=== PATIENT | female | born 1990 | race African-American/Black ===

== ENCOUNTER 2019-04-22 11:30 | Emergency (ER) | payer SELFPAY ==
--- NOTE | 2019-04-22 12:05 | EDPHYS ---
Physician Documentation [facility] Name: Aleksandra Cheng Age: 29 yrs Sex: Female : 1990 Arrival Date: 04/22/2019 Time: 11:32 Bed 19 Private MD: ED Physician Qasim Arredondo HPI: 04/22 11:59 This 29 yrs old Black Female presents to ER via Ambulatory with complaints of Abscess. néstor 11:59 The patient presents with an abscess of the face and mouth, the patient presents with a néstor swollen area of the left cheek. Description: swollen. Onset: The symptoms/episode began/occurred 2 day(s) ago. Possible cause(s): unknown. Associated signs and symptoms: The patient has no apparent associated signs or symptoms. Modifying factors: the symptoms are alleviated by remaining still, the symptoms are aggravated by pressure. Severity of symptoms: At their worst the symptoms were mild, in the emergency department the symptoms are unchanged. The patient has not experienced similar symptoms in the past. MYSQL DBA: 11:37 LMP 04/02/2019 jl7 Historical: - Allergies: 11:37 PENICILLINS; jl7 - Home Meds: 11:37 None [Active]; jl7 - PMHx: 11:37 None; jl7 - PSHx: 11:37 Cholecystectomy; Tubal ligation; jl7 - Immunization history:: Adult Immunizations not up to date. - Social history:: Smoking status: Patient uses tobacco products, denies chronic smoking, but will smoke occasionally. - Ebola Screening: : No symptoms or risks identified at this time. - Family history:: not pertinent. ROS: 11:59 Constitutional: Negative for fever, chills, and weight loss, Eyes: Negative for injury, néstor pain, redness, and discharge, Neck: Negative for injury, pain, and swelling, Cardiovascular: Negative for chest pain, palpitations, and edema, Respiratory: Negative for shortness of breath, cough, wheezing, and pleuritic chest pain, Abdomen/GI: Negative for abdominal pain, nausea, vomiting, diarrhea, and constipation, Back: Negative for injury and pain, : Negative for injury, bleeding, discharge, and swelling, MS/Extremity: Negative for injury and deformity, Skin: Negative for injury, rash, and discoloration, Neuro: Negative for headache, weakness, numbness, tingling, and seizure. 11:59 ENT: Positive for of the left cheek. Exam: 11:59 Constitutional: This is a well developed, well nourished patient who is awake, alert, néstor and in no acute distress. Head/Face: Normocephalic, atraumatic. Eyes: Pupils equal round and reactive to light, extra-ocular motions intact. Lids and lashes normal. Conjunctiva and sclera are non-icteric and not injected. Cornea within normal limits. Periorbital areas with no swelling, redness, or edema. Neck: Trachea midline, no thyromegaly or masses palpated, and no cervical lymphadenopathy. Supple, full range of motion without nuchal rigidity, or vertebral point tenderness. No Meningismus. Chest/axilla: Normal chest wall appearance and motion. Nontender with no deformity. No lesions are appreciated. Cardiovascular: Regular rate and rhythm with a normal S1 and S2. No gallops, murmurs, or rubs. Normal PMI, no JVD. No pulse deficits. Respiratory: Lungs have equal breath sounds bilaterally, clear to auscultation and percussion. No rales, rhonchi or wheezes noted. No increased work of breathing, no retractions or nasal flaring. Abdomen/GI: Soft, non-tender, with normal bowel sounds. No distension or tympany. No guarding or rebound. No evidence of tenderness throughout. Back: No spinal tenderness. No costovertebral tenderness. Full range of motion. Skin: Warm, dry with normal turgor. Normal color with no rashes, no lesions, and no evidence of cellulitis. MS/ Extremity: Pulses equal, no cyanosis. Neurovascular intact. Full, normal range of motion. Neuro: Awake and alert, GCS 15, oriented to person, place, time, and situation. Cranial nerves II-XII grossly intact. Motor strength 5/5 in all extremities. Sensory grossly intact. Cerebellar exam normal. Normal gait. Psych: Awake, alert, with orientation to person, place and time. Behavior, mood, and affect are within normal limits. 11:59 ENT: Mouth: Lips: normal, Oral mucosa: Gums: normal with healthy appearance. Vital Signs: 11:37 BP 157 / 106; Pulse 64; Resp 16 S; Temp 98.7(O); Pulse Ox 100% on R/A; Weight 88 kg jl7 (R); Height 5 ft. 6 in. (167.64 cm) (R); Pain 8/10; 12:18 BP 145 / 98; Pulse 97; Resp 17; Temp 98.5; Pulse Ox 99% ; bp 11:37 Body Mass Index 31.31 (88.00 kg, 167.64 cm) 7 MDM: 11:42 Patient medically screened. [facility] 11:59 Data reviewed: vital signs, nurses notes. néstor Administered Medications: 12:10 Drug: Clindamycin 600 mg Route: IM; Site: right gluteus; bp 12:19 Follow up: Response: No adverse reaction bp 12:10 Drug: [place] (7.5 mg-325 mg) 1 tabs Route: PO; bp 12:19 Follow up: Response: Medication administered at discharge. bp 12:10 Drug: Zofran 4 mg Route: PO; bp 12:19 Follow up: Response: Medication administered at discharge. bp 12:10 Drug: Clindamycin 300 mg Route: PO; bp 12:19 Follow up: Response: No adverse reaction bp Disposition: 04/22/19 12:04 Discharged to Home. Impression: Dental caries. - Condition is Stable. - Discharge Instructions: Dental Pain, Dental Pain, [id number]. - Prescriptions for Clindamycin HCl 300 mg Oral Capsule - take 1 capsule by ORAL route every 6 hours for 7 days; 28 capsule. Tylenol- Codeine #3 300-30 mg Oral Tablet - take 2 tablets by ORAL route every 6 hours As needed; 24 tablet. Zofran 4 mg Oral Tablet - take 1 tablet by ORAL route every 12 hours As needed; 14 tablet. - Medication Reconciliation Form, Thank You Letter, Antibiotic Education, Prescription Opioid Use form. - Follow up: Private Physician; When: 2 - 3 days; Reason: Recheck today's complaints, Continuance of care, Re-evaluation by your physician. Follow up: Juan Carvalho DDS; When: 2 - 3 days; Reason: Recheck today's complaints, Re-evaluation by your physician. - Problem is new. - Symptoms have improved. Signatures: Qasim Arredondo MD MD cha Leal, Jahala RN RN jl7 Ignacio Ley, RN RN bp Corrections: (The following items were deleted from the chart) 12:27 12:04 04/22/2019 12:04 Discharged to Home. Impression: Dental caries. Condition is bp Stable. Forms are Medication Reconciliation Form, Thank You Letter, Antibiotic Education, Prescription Opioid Use. Follow up: Private Physician; When: 2 - 3 days; Reason: Recheck today's complaints, Continuance of care, Re-evaluation by your physician. Follow up: Juan Carvalho; When: 2 - 3 days; Reason: Recheck today's complaints, Re-evaluation by your physician. Problem is new. Symptoms have improved. néstor
--- NOTE | 2019-04-22 12:05 | ER ---
Nurse's Notes [facility] Name: Aleksandra Cheng Age: 29 yrs Sex: Female : 1990 Arrival Date: 04/22/2019 Time: 11:32 Bed 19 Private MD: Diagnosis: Dental caries Presentation: 04/22 11:34 Presenting complaint: Patient states: Left upper gums pt reports the start of an jl7 abscess, started hurting yesterday, got worse today. Transition of care: patient was not received from another setting of care. Onset of symptoms was April 21, 2019. Risk Assessment: Do you want to hurt yourself or someone else? Patient reports no desire to harm self or others. Initial Sepsis Screen: Does the patient meet any 2 criteria? No. Patient's initial sepsis screen is negative. Does the patient have a suspected source of infection? No. Patient's initial sepsis screen is negative. Care prior to arrival: None. 11:34 Method Of Arrival: Ambulatory [facility] 11:34 Acuity: VIN 4 jl7 Triage Assessment: 11:37 General: Appears in no apparent distress. uncomfortable, Behavior is calm, cooperative, jl7 appropriate for age. Pain: Complains of pain in mouth Pain currently is 8 out of 10 on a pain scale. R DEVELOPER: 11:37 LMP 04/02/2019 jl7 Historical: - Allergies: 11:37 PENICILLINS; jl7 - Home Meds: 11:37 None [Active]; jl7 - PMHx: 11:37 None; jl7 - PSHx: 11:37 Cholecystectomy; Tubal ligation; jl7 - Immunization history:: Adult Immunizations not up to date. - Social history:: Smoking status: Patient uses tobacco products, denies chronic smoking, but will smoke occasionally. - Ebola Screening: : No symptoms or risks identified at this time. - Family history:: not pertinent. Screenin:47 Abuse screen: Denies threats or abuse. Denies injuries from another. Nutritional bp screening: No deficits noted. Tuberculosis screening: No symptoms or risk factors identified. Fall Risk None identified. Assessment: 11:40 General: SEE TRIAGE NOTE. bp 12:10 Reassessment: PT ON SHOT TIME. bp 12:27 Reassessment: PT D/C HOME AMBULATORY WITH FAMILY, DX WITH DENTAL CARIES. bp Vital Signs: 11:37 BP 157 / 106; Pulse 64; Resp 16 S; Temp 98.7(O); Pulse Ox 100% on R/A; Weight 88 kg jl7 (R); Height 5 ft. 6 in. (167.64 cm) (R); Pain 8/10; 12:18 BP 145 / 98; Pulse 97; Resp 17; Temp 98.5; Pulse Ox 99% ; bp 11:37 Body Mass Index 31.31 (88.00 kg, 167.64 cm) 7 ED Course: 11:32 Patient arrived in ED. as 11:36 Triage completed. jl7 11:36 Qasim Arredondo MD is Attending Physician. néstor 11:37 Arm band placed on right wrist. jl7 11:41 Ignacio Ley, RN is Primary Nurse. bp 11:47 Patient has correct armband on for positive identification. Bed in low position. Call bp light in reach. Side rails up X2. 12:03 Juan Carvalho DDS is Referral Physician. néstor 12:18 No provider procedures requiring assistance completed. Patient did not have IV access bp during this emergency room visit. Administered Medications: 12:10 Drug: Clindamycin 600 mg Route: IM; Site: right gluteus; bp 12:19 Follow up: Response: No adverse reaction bp 12:10 Drug: [place] (7.5 mg-325 mg) 1 tabs Route: PO; bp 12:19 Follow up: Response: Medication administered at discharge. bp 12:10 Drug: Zofran 4 mg Route: PO; bp 12:19 Follow up: Response: Medication administered at discharge. bp 12:10 Drug: Clindamycin 300 mg Route: PO; bp 12:19 Follow up: Response: No adverse reaction bp Outcome: 12:04 Discharge ordered by . néstor 12:18 Discharged to home ambulatory, with family. bp 12:18 Condition: stable 12:18 Discharge instructions given to patient, Instructed on discharge instructions, follow up and referral plans. medication usage, Demonstrated understanding of instructions, follow-up care, medications, Prescriptions given X 3. 12:27 Patient left the ED. bp Signatures: Qasim Arredondo MD MD cha Martinez, Amelia as Leal, Jahala, CAS RN jl7 Ignacio Ley, CAS RN bp
[2019-04-22] MEDS ORDERED: HYDROCODONE/APAP 7.5/325 MG TAB ONE (12:13)
[2019-04-22] MEDS ORDERED: CLINDAMYCIN HCL 150 MG CAP ONE (12:13)
[2019-04-22] MEDS ORDERED: ONDANSETRON 4 MG (ODT) TAB ONE (12:13)
[2019-04-22] MEDS ORDERED: CLINDAMYCIN IV 150 MG/ML (4 mL) VIAL ONE (12:14)
[2019-04-22 12:42] VITALS: BP 145/98; TEMP 98.5; O2SAT 99
== END 2019-04-22 12:27 | disposition home or self-care (01) ==
LOC: ER 11:30
DX: K02.9 Dental caries, unspecified (principal); Z88.0 Allergy status to penicillin; Z72.0 Tobacco use
CPT/HCPCS: 96372; 99283; S0077

== ENCOUNTER 2020-09-18 12:01 | Emergency (ER) | payer SELFPAY ==
--- OUTSIDE RECORDS SUMMARY | 2020-09-18 12:03 | XMS REPORT | Continuity of Care Document ---
:1990 Author Organization [facility] t Address [address] [place] [address] Care Team Providers Name Role Phone Asked, Pcp Primary Care Physician Unavailable Phil Verdin Attending Clinician Unavailable Phil Verdin Attending Clinician Unavailable Afuwtorsten, Dewey Attending Clinician Unavailable Afuwape, Dewey Attending Clinician Unavailable Phil Verdin Admitting Clinician Unavailable Afuwtorsten, Dewey Admitting Clinician Unavailable Problems This patient has no known problems. Allergies, Adverse Reactions, Alerts Allergy Allergy Status Severity Reaction(s) Onset Inactive Treating Comm ents Source Name Type Date Date Clinician Penicill Propensi Active Housto n ins ty to 12-31 Methodi adverse 00:00: st reaction 00 s to drug Social History Social Habit Start Date Stop Date Quantity Comments Source Alcohol intake 2016-05-27 2016-05-27 Current [facility] 00:00:00 00:00:00 non-drinker of alcohol (finding) Sex Assigned At [birth year] [facility]ist 00:00:00 00:00:00 Smoking Status Start Date Stop Date Source Current every day smoker 2016-05-27 00:00:00 Adelaide Lamb Medications This patient has no known medications. Procedures This patient has no known procedures. Plan of Care Planned Activity Planned Date Details Comments Source Future Scheduled 2020-12-07 INFLUENZA VACCINE [facility] 00:00:00 [code = INFLUENZA VACCINE] Future Scheduled 2013 Screening for [facility] Test 00:00:00 malignant neoplasm of cervix (procedure) [code = 188434804] Future Scheduled 2008 COVID-19 VACCINE (1) [facility] Test 00:00:00 [code = COVID-19 VACCINE (1)] Encounters Start End Encounter Admission Attending Care Care Encounter Source Date/Time Date/Time Type Type Clinicians Facility Department ID 2020-04-27 2020-04-27 Emergency E [id number] [facility] 12:45:00 12:45:00 2020-02-23 2020-02-23 Emergency 1 Simone Verdin [facility] [place] [id number] 18:33:00 21:25:00 Simone Verdin [facility] 2020-02-23 2020-02-23 Emergency 1 Simone Verdin [facility] [place] [id number] 18:33:00 18:33:00 Simone Verdin -[id number] J [facility] 2020-01-17 2020-01-17 Emergency 1 Tamia [facility] [id number] 14:43:00 15:28:00 [facility] 2016-12-11 2016-12-11 Emergency [facility] [id number] [place] 22:14:06 22:14:06 Health Results Test Description Test Time Test Comments Results Result Comments Source Creatine Kinase 2020-02-23 21:02:48 Test Item Value Reference Range Interpretation Comme nts CK (test code = CK) 114 U/L 34-145 Comprehensive Metabolic [id number] 21:02:47 Test Item Value Reference Range Interpretation Comments Sodium Level (test code = Sodium 140.0 mmol/L 136.0-145.0 Level) Potassium Level (test code = 3.50 mmol/L 3.50-5.10 Potassium Level) Chloride Level (test code = 109.0 mmol/L 98.0-107.0 H Chloride Level) CO2 (test code = CO2) 27 mmol/L 20-31 Anion Gap (test code = Anion 4.3 mmol/L 5.0-15.0 L Gap) BUN (test code = BUN) 10 mg/dL 9-23 Creatinine Level (test code = 0.69 mg/dL 0.55-1.02 Creatinine Level) BUN/Creat Ratio (test code = 14.5 ratio 10.0-20.0 BUN/Creat Ratio) Glucose Level (test code = 101 mg/dL 74-106 Glucose Level) Calcium Level (test code = 8.8 mg/dL 8.3-10.6 Calcium Level) Alk Phos (test code = Alk Phos) 75 U/L 46-116 Bilirubin Total (test code = 0.2 mg/dL 0.2-1.1 Bilirubin Total) Albumin Level (test code = 4.1 g/dL 3.2-4.8 Albumin Level) Protein Total (test code = 6.6 g/dL 5.7-8.2 Protein Total) ALT (test code = ALT) 10 U/L 10-49 AST (test code = AST) 15 U/L <=34 Globulin (test code = Globulin) 2.5 g/dL 2.3-3.5 A/G Ratio (test code = A/G 1.6 g/dL 0.8-2.0 Ratio) Hemolysis (test code = 0 g/dL 1-2 Hemolysis) Icterus (test code = Icterus) 0 g/dL 1-2 Lipemia (test code = Lipemia) 0 g/dL 1-2 Comprehensive Metabolic [id number] 21:02:47 Test Item Value Reference Range Interpretation Comments Sodium Level (test 140.0 mmol/L 136.0-145.0 code = Sodium Level) Potassium Level 3.50 mmol/L 3.50-5.10 (test code = Potassium Level) Chloride Level (test 109.0 mmol/L 98.0-107.0 H code = Chloride Level) CO2 (test code = 27 mmol/L 20-31 CO2) Anion Gap (test code 4.3 mmol/L 5.0-15.0 L = Anion Gap) BUN (test code = 10 mg/dL 9-23 BUN) Creatinine Level 0.69 mg/dL 0.55-1.02 (test code = Creatinine Level) BUN/Creat Ratio 14.5 ratio 10.0-20.0 (test code = BUN/Creat Ratio) Glucose Level (test 101 mg/dL 74-106 code = Glucose Level) Calcium Level (test 8.8 mg/dL 8.3-10.6 code = Calcium Level) Alk Phos (test code 75 U/L 46-116 = Alk Phos) Bilirubin Total 0.2 mg/dL 0.2-1.1 (test code = Bilirubin Total) Albumin Level (test 4.1 g/dL 3.2-4.8 code = Albumin Level) Protein Total (test 6.6 g/dL 5.7-8.2 code = Protein Total) ALT (test code = 10 U/L 10-49 ALT) AST (test code = 15 U/L <=34 AST) Globulin (test code 2.5 g/dL 2.3-3.5 = Globulin) A/G Ratio (test code 1.6 g/dL 0.8-2.0 = A/G Ratio) eGFR AA (test code = >60 >=60 eGFR (e stimated eGFR AA) mL/min/1.73 m2 Glomerular Filtration Rate ) is an estimated va lue, calculated from the patient's serum creatinine usin g the MDRD equation. It is NOT the patient 's actual GFR. The eGFR provides a more clinically usef ul measure of kidn ey disease than se rum creatinine alone.This calculation amanda es sex and race in to account, if the information is provided. If th e race is not provided, and t he patient is -Gilma n, multiply by 1.2 12. If sex is not provided, and t he patient is fema le, multiply by 0.7 42. Results for pat ients <18 years of ag e have not been validated by th e MDRD study and should be interpreted wit h caution. eGFR R esult Interpretation: eGFR > or = 60 is in the Normal RangeeGF R < 60 may mean kid michelle diseaseeGFR < 1 5 may mean kidney failure Rang es recommended by the National Kidney Foundation, http://nkdep.ni h.gov Hemolysis (test code 0 g/dL 1-2 = Hemolysis) Icterus (test code = 0 g/dL 1-2 Icterus) Lipemia (test code = 0 g/dL 1-2 Lipemia) Comprehensive Metabolic [id number] 21:02:47 Test Item Value Reference Range Interpretation Comments Sodium Level (test 140.0 mmol/L 136.0-145.0 code = Sodium Level) Potassium Level 3.50 mmol/L 3.50-5.10 (test code = Potassium Level) Chloride Level (test 109.0 mmol/L 98.0-107.0 H code = Chloride Level) CO2 (test code = 27 mmol/L 20-31 CO2) Anion Gap (test code 4.3 mmol/L 5.0-15.0 L = Anion Gap) BUN (test code = 10 mg/dL 9-23 BUN) Creatinine Level 0.69 mg/dL 0.55-1.02 (test code = Creatinine Level) BUN/Creat Ratio 14.5 ratio 10.0-20.0 (test code = BUN/Creat Ratio) Glucose Level (test 101 mg/dL 74-106 code = Glucose Level) Calcium Level (test 8.8 mg/dL 8.3-10.6 code = Calcium Level) Alk Phos (test code 75 U/L 46-116 = Alk Phos) Bilirubin Total 0.2 mg/dL 0.2-1.1 (test code = Bilirubin Total) Albumin Level (test 4.1 g/dL 3.2-4.8 code = Albumin Level) Protein Total (test 6.6 g/dL 5.7-8.2 code = Protein Total) ALT (test code = 10 U/L 10-49 ALT) AST (test code = 15 U/L <=34 AST) Globulin (test code 2.5 g/dL 2.3-3.5 = Globulin) A/G Ratio (test code 1.6 g/dL 0.8-2.0 = A/G Ratio) eGFR AA (test code = >60 >=60 eGFR (e stimated eGFR AA) mL/min/1.73 m2 Glomerular Filtration Rate ) is an estimated va lue, calculated from the patient's serum creatinine usin g the MDRD equation. It is NOT the patient 's actual GFR. The eGFR provides a more clinically usef ul measure of kidn ey disease than se rum creatinine alone.This calculation amanda es sex and race in to account, if the information is provided. If th e race is not provided, and t he patient is -Gilma n, multiply by 1.2 12. If sex is not provided, and t he patient is fema le, multiply by 0.7 42. Results for pat ients <18 years of ag e have not been validated by th e MDRD study and should be interpreted wit h caution. eGFR R esult Interpretation: eGFR > or = 60 is in the Normal RangeeGF R < 60 may mean kid michelle diseaseeGFR < 1 5 may mean kidney failure Rang es recommended by the National Kidney Foundation, http://nkdep.ni h.gov eGFR Non-AA (test >60.00 >=60.00 eGFR (mesfin mated code = eGFR Non-AA) mL/min/1.73 m2 Glomer ular Filtration Rate ) is an estimated va lue, calculated from the patient's serum creatinine usin g the MDRD equation. It is NOT the patient 's actual GFR. The eGFR provides a more clinically usef ul measure of kidn ey disease than se rum creatinine alone.This calculation amanda es sex and race in to account, if the information is provided. If th e race is not provided, and t he patient is -Gilma n, multiply by 1.2 12. If sex is not provided, and t he patient is fema le, multiply by 0.7 42. Results for pat ients <18 years of ag e have not been validated by th e MDRD study and should be interpreted wit h caution. eGFR R esult Interpretation: eGFR > or = 60 is in the Normal RangeeGF R < 60 may mean kid michelle diseaseeGFR < 1 5 may mean kidney failure Rang es recommended by the National Kidney Foundation, http://nkdep.ni h.gov Hemolysis (test code 0 g/dL 1-2 = Hemolysis) Icterus (test code = 0 g/dL 1-2 Icterus) Lipemia (test code = 0 g/dL 1-2 Lipemia) HCG Qualitative [id number] 19:45:46 Test Item Value Reference Range Interpretation Comments hCG Ur (test code = Negative If the r esult is hCG Ur) "Negative" in p atients suspected to be , recom mend retest with a s ample obtained 48 to 72 hours later, or by ordering a quantitative as say. If the result i s "Borderline" te sting should be repea michaela in 48 to 72 hours. Lot # (test code = [id number] N Lot #) Expiration Dt (test 01-06-21 N code = Expiration Dt) Neg Control (test Negative code = Neg Control) Pos Control (test Positive code = Pos Control) Internal QC (test Acceptable code = Internal QC) Urinalysis with Microscopic if [id number] 19:45:46 Test Item Value Reference Range Interpretation Comments UA Color (test code = UA Color) YELLO Yellow UA Appear (test code = UA CLEAR Clear Appear) UA pH (test code = UA pH) 5.5 N UA Spec Grav (test code = UA 1.030 1.001-1.035 Spec Grav) UA Glucose (test code = UA NEG Negative Glucose) UA Ketones (test code = UA NEG Negative Ketones) UA Blood (test code = UA Blood) NEG Negative UA Protein (test code = UA NEG Negative Protein) UA Bili (test code = UA Bili) NEG Negative UA Urobilinogen (test code = UA .2 mg/dL >0.2 Urobilinogen) UA Nitrite (test code = UA NEG Negative Nitrite) UA Leuk Est (test code = UA NEG Negative Leuk Est) UA Micro Ind? (test code = UA Not Indicated Not Indicated Micro Ind?) Complete Blood Count with [id number] 19:17:51 Test Item Value Reference Range Interpretation Comments WBC (test code = WBC) 6.2 x10 4.4-10.5 RBC (test code = RBC) 4.63 x10 3.75-5.20 Hgb (test code = Hgb) 11.1 g/dL 12.2-14.8 L MCV (test code = MCV) 80.80 fL 80.00-100.00 Hct (test code = Hct) 37.4 % 36.5-44.4 MCHC (test code = 29.70 g/dL 32.00-37.50 L MCHC) RDW CV (test code = 16.2 % 11.5-14.5 H RDW CV) MCH (test code = MCH) 24.0 pg 27.0-32.5 L Platelets (test code = 199.0 x10 140.0-440.0 Platelets) MPV (test code = MPV) 12.2 fL N Slide Review (test Auto Auto Result cr eated by code = Slide Review) GL_SJM_ SLIDE_REV_AUTO [id number] nRBC (test code = 0 N nRBC) NRBC Abs (test code = 0.00 x10 N NRBC Abs) Pos Morph XN (test A N code = Pos Morph XN) Automated [id number] 19:17:51 Test Item Value Reference Range Interpretation Comments Neutro Auto (test code = Neutro 46.1 % 36.0-70.0 Auto) Lymph Auto (test code = Lymph Auto) 45.9 % 12.0-44.0 H Pierce Auto (test code = Pierce Auto) 5.6 % 0.0-11.0 Eos, Auto (test code = Eos, Auto) 1.4 % 0.0-7.0 Basophil Auto (test code = Basophil 0.8 % 0.0-2.0 Auto) Neutro Absolute (test code = Neutro 2.9 x10 1.6-7.4 Absolute) Lymph Absolute (test code = Lymph 2.85 x10 .50-4.60 Absolute) Pierce Absolute (test code = Pierce .35 x10 .00-1.20 Absolute) Eos Absolute (test code = Eos 0.09 x10 0.00-0.74 Absolute) Baso Absolute (test code = Baso 0.05 x10 0.00-0.21 Absolute) IG [id number] 19:17:51 Test Item Value Reference Range Interpretation Comments IG (test code = IG) 0.2 % 0.0-5.0 IG Abs (test code = IG Abs) 0 x10 N Streptococcus A Screen Rapid w/ Reflex [id number] 15:21:41 Test Item Value Reference Range Interpretation Comments Strep A Scn (test code Positive Negative A Resul ts called to = Strep A Scn) and read back by: Ramona Deal 01/17/20 15:21:32 CDT GM Lot # (test code = Lot [id number] N #) Expiration Dt (test 08/21/2020 N code = Expiration Dt) Internal QC (test code Acceptable = Internal QC)
[2020-09-18 13:29] LABS: Absolute Lymphocytes (CBC) 2.2 K/uL (0.7-4.9); Basophils % 1.2 % (0-1.3); Hematocrit 34.3 % (36.0-45.0); Lymphocytes % 37.2 % (15.3-44.8); MPV 10.2 fL (7.6-11.3); RBC Red Blood Cell Count 5.05 M/uL (3.86-4.86)
[2020-09-18 13:38] LABS: ALT/SGPT 15 U/L (12-78); AST/SGOT 12 U/L (15-37); Albumin 3.5 g/dL (3.4-5.0); Alkaline Phosphatase 80 U/L (45-117); BUN Blood Urea Nitrogen 7 mg/dL (7-18); Bicarbonate 28 mmol/L (21-32); Bilirubin Direct 0.1 mg/dL (0-0.2); Bilirubin Total 0.4 mg/dL (0.2-1.0); Glucose Level 87 mg/dL (74-106); Lipase 54 U/L (73-393); Potassium 3.5 mmol/L (3.5-5.1); Protein, Total 7.8 g/dL (6.4-8.2); Sodium Level 140 mmol/L (136-145)
[2020-09-18] MEDS ORDERED: ONDANSETRON 4 MG/2 ML VIAL ONE (13:47)
[2020-09-18] MEDS ORDERED: MORPHINE 4 MG/ML SYR ONE (13:47)
--- NOTE | 2020-09-18 14:49 | RAD REPORT ---
EXAM DESCRIPTION: CTAbdomen Pelvis W Contrast - 09/18/2020 2:38 pm CLINICAL HISTORY: Abdominal pain. ABD PAIN COMPARISON: No comparisons TECHNIQUE: Biphasic CT imaging of the abdomen and pelvis was performed with 100 ml non-ionic IV cont rast. All CT scans are performed using dose optimization technique as appropriate and may include automated exposure control or mA/KV adjustment according to patient size. FINDINGS: The lung bases are clear. Mild fatty liver pattern is seen. Mild pneumobilia is present in the left lobe liver. Cholecystectomy . The spleen, pancreas, adrenal glands and kidneys are within normal limits. No bowel obstruction, free air, free fluid or abscess. The appendix is normal. No evidence of signi ficant lymphadenopathy. Moderate fat containing umbilical hernia. 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 Small left ovarian dermoid tumor is likely present measuring 1 cm. No suspicious bony findings. 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
--- NOTE | 2020-09-18 15:04 | EDPHYS ---
Physician Documentation [facility] Name: Aleksandra Cheng Age: 30 yrs Sex: Female : 1990 Arrival Date: 09/18/2020 Time: 12:05 Bed 6 Private MD: ED Physician Qasim Arredondo HPI: 09/18 14:42 This 30 yrs old Black Female presents to ER via Ambulatory with complaints of Abdominal jr8 Pain. 14:42 The patient presents with abdominal pain in the epigastric area. Onset: The jr8 symptoms/episode began/occurred gradually, and became worse today, and became persistent today. The symptoms radiate to chest. Associated signs and symptoms: none. The symptoms are described as stabbing. Modifying factors: The symptoms are alleviated by nothing, the symptoms are aggravated by nothing. Severity of pain: At its worst the pain was moderate in the emergency department the pain is unchanged. The patient has not experienced similar symptoms in the past. The patient has not recently seen a physician. Historical: - Allergies: 12:26 PENICILLINS; jl7 - Home Meds: 12:26 None [Active]; jl7 - PMHx: 12:26 None; jl7 - PSHx: 12:26 Cholecystectomy; Tubal ligation; jl7 - Immunization history:: Adult Immunizations up to date. - Social history:: Smoking status: Patient reports the use of cigarette tobacco products, smokes one-half pack cigarettes per day. ROS: 14:42 Eyes: Negative for injury, pain, redness, and discharge, ENT: Negative for injury, jr8 pain, and discharge, Neck: Negative for injury, pain, and swelling, Cardiovascular: Negative for chest pain, palpitations, and edema, Respiratory: Negative for shortness of breath, cough, wheezing, and pleuritic chest pain, Back: Negative for injury and pain, MS/Extremity: Negative for injury and deformity, Skin: Negative for injury, rash, and discoloration, Neuro: Negative for headache, weakness, numbness, tingling, and seizure. 14:42 Abdomen/GI: Positive for abdominal pain, Negative for nausea, vomiting, and diarrhea. Exam: 14:42 Cardiovascular: Regular rate and rhythm with a normal S1 and S2. No gallops, murmurs, jr8 or rubs. Normal PMI, no JVD. No pulse deficits. Respiratory: Lungs have equal breath sounds bilaterally, clear to auscultation and percussion. No rales, rhonchi or wheezes noted. No increased work of breathing, no retractions or nasal flaring. Back: No spinal tenderness. No costovertebral tenderness. Full range of motion. Skin: Warm, dry with normal turgor. Normal color with no rashes, no lesions, and no evidence of cellulitis. MS/ Extremity: Pulses equal, no cyanosis. Neurovascular intact. Full, normal range of motion. Neuro: Awake and alert, GCS 15, oriented to person, place, time, and situation. Cranial nerves II-XII grossly intact. Motor strength 5/5 in all extremities. Sensory grossly intact. Cerebellar exam normal. Normal gait. 14:42 Abdomen/GI: Inspection: obese Bowel sounds: active, all quadrants, Palpation: mild abdominal tenderness, in the epigastric area, mass, is not appreciated, rebound tenderness, is not appreciated, voluntary guarding, is not appreciated, involuntary guarding, is not appreciated, no appreciated organomegaly, Indicators: McBurney's point is not tender, Evans's sign is negative, Rovsing's sign is negative, Liver: tenderness, is not appreciated. Vital Signs: 12:23 BP 164 / 122 LA; Pulse 89; Resp 17 S; Temp 97.9(TE); Pulse Ox 99% on R/A; Weight 120.2 jl7 kg (R); Height 5 ft. 6 in. (167.64 cm); Pain 8/10; 12:26 BP 162 / 122 RA; jl7 12:51 BP 151 / 105; Pulse 87; Resp 16; Pulse Ox 99% on R/A; em 14:44 BP 128 / 91; Pulse 55; Resp 18; Pulse Ox 100% on R/A; em 12:23 Body Mass Index 42.77 (120.20 kg, 167.64 cm) jl7 MDM: 12:38 Patient medically screened. jr8 15:02 Data reviewed: vital signs, nurses notes, lab test result(s), radiologic studies, CT jr8 scan. Data interpreted: Pulse oximetry: on room air is 100 %. Interpretation: normal. Counseling: I had a detailed discussion with the patient and/or guardian regarding: the historical points, exam findings, and any diagnostic results supporting the discharge/admit diagnosis, lab results, radiology results, the need for outpatient follow up, a hair specialist, an OB/Gyne specialist, to return to the emergency department if symptoms worsen or persist or if there are any questions or concerns that arise at home. 09/18 12:48 Order name: Basic Metabolic Panel; Complete Time: 13:55 jr8 09/18 12:48 Order name: CBC with Diff; Complete Time: 15:16 8 09/18 12:48 Order name: Hepatic Function; Complete Time: 13:55 jr8 09/18 12:48 Order name: Lipase; Complete Time: 13:55 jr8 09/18 13:32 Order name: CBC Smear Scan; Complete Time: 15:16 EDMS 09/18 14:20 Order name: CT Abd/Pelvis - IV Contrast Only; Complete Time: 14:52 09/18 12:48 Order name: IV Saline Lock; Complete Time: 12:54 jr8 09/18 12:48 Order name: Labs collected and sent; Complete Time: 12:54 8 09/18 13:15 Order name: EKG; Complete Time: 13:15 8 09/18 13:15 Order name: EKG - Nurse/Tech; Complete Time: 13:41 jr8 Administered Medications: 13:40 Drug: morphine 4 mg Route: IVP; Site: right antecubital; kg 14:44 Follow up: Response: No adverse reaction; Marked relief of symptoms; Pain is decreased; em RASS: Alert and Calm (0) 13:40 Drug: Zofran (Ondansetron) 4 mg Route: IVP; Site: right antecubital; kg 14:44 Follow up: Response: No adverse reaction em Disposition: 09/18/20 15:04 Discharged to Home. Impression: Dermoid Tumor, Epigastric pain. - Condition is Stable. - Discharge Instructions: Abdominal Pain, Adult, Gastritis, Adult, Upper Endoscopy. - Prescriptions for omeprazole 40 mg Oral capsule,delayed release(DR/EC) - take 1 capsule by ORAL route once daily before a meal; 30 capsule. - Work release form, Medication Reconciliation Form, Thank You Letter, Antibiotic Education, Prescription Opioid Use form. - Follow up: Ollie Ralph MD; When: 5 - 6 days; Reason: Recheck today's complaints, Continuance of care, Re-evaluation by your physician. Follow up: Severo Agustin MD; When: 1 week; Reason: Recheck today's complaints, Continuance of care, Re-evaluation by your physician. - Problem is new. - Symptoms have improved. Addendum: 09/20/2020 07:41 Co-signature as Attending Physician, Qasim Arredondo MD I agree with the assessment and c morales plan of care. Signatures: Dispatcher [employer] Qasim Vogt MD MD cha Munoz, Edgar, RN RN em Jamey Wen PA PA jr8 Juan Manuel Moreno RN RN jl7 Veronique Esparza kg Corrections: (The following items were deleted from the chart) 09/18 15:20 15:04 09/18/2020 15:04 Discharged to Home. Impression: Dermoid Tumor; Epigastric pain. em Condition is Stable. Forms are Medication Reconciliation Form, Thank You Letter, Antibiotic Education, Prescription Opioid Use. Follow up: Ollie Ralph; When: 5 - 6 days; Reason: Recheck today's complaints, Continuance of care, Re-evaluation by your physician. Follow up: Severo Agustin; When: 1 week; Reason: Recheck today's complaints, Continuance of care, Re-evaluation by your physician. Problem is new. Symptoms have improved. jr8
--- NOTE | 2020-09-18 15:04 | ER ---
Nurse's Notes [facility] Name: Aleksandra Cheng Age: 30 yrs Sex: Female : 1990 Arrival Date: 09/18/2020 Time: 12:05 Bed 6 Private MD: Diagnosis: Dermoid Tumor;Epigastric pain Presentation: 09/18 12:23 Chief complaint: Patient states: Had gallbladder about 6 years ago, reports RUQ pain jl7 feels similar to that pain, worsening x 4 days, denies N/V/D. Coronavirus screen: Client denies travel out of the [place] in the last 14 days. At this time, the client does not indicate any symptoms associated with coronavirus-19. Ebola Screen: No symptoms or risks identified at this time. Initial Sepsis Screen: Does the patient meet any 2 criteria? No. Patient's initial sepsis screen is negative. Does the patient have a suspected source of infection? No. Patient's initial sepsis screen is negative. Risk Assessment: Do you want to hurt yourself or someone else? Patient reports no desire to harm self or others. Onset of symptoms was September 15, 2020. Care prior to arrival: None. 12:23 Method Of Arrival: Ambulatory [facility] 12:23 Acuity: VIN 3 jl7 Triage Assessment: 12:26 Headache History: The patient has had previous headaches and this one is similar to jl7 previous episodes. General: Appears in no apparent distress. uncomfortable, Behavior is calm, cooperative, appropriate for age. Pain: Complains of pain in right upper quadrant Pain radiates to thoracic area Pain currently is 8 out of 10 on a pain scale. Quality of pain is described as aching, squeezing, gnawing, Pain began 2-3 days ago. Is intermittent, lasting a few minutes. Also complains of no other associated symptoms. Neuro: Level of Consciousness is awake, alert, obeys commands, Oriented to person, place, time, situation. Historical: - Allergies: 12:26 PENICILLINS; jl7 - Home Meds: 12:26 None [Active]; jl7 - PMHx: 12:26 None; jl7 - PSHx: 12:26 Cholecystectomy; Tubal ligation; jl7 - Immunization history:: Adult Immunizations up to date. - Social history:: Smoking status: Patient reports the use of cigarette tobacco products, smokes one-half pack cigarettes per day. Screenin:30 Abuse screen: Denies threats or abuse. Nutritional screening: No deficits noted. em Tuberculosis screening: No symptoms or risk factors identified. Fall Risk None identified. Assessment: 12:44 General: Appears in no apparent distress. comfortable, Behavior is calm, cooperative, em appropriate for age, Denies fever. Pain: Complains of pain in right upper quadrant and left upper quadrant Pain currently is 8 out of 10 on a pain scale. Pain began 1 year ago, but has been getting worse past few days. Neuro: Level of Consciousness is awake, alert, obeys commands, Oriented to person, place, time, situation. Cardiovascular: Capillary refill < 3 seconds Patient's skin is warm and dry. Respiratory: Airway is patent Respiratory effort is even, unlabored, Respiratory pattern is regular, symmetrical. GI: Patient currently denies diarrhea, nausea, vomiting. Derm: Skin is intact, is healthy with good turgor, Skin is pink, warm \T\ dry. Musculoskeletal: Capillary refill < 3 seconds, Range of motion: intact in all extremities. 14:44 Reassessment: Patient appears in no apparent distress at this time. Patient and/or em family updated on plan of care and expected duration. Pain level reassessed. Patient is alert, oriented x 3, equal unlabored respirations, skin warm/dry/pink. Patient states feeling better. Patient states symptoms have improved. Vital Signs: 12:23 BP 164 / 122 LA; Pulse 89; Resp 17 S; Temp 97.9(TE); Pulse Ox 99% on R/A; Weight 120.2 jl7 kg (R); Height 5 ft. 6 in. (167.64 cm); Pain 8/10; 12:26 BP 162 / 122 RA; jl7 12:51 BP 151 / 105; Pulse 87; Resp 16; Pulse Ox 99% on R/A; em 14:44 BP 128 / 91; Pulse 55; Resp 18; Pulse Ox 100% on R/A; em 12:23 Body Mass Index 42.77 (120.20 kg, 167.64 cm) jl7 ED Course: 12:05 Patient arrived in ED. mr 12:26 Triage completed. jl7 12:29 Arm band placed on right wrist. jl7 12:30 Jorge Luis Warner, RN is Primary Nurse. em 12:30 Patient has correct armband on for positive identification. em 12:32 Primary Nurse role handed off by Jorge Luis Warner RN kg 12:32 Veronique Esparza is Primary Nurse. kg 12:38 Jamey Wen PA is PHCP. jr8 12:38 Qasim Arredondo MD is Attending Physician. jr8 12:43 Inserted saline lock: 20 gauge in right antecubital area, using aseptic technique. kg 14:38 CT Abd/Pelvis - IV Contrast Only In Process Unspecified. EDMS 14:58 No provider procedures requiring assistance completed. em 15:03 Ollie Ralph MD is Referral Physician. jr8 15:03 Severo Agustin MD is Referral Physician. jr8 15:15 IV discontinued, intact, bleeding controlled, No redness/swelling at site. Pressure em dressing applied. Administered Medications: 13:40 Drug: morphine 4 mg Route: IVP; Site: right antecubital; kg 14:44 Follow up: Response: No adverse reaction; Marked relief of symptoms; Pain is decreased; em RASS: Alert and Calm (0) 13:40 Drug: Zofran (Ondansetron) 4 mg Route: IVP; Site: right antecubital; kg 14:44 Follow up: Response: No adverse reaction em Outcome: 15:04 Discharge ordered by . jr8 15:19 Discharged to home ambulatory. em 15:19 Condition: improved 15:19 Discharge instructions given to patient, Instructed on discharge instructions, follow up and referral plans. medication usage, Demonstrated understanding of instructions, follow-up care, medications, Prescriptions given X 1. 15:20 Patient left the ED. em Signatures: Dispatcher [employer] [facility] Ewa Estes Jorge Luis Warner, RN RN em Jamey Wen PA PA jr8 Juan Manuel Moreno RN RN jl7 Veronique Esparza kg Corrections: (The following items were deleted from the chart) 12:29 12:23 BP 164 / 122; Pulse 89bpm; Resp 17bpm; Spontaneous; Pulse Ox 99% RA; Temp 97.9F jl7 Temporal; 120.2 kg Reported; Height 5 ft. 6 in.; BMI: 42.7; Pain 8/10; jl7
[2020-09-18 15:14] LABS: Anisocytosis SLIGHT; Blood Morphology Comment NOTED (NOT SEEN); Hypochromasia 1+; Platelet Estimate ADEQ; White Blood Cell Scan OK (OK)
[2020-09-18 15:15] LABS: Ovalocytes SLIGHT; Poikilocytosis SLIGHT
[2020-09-18 15:34] VITALS: TEMP 97.9
[2020-09-18 15:38] VITALS: BP 128/91; O2SAT 100
== END 2020-09-18 15:20 | disposition home or self-care (01) ==
LOC: ER 12:01
DX: D27.0 Benign neoplasm of right ovary (principal); F17.210 Nicotine dependence, cigarettes, uncomplicated; Z88.0 Allergy status to penicillin
CPT/HCPCS: 36415; 74177; 80048; 80076; 83690; 85025; 93005; 96374; 96375; 99284; J2405; Q9967

== ENCOUNTER 2020-10-09 11:34 | Emergency (ER) | payer SELFPAY ==
--- OUTSIDE RECORDS SUMMARY | 2020-10-09 11:38 | XMS REPORT | Continuity of Care Document ---
:[address] [facility] t Address [address] [place] [address] Care Team Providers Name Role Phone Asked, Pcp Primary Care Physician Unavailable Dany FAIRCHILD, L Attending Clinician Jose REESE, A Attending Clinician William AMAYA Attending Clinician Unavailable Lou CARBALLO Attending Clinician Unavailable Marjan Lord Attending Clinician MARJAN LORD Attending Clinician Unavailable Phil Verdin Attending Clinician Unavailable Phil Verdin Attending Clinician Unavailable AfuwDewey sarmiento Attending Clinician Unavailable AfDewey tilley Attending Clinician Unavailable Phil Verdin Admitting Clinician Unavailable AfDewey tilley Admitting Clinician Unavailable Payers Payer Name Policy Type Policy Number Effective Date Expiration Date S enrrique [facility] [id number] 2020 2030 [facility] SELF-PAYSELF- 00:00:00 23:59:59 PAY [id number] [id number] [place] [address] Problems Condition Condition Condition Status Onset Resolution Last Treating Co mments Source Name Details Category Date Date Treatment Clinician Date 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 [facility] 1 Priority 1 [facility] Disease Active Overview: [place] diagnosis diagnosis 7-19 [facility] 00:00: g of this 00 note might be different from the original. GAF Score:33 H/O H/O Disease Active [place] pilonidal pilonidal -12 [facility]al th cyst cyst 00:00: 00 Elevated Elevated Disease Active [facility] blood blood 12 Health pressure pressure 00:00: (not (not 00 hypertensi hypertensi on) on) RLQ RLQ Disease Active [place] abdominal abdominal Heal th pain pain Allergies, Adverse Reactions, Alerts Allergy Allergy Status Severity Reaction(s) Onset Inactive Treating Comm ents Source Name Type Date Date Clinician Penicill Propensi [facility] adverse [facility]: Medical reaction 00 [facility] s Penicill Propensi [facility] [place] [facility] to 12[facility]31 [facility] adverse 00:00: st reaction 00 s to drug Penicill Propensi Active [facility] in ty to -12 Health adverse 00:00: reaction 00 s to drug Family History Family Member Diagnosis Comments Start Date Stop Date Source Natural father Diabetes [facility] Natural [facility] father Psychiatry [facility] Natural mother Unknown [facility] Social History Social Habit Start Date Stop Date Quantity Comments Source History of tobacco Cigarette Smoker [facility] use Sex Assigned At [facility]th Exposure to Not sure [facility] SARS-CoV-2 (event) Cigarettes smoked 2020-09-20 2020-09-20 [facility] current (pack per 00:00:00 00:00:00 day) - Reported Cigarette 2020-09-20 2020-09-20 [facility] pack-years 00:00:00 00:00:00 Tobacco use and 2020-09-20 2020-09-20 Never used [facility] exposure 00:00:00 00:00:00 Alcohol intake 2020-09-20 2020-09-20 Ex-drinker [facility] 00:00:00 00:00:00 (finding) Alcohol Comment 2016-11-25 2016-11-25 socially [facility] alth 00:00:00 00:00:00 Smoking Status Start Date Stop Date Source Current every day smoker 2020-09-20 00:00:00 [facility] Medications Ordered Filled Start Stop Current Ordering Indication Dosage Frequency Signature Comments Components Source Medication Medication Date Date Medication? Clinician (SIG) Name Name HYDROcodone 2020- 1{tbl} Take [address] -acetaminop 5-15 05-18 tablet by Freya jeffries (NORCO 00:00: 23:59 mouth Medic al 5-325) 00 :00 every 6 Center 5-325 mg (six) per tablet hours as needed for Pain for up to 3 days. Max Daily Amount: 4 tablets amLODIPine Yes Unspecified 5mg QD Take 1 [facility] (NORVASC) 5 7-20 essential tablet by Health mg tablet 00:00: hypertensio mouth 00 n daily. citalopram Yes MDD (major 20mg QD Take 1 [facility] (CELEXA) 20 7-20 depressive tablet by Health mg tablet 00:00: disorder), mouth 00 recurrent daily. episode, moderate ibuprofen Yes H/O 400mg Take 1 Quan s (MOTRIN) 1-12 pilonidal tablet by ealt 400 mg 00:00: cyst mouth tablet 00 every 6 hours as needed for Pain. Immunizations Ordered Immunization Filled Immunization Date Status Commen ts Source Name Name PPD 2016-11-25 Completed [facility] 00:00:00 Influenza Vaccine 2015-02-17 [facility] 00:00:00 Vital Signs Vital Name Observation Time Observation Value Comments Source Systolic blood 2020-09-21 05:00:00 137 mm[Hg] [facility] pressure Diastolic blood 2020-09-21 05:00:00 90 mm[Hg] [facility] pressure Heart rate 2020-09-21 05:00:00 56 /min [facility] Body temperature 2020-09-21 05:00:00 36.83 Romi [facility] Respiratory rate 2020-09-21 05:00:00 16 /min Dunia is [facility] Oxygen saturation in 2020-09-21 05:00:00 99 /min [facility] Arterial blood by Pulse oximetry Body height 2020-09-20 14:02:00 165.1 cm [facility] Body weight 2020-09-20 14:02:00 123.106 kg [facility] BMI 2020-09-20 14:02:00 45.16 kg/m2 Joe naik Systolic blood 2020-09-20 02:03:00 140 mm[Hg] [facility] Diastolic blood 2020-09-20 02:03:00 73 mm[Hg] [facility] Heart rate 2020-09-20 02:03:00 81 /min [facility] Respiratory rate 2020-09-20 02:03:00 19 /min [facility] Oxygen saturation in 2020-09-20 02:03:00 98 /min [facility] Arterial blood by Medical Ce nter Pulse oximetry Body temperature 2020-09-19 20:33:00 36.94 Romi [facility] Body height 2020-09-19 20:33:00 167.6 cm [facility] Body weight 2020-09-19 20:33:00 120.657 kg [facility] BMI 2020-09-19 20:33:00 42.93 kg/m2 [facility] Procedures Procedure Date / Time Performed Performing Clinician [facility] e U/S TRANSVAGINAL 2020-09-21 06:28:00 Serenity Amaya [facility] DUPLEX DOPPLER ABD/PEL 2020-09-21 06:28[facility] U/S TRANSVAGINAL 2020-09-21 00:13:00 [facility] ABD/PEL 2020-09-21 00:00:00 Gail Carballo [facility] VASCULAR STUDY, COMPLETE U/S PELVIS LTD NON-OB 2020-09-21 00:00:00 Gail Carballo [facility] CT ABDOMEN AND PELVIS 2020-09-20 19:26:54 Luma Garcia [facility] CONTRAST URINALYSIS 2020-09-20 14:31:00 [facility] [place] [facility] URINALYSIS 2020-09-20 14:31:00 Honey [place] [facility] TEST 2020-09-20 14:31:00 Honey [place] [facility] CBC/DIFF 2020-09-20 14:30:00 Honey [place] [facility] BASIC METABOLIC PANEL 2020-09-20 14:30:00 Honey Houston [facility] LIVER PROFILE 2020-09-20 14:30:00 Honey [place] [facility] LIPASE 2020-09-20 14:30:00 Honey [place] [facility] CBC 2020-09-20 14:30:00 Honey [place] [facility] US PELVIS WITH ENDOVAG 2020-09-20 01:48:[address] [facility] - WITH DOPPLER [facility] SARS-COV2/RT-PCR ([facility] & 2020-09-19 23:47:[address] [facility] REF LAB[facility] COMPREHENSIVE METABOLIC 2020-09-19 23:12:[address] [facility] - PANEL [facility] CT ABDOMEN/PELVIS WITH IV 2020-09-19 22:50:[address] [facility] - CONTRAST [facility] CBC W/PLT COUNT & AUTO 2020-09-19 21:10:[address] [facility] - DIFFERENTIAL [facility] SCREEN, URINE 2020-09-19 21:10:[address] [facility] Plan of Care Planned Activity Planned Date Details Comments Source Future Scheduled 2024-04-22 DTAP/TDAP/TD [facility]ACCINES [facility] Test 00:00:00 (2 - Td) [code = [facility] DTAP/TDAP/TD VACCINES (2 - Td)] Future Scheduled 2021-02-06 IMM Influenza Seasonal [facility] Test 00:00:00 Feb to July (>/= 19 yrs) [code = IMM Influenza Seasonal Feb to July (>/= 19 yrs)] Future Scheduled 2021-01-[address] [facility] - Test 00:00:00 (Season Ended) [code = [facility] INFLUENZA VACCINE (Season Ended)] Future Scheduled 2020-12-07 INFLUENZA VACCINE [place] [facility] 00:00:00 [code = INFLUENZA VACCINE] Future Scheduled 2020-05-[address] [facility] - Test 00:00:00 (12+) [code = Medical Center DEPRESSION SCREENING (12+)] Future Scheduled 2017-06-18 Screening for [facility] Test 00:00:00 malignant neoplasm of cervix (procedure) [code = 027670199] Future Scheduled 2013 [facility] 00:00:00 malignant neoplasm of cervix (procedure) [code = 994705206] Future Scheduled [address] - Test 00:00:00 malignant neoplasm of Medica l Center cervix (procedure) [code = 056353291] Future Scheduled [address] [facility] Test 00:00:00 (procedure) [code = Medical Center 36020252] Future Scheduled 2010 HEPATITIS C SCREENING [facility] Test 00:00:00 [code = HEPATITIS C Medical Center SCREENING] Future Scheduled 2004 COVID-19 Vaccine (1) [facility] 00:00:00 [code = COVID-19 Vaccine (1)] Future Scheduled 2004 COVID-19 VACCINE (1) [facility] 00:00:00 [code = COVID-19 VACCINE (1)] Future Scheduled 2004 COVID-19 VACCINE (1) [facility] - Test 00:00:00 [code = COVID-[address] VACCINE (1)] Future Scheduled [address] [facility] - Test 00:00:00 0-64 YRS (1 of 1 - Medical C enter PPSV23) [code = PNEUMOCOCCAL VACCINE 0-64 YRS (1 of 1 - PPSV23)] Encounters Start End Encounter Admission Attending Care Care Encounter Source Date/Time Date/Time Type Type Clinicians Facility Department ID 2020-10-09 2020-10-09 Outpatient [facility] [id number] [place] 00:00:00 00:00:00 [facility] 2020-09-20 2020-09-21 Emergency [facility] [id number] [place] 15:33:00 08:15:00 [place] 2020-09-21 2020-09-21 Emergency SERENITY AMAYA [facility] [id number] [place] 06:21:58 06:21:58 Health 2020-09-21 2020-09-21 Emergency SERENITY AMAYA [facility] [id number] [place] 05:35:30 05:35:30 Health 2020-09-21 2020-09-21 [place] [id number] [place] 00:17:17 00:17:17 [facility] 2020-09-21 2020-09-21 [id number] [place] 00:17:12 00:17:12 [facility] 2020-09-20 2020-09-20 Emergency [place] [id number] [place] 23:24:27 23:24:27 [facility] 2020-09-19 2020-09-19 Emergency TRAUMA [id number] 16:34:00 20:24:00 [place] [id number] 2020-04-27 2020-04-27 Emergency E MHBL MHBL [id number] [facility]BL 12:45:00 12:45:00 2020-02-23 2020-02-23 Emergency 1 Simone Verdin [facility] [place] [id number] 18:33:00 21:25:00 [facility] 2020-02-23 2020-02-23 Emergency 1 Simone Verdin [facility] [place] [id number] 18:33:00 18:33:00 Simone Verdin -[id number] [facility] 2020-01-17 2020-01-17 Emergency 1 Freya Cantrellferny [facility] [id number] 14:43:00 15:28:00 treva armando [facility] 2016-12-11 2016-12-11 Emergency [facility] [id number] [place] 22:14:06 22:14:06 Health Results Test Description Test Time Test Comments Results Result Sourc e Comments U/S TRANSVAGINAL 2020-09-06 IMPRESSION: 1. Arterial Diaz 6 and venous flow is Health 11:05:06 identified in in the right ovary. Lowlikelihood of ovarian torsion. 2. 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 The size of thislesion puts patient at high risk for ovarian torsion. Recommend GYNconsultation. A "PRELIMINARY" report was made available via [employer] at the time ofdictation by the resident indicated below. If the report is described as"FINALIZED" it indicates the attending/staff radiologist below hasreviewed the images and agrees with the resident's interpretation. Dictated By: Ignacio Miller MD, 09/21/2020 6:52 AM I have reviewed the study and agree with the findings in this report. Signed By: Harris Stallings MD, 09/21/2020 11:05 AM Interface, Rad/Mammog In - 09/21/2020 11:10 AM CDT EXAM: Transabdominal and Transvaginal Pelvic Ultrasound with DuplexINDICATION: repeat doppler of right ovary to evaluate for torsion COMPARISON: Same day pelvic ultrasound at 12:19 AM. TECHNIQUE: Grayscale transverse and sagittal transvaginal images wereobtained of the right ovary and adnexa. Transvaginal imaging wasmedically necessary to better evaluate the endometrium and the adnexa. The right ovary was examined with grayscale, color Doppler, and spectralwaveform analysis. CLINICAL HISTORY:30 year old A0; last menstrual period: 09/06/2020.FINDINGS: Right ovary/adnexa: Size: 3.2 x 1.7 x 1.9 cm, normalMass: Again seen is the 8.4 cm mass with echogenic components in theregion of the right adnexa. Vascularity: Normal venous and arterial color flow and waveforms.IMPRESSIONIMPR ESSION: 1. Arterial and venous flow is identified in in the right ovary. Lowlikelihood of ovarian torsion. 2. 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 The size of thislesion puts patient at high risk for ovarian torsion. Recommend GYNconsultation.A "PRELIMINARY" report was made available via [employer] at the time ofdictation by the resident indicated below. If the report is described as"FINALIZED" it indicates the attending/staff radiologist below hasreviewed the images and agrees with the resident's interpretation.Dictated By: Ignacio Miller MD, 09/21/2020 6:52 AMI have reviewed the study and agree with the findings in this report.Signed By: Harris Stallings MD, 09/21/2020 11:05 AM DUPLEX DOPPLER 2020-09-06 IMPRESSION: 1. Arterial [facility] ABD/PEL VASCULAR 6 and venous flow is Health STUDY, COMPLETE 11:05:06 identified in in the right ovary. Lowlikelihood of ovarian torsion. 2. 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 The size of thislesion puts patient at high risk for ovarian torsion. Recommend GYNconsultation. A "PRELIMINARY" report was made available via [employer] at the time ofdictation by the resident indicated below. If the report is described as"FINALIZED" it indicates the attending/staff radiologist below hasreviewed the images and agrees with the resident's interpretation. Dictated By: Ignacio Miller MD, 09/21/2020 6:52 AM I have reviewed the study and agree with the findings in this report. Signed By: Harris Stallings MD, 09/21/2020 11:05 AM Interface, Rad/Mammog In - 09/21/2020 11:10 AM CDT EXAM: Transabdominal and Transvaginal Pelvic Ultrasound with DuplexINDICATION: repeat doppler of right ovary to evaluate for torsion COMPARISON: Same day pelvic ultrasound at 12:19 AM. TECHNIQUE: Grayscale transverse and sagittal transvaginal images wereobtained of the right ovary and adnexa. Transvaginal imaging wasmedically necessary to better evaluate the endometrium and the adnexa. The right ovary was examined with grayscale, color Doppler, and spectralwaveform analysis. CLINICAL HISTORY:30 year old A0; last menstrual period: 09/06/2020.FINDINGS: Right ovary/adnexa: Size: 3.2 x 1.7 x 1.9 cm, normalMass: Again seen is the 8.4 cm mass with echogenic components in theregion of the right adnexa. Vascularity: Normal venous and arterial color flow and waveforms.IMPRESSIONIMPR ESSION: 1. Arterial and venous flow is identified in in the right ovary. Lowlikelihood of ovarian torsion. 2. 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 The size of thislesion puts patient at high risk for ovarian torsion. Recommend GYNconsultation.A "PRELIMINARY" report was made available via [employer] at the time ofdictation by the resident indicated below. If the report is described as"FINALIZED" it indicates the attending/staff radiologist below hasreviewed the images and agrees with the resident's interpretation.Dictated By: Ignacio Miller MD, 09/21/2020 6:52 AMI have reviewed the study and agree with the findings in this report.Signed By: Harris Stallings MD, 09/21/2020 11:05 AM [employer] 2020-09- IMPRESSION: 1. Arterial Diaz NON-OB 6 and venous flow is Health 01:19:31 identified in the left ovary. Lowlikelihood of left ovarian torsion.2. 8.4 cm mass with echogenic component in the right adnexa correspondsto the mature cystic ovarian teratoma seen on the 09/20/2020bdominopelvic CT, which obscures/occupies the right ovary and limitsevaluation of the right ovarian tissue.3. The 1.4 cm hyperechoic structure in the left adnexa likely a smallexophytic left ovarian dermoid cyst. A "PRELIMINARY" report was made available via [employer] at the time ofdictation by the resident indicated below. If the report is described as"FINALIZED" it indicates the attending/staff radiologist below hasreviewed the images and agrees with the resident's interpretation. Dictated By: Ignacio Miller MD, 09/21/2020 12:38 AM I have reviewed the study and agree with the findings in this report. Signed By: Skyler Mauro MD, 09/21/2020 1:19 AM Interface, Rad/Mammog In - 09/21/2020 1:24 AM CDT EXAM: Transabdominal and Transvaginal Pelvic Ultrasound with DuplexINDICATION: abd pain COMPARISON: Abdominopelvic CT dated 09/20/2020. TECHNIQUE: Grayscale transverse and sagittal transabdominal andtransvaginal images were obtained of the pelvis. Transvaginal imagingwas medically necessary to better evaluate the endometrium and theadnexa. The ovaries were examined with grayscale, color Doppler, andspectral waveform analysis. CLINICAL HISTORY:30 year old A0; last menstrual period: 09/06/2020.FINDINGS: Uterus Orientation: Normal Size: 8.7 x 4.6 x 6.1 cm, normal Mass: None Cervix: Normal Endometrium: Thickness: 1.1 cm, Normal. Appearance: Homogeneous echotexture without focal thickening. Traceendometrial fluid.Right ovary/adnexa: The right ovary is not clearly identified. An 8.4 x 7.3 x 6.8 cm masswith echogenic component is seen in the region of the right adnexa witha 5.7 x 4 x 4.7 cm echogenic component.Left ovary/adnexa: Size: 3.3 x 3 x 2.2 cm Mass/Cyst: A 1.4 x 1.2 x 1.4 cm hyperechoic circumscribed structureis seen in the left adnexa adjacent to the left ovary. Vascularity: Normal venous and arterial color flow and waveforms.Cul-de-sac: Trace free fluidIMPRESSIONIMPRESSIO N: 1. Arterial and venous flow is identified in the left ovary. Lowlikelihood of left ovarian torsion.2. 8.4 cm mass with echogenic component in the right adnexa correspondsto the mature cystic ovarian teratoma seen on the 09/20/2020bdominopelvic CT, which obscures/occupies the right ovary and limitsevaluation of the right ovarian tissue.3. The 1.4 cm hyperechoic structure in the left adnexa likely a smallexophytic left ovarian dermoid cyst.A "PRELIMINARY" report was made available via [employer] at the time ofdictation by the resident indicated below. If the report is described as"FINALIZED" it indicates the attending/staff radiologist below hasreviewed the images and agrees with the resident's interpretation.Dictated By: Ignacio Miller MD, 09/21/2020 12:38 AMI have reviewed the study and agree with the findings in this report.Signed By: Skyler Mauro MD, 09/21/2020 1:[address] ABDOMEN AND 2020-09-06 IMPRESSION: 1. An 8.3 Diaz PELVIS CONTRAST 5 cm fat-containing mass Health 22:51:36 arising from the right ovaryrepresents a mature cystic ovarian teratoma (ovarian dermoid). Pleasenote that the right ovary is at increased risk of torsion.2. A 1 cm lucent lesion in the right lateral eighth rib, demonstratebenign features and may represent a benign lesion such as fibrousdysplasia or an aneurysmal bone cyst. A "PRELIMINARY" report was made available via [employer] at the time ofdictation by the resident indicated below. If the report is described as"FINALIZED" it indicates the attending/staff radiologist below hasreviewed the images and agrees with the resident's interpretation. Dictated By: Ignacio Miller MD, 09/20/2020 8:58 PM I have reviewed the study and agree with the findings in this report. Signed By: Skyler Mauro MD, 09/20/2020 10:51 PM Interface, Rad/Mammog In - 09/20/2020 10:56 PM CDT EXAM: CT Abdomen and Pelvis WITH contrast INDICATION: RLQ abdominal pain COMPARISON: None available TECHNIQUE: Abdomen and pelvis were scanned utilizing a multidetectorhelical scanner from the lung base to the pubic symphysis afteradministration of IV contrast. Coronal and sagittal reformations wereobtained. Routine protocol was performed. Scan was performed when duringportal venous phase. IV CONTRAST: 100 mL of Omnipaque 300 ORAL CONTRAST: Water COMPLICATIONS: NoneRADIATION DOSE: Total DLP: 724 mGy*cm Estimated effective dose: (DLP x 0.015 x size factor) mSv CTDIvol has been reviewed. It is below the limits set by theRadiation Protocol Committee (RPC).FINDINGS:LINES and TUBES: None.LOWER THORAX: UnremarkableHEPATOBILIAR Y: Focal fatty infiltration adjacent to the falciformligament. No focal hepatic lesions. No biliary ductal dilation. Centralmild pneumobilia.GALLBLADDER: Absent.SPLEEN: No splenomegaly. Incidental 3 mm splenule (series 2, image 40). PANCREAS: No focal masses or ductal dilatation. ADRENALS: No adrenal nodules KIDNEYS/URETERS: Kidneys enhance symmetrically. No hydronephrosis. Nocystic or solid mass lesions. No stones.GI TRACT: Radiopaque contrast within the visualized colon, possibly fromprior contrast enhanced study. No abnormal distention, wall thickening,or evidence of bowel obstruction. Appendix is normal. Medially displacedleft colon.PELVIC ORGANS/BLADDER: The bladder and uterus are unremarkable inappearance. A 7 x 6.2 x 8.3 cm predominantly fat containing lesion isseen arising from the right ovary (series 2, image 100). Within thelesion are soft tissue densities and a 5 mm calcification (series 2,image 97).LYMPH NODES: Few prominent bilateral inguinal lymph nodes, for example a1.1 cm left inguinal lymph node (series 2, image 147), likely reactive.Otherwise, no lymphadenopathy.VESSELS: Unremarkable.PERITONEUM / RETROPERITONEUM: No free air or fluid.BONES: A well delineated 1 cm lucent lesion is seen in the right lateraleighth rib (series 2, image 13) with increased narrow zone of transitionand no associated periosteal reaction.SOFT TISSUES: Fat containing paraumbilical hernia.IMPRESSIONIMPRESS ION: 1. An 8.3 cm fat-containing mass arising from the right ovaryrepresents a mature cystic ovarian teratoma (ovarian dermoid). Pleasenote that the right ovary is at increased risk of torsion.2. A 1 cm lucent lesion in the right lateral eighth rib, demonstratebenign features and may represent a benign lesion such as fibrousdysplasia or an aneurysmal bone cyst.A "PRELIMINARY" report was made available via [employer] at the time ofdictation by the resident indicated below. If the report is described as"FINALIZED" it indicates the attending/staff radiologist below hasreviewed the images and agrees with the resident's interpretation.Dictated By: Ignacio Miller MD, 09/20/2020 8:58 PMI have reviewed the study and agree with the findings in this report.Signed By: Skyler Mauro MD, 09/20/2020 10:51 PM Basic Metabolic Panel 2020-09-20 16:25:00 Test Item Value Reference Range Interpretation Comme nts Sodium (test code = 2951-2) 142 mmol/L 136-145 Potassium (test code = 2823-3) 4.3 mmol/L 3.5-5.1 Chloride (test code = 2075-0) 105 mmol/L 98-107 CO2 (test code = 64940426) 28 mmol/L 21-31 Urea Nitrogen (test code = 7.0 mg/dL 7-25 [id number]) Creatinine (test code = 0.9 mg/dL 0.6-1.2 65635268) Glucose (test code = 94402319) 102 mg/dL 70-110 Calcium (test code = 03711086) 8.8 mg/dL 8.6-10.3 eGFR If Africn Am (test code = 90 See_Comment [Automated message] The 21913554) system which ge nerated this result transmit pascual reference range: >=90 mL/ min/1.73 m2. The reference r roberta was not used to interpr et this result as lore l/abnormal. Anion Gap (test code = 35485822) 9 mmol/L 5-16 Lab Interpretation (test code = Normal 69773-0) [facility]:25:00 Test Item Value Reference Range Interpretation Comments Lipase (test code = 46211353) 20 U/L 11-82 Lab Interpretation (test code = Normal 42256-8) [facility] [id number] 16:25:00 Test Item Value Reference Range Interpretation Comments Bilirubin, Total (test code = 0.2 mg/dL 0.2-1.2 5-2) Alkaline Phosphatase (test code = 65 U/L 34-104 54695585) AST (test code = 32468945) 11 U/L 13-39 L Direct Bilirubin (test code = 0.1 mg/dL 0-0.2 1968-7) ALT (test code = 96686248) 8 U/L 7-52 Albumin (test code = 49008-4) 3.8 g/dL 3.7-5.3 Lab Interpretation (test code = Abnormal 26396-8) [facility]cy4781-41-99 15:53:00 Test Item Value Reference Range Interpretation Comments Color (test code = Yellow Colorless, Straw, 68896624) Yellow Clarity (test code = Hazy Clear A 93494224) Spec Leola, Ur (test 1.025 1.001-1.035 code = 54008510) pH, Ur (test code = 7.0 5.0-8.0 62114473) Protein, Ur (test code 1+ Negative mg/dL A = 68010639) Glucose, Ur (test code Negative Negative mg/dL = 35531416) Ketone, Ur (test code = Negative Negative mg/dL 32463511) Bilirubin, Ur (test Negative Negative mg/dL code = 70401576) Nitrite, Ur (test code Negative Negative = 13180075) Leukocyte (test code = Negative Negative mg/dL 02665369) Blood, Ur (test code = Negative Negative mg/dL 41995375) RBC (test code = 2 See_Comment [Automated 98303077) message] The sy stem which generated this result transmitted reference range : 0 - 4 /HPF. The reference range was not used to interpret this result as normal/abnormal . WBC (test code = <1 See_Comment [Automated 62331466) message] The sy stem which generated this result transmitted reference range : 0 - 5 /HPF. The reference range was not used to interpret this result as normal/abnormal . Epithelial Cell (test 45 See_Comment H [Auto mated code = 47133084) message] Th e system which generated this result transmitted reference range : <=1 /HPF. The reference range was not used to interpret this result as normal/abnormal . Mucous (test code = Present None seen /HPF A 25042833) Urobilinogen, Ur (test 1.0 EU/dL <1.0 A code = 78693006) Lab Interpretation Abnormal (test code = 52972-2) [facility]/[id number] 15:44:00 Test Item Value Reference Range Interpretation Comments WBC (test code = 6690-2) 6.1 K/uL 4.5-11 RBC (test code = 789-8) 4.78 See_Comment [Au tomated message] The system [employer] h generated this result transmit pascual reference range : 4.20 - 5.40 M/u L. The reference r roberta was not used to interpret this result as normal/abnormal . Hemoglobin (test code = 9.7 g/dL 12-16 L 718-7) Hematocrit (test code = 35.8 % 37-47 L 4544-3) MCV (test code = 787-2) 74.9 fL 82-92 L MCH (test code = 785-6) 20.3 pg 27-32 L MCHC (test code = 786-4) 27.1 g/dL 32-36 L RDW (test code = 45.3 fL 36.4-46.3 44777-9) Platelet (test code = 209 K/uL 150-400 777-3) Mean Platelet Volume 12.1 fL 9.4-12.4 (test code = 57091-7) Percent NRBC (test code 0.0 % = 48446588) Neutrophil (test code = 56.3 % 34-70 770-8) Lymphs (test code = 32.7 % 20-50 736-9) Monocytes (test code = 7.3 % 5-12 5905-5) Eos (test code = 713-8) 2.8 % 0.7-5 Basos (test code = 0.7 % 0.1-1.2 706-2) Immature Granulocytes 0.2 % 0-0.5 (test code = 28736372) Neutrophils (Absolute) 3.41 K/uL 1.56-6.13 (test code = 41344124) Lymphs (Absolute) (test 1.98 K/uL 1.18-3.74 code = 05969243) Monocytes(Absolute) 0.44 K/uL 0.24-0.36 H (test code = 43395943) Eos (Absolute) (test 0.17 K/uL 0.04-0.36 code = 06978946) Baso (Absolute) (test 0.04 K/uL 0.01-0.08 code = 04811682) Immature Grans (Abs) 0.01 K/uL 0-0.03 (test code = 53651184) Absolute NRBC (test code 0.00 K/uL = 01087275) Lab Interpretation (test Abnormal code = 58117-4) [id number] 15:42:00 Test Item Value Reference Range Interpretation Comments (test code = 86513508) Negative Negative Lab Interpretation (test code = Normal 65484-1) [facility], PEL[facility], WITH ENDOVAG AND [id number] 01:52:00Reason for exam:->ABDOMINAL PAINR flank pain and lower back pain for 3 days. Reason for exam:->GENERALIZED BODY ACHES [facility] : 1990 Sex: FFINAL REPORT HISTORY: Right lower quadrant pain Pelvic ultrasound dated 09/20/2020 Comment: Real-time transpelvic and transvaginal ultrasound were performed. Colorand spectral Doppler interrogation of the adnexa was performed to evaluate ovarian blood flow. The uterus measures 10.2 x 5.0 x 6.4 cm. Endometrial stripe measures 0.9 cm in thickness. Both endometrium and myometrium are unremarkable. There is a mixed echogenicity lesion arising from the right ovaryconsistent with a dermoid cyst seen on CT abdomen and pelvis dated 09/19/2020. It measures 7.9 x 7.7 x 7.2 cm. There is peripheral color and spectral Doppler signal excluding the possibility of completeovarian torsion. Left ovary measures 4.4 x 3.4 x 2.8 cm. There is normal Doppler signal to the left ovary. No free fluid is seen in the cul-de-sac. Impression: 7.9 x 7.7 x 7.2 cm right ovarian dermoid. There is detectable Doppler signal at the periphery of the dermoid excluding the possibility of portion at the time of imaging. Signed: Hebert Taylor MDReport Verified Date/Time: 09/20/2020 01:52:04 US pelvis with endovag with elpoudt2665-93-34 01:52:00Interface, External Ris In - 09/20/2020 1:54 AM CDTFINAL REPORT HISTORY: Right lower quadrant pain Pelvic ultrasound dated 09/20/2020 Comment: Real-time transpelvic and transvaginal ultrasound were performed. Color and spectral Doppler interrogation of the adnexa was performed to evaluate ovarian blood flow. The uterus measures 10.2 x 5.0 x 6.4 cm. Endometrial stripe measures 0.9 cm in thickness. Both endometrium and myometrium are unremarkable. There is a mixed echogenicity lesion arising from the right ovary consistent with a dermoid cyst seen on CT abdomen and pelvis dated 09/19/2020. It measures 7.9 x 7.7 x 7.2 cm. There is peripheral color and spectral Doppler signal excluding the possibility of complete ovarian torsion. Left ovary measures 4.4 x 3.4 x 2.8 cm. There is normal Doppler signal to the left ovary. No free fluid is seen in the cul-de-sac. Impression: 7.9 x 7.7 x 7.2 cm right ovarian dermoid. There is detectable Doppler signal at the periphery of the dermoid excluding the possibility of portion at the time of imaging. Signed: Hebert Taylor MDReport Verified Date/Time: 09/20/2020 01:52:04 [facility] SARS-CoV2/RT-PCR (Asymptomatic ONLY)2020-09-20 00:55:00 Test Item Value Reference Range Interpretation Comments SARS-COV2/RT-PCR Negative Not Detected, Performanc e of the Xpert (test code = Negative, See Xpress 41898-5) external report SARS-CoV-2/F freya/RSV test for linked test has only bee n established in nasopharyngeal swab specimens. Use of the Xpert Xpress SARS-CoV-2/Flu/ RSV test with other spec imen types has not b een assessed and pe rformance characteristics are unknown. As wi th any molecular test, mutations withi n the targeted geneti c regions identified by t he Xpert Xpress SARS-CoV-2/Flu/ RSV test could affect pr mayank and/or probe bi nding resulting in fa ilure to detect the pres ence of virus or the vi alex being detected less predictably.Neg ative results do not preclude SARS-CoV-2, Inf luenza A/B, or RSV inf ection and should not be used as the sole bas is for treatment or ot her patient managem ent decisions. Res ults from the Xpert Xpres s SARS-CoV-2/Flu/ RSV test should be corre lated with the clinic al history, epidem iological data, and other data available to th e clinician evalu ating the patient. Inval id test results may occ ur from improper specim en collection; vinicio lure to follow the esteban mmended sample collecti on, handling, and s torage procedures; jacey hnical error. False ne gative results may occ ur if virus is presen t at levels below th e analytical limi t of detection (LOD: 131 copies/mL). Vi ral nucleic acid ma y persist in vivo, indepe ndent of virus viability . Detection of an alyte target(s) does not imply that the corres ponding virus(es) are i nfectious or are the caus ative agents for clin ical symptoms. Rece nt patient exposur e to FluMist or ot her live attenuated infl uenza vaccines may ca use inaccurate posi tive results.This te st has been authorized by FDA under an EUA fo r use by authorized labo ratories. This test is o nly authorized for the duration of the declaration yamilka t circumstances e xist justifying the authorization o f emergency use o f in vitro diagnosti c tests for detection a nd/or diagnosis of CO VID-19 under Section 5 64(b)(1) of the Federal Food, Drug and Cosmet ic Act, 21 U.S.C. 360bbb-3(b)(1), unless the authorizati on is terminated or r evoked sooner. Fact Sh eet for Healthcare Prov iders: https://www.Viewpoints.[employer]/ Documents/Xpert %20Xpress %21RCPC-GwK-2-F freya-RSV/30 24508%20Rev.%2 0B%20HCP% 20Fact%20Sheet. pdf Fact Sheet for Healt hcare Patients: https://www.Viewpoints.[employer]/ Documents/Xpert %20Xpress %99VYYB-ZjW-6-F freya-RSV/30 2-4507%20Rev.%2 0B%20Pati ent%20Fact%20Sh eet.pdf SARS-COV-2 SLSL Performed at:[facility] PERFORMING LAB Rasheeda nelson1317 (test code = [place] 93118-9) [place] [address] ph: [phone] [facility]F [facility]2020-09-20 00:55:00 Test Item Value Reference Range Interpretation Comments SARS-COV2/RT-PCR Negative Not Detected, Performanc e of the Xpert (test code = Negative, See Xpress 4551065) external report SARS-CoV-2/F freya/RSV test for linked test has only bee n established in nasopharyngeal swab specimens. Use of the Xpert Xpress SARS-CoV-2/Flu/ RSV test with other spec imen types has not b een assessed and pe rformance characteristics are unknown. As wi th any molecular test, mutations withi n the targeted geneti c regions identified by t he Xpert Xpress SARS-CoV-2/Flu/ RSV test could affect pr mayank and/or probe bi nding resulting in fa ilure to detect the pres ence of virus or the vi alex being detected less predictably.Neg ative results do not preclude SARS-CoV-2, Inf luenza A/B, or RSV inf ection and should not be used as the sole bas is for treatment or ot her patient managem ent decisions. Res ults from the Xpert Xpres s SARS-CoV-2/Flu/ RSV test should be corre lated with the clinic al history, epidem iological data, and other data available to th e clinician evalu ating the patient. Inval id test results may occ ur from improper specim en collection; vinicio lure to follow the esteban mmended sample collecti on, handling, and s torage procedures; jacey hnical error. False ne gative results may occ ur if virus is presen t at levels below th e analytical limi t of detection (LOD: 131 copies/mL). Vi ral nucleic acid ma y persist in vivo, indepe ndent of virus viability . Detection of an alyte target(s) does not imply that the corres ponding virus(es) are i nfectious or are the caus ative agents for clin ical symptoms. Rece nt patient exposur e to FluMist or oth er live attenuated infl uenza vaccines may ca use inaccurate posi tive results.This te st has been authorized by FDA under an EUA fo r use by authorized labo ratories. This test is o nly authorized for the duration of the declaration yamilka t circumstances e xist justifying the authorization o f emergency use o f in vitro diagnosti c tests for detection a nd/or diagnosis of CO VID-19 under Section 5 64(b)(1) of the Federal Food, Drug and Cosmet ic Act, 21 U.S.C. 360bbb-3(b)(1), unless the authorizati on is terminated or r evoked sooner.Fact She et for Healthcare Prov iders: https://www.[employer]/ Documents/Xpert %20Xpress %32YBSI-QzG-3-F freya-RSV/30 2-4508%20Rev.%2 0B%20HCP% 20Fact%20Sheet. pdfFact Sheet for Healt hcare Patients: https://www.[employer]/ Documents/Xpert %20Xpress %40LHEL-SkV-8-F freya-RSV/30 2-4507%20Rev.%2 0B%20Pati ent%20Fact%20Sh eet.pdf SARS-COV-2 SLSL Performed at:[facility]ING LAB [facility] (test code = [facility] 9881763) [place] [address] ph: [phone] Comprehensive metabolic [id number] 23:43:00 Test Item Value Reference Range Interpretation Comments Protein, Total (test 6.4 See_Comment [Autom ated code = 2885-2) message] The system which generated this result transmit pascual reference range : 6.0 - 8.5 gm/dL . The reference range was not u sed to interpret th is result as normal/abnormal . Albumin (test code = 3.3 g/dL 3.5-5 L 12435-1) Alkaline Phosphatase 67 U/L 30-115 (test code = 6768-6) Total Bilirubin (test 0.2 mg/dL 0.1-1.2 code = 1974-2) Sodium (test code = 139 meq/L 889-977 6733-2) Potassium (test code 4.1 meq/L 3.6-5.5 = 2823-3) Chloride (test code = 105 meq/L 98-106 2075-0) CO2 (test code = 26 meq/L 20-29 8-9) BUN (test code = 7 mg/dL 10-26 L 3094-0) Creatinine (test code 0.72 mg/dL 0.5-1.2 = 2160-0) Glucose (test code = 85 mg/dL 70-110 2345-7) Calcium (test code = 8.6 mg/dL 8.5-10.5 63001-0) AST (test code = 10 U/L 5-40 192-8) ALT (test code = 9 U/L 5-50 1742-6) EGFR (test code = 117 mL/min/1.73 [place] [address]-6) NOT ACCURATE CREATININE CLEARANCE IN PREDICTING GLOMERULAR FILTRATION RATE . ESTIMATED GFR I S NOT APPLICABLE FOR DIALYSIS PATIEN TS. JOE (test code = JOE) [employer] ID - [id number] r ID - [id number] r ID - [id number] r ID - [id number] ID - [id number] ID - BUUV27Zhmzcoqx ID - CITL94Wbdqqkmh ID - LMXP20Vkgvsgen ID - PSEE80Vqeeqrrz ID - QAMN19Efjfsyzz ID - ODPX92Uyxctpih ID - ZABY42Eumfgite ID - LNXZ70Kdmkctsp ID - VKTE83Qmclgtnt ID - [id number] ID - [id number] ID - [id number] ID - XGLT51Xqbzpoae ID - [id number] Lab Interpretation Abnormal (test code = 55663-7) [facility] [id number] 23:43:00 Test Item Value Reference Range Interpretation Comments TOTAL PROTEIN 6.4 gm/dL 6.0-8.5 (BEAKER) (test code = 770) ALBUMIN (BEAKER) 3.3 g/dL 3.5-5.0 L (test code = 1145) ALKALINE PHOSPHATASE 67 U/L 30-115 (BEAKER) (test code = 346) BILIRUBIN TOTAL 0.2 mg/dL 0.1-1.2 (BEAKER) (test code = 377) SODIUM (BEAKER) (test 139 meq/L 135-148 code = 381) POTASSIUM (BEAKER) 4.1 meq/L 3.6-5.5 (test code = 379) CHLORIDE (BEAKER) 105 meq/L 98-106 (test code = 382) CO2 (BEAKER) (test 26 meq/L 20-29 code = 355) BLOOD UREA NITROGEN 7 mg/dL 10-26 L (BEAKER) (test code = 354) CREATININE (BEAKER) 0.72 mg/dL 0.50-1.20 (test code = 358) GLUCOSE RANDOM 85 mg/dL 70-110 (BEAKER) (test code = 652) CALCIUM (BEAKER) 8.6 mg/dL 8.5-10.5 (test code = 697) AST (SGOT) (BEAKER) 10 U/L 5-40 (test code = 353) ALT (SGPT) (BEAKER) 9 U/L 5-50 (test code = 347) EGFR (BEAKER) (test 117 ESTIMATE D GFR IS code = 1092) mL/min/1.73 sq NOT ACCURA TE m CREATININE CLEARANCE IN PREDICTING GLOMERULAR FILTRATION RATE . ESTIMATED GFR I S NOT APPLICABLE FOR DIALYSIS PATIEN TS. [employer] ID - [id number] ID - [id number] ID - [id number] ID - [id number] ID - [id number] ID - [id number] ID - [id number] ID - [id number] ID - [id number] ID - SJGO17Jlcgxbmg ID - XPVG75Hhzyyghg ID - JNOZ55Bncrbdwv ID - [id number] ID - CIOF05Wzpkujoo ID - TSYS61Qieayvjp ID - OXZD68Lyifvyot ID - EFLI71Fuxepept ID - MGSC33Yahclymp ID - [id number], ABDOMEN 2020-09-19 23:27:00With IV AND Oral contrast.Unlisted Reason for Exam - Click Yes and Enter Reason Below->NoWill this procedure require oral contrast?->[facility] : 1990 Sex: FFINAL REPORT CLINICAL HISTORY: Right lower quadrant pain FINDINGS: Multiple axial images of the abdomen and pelvis were performed after the uncomplicated administration of IV contrast. Oral contrast was not given. This exam was performed according to our departmental dose-optimization program, which includes automated exposure control, adjustment of the mA and/orkV according to patient size and/or use of the iterative reconstruction technique. Comparison:None. Lower chest: Clear lungs. No pleural effusion or pneumothorax. Visualized cardiac contours normal. Liver: No significant findings. Gallbladder and biliary tree: Previous cholecystectomy. Pneumobilia probably relates to previous intervention Spleen: No significant findings. Adrenal Glands: No significant findings. Kidneys and ureters: No significant findings. Stomach and Duodenum: No significant findings. Pancreas: No significant findings. Bowel: No significant findings. Appendix: Normal. Bladder: No significant findings. Major vascular structures: No significant findings. Reproductive organs: There is an 8.2 x 6.7 x 9.5 cm right ovarian dermoid cyst containing fat, soft tissue and calcified density. Other: No free air, fluid or adenopathy Skeleton: No acute bony abnormality. IMPRESSION: 8.2 x 6.7 x 9.5 cm right ovarian dermoid. Gynecology evaluation may be in order given the patient's right lowerquadrant pain. Signed: Hebert Taylor MDReport Verified Date/Time: 09/19/2020 23:27:51 CT abdomen/pelvis with IV [id number] 23:27:00Interface, External Ris In - 09/19/2020 11:30 PM CDTFINAL REPORT CLINICAL HISTORY: Right lower quadrant pain FINDINGS: Multiple axial images of the abdomen and pelvis were performed after the uncomplicated administration of IV contrast. Oral contrast was not given. This exam was performed according to our departmental dose-optimization program, which includes automated exposure control, adjustment of the mA and/or kV according to patient size and/or use of the iterative reconstruction technique. Comparison:None. Lower chest: Clear lungs. No pleural effusion or pneumothorax.Visualized cardiac contours normal. Liver: No significant findings. Gallbladder and biliary tree: Previous cholecystectomy. Pneumobilia probably relates to previous intervention Spleen: No significant findings. Adrenal Glands: No significant findings. Kidneys and ureters: No significant findings. Stomach and Duodenum: No significant findings. Pancreas: No significant findings. Bowel: No significant findings. Appendix: Normal. Bladder: No significant findings. Major vascular structures: No significant findings. Reproductive organs: There is an 8.2 x 6.7 x 9.5 cm right ovarian dermoid cyst containingfat, soft tissue and calcified density. Other: No free air, fluid or adenopathy Skeleton: No acute bony abnormality. IMPRESSION: 8.2 x 6.7 x 9.5 cm right ovarian dermoid. Gynecology evaluation may be in order given the patient's right lower quadrant pain. Signed: Hebert Taylor MDReport Verified Date/Time: 09/19/2020 23:27:51 [facility] with platelet count + automated [id number] 21:25:00 Test Item Value Reference Range Interpretation Comments WBC (test code = 6690-2) 7.3 See_Comment [A utomated message] The system [employer] generated this result transmitted ref erence range: 4.0 - 10 .0 K/L. The refe rence range was not u sed to interpret this result as normal/abnor mal. RBC (test code = 789-8) 4.72 See_Comment [Au tomated message] The system [employer] generated this result transmitted ref erence range: 4.00 - 5 .00 M/L. The refe rence range was not u sed to interpret this result as normal/abnor mal. MCHC (test code = 786-4) 28.7 See_Comment L [A utomated message] The system [employer] generated this result transmitted ref erence range: 32.0 - 3 6.0 GM/DL. The refe rence range was not u sed to interpret this result as normal/abnor mal. Hematocrit (test code = 34.1 % 36-46 L 4544-3) MCV (test code = 787-2) 72.2 fL 82-99 L MCH (test code = 785-6) 20.8 pg 27-33 L RDW (test code = 788-0) 17.0 % 12-15 H Platelets (test code = 193 See_Comment [Aut omated message] 777-3) The system [employer] generated this result transmitted ref erence range: 150 - 43 0 K/CU MM. The referen ce range was not u sed to interpret this result as normal/abnor mal. MPV (test code = 11.9 fL 6-11.5 H 11908-8) nRBC (test code = 413) 0 See_Comment [Aut omated message] The system [employer] generated this result transmitted ref erence range: 0 - 0 /1 00 WBC. The refere nce range was not u sed to interpret this result as normal/abnor mal. % Neutros (test code = 44 % 429) % Lymphs (test code = 46 % 430) % Monos (test code = 6 % 431) % Eos (test code = 432) 3 % % Baso (test code = 437) 1 % # Neutros (test code = 3.23 See_Comment [Aut omated message] 670) The system [employer] generated this result transmitted ref erence range: 1.80 - 8 .00 K/L. The refe rence range was not u sed to interpret this result as normal/abnor mal. # Lymphs (test code = 3.40 See_Comment [Auto mated message] 414) The system [employer] generated this result transmitted ref erence range: 1.48 - 4 .50 K/L. The refe rence range was not u sed to interpret this result as normal/abnor mal. # Monos (test code = 0.44 See_Comment [Autom ated message] 415) The system [employer] generated this result transmitted ref erence range: 0.00 - 1 .30 K/L. The refe rence range was not u sed to interpret this result as normal/abnor mal. # Eos (test code = 416) 0.20 See_Comment [Au tomated message] The system [employer] generated this result transmitted ref erence range: 0.00 - 0 .50 K/L. The refe rence range was not u sed to interpret this result as normal/abnor mal. # Baso (test code = 417) 0.05 See_Comment [A utomated message] The system [employer] generated this result transmitted ref erence range: 0.00 - 0 .20 K/L. The refe rence range was not u sed to interpret this result as normal/abnor mal. Immature 0 % 0-0 Granulocytes-Relative (test code = 2801) Lab Interpretation (test Abnormal code = 23022-4) [facility] W/PLT COUNT & AUTO [id number] 21:25:00 Test Item Value Reference Range Interpretation Comments WHITE BLOOD CELL COUNT (BEAKER) 7.3 K/ L 4.0-10.0 (test code = 775) RED BLOOD CELL COUNT (BEAKER) 4.72 M/ L 4.00-5.00 (test code = 761) HEMOGLOBIN (BEAKER) (test code = 9.8 GM/DL 12.0-15.5 L 410) HEMATOCRIT (BEAKER) (test code = 34.1 % 36.0-46.0 L 411) MEAN CORPUSCULAR VOLUME (BEAKER) 72.2 fL 82.0-99.0 L (test code = 753) MEAN CORPUSCULAR HEMOGLOBIN 20.8 pg 27.0-33.0 L (BEAKER) (test code = 751) MEAN CORPUSCULAR HEMOGLOBIN CONC 28.7 GM/DL 32.0-36.0 L (BEAKER) (test code = 752) RED CELL DISTRIBUTION WIDTH 17.0 % 12.0-15.0 H (BEAKER) (test code = 412) PLATELET COUNT (BEAKER) (test 193 K/CU MM 150-430 code = 756) MEAN PLATELET VOLUME (BEAKER) 11.9 fL 6.0-11.5 H (test code = 754) NUCLEATED RED BLOOD CELLS 0 /100 WBC 0-0 (BEAKER) (test code = 413) NEUTROPHILS RELATIVE PERCENT 44 % (BEAKER) (test code = 429) LYMPHOCYTES RELATIVE PERCENT 46 % (BEAKER) (test code = 430) MONOCYTES RELATIVE PERCENT 6 % (BEAKER) (test code = 431) EOSINOPHILS RELATIVE PERCENT 3 % (BEAKER) (test code = 432) BASOPHILS RELATIVE PERCENT 1 % (BEAKER) (test code = 437) NEUTROPHILS ABSOLUTE COUNT 3.23 K/ L 1.80-8.00 (BEAKER) (test code = 670) LYMPHOCYTES ABSOLUTE COUNT 3.40 K/ L 1.48-4.50 (BEAKER) (test code = 414) MONOCYTES ABSOLUTE COUNT (BEAKER) 0.44 K/ L 0.00-1.30 (test code = 415) EOSINOPHILS ABSOLUTE COUNT 0.20 K/ L 0.00-0.50 (BEAKER) (test code = 416) BASOPHILS ABSOLUTE COUNT (BEAKER) 0.05 K/ L 0.00-0.20 (test code = 417) IMMATURE GRANULOCYTES-RELATIVE 0 % 0-0 PERCENT (BEAKER) (test code = 2801) Screen, [id number] 21:20:00 Test Item Value Reference Range Interpretation Comments Preg Test, Ur (test code = 2112-1) Negative [facility], [id number] 21:20:00 Test Item Value Reference Range Interpretation Comments TEST URINE (BEAKER) (test Negative code = 583) Creatine [id number] 21:02:48 Test Item Value Reference Range Interpretation Comments CK (test code = CK) 114 U/L 34-145 Comprehensive Metabolic [id number] 21:02:47 Test Item Value Reference Range Interpretation [...] = Lipemia) 0 g/dL 1-2 Comprehensive Metabolic [id number] 21:02:47 Test Item Value Reference Range Interpretation [...] = 0 g/dL 1-2 Lipemia) Comprehensive Metabolic [id number] 21:02:47 Test Item Value Reference Range Interpretation [...] ag e have not been validated by [facility] MDRD study and should be interpreted wit [...] ag e have not been validated by [facility] MDRD study and should be interpreted wit [...] = 0 g/dL 1-2 Lipemia) HCG Qualitative [id number] 19:45:46 Test Item Value Reference Range Interpretation Comments hCG Ur (test code = Negative If the r esult is hCG Ur) "Negative" in p atients suspected to be , recom mend retest with a s ample obtained 48 to 72 hours later, or by ordering a quantitative as say. If the result i s "Borderline" te sting should be repea pascual in 48 to 72 hours. Lot # (test code = [id number] Lot #) Expiration Dt (test 01-06-21 N code = Expiration Dt) Neg Control (test Negative code = Neg Control) Pos Control (test Positive code = Pos Control) Internal QC (test Acceptable code = Internal QC) Urinalysis with Microscopic if [id number] 19:45:46 Test Item Value Reference Range Interpretation [...] Indicated Micro Ind?) Complete Blood Count with [id number] 19:17:51 Test Item Value Reference Range Interpretation [...] N code = Pos Morph XN) Automated [id number] 19:17:51 Test Item Value Reference Range Interpretation Comments Neutro Auto (test code = Neutro 46.1 % 36.0-70.0 Auto) Lymph Auto (test code = Lymph Auto) 45.9 % 12.0-44.0 H Saline Auto (test code = Saline Auto) 5.6 % 0.0-11.0 Eos, Auto (test code = Eos, Auto) 1.4 % 0.0-7.0 Basophil Auto (test code = Basophil 0.8 % 0.0-2.0 Auto) Neutro Absolute (test code = Neutro 2.9 x10 1.6-7.4 Absolute) Lymph Absolute (test code = Lymph 2.85 x10 .50-4.60 Absolute) Saline Absolute (test code = Saline .35 x10 .00-1.20 Absolute) Eos Absolute (test code = Eos 0.09 x10 0.00-0.74 Absolute) Baso Absolute (test code = Baso 0.05 x10 0.00-0.21 Absolute) IG [id number] 19:17:51 Test Item Value Reference Range Interpretation Comments IG (test code = IG) 0.2 % 0.0-5.0 IG Abs (test code = IG Abs) 0 x10 N Streptococcus A Screen Rapid w/ Reflex [id number] 15:21:41 Test Item Value Reference Range Interpretation Comments Strep A Scn (test code Positive Negative A Resul ts called to = Strep A Scn) and read back by: Ramona Deal 01/17/20 15:21:32 CDT GM Lot # (test code = Lot [id number] N #) Expiration Dt (test 08/21/2020 N code = Expiration Dt) Internal QC (test code Acceptable = Internal QC)
[2020-10-09 12:32] LABS: Urine Blood Negative (Negative); Urine Glucose Negative (Negative); Urine Protein Trace (Negative); Urine Specific Gravity >=1.030 (1.005-1.030); Urine pH 5.5 (5.0-7.0)
[2020-10-09 12:49] LABS: Absolute Lymphocytes (CBC) 2.4 K/uL (0.7-4.9); Basophils % 1.4 % (0-1.3); Hematocrit 31.8 % (36.0-45.0); Lymphocytes % 44.5 % (15.3-44.8); MPV 10.2 fL (7.6-11.3); RBC Red Blood Cell Count 4.58 M/uL (3.86-4.86)
[2020-10-09 12:51] LABS: Urine Bacteria >50 /HPF (<20); Urine Mucus HEAVY /HPF (NONE SEEN); Urine RBC <5 /HPF (NONE SEEN)
[2020-10-09] MEDS ORDERED: MORPHINE 4 MG/ML SYR ONE (12:54)
[2020-10-09] MEDS ORDERED: ONDANSETRON 4 MG/2 ML VIAL ONE (12:54)
[2020-10-09 12:59] LABS: Urine Specific Gravity/Preg >1.030 (1.005-1.030)
[2020-10-09 13:02] LABS: BUN Blood Urea Nitrogen 10 mg/dL (7-18); Bicarbonate 30 mmol/L (21-32); Glucose Level 96 mg/dL (74-106); Sodium Level 144 mmol/L (136-145)
[2020-10-09 13:44] LABS: Blood Morphology Comment NOTED (NOT SEEN); Hypochromasia 1+; Platelet Estimate ADEQ; White Blood Cell Scan OK (OK)
--- NOTE | 2020-10-09 14:47 | RAD REPORT ---
EXAM DESCRIPTION: US - Transvaginal Study Probe - 10/09/2020 2:27 pm CLINICAL HISTORY: right adenexal pain. Teratoma. R/O torsion Pelvic pain. COMPARISON: Abdomen Pelvis W Contrast dated 09/18/2020 FINDINGS: The uterus is normal in size, shape and echotexture. The uterus measures 9.4 x 6.8 x 5.4 c m. The endometrial stripe measures 5 mm, normal. Patient's large right-sided ovarian/adnexal dermoid tumor is identified measuring 7.8 x 7 3 cm. There is no evidence ovarian torsion. The left ovary appears normal size measuring 4.3 x 3.4 cm. No left ovarian torsion. No left-sided toy moid seen. No significant pelvic ascites. IMPRESSION: 8 cm right-sided ovarian/adnexal dermoid. No evidence of torsion.
--- NOTE | 2020-10-09 14:59 | EDPHYS ---
Physician Documentation [facility] Name: Aleksandra Cheng Age: 30 yrs Sex: Female : 1990 Arrival Date: 10/09/2020 Time: 11:36 Bed 13 Private MD: ED Physician James Freire HPI: 10/09 12:59 This 30 yrs old Black Female presents to ER via Ambulatory with complaints of Abdominal jr8 Pain, Back Pain, Leg Pain. 12:59 The patient presents with abdominal pain right lower quadrant. Onset: The jr8 symptoms/episode began/occurred gradually, 4 week(s) ago. The symptoms radiate to right back. Associated signs and symptoms: none. The symptoms are described as stabbing, steady. Modifying factors: The symptoms are alleviated by nothing, the symptoms are aggravated by movement. Severity of pain: At its worst the pain was moderate in the emergency department the pain is unchanged. The patient has experienced a previous episode. The patient has not recently seen a physician. Patient seen early september for similar pain. 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 Stated that she made appointment as requested by us but still has two more weeks before she can get in. Stated that the pain has never really completely gone away and now worse within past few days. Denies any other new or change in symptoms . 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 - Social history:: Smoking status: Patient/guardian denies using tobacco, Stopped _ months ago 1. ROS: 12:59 Eyes: Negative for injury, pain, redness, and discharge, ENT: Negative for injury, jr8 pain, and discharge, Neck: Negative for injury, pain, and swelling, Cardiovascular: Negative for chest pain, palpitations, and edema, Respiratory: Negative for shortness of breath, cough, wheezing, and pleuritic chest pain, Back: Negative for injury and pain, MS/Extremity: Negative for injury and deformity, Skin: Negative for injury, rash, and discoloration, Neuro: Negative for headache, weakness, numbness, tingling, and seizure. 12:59 Abdomen/GI: Positive for abdominal pain, Negative for nausea, vomiting, and diarrhea, abdominal cramps, abdominal distension. Exam: 12:59 Constitutional: This is a well developed, well nourished patient who is awake, alert, jr8 and in no acute distress. Cardiovascular: Regular rate and rhythm with a normal S1 and S2. No gallops, murmurs, or rubs. Normal PMI, no JVD. No pulse deficits. Respiratory: Lungs have equal breath sounds bilaterally, clear to auscultation and percussion. No rales, rhonchi or wheezes noted. No increased work of breathing, no retractions or nasal flaring. Back: No spinal tenderness. No costovertebral tenderness. Full range of motion. Skin: Warm, dry with normal turgor. Normal color with no rashes, no lesions, and no evidence of cellulitis. MS/ Extremity: Pulses equal, no cyanosis. Neurovascular intact. Full, normal range of motion. Neuro: Awake and alert, GCS 15, oriented to person, place, time, and situation. Cranial nerves II-XII grossly intact. Motor strength 5/5 in all extremities. Sensory grossly intact. Cerebellar exam normal. Normal gait. 12:59 Abdomen/GI: Inspection: obese Bowel sounds: active, all quadrants, Palpation: soft, in all quadrants, mild abdominal tenderness, in the anterior aspect of right lateral abdomen and right lower quadrant, mass, is not appreciated, rebound tenderness, is not appreciated, voluntary guarding, is not appreciated, involuntary guarding, is not appreciated, no appreciated organomegaly, Indicators: McBurney's point is not tender, Evans's sign is negative, Rovsing's sign is negative, Liver: tenderness, is not appreciated. Vital Signs: 11:53 BP 142 / 89; Pulse 71; Resp 17; Temp 98.3; Pulse Ox 100% ; Weight 121.11 kg; Height 5 jl7 ft. 6 in. (167.64 cm); Pain 9/10; 15:08 BP 134 / 82; Pulse 57; Resp 16; Pulse Ox 100% ; ll1 11:53 Body Mass Index 43.09 (121.11 kg, 167.64 cm) jl7 MDM: 12:02 Patient medically screened. jr8 14:50 Data reviewed: vital signs, nurses notes, lab test result(s), radiologic studies, [facility] ultrasound. Data interpreted: Pulse oximetry: on room air is 100 %. Interpretation: normal. Counseling: I had a detailed discussion with the patient and/or guardian regarding: the historical points, exam findings, and any diagnostic results supporting the discharge/admit diagnosis, lab results, radiology results, the need for outpatient follow up, an OB/Gyne specialist, to return to the emergency department if symptoms worsen or persist or if there are any questions or concerns that arise at home. 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 Last fill 09/20/20. Overall appears safe to have narcotics . 10/09 12:14 Order name: Basic Metabolic Panel; Complete Time: 13:06 [facility] 10/09 12:14 Order name: CBC with Diff; Complete Time: 13:47 [facility] 10/09 12:14 Order name: Urine Microscopic Only; Complete Time: 13:06 [facility] 10/09 12:32 Order name: Urine Dipstick-Ancillary; Complete Time: 13:06 EDKS 10/09 12:43 Order name: Urine --Ancillary (enter results) bd 10/09 12:44 Order name: Urine --Ancillary; Complete Time: 13:06 EDKS 10/09 12:14 Order name: IV Saline Lock; Complete Time: 12:19 [facility] 10/09 12:14 Order name: Labs collected and sent; Complete Time: 12:19 [facility] 10/09 12:14 Order name: Urine Test (obtain specimen); Complete Time: 12:34 [facility] 10/09 12:14 Order name: Urine Dipstick-Ancillary (obtain specimen); Complete Time: 12:34 [facility] 10/09 12:14 Order name: US Transvaginal Study (Probe); Complete Time: 14:50 [facility] 10/09 13:12 Order name: CBC Smear Scan; Complete Time: 13:47 EDMS Administered Medications: 12:35 Drug: morphine 4 mg Route: IVP; Site: right antecubital; ll1 15:08 Follow up: Response: No adverse reaction; RASS: Alert and Calm (0) ll1 12:35 Drug: Zofran (Ondansetron) 4 mg Route: IVP; Site: right antecubital; ll1 15:08 Follow up: Response: No adverse reaction; RASS: Alert and Calm (0) ll1 Disposition: 16:48 Co-signature as Attending Physician, James Freire MD I agree with the assessment and kdr plan of care. Disposition: 10/09/20 14:58 Discharged to Home. Impression: Dermoid Cyst Right [place], Lower abdominal pain, unspecified. - Condition is Stable. - Discharge Instructions: Abdominal Pain, Adult. - Prescriptions for Tylenol- Codeine #3 300-30 mg Oral Tablet - take 2 tablets by ORAL route every 4-6 hours As needed; 20 tablet. - Medication Reconciliation Form, Thank You Letter, Antibiotic Education, Prescription Opioid Use form. - Follow up: Private Physician; When: 10 - 14 days; Reason: Recheck today's complaints, Continuance of care, Re-evaluation by your physician. - Problem is new. - Symptoms have improved. Signatures: Dispatcher [employer] EDMS James Freire MD MD [facility] Jamey Wen PA PA jr8 Juan Manuel Moreno RN RN jl7 Ana Meyer RN RN ll1 Corrections: (The following items were deleted from the chart) 15:10 14:58 10/09/2020 14:58 Discharged to Home. Impression: Dermoid Cyst Right Adenexa; ll1 Lower abdominal pain, unspecified. Condition is Stable. Forms are Medication Reconciliation Form, Thank You Letter, Antibiotic Education, Prescription Opioid Use. Follow up: Private Physician; When: 10 - 14 days; Reason: Recheck today's complaints, Continuance of care, Re-evaluation by your physician. Problem is new. Symptoms have improved. jr8
--- NOTE | 2020-10-09 14:59 | ER ---
Nurse's Notes [facility] Name: Aleksandra Cheng Age: 30 yrs Sex: Female : 1990 Arrival Date: 10/09/2020 Time: 11:36 Bed 13 Private MD: Diagnosis: Dermoid Cyst Right Adenex[place];Lower abdominal pain, unspecified Presentation: 10/09 11:53 Chief complaint: Patient states: Right low back pain, radiates to RLQ and down right jl7 leg, diagnosed with a dermoid tumor near ovaries on last visit, has an appointment with a commercial credit specialist in 2 weeks but the pain is too bad. Denies urinary symptoms. Coronavirus screen: Client denies travel out of the [place] in the last 14 days. At this time, the client does not indicate any symptoms associated with coronavirus-19. Ebola Screen: No symptoms or risks identified at this time. Initial Sepsis Screen: Does the patient meet any 2 criteria? No. Patient's initial sepsis screen is negative. Does the patient have a suspected source of infection? No. Patient's initial sepsis screen is negative. Risk Assessment: Do you want to hurt yourself or someone else? Patient reports no desire to harm self or others. Onset of symptoms was August 2020. Care prior to arrival: None. 11:53 Method Of Arrival: Ambulatory jl7 11:53 Acuity: VIN 3 jl7 Triage Assessment: 11:56 General: Appears in no apparent distress. uncomfortable, Behavior is calm, cooperative, jl7 appropriate for age. Pain: Complains of pain in right low back Pain radiates to right lower quadrant Pain currently is 9 out of 10 on a pain scale. GI: Patient currently denies diarrhea, nausea, vomiting. 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 - Social history:: Smoking status: Patient/guardian denies using tobacco, Stopped _ months ago 1. Screenin:09 Abuse screen: Denies threats or abuse. Nutritional screening: No deficits noted. ll1 Tuberculosis screening: No symptoms or risk factors identified. Fall Risk Total Andrea Fall Scale indicates No Risk (0-24 pts). Assessment: 13:00 Reassessment: No changes from previously documented assessment. Patient and/or family ll1 updated on plan of care and expected duration. Pain level reassessed. Patient is alert, oriented x 3, equal unlabored respirations, skin warm/dry/pink. 14:00 Reassessment: No changes from previously documented assessment. Patient and/or family ll1 updated on plan of care and expected duration. Pain level reassessed. Patient is alert, oriented x 3, equal unlabored respirations, skin warm/dry/pink. 15:00 Reassessment: No changes from previously documented assessment. Patient and/or family ll1 updated on plan of care and expected duration. Pain level reassessed. Patient is alert, oriented x 3, equal unlabored respirations, skin warm/dry/pink. 15:10 GI: Bowel sounds present X 4 quads. Abd is soft and non tender X 4 quads. ll1 Vital Signs: 11:53 BP 142 / 89; Pulse 71; Resp 17; Temp 98.3; Pulse Ox 100% ; Weight 121.11 kg; Height 5 jl7 ft. 6 in. (167.64 cm); Pain 9/10; 15:08 BP 134 / 82; Pulse 57; Resp 16; Pulse Ox 100% ; ll1 11:53 Body Mass Index 43.09 (121.11 kg, 167.64 cm) jl7 ED Course: 11:36 Patient arrived in ED. as 11:56 Triage completed. jl7 11:56 Arm band placed on right wrist. jl7 12:00 Ana Meyer, CAS is Primary Nurse. ll1 12:00 Patient placed in an exam room, on a stretcher. ll1 12:02 Jamey Wen PA is PHCP. jr8 12:02 James Freire MD is Attending Physician. jr8 12:15 Patient has correct armband on for positive identification. Bed in low position. Call ll1 light in reach. Side rails up X 1. Pulse ox on. NIBP on. 12:15 Inserted saline lock: 22 gauge in right antecubital area, using aseptic technique. ll1 Blood collected. 14:27 US Transvaginal Study (Probe) In Process Unspecified. EDMS 15:09 IV discontinued, intact, bleeding controlled, No redness/swelling at site. Pressure ll1 dressing applied. 15:10 No provider procedures requiring assistance completed. ll1 Administered Medications: 12:35 Drug: morphine 4 mg Route: IVP; Site: right antecubital; ll1 15:08 Follow up: Response: No adverse reaction; RASS: Alert and Calm (0) ll1 12:35 Drug: Zofran (Ondansetron) 4 mg Route: IVP; Site: right antecubital; ll1 15:08 Follow up: Response: No adverse reaction; RASS: Alert and Calm (0) ll1 Outcome: 14:58 Discharge ordered by . driss 15:10 Discharged to home ambulatory. ll1 15:10 Condition: stable 15:10 Discharge instructions given to patient, Instructed on discharge instructions, follow up and referral plans. no drinking with medication, no driving heavy equipment, medication usage, Demonstrated understanding of instructions, follow-up care, medications, Prescriptions given X 1. 15:10 Patient left the ED. 1 Signatures: Dispatcher [employer] Kamryn Gibson Josh, PA PA jr8 Leal, Jahala, RN RN jl7 Ana Meyer, RN RN ll1
[2020-10-09 15:25] VITALS: TEMP 98.3; O2SAT 100
[2020-10-09 15:26] VITALS: BP 134/82
== END 2020-10-09 15:10 | disposition home or self-care (01) ==
LOC: ER 11:34
DX: D27.0 Benign neoplasm of right ovary (principal); Z88.0 Allergy status to penicillin
CPT/HCPCS: 36415; 76830; 80048; 81003; 81015; 81025; 85025; 96374; 96375; 99284; J2405

== ENCOUNTER 2021-06-29 17:18 | Emergency (ER) | payer OTHER ==
--- OUTSIDE RECORDS SUMMARY | 2021-06-29 17:21 | XMS REPORT | Continuity of Care Document ---
:1990 Author Organization [facility] t Address [address] [place] [address] Care Team Providers Name Role Phone PCP, DOES NOT HAVE A Primary Care Physician Unavailable MAURY ROBLERO Attending Clinician Unavailable Maury Roblero MD Attending Clinician Melisa DOTY Attending Clinician Unavailable Lou FROST Attending Clinician Unavailable RAFAELA Attending Clinician Unavailable Kelvin ESTRELLA Attending Clinician Unavailable VANESSA Attending Clinician Unavailable Tamica CARBAJAL Attending Clinician Unavailable William AMAYA Attending Clinician Unavailable Lou RAMSAY Attending Clinician Unavailable NINI LORD Attending Clinician Unavailable FARIBA LAWS Attending Clinician Unavailable Phil Verdin Attending Clinician Unavailable Phil Verdin Attending Clinician Unavailable Afuwtorsten, Dewey Attending Clinician Unavailable Afuwape, O Attending Clinician Unavailable MAURY ROBLERO Admitting Clinician Unavailable Phil Verdin Admitting Clinician Unavailable AfuwDewey sarmiento Admitting Clinician Unavailable Payers Payer Name Policy Type Policy Number Effective Date Expiration Date S enrrique COMMERCIAL [id number] 2021 NON-CONTRACT 00:00:00 GENERIC Problems Condition Condition Condition Status Onset Resolution Last Treating Co mments Source Name Details Category Date Date Treatment Clinician Date Morbid Morbid Disease Active Univers obesity obesity 2-17 [place] of [place] 00 [place] dical of of Branch 40.0-49.9 40.0-49.9 Ovarian Ovarian Disease Active Univers mass, mass, 2-17 ity of right right 00:00: [place] 00 Medical Branch Abdominal Abdominal Disease Active Uni vers pain, pain, 2-17 ity of right right 00:00: [place] lower lower 00 Medical quadrant quadrant Branch Preoperati Preoperati Disease Active Overview : Univers ve ve 2-17 Formattin ity of examinatio examinatio 00:00: g of this [place] n n 00 note Medical might be Branch different from the original. Added automatic ally from request for surgery [id number] [place] Disease Active Overview: Univer s luteum luteum 2-17 Formattin ity of cyst or cyst or 00:00: g of this [place] hematoma hematoma 00 note Medica l might be Branch different from the original. Added automatic ally from request for surgery [id number] Adnexal Adnexal Disease Active Overview: Univ ers mass mass 2-17 Formattin ity of 00:00: g of this [place] 00 note Medical might be Branch different from the original. Added automatic ally from request for surgery [id number] Migraines Migraines Disease Active 2013-05 Uni vers 1-09 ity of 00:00: [place] 00 Medical Branch Rubella Rubella Disease Active Univers non-immune non-immune 9-17 it y of status, status, 00:00: [place] antepartum antepartum 00 Me dical Branch Asthma Asthma Disease Active Overview: Univer s 9-16 Formattin ity of 00:00: g of this [place] 00 note Medical might be Branch different from the original. ICD10 Diagnosis Term Echo Vascular Technologist Utility Tobacco Tobacco Disease Active Univers use use 9-16 ity of disorder disorder 00:00: [place] 00 Medical Branch Multiparit Multiparit Disease Active U nivers y y 16 ity of 00:00: [place] 00 Medical Branch Personal Personal Disease Active Unive rs history of history of 9-16 it y of pre-term pre-term 00:00: [place] labor labor 00 Medical Branch Allergies, Adverse Reactions, Alerts Allergy Allergy Status Severity Reaction(s) Onset Inactive Treating Comm ents Source Name Type Date Date Clinician [facility]ergy [facility]: [address] PENICILL Drug Active Rash Univers INS Class 4-01 ity of 00:00: [address] Penicill Propensi Active Rash Univer s ins ty to 4- ity of adverse 00:00: [place] reaction [address] [place] [address] s Branch penicill Drug Active [facility] in [facility] penicill Drug Active [facility] in [facility] penicill Drug Active [facility] in [facility] penicill Drug [facility] penicill Drug [facility] penicill Drug [facility] penicill Drug [facility] penicill Drug Active [facility] in [facility] penicill Drug Active [facility] in [facility] Social History Social Habit Start Date Stop Date Quantity Comments Source Exposure to Not sure University of SARS-CoV-2 [place] [facility] (event) Branch History of Cigarette Smoker Universi ty of tobacco use [place] [facility] [place] History SDOH [facility] SDOH University o f Alcohol Std [place] [facility] Drinks Branch History SDOH University o f Alcohol Binge [facility] al [place] Alcohol intake 2021-06-25 2021-06-25 Current drinker of Un iversity of 00:00:00 00:00:00 alcohol (finding) [facility] Tobacco Comment 2021-06-18 2021-06-18 3 ciggs a day Univer sity of 00:00:00 00:00:00 [facility] Tobacco use and 2021-06-18 2021-06-18 Never used Universit y of exposure 00:00:00 00:00:00 [facility] Alcohol Comment 2021-06-18 2021-06-18 occasionally Univers ity of 00:00:00 00:00:00 [facility] Sex Ass[birth year] At [birth year] Universit y of 00:00:00 00:00:00 [facility] Smoking Status Start Date Stop Date Source Current every day smoker 2021-06-18 00:00:00 Uni versity of [facility] Medications Ordered Filled Start Stop Current Ordering Indication Dosage Frequency Signature Comments Components Source Medication Medication Date Date Medication? Clinician (SIG) Name Name DICLOFENAC Yes Take by Uni vers SODIUM ORAL 2-17 mouth. ity of :04: [place] 38 [facility] ibuprofen Yes [id number] 800mg Take 1 U nivers 800 mg 6-27 tablet by ity of tablet 00:00: mouth [place] 00 every 8 Medical (eight) Branch hours as needed for Pain (scale 4-6) for up to 30 doses. acetaminoph Yes [id number] 1{tbl} Take 1 Un thang en-codeine 6-27 tablet by ity of 300-30 mg 00:00: mouth [place] tablet 00 every 6 Medical (six) Branch hours as needed for Pain (scale 7-10) for up to 15 doses. Indication s: acute pain traMADOL 2014-05 Yes 50mg Take 1 Tab Uni vers (ULTRAM) 50 2-27 by mouth ity of mg tablet 00:00: every 8 [place] 00 (eight) Medical hours as Branch needed for Pain (scale 4-6). Immunizations Ordered Filled Immunization Date Status Comments [facility] e Immunization Name Name TDAP 2014-04-22 Completed [facility] 00:00:00 [facility] Vital Signs Vital Name Observation Time Observation Value Comments Source Systolic blood 2021-06-25 17:02:00 150 mm[Hg[facility] Diastolic blood 2021-06-25 17:02:00 100 mm[Hg] [facility] Heart rate 2021-06-25 17:02:00 82 /min [facility] Body temperature 2021-06-25 17:02:00 36.89 Romi [facility] Respiratory rate 2021-06-25 17:02:00 18 /min [facility] Body height 2021-06-25 17:02:00 167.6 cm [facility] Body weight 2021-06-25 17:02:00 122.471 kg [facility] BMI 2021-06-25 17:02:00 43.58 kg/m2 [facility] HEIGHT 2020-09-19 20:33:00 167.6 cm WEIGHT 2020-09-19 20:33:00 120.657 kg HEIGHT 2020-09-19 20:33:00 167.6 cm WEIGHT 2020-09-19 20:33:00 120.657 kg Height/Length 2021-05-26 12:56:17 165.1 cm Measured Height/Length 2021-05-26 12:56:15 165.1 cm Measured Height/Length 2021-05-26 12:56:14 165.1 cm Measured Height/Length 2020-02-23 18:45:01 Measured Procedures This patient has no known procedures. Encounters Start End Encounter Admission Attending Care Care Encounter Source Date/Time Date/Time Type Type Clinicians Facility Department ID 2021-07-20 2021-07-20 Outpatient MARY KATE BASHIR [facility] [id number] Univers 09:00:00 09:00:00 [id number] ity [facility] 2021-06-30 2021-06-30 Outpatient R MARY KATE ROBLERO [facility] [employer] [id number] Univers 10:30:00 10:30:00 ity [facility] 2021-06-30 2021-06-30 Outpatient R [facility] [id number] Univers 10:30:00 10:30:00 [id number] ity [facility] 2021-06-29 2021-06-29 Outpatient R [facility] [id number] Univers 10:00:00 10:00:00 [id number] ity [facility] 2021-06-29 2021-06-29 Outpatient R MARY KATE ROBLERO [facility] [id number] Univers 10:00:00 [facility]00[facility] 2021-06-25 2021-06-25 Office Mary Kate Roblero [facility] [id number] Univers 10:30:00 11:17:52 Visit Maury AZUL [id number] i ty [facility] [id number] Black lopez PROFESSIO [id number] Ia dical [address] 2021-06-25 2021-06-25 Outpatient R MARY KATE ROBLERO [facility] [id number] Univers 10:30:00 11:17:52 ity [facility] 2021-04-06 2021-04-06 Outpatient DEIDRE DOTY [facility] [id number] [place] 07:44:18 07:44:18 Health 2021-02-04 2021-02-04 Outpatient BERRA, [facility] [id number] [place] 07:18:50 12:23:32 TEJAL Heal 2021-01-20 2021-01-20 Outpatient DHARI, [facility] [id number] [place] 00:00:00 00:00:00 [facility] 2020-10-28 2020-10-28 Outpatient DHARI, [facility] [id number] [place] 11:14:20 11:25:33 [facility] 2020-10-28 2020-10-28 Outpatient SAMEER, [facility] [id number] [place] 09:42:42 11:11:47 [facility] 2020-10-28 2020-10-28 Outpatient DHARI, [facility] [id number] [place] 00:00:00 00:00:00 [facility] 2020-10-28 2020-10-28 Outpatient VANESSA, [facility] [id number] [place] 00:00:00 00:00:00 Critical access hospital 2020-10-09 2020-10-09 Outpatient [facility] [id number] [place] 00:00:00 00:00:00 [facility] 2020-09-20 2020-09-21 [facility] [id number] [place] 15:33:00 08:15:00 MOUSTAFTamica Pazt 2020-09-21 2020-09-21 Emergency TYRONE AMAYA [facility] [id number] [place] 06:21:58 06:21:58 [facility] 2020-09-21 2020-09-21 Emergency TYRONE AMAYA [facility] [id number] [place] 05:35:30 05:35:30 [facility] 2020-09-21 2020-09-21 [id number] [place] 00:17:17 00:17:[address] [facility] 2020-09-21 2020-09-21 [facility] [id number] [place] 00:17:12 00:17:[address] [facility] 2020-09-20 2020-09-20 [facility] [id number] [place] 23:24:27 23:24:[address] [facility] 2020-09-19 2020-09-19 Emergency TRAUMA [id number] 16:34:00 20:24:00 [place] [id number] 2020-09-19 2020-09-19 Emergency ER [facility] Emergency [id number] [facility] 20:23:00 20:23:00 2020-04-27 2020-04-27 Emergency E EUSEBIA, MHBL [facility]BL [id number] [facility] 12:45:00 13:10:00 TRAN 2020-02-23 2020-02-23 Emergency 1 Lambert Simone [facility] [id number] 18:33:00 21:25:00 VerdinSimone Sohail [facility] 2020-02-23 2020-02-23 Emergency 1 Lambert Simone [facility] [id number] 18:33:00 18:33:00 Simone Verdin -[id number] [facility] 2020-01-17 2020-01-17 Emergency 1 [facility] [id number] 14:43:00 15:28:00 [facility] armando [facility] 2016-12-11 2016-12-11 Emergency [facility] [id number] [place] 22:14:06 22:14:06 Health Results Test Description Test Time Test Comments Results Result [facility] e Comments U/S, PELVIS, WITH 2020-09-20 Reason for ENDOVAG AND 01:52:00 exam:->ABDOMINA DOPPLER L PAINR flank pain and lower [facility] - back pain for [facility] days. Reason PLACIDO FERRIS for CHERRAY : exam:->GENERALI 1990 ZED BODY ACHES Sex: F *FINAL REPORT HISTORY: Right lower quadrant pain Pelvic [...] Hebert Taylor MDReport Verified Date/Time: 09/20/2020 01:52:04 -COV2/RT-PCR ([facility]) 2020-09-20 00:55:00 Test Item Value Reference Range Interpretation Comme nts SARS-COV2/RT-PCR Negative Not Performance of the Xpert Xpress SARS-CoV-2/Flu/RSV test has only been established in nasopharyngeal swab (test code = Detected, specimens. Use of the Xpert Xpress SARS-CoV-2/Flu/RSV test with other specimen types has not been [id number]) Negative, assessed and pe rformance characteristics are unknown. As with any molecular test, mutations within the See targeted geneti c regions identified by the Xpert Xpress SARS-CoV-2/Flu/RSV test could affect primer external and/or probe bi nding resulting in failure to detect the presence of virus or the virus being detected report for less predictabl y.Negative results do not preclude SARS-CoV-2, Influenza A/B, or RSV infection and should linked not be used as the sole basis for treatment or other patient management decisions. Results from the test Xpert Xpress SA RS-CoV-2/Flu/RSV test should be correlated with the clinical history, epidemiological data, and other data available to the clinician evaluating the patient. Invalid test results may occur from improper s pecimen collection; failure to follow the recommended sample collection, handling, and storage procedu res; technical error. False negative results may occur if virus is present at levels below the analytical limit of detection (LOD: 131 copies/mL). Viral nucleic acid may persist in vivo, independent of virus viability. Detection of analyte target(s) does not imply that the corresponding virus(es) are i nfectious or are the causative agents for clinical symptoms. Recent patient exposure to FluMist or oth er live attenuated influenza vaccines may cause inaccurate positive results.This test has been authorized by FDA under an EUA for use by authorized laboratories. This test is only authorized for the duration of the declaration that circumstances exist justifying the authorization of emergency use of in vitro diagno stic tests for detection and/or diagnosis of COVID-19 under Section 564(b)(1) of the Federal Food, D rug and Cosmetic Act, 21 U.S.C. 360bbb-3(b)(1), unless the authorization is terminated or revoked soon er.Fact Sheet for Healthcare Providers: https://www.Unfold/Documents/Xpert%20Xpress%93LQKG-BjM-9-Flu-RSV/302-7888%2 0Rev.%20B%20HCP%20Fact%20 Sheet.pdfFact S heet for Healthcare Patients: https://www.Unfold/Documents/Xpert%20Xpress%49ECUH-BjA-5-Flu-RSV/3024507%2 0Rev.%20B%20Patient%20Fac t%20Sheet.pdf SARS-COV-2 [facility]SL Performed at:[facility] [place], [place] [address]kt: [phone] PERFORMING LAB (test code = 6937354) COMPREHENSIVE METABOLIC [id number] 23:43:00 Test Item Value Reference Range Interpretation [...] S NOT APPLICABLE FOR DIALYSIS PATIEN TS. Weed Burner ID - [id number] ID - [id number] ID - [id number] ID - [id number] ID - [id number] ID - [id number] ID - [id number] ID - [id number] ID - [id number] ID - [id number] ID - [id number] ID - [id number] ID - [id number] ID - [id number] ID - [id number] ID - [id number] ID - [id number] ID - [id number] ID - [id number], ABDOMEN 2020-09-19 23:27:00With IV AND Oral contrast.Unlisted Reason for Exam - Click Yes and Enter Reason Below->NoWill this procedure require oral contrast?->NoCH[facility]ACIDO [facility]ERRIS : 1990 Sex: FFINAL REPORT [...] patient's right lowerquadrant pain. Signed: Hebert Taylor [facility] Verified Date/Time: 09/19/2020 23:27:51 CBC W/PLT COUNT & AUTO [id number] 21:25:00 Test Item Value Reference Range Interpretation [...] 0-0 PERCENT (BEAKER) (test code = 2801) SCREEN, [id number] 21:20:00 Test Item Value Reference Range Interpretation Comments TEST URINE (BEAKER) (test Negative code = 583) Creatine [id number] 21:02:48 Test Item Value Reference Range Interpretation Comments CK (test code = CK) 114 U/L 34-145 Comprehensive Metabolic [id number] 21:02:47 Test Item Value Reference Range Interpretation [...] = Lipemia) 0 g/dL 1-2 Comprehensive Metabolic [id number] 21:02:47 Test Item Value Reference Range Interpretation [...] = 0 g/dL 1-2 Lipemia) Comprehensive Metabolic [id number] 21:02:47 Test Item Value Reference Range Interpretation [...] = 0 g/dL 1-2 Lipemia) HCG Qualitative [id number] 19:45:46 Test Item Value Reference Range Interpretation [...] 72 hours. Lot # (test code = [id number] N Lot #) Expiration Dt (test 01-06-21 N code = Expiration Dt) Neg Control (test Negative code = Neg Control) Pos Control (test Positive code = Pos Control) Internal QC (test Acceptable code = Internal QC) Urinalysis with Microscopic if [id number] 19:45:46 Test Item Value Reference Range Interpretation [...] Indicated Micro Ind?) Complete Blood Count with [id number] 19:17:51 Test Item Value Reference Range Interpretation [...] N code = Pos Morph XN) Automated [id number] 19:17:51 Test Item Value Reference Range Interpretation Comments Neutro Auto (test code = Neutro 46.1 % 36.0-70.0 Auto) Lymph Auto (test code = Lymph Auto) 45.9 % 12.0-44.0 H [place] Auto (test code = [place] Auto) 5.6 % 0.0-11.0 Eos, Auto (test code = Eos, Auto) 1.4 % 0.0-7.0 Basophil Auto (test code = Basophil 0.8 % 0.0-2.0 Auto) Neutro Absolute (test code = Neutro 2.9 x10 1.6-7.4 Absolute) Lymph Absolute (test code = Lymph 2.85 x10 .50-4.60 Absolute) [place] Absolute (test code = [place] .35 x10 .00-1.20 Absolute) Eos Absolute (test code = Eos 0.09 x10 0.00-0.74 Absolute) Baso Absolute (test code = Baso 0.05 x10 0.00-0.21 Absolute) IG [id number] 19:17:51 Test Item Value Reference Range Interpretation Comments IG (test code = IG) 0.2 % 0.0-5.0 IG Abs (test code = IG Abs) 0 x10 N Streptococcus A Screen Rapid w/ Reflex [id number] 15:21:41 Test Item Value Reference Range Interpretation Comments Strep A Scn (test code Positive Negative A Resul ts called to = Strep A Scn) and read back by: Ramona Deal 01/17/20 15:21:32 CDT GM Lot # (test code = Lot [id number] N #) Expiration Dt (test 08/21/2020 N code = Expiration Dt) Internal QC (test code Acceptable = Internal QC)
[2021-06-29] MEDS ORDERED: KETOROLAC 30 MG/ML INJ ONE (17:46)
[2021-06-29] MEDS ORDERED: ONDANSETRON 4 MG/2 ML VIAL ONE (17:47)
[2021-06-29] MEDS ORDERED: NA CHLORIDE 0.9% 1,000 ML ONE (17:47)
[2021-06-29 18:23] LABS: Absolute Lymphocytes (CBC) 2.7 K/uL (0.7-4.9); Hematocrit 38.1 % (36.0-45.0); Lymphocytes % 36.7 % (15.3-44.8); MPV 10.3 fL (7.6-11.3); RBC Red Blood Cell Count 4.65 M/uL (3.86-4.86)
[2021-06-29 18:32] LABS: ALT/SGPT 16 U/L (12-78); AST/SGOT 11 U/L (15-37); Albumin 3.1 g/dL (3.4-5.0); Alkaline Phosphatase 78 U/L (45-117); BUN Blood Urea Nitrogen 6 mg/dL (7-18); Bicarbonate 29 mmol/L (21-32); Bilirubin Direct < 0.1 mg/dL (0-0.2); Bilirubin Total 0.1 mg/dL (0.2-1.0); Glucose Level 112 mg/dL (74-106); Lipase 65 U/L (73-393); Potassium 3.6 mmol/L (3.5-5.1); Protein, Total 7.1 g/dL (6.4-8.2); Sodium Level 140 mmol/L (136-145)
[2021-06-29] MEDS ORDERED: MORPHINE 2 MG/ML SYR ONE ×2 (18:36→19:41)
--- NOTE | 2021-06-29 19:10 | ER ---
Nurse's Notes [facility] [place] Name: Aleksandra Cheng Age: 31 yrs Sex: Female : 1990 Arrival Date: 06/29/2021 Time: 17:21 Bed 17 Private MD: Diagnosis: Other and unspecified ovarian cysts-8 cm Dermoid Cyst, pelvic pain;Abdominal tenderness Presentation: 06/29 17:34 Chief complaint: Patient states: RLQ pain, radiating to groin and back, also c/o nausea ph r/t pain, reports hx or R sided ovarian cysts, denies V/D. Coronavirus screen: Vaccine status: Patient reports receiving the 1st dose of the Covid vaccine. Ebola Screen: No symptoms or risks identified at this time. Initial Sepsis Screen: Does the patient meet any 2 criteria? No. Patient's initial sepsis screen is negative. Does the patient have a suspected source of infection? No. Patient's initial sepsis screen is negative. Risk Assessment: Do you want to hurt yourself or someone else? Patient reports no desire to harm self or others. Onset of symptoms was June 29, 2021. 17:34 Method Of Arrival: Ambulatory ph 17:34 Acuity: VIN 3 ph RN PATIENT CARE: 18:07 LMP N/A - , tubal ligation ll1 Historical: - Allergies: 17:33 PENICILLINS; ll1 - PMHx: 17:33 Dermoid Tumor; ll1 - PSHx: 17:33 section; Cholecystectomy; Ligation of fallopian tube; ll1 - Immunization history:: Adult Immunizations up to date. - Social history:: Smoking status: Patient denies any tobacco usage or history of. Screenin:37 Abuse screen: Denies threats or abuse. Denies injuries from another. Nutritional ph screening: No deficits noted. Tuberculosis screening: No symptoms or risk factors identified. Fall Risk None identified. Assessment: 18:06 General: Appears uncomfortable, Behavior is calm, cooperative, appropriate for age. ll1 Pain: Complains of pain in RLQ Quality of pain is described as aching. Neuro: No deficits noted. Cardiovascular: No deficits noted. Respiratory: No deficits noted. GI: Bowel sounds present X 4 quads. Abd is soft Abdomen is tender to palpation in right lower quadrant. 19:00 Reassessment: No changes from previously documented assessment. Patient and/or family ll1 updated on plan of care and expected duration. Pain level reassessed. Patient is alert, oriented x 3, equal unlabored respirations, skin warm/dry/pink. report given to mechanical reliability engineer RN. Vital Signs: 17:34 BP 178 / 108; Pulse 83; Resp 18; Temp 98.1; Pulse Ox 100% on R/A; Weight 120.2 kg; ph Height 5 ft. 10 in. (177.80 cm); 20:23 BP 146 / 93; Pulse 65; Resp 18; Pulse Ox 100% on R/A; Pain 8/10; sf1 17:34 Body Mass Index 38.02 (120.20 kg, 177.80 cm) ph ED Course: 17:21 Patient arrived in ED. mr 17:33 Qasim Arredondo MD is Attending Physician. néstor 17:33 Ana Meyer RN is Primary Nurse. ll1 17:33 Arm band placed on Patient placed in an exam room, on a stretcher. ll1 17:36 Triage completed. ph 17:55 Missed attempt(s): 22 gauge in right upper arm. Bleeding controlled, band aid applied, ll1 catheter tip intact. 18:00 Inserted saline lock: 22 gauge in right forearm, using aseptic technique. Blood ll1 collected. 18:06 Patient has correct armband on for positive identification. Bed in low position. Call ll1 light in reach. Cardiac monitoring not applicable on this patient. 18:15 Pelvis Complete In Process Unspecified. EDMS 18:35 transfer to [facility] initiated by Dr Arredondo. bd 19:01 administrative approval given by Jay Lopez/ patient has been accepted to [address] to the ER/ Dr. Houston accepted the patient in transfer/ report to be called to [phone]. 19:15 Inserted saline lock: 22 gauge in left antecubital area, using aseptic technique. ll1 19:17 CT Abd/Pelvis - IV Contrast Only In Process Unspecified. EDMS 19:28 Primary Nurse role handed off by Ana Meyer RN [facility] 19:36 SARS-COV-2 RT PCR (Document "Date of Onset" if Symptomatic) Sent. sf1 20:01 Report given to Migdalia Emerson RN charge nurse at [facility] for transfer. sf1 20:14 Fillers, Lida, RN is Primary Nurse. sf1 Administered Medications: 18:00 Drug: NS 0.9% 1000 ml Route: IV; Rate: 1 bolus; Site: right forearm; ll1 18:00 Drug: Ketorolac 30 mg Route: IVP; Site: right forearm; ll1 19:25 Follow up: Response: No adverse reaction ll1 18:05 Drug: Zofran (Ondansetron) 4 mg Route: IVP; Site: right forearm; ll1 19:25 Follow up: Response: No adverse reaction ll1 18:46 Drug: morphine 2 mg Route: IVP; Site: right antecubital; ll1 19:25 Follow up: Response: No adverse reaction ll1 19:44 Drug: morphine 2 mg Route: IVP; Site: left antecubital; 1 Outcome: 19:10 ER care complete, transfer ordered by MD. palm 21:00 Transferred by ground EMS to [facility]. sf1 21:00 Condition: good 21:00 Instructed on the need for transfer. 21:01 Patient left the ED. sf1 Signatures: Dispatcher [employer] EDMS iMriam Sanderson Corey, MD MD cha Rivera, Ewa mr Kate Liu RN RN Gabriela Martin mw2 Ana Meyer RN RN 1 Lida Cain RN RN sf1
--- NOTE | 2021-06-29 19:11 | EDPHYS ---
Physician Documentation [facility] Name: Aleksandra Cheng Age: 31 yrs Sex: Female : 1990 Arrival Date: 06/29/2021 Time: 17:21 Bed 17 Private MD: ED Physician Qasim Arredondo HPI: 06/29 18:00 This 31 yrs old Black Female presents to ER via Ambulatory with complaints of Abdominal néstor Cramping, Back Pain, Nausea, Headache. 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 - Social history:: Smoking status: Patient denies any tobacco usage or history of. ROS: 18:55 Constitutional: Negative for fever, chills, and weight loss, Eyes: Negative for injury, néstor pain, redness, and discharge, ENT: Negative for injury, pain, and discharge, Neck: Negative for injury, pain, and swelling, Cardiovascular: Negative for chest pain, palpitations, and edema, Respiratory: Negative for shortness of breath, cough, wheezing, and pleuritic chest pain, Back: Negative for injury and pain, : Negative for injury, bleeding, discharge, and swelling, MS/Extremity: Negative for injury and deformity, Skin: Negative for injury, rash, and discoloration, Neuro: Negative for headache, weakness, numbness, tingling, and seizure, Psych: Negative for depression, anxiety, suicide ideation, homicidal ideation, and hallucinations, Allergy/Immunology: Negative for hives, rash, and allergies, Endocrine: Negative for neck swelling, polydipsia, polyuria, polyphagia, and marked weight changes, Hematologic/Lymphatic: Negative for swollen nodes, abnormal bleeding, and unusual bruising. 18:55 Abdomen/GI: Positive for abdominal pain, abdominal cramps, of the right lower quadrant. Exam: 18:55 Constitutional: This is a well developed, well nourished patient who is awake, alert, néstor and in no acute distress. Head/Face: Normocephalic, atraumatic. Eyes: Pupils equal round and reactive to light, extra-ocular motions intact. Lids and lashes normal. Conjunctiva and sclera are non-icteric and not injected. Cornea within normal limits. Periorbital areas with no swelling, redness, or edema. ENT: Nares patent. No nasal discharge, no septal abnormalities noted. Tympanic membranes are normal and external auditory canals are clear. Oropharynx with no redness, swelling, or masses, exudates, or evidence of obstruction, uvula midline. Mucous membranes moist. Neck: Trachea midline, no thyromegaly or masses palpated, and no cervical lymphadenopathy. Supple, full range of motion without nuchal rigidity, or vertebral point tenderness. No Meningismus. Chest/axilla: Normal chest wall appearance and motion. Nontender with no deformity. No lesions are appreciated. Cardiovascular: Regular rate and rhythm with a normal S1 and S2. No gallops, murmurs, or rubs. Normal PMI, no JVD. No pulse deficits. Respiratory: Lungs have equal breath sounds bilaterally, clear to auscultation and percussion. No rales, rhonchi or wheezes noted. No increased work of breathing, no retractions or nasal flaring. Back: No spinal tenderness. No costovertebral tenderness. Full range of motion. Female : Normal external genitalia. Skin: Warm, dry with normal turgor. Normal color with no rashes, no lesions, and no evidence of cellulitis. MS/ Extremity: Pulses equal, no cyanosis. Neurovascular intact. Full, normal range of motion. Neuro: Awake and alert, GCS 15, oriented to person, place, time, and situation. Cranial nerves II-XII grossly intact. Motor strength 5/5 in all extremities. Sensory grossly intact. Cerebellar exam normal. Normal gait. Psych: Awake, alert, with orientation to person, place and time. Behavior, mood, and affect are within normal limits. 18:55 Abdomen/GI: Inspection: distension, that is moderate, Bowel sounds: normal, in all quadrants, Palpation: mild abdominal tenderness, moderate abdominal tenderness, in the right lower quadrant, Liver: no appreciated palpable abnormalities, Hernia: not appreciated. Vital Signs: 17:34 BP 178 / 108; Pulse 83; Resp 18; Temp 98.1; Pulse Ox 100% on R/A; Weight 120.2 kg; ph Height 5 ft. 10 in. (177.80 cm); 20:23 BP 146 / 93; Pulse 65; Resp 18; Pulse Ox 100% on R/A; Pain 8/10; sf1 17:34 Body Mass Index 38.02 (120.20 kg, 177.80 cm) ph MDM: 17:33 Patient medically screened. [facility] 18:56 Data reviewed: vital signs, nurses notes, lab test result(s), radiologic studies, CT néstor scan, ultrasound. 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 18:56 Counseling: I had a detailed discussion with the patient and/or guardian regarding: the [facility] historical points, exam findings, and any diagnostic results supporting the discharge/admit diagnosis, lab results, radiology results, the need to transfer to another facility, for higher level of care, [facility] does not immediately have the required specialist. 06/29 17:39 Order name: Basic Metabolic Panel; Complete Time: 18:33 [facility] 06/29 17:39 Order name: CBC with Diff; Complete Time: 18:33 [facility] 06/29 17:39 Order name: Hepatic Function; Complete Time: 18:33 [facility] 06/29 17:39 Order name: Lipase; Complete Time: 18:33 [facility] 06/29 18:19 Order name: SARS-COV-2 RT PCR (Document "Date of Onset" if Symptomatic) [facility] 06/29 19:35 Order name: Urine Dipstick-Ancillary [facility] 06/29 17:39 Order name: CT Abd/Pelvis - IV Contrast Only [facility] 06/29 18:14 Order name: Pelvis Complete [facility] 06/29 19:36 Order name: Urine --Ancillary (enter results) [facility] 06/29 17:39 Order name: IV Saline Lock; Complete Time: 17:40 [facility] 06/29 17:39 Order name: Labs collected and sent; Complete Time: 17:40 [facility] 06/29 17:39 Order name: Urine Dipstick-Ancillary (obtain specimen); Complete Time: 19:36 [facility] 06/29 17:39 Order name: Urine Test (obtain specimen); Complete Time: 19:36 [facility] Administered Medications: 18:00 Drug: NS 0.9% 1000 ml Route: IV; Rate: 1 bolus; Site: right forearm; ll1 18:00 Drug: Ketorolac 30 mg Route: IVP; Site: right forearm; ll1 19:25 Follow up: Response: No adverse reaction ll1 18:05 Drug: Zofran (Ondansetron) 4 mg Route: IVP; Site: right forearm; ll1 19:25 Follow up: Response: No adverse reaction ll1 18:46 Drug: morphine 2 mg Route: IVP; Site: right antecubital; ll1 19:25 Follow up: Response: No adverse reaction ll1 19:44 Drug: morphine 2 mg Route: IVP; Site: left antecubital; sf1 Disposition Summary: 06/29/21 19:10 Transfer Ordered Transfer Location: [facility] Reason: Higher level of care néstor Condition: Fair néstor Problem: new néstor Symptoms: have improved néstor Accepting Physician: to [facility] gustavo(06/29/21 21:01) sf1 Diagnosis - Other and unspecified ovarian cysts - 8 cm Dermoid Cyst, pelvic pain néstor - Abdominal tenderness néstor Forms: - Medication Reconciliation Form néstor - SBAR form néstor Signatures: Dispatcher [employer] Qasim Vogt MD MD cha Lewis, Lynsay, RN RN ll1 Lida Cain RN RN sf1 Corrections: (The following items were deleted from the chart) 18:14 17:40 Transvaginal Study (Probe)+[email or web address] ordered. EDNJ EDMS 21:01 19:[address] [facility] néstor sf1
--- NOTE | 2021-06-29 19:35 | RAD REPORT ---
EXAM DESCRIPTION: CT - Abdomen Pelvis W Contrast - 06/29/2021 7:17 pm CLINICAL HISTORY: Abdominal pain COMPARISON: September 2020 TECHNIQUE: Computed axial tomography of the abdomen pelvis was obtained. 100 cc Isovue-300 was admin istered intravenously. Oral contrast was not requested which limits evaluation of bowel. All CT scans are performed using dose optimization technique as appropriate and may include automated exposure control or mA/KV adjustment according to patient size. FINDINGS: The liver, spleen, pancreas, adrenal and kidneys appear unremarkable. There is no evidence of diverticulitis. Normal appendix. 9.7 centimeter dermoid (cranial caudal) right ovary/adnexa is without significant change. 1 centimete r left ovarian dermoid. No significant free fluid Umbilical hernia contains fat. The neck measures 1 centimeter. The hernia sac 3.7 centimeters IMPRESSION: 9.7 centimeter right ovarian/adnexal dermoid 1 centimeter left ovarian dermoid
--- NOTE | 2021-06-29 19:35 | RAD REPORT ---
EXAM DESCRIPTION: US - Pelvis Complete - 06/29/2021 6:14 pm CLINICAL HISTORY: Abdominal pain COMPARISON: 2020 FINDINGS: The uterus measures 9 x 6 x 7 centimeters. Endometrial stripe 7 millimeters fibroid is not seen. Left ovary contains a 1.8 centimeter follicle. 1 centimeter dermoid seen on CT is not clearly depicte d on this exam. Left adnexal unremarkable. Right ovarian/adnexal mass 9.7 centimeters and contains fat and calcification. The exact measurement is better depicted on CT scan. It is compatible with a dermoid No significant free fluid IMPRESSION: 9.7 centimeter right adnexal/ovarian mass consistent with a dermoid 1 centimeter left ovarian dermoid better seen on CT
[2021-06-29 19:36] LABS: Urine Blood Negative (Negative); Urine Glucose Negative (Negative); Urine Protein Negative (Negative)
[2021-06-29 21:29] VITALS: TEMP 98.1; O2SAT 100
[2021-06-29 21:30] VITALS: BP 146/93
== END 2021-06-29 21:01 | disposition short-term general hospital (02) ==
LOC: ER 17:18
DX: D27.9 Benign neoplasm of unspecified ovary (principal); Z88.0 Allergy status to penicillin; Z20.822 Contact with and (suspected) exposure to COVID-19
CPT/HCPCS: 85025; 80048; 36415; 81025; 80076; 81003; 83690; 74177; 76856; 99285; U0003; Q9967; J2270 ×2; J7030; J2405

== ENCOUNTER 2021-10-21 20:15 | Emergency (ER) | payer OTHER, SELFPAY ==
--- OUTSIDE RECORDS SUMMARY | 2021-10-21 20:18 | XMS REPORT | Continuity of Care Document ---
:1990 Author Organization [facility] t Address [address] [place] [address] Care Team Providers Name Role Phone PCP, DOES NOT HAVE A Primary Care Physician Unavailable MAURY ROBLREO Attending Clinician Unavailable Maury Roblero MD Attending Clinician Doctor Unassigned, Lili Attending Clinician Unavailable Pratima CORNELL Attending Clinician Unavailable STEPH Attending Clinician Unavailable Melisa DOTY Attending Clinician Unavailable Lou FROST Attending Clinician Unavailable RAFAELA Attending Clinician Unavailable Kelvin ESTRELLA Attending Clinician Unavailable VANESSA Attending Clinician Unavailable Tamica CARBAJAL Attending Clinician Unavailable Ericka AMAYA Attending Clinician Unavailable Lou RAMSAY Attending Clinician Unavailable NINI LORD Attending Clinician Unavailable FARIBA LAWS Attending Clinician Unavailable Phil Verdin Attending Clinician Unavailable Phil Verdin Attending Clinician Unavailable Dewey Cantrell Attending Clinician Unavailable Dewey Cantrell Attending Clinician Unavailable Pratima CORNELL Admitting Clinician Unavailable Phil Verdin Admitting Clinician Unavailable Dewey Cantrell Admitting Clinician Unavailable Payers Payer Name Policy Type Policy Number Effective Date Expiration Date S enrrique [employer] [id number] 2021 00:00:00 Problems Condition Condition Condition Status Onset Resolution Last Treating Co mments Source Name Details Category Date Date Treatment Clinician Date Morbid Morbid Disease Active Univers obesity obesity 2-17 [place] of [place] mass index 00 [place] dical of of Branch 40.0-49.9 40.0-49.9 Migraines Migraines Disease Active 2013-05 Uni vers 1-09 ity of 00:00: [place] 00 Medical Branch Rubella Rubella Disease Active Univers non-immune non-immune 917 it y of status, status, 00:00: [place] antepartum antepartum 00 Me dical Branch Asthma Asthma Disease Active Overview: Univer s 01-22 Formattin ity of 00:00: g of this 00 note Medical might be Branch different from the original. ICD10 Diagnosis Term Modeling And Simulation Analyst Utility Tobacco Tobacco Disease Active Univers use use 01-22 ity of disorder disorder 00:00: [place] 00 Medical Branch Multiparit Multiparit Disease Active U nivers y y 01-22 ity of 00:00: [place] 00 Medical [facility] Allergies, Adverse Reactions, Alerts Allergy Allergy Status Severity Reaction(s) Onset Inactive Treating Comm ents Source Name Type Date Date Clinician PENICILL Allergy [facility] [address] [place] [address] Penicill Propensi Active Rash Univer s ins ty to 4-01 ity of adverse 00:00: [place] reaction 00 [facility] PENICILL Drug Active Rash Univers INS Class 4-01 ity of 00:00: [place] 00 Medical Branch Penicill Propensi Active Rash Univer s ins ty to 4-01 ity of adverse 00:00: [place] reaction 00 [facility] s Branch penicill Drug Active [facility] penicill Drug Active [facility] penicill Drug Active [facility] penicill Drug Active [facility] penicill Drug Active [facility] penicill Drug Active [facility] penicill Drug Active [facility] penicill Drug Active [facility] penicill Drug Active [facility] Social History Social Habit Start Date Stop Date Quantity Comments Source History of Cigarette Smoker Universi ty of tobacco use [place] [facility] History SDOH University o f Alcohol Frequency [facility] edical Branch History SDOH University o f Alcohol Std [place] [facility] Drinks Branch History SDOH University o f Alcohol Binge [place] [facility] Exposure to 2021-07-11 2021-08-10 Not sure University of SARS-CoV-2 00:00:00 15:25:00 [facility] (event) [place] Alcohol intake 2021-08-10 2021-08-10 Current drinker of Un iversity of 00:00:00 00:00:00 alcohol (finding) [facility] edical [place] Tobacco Comment 2021-06-18 2021-06-18 3 ciggs a day Univer sity of 00:00:00 00:00:00 [facility] Tobacco use and 2021-06-18 2021-06-18 Never used Universit y of exposure 00:00:00 00:00:00 [facility] Alcohol Comment 2021-06-18 2021-06-18 occasionally Univers ity of 00:00:00 00:00:00 [facility] Sex Ass[birth year] At [birth year] Universit y of 00:00:00 00:00:00 [facility] Smoking Status Start Date Stop Date Source Current every day smoker 2021-06-18 00:00:00 Uni versity of [facility] Medications Ordered Filled Start Stop Current Ordering Indication Dosage Frequency Signature Comments Components Source Medication Medication Date Date Medication? Clinician (SIG) Name Name No known No Univers medications 4-04 ity of 17:37: [address] ibuprofen 2021- No [id number] 600mg Take 1 Univers 600 mg 2-23 04-04 tablet by ity of tablet 00:00: 00:00 mouth [place] 00 :00 every 6 Medical (six) Branch hours. docusate 2021- No [id number] 100mg Take 1 U nivers 100 mg 2-23 04-04 capsule by ity of capsule 00:00: 00:00 mouth [place] 00 :00 every 12 Medical (twelve) Branch hours. Immunizations Ordered Filled Immunization Date Status Comments Sour e Immunization Name Name PPD (TB) 2016-11-25 Completed University of 00:00:00 [facility] PPD (TB) 2016-11-25 Completed University 00:00:00 [facility] Influenza Virus 2015-02-17 Completed Universit y of Vaccine 00:00:00 [facility] Influenza Virus 2015-02-17 Completed Universit y of Vaccine 00:00:00 [facility] TDAP 2014-04-22 Completed University 00:00:00 [facility] TDAP 2014-04-22 Completed [facility] 00:00:00 [facility] Vital Signs Vital Name Observation Time Observation Value Comments Source Systolic blood 2021-08-10 21:03:00 152 mm[Hg] Univer sity of pressure [facility] Diastolic blood 2021-08-10 21:03:00 81 mm[Hg] Unive rsity [facility] BMI 2021-08-10 20:56:00 44.22 [facility] Heart rate 2021-08-10 20:56:00 74 /min [facility] Body temperature 2021-08-10 20:56:00 36.78 Romi [facility] Respiratory rate 2021-08-10 20:56:00 18 /min [facility] Body height 2021-08-10 20:56:[address] [facility] Body weight 2021-08-10 20:56:00 [facility] 2020-09-19 20:33:00 167.6 cm WEIGHT 2020-09-19 20:33:00 120.657 kg HEIGHT 2020-09-19 20:33:00 167.6 cm WEIGHT 2020-09-19 20:33:00 120.657 kg Height/Length 2021-05-26 12:56:17 165.1 cm Measured Height/Length 2021-05-26 12:56:15 165.1 cm Measured Height/Length 2021-05-26 12:56:14 165.1 cm Measured Height/Length 2020-02-23 18:45:01 Measured Procedures Procedure Date / Time Performed Performing Clinician [facility] e MEDICAL 2021-08-10 05:01:00 [facility], [facility]LEASE[facility]CLEARANCE Name Medical Branch FORMS Encounters Start End Encounter Admission Attending Care Care Encounter Source Date/Time Date/Time Type Type Clinicians Facility Department ID 2021-11-11 2021-11-11 Outpatient MARY KATE BASHIR [facility] [id number] [facility] 15:00:00 15:00:00 ity [facility] [place] [facility] 2021-08-10 2021-08-10 [facility] [id number] Univers 15:30:00 16:37:04 Visit Maury AZUL [id number] i ty of [place] [id number] [place] PROF[place] [id number] In dical [address] 2021-08-10 2021-08-10 Outpatient R MARY KATE ROBLERO [facility] [id number] Univers 15:30:00 16:37:04 ity [facility] [place] [facility] 2021-08-10 2021-08-10 Orders Doctor RICARDO [id number] Univers 00:00:00 00:00:00 Only Unassigned, PEDRO [id number] ity of [place] [facility] [id number] [place] as [id number] [address] 2021-07-20 2021-07-20 Outpatient R MARY KATE ROBLERO [facility] [id number] Univers 09:00:00 09:22:36 ity [facility] [place] [facility] 2021-06-29 2021-07-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 [id number] Univers 22:12:00 10:15:00 [facility] 2021-06-29 2021-06-29 Outpatient Chino ROBLERO MARY KATE [facility] [id number] Univers 09:45:00 09:45:[facility] 2021-06-25 2021-06-25 Outpatient MARY KATE BASHIR [facility] [id number] Univers 10:30:00 11:17:[facility] 2021-06-18 2021-06-18 Outpatient R STEPH [facility] [id number] Univers 14:00:00 14:42:49 MICHAEL [facility] 2021-04-06 2021-04-06 Outpatient DEIDRE DOTY [facility] [id number] Joe 07:44:18 07:44:18 Health 2021-02-04 2021-02-04 Outpatient MARGOT [facility] [id number] Joe 07:18:50 12:23:32 TEJAL [facility] 2021-01-20 2021-01-20 Outpatient DHARI, [facility] [id number] Ary 00:00:00 00:00:00 [facility] 2020-10-28 2020-10-28 Outpatient DHARI, [facility] [id number] Ary 11:14:20 11:25:33 [facility] 2020-10-28 2020-10-28 Outpatient SAMEER, [facility] [id number] Ary 09:42:42 11:11:47 [facility] 2020-10-28 2020-10-28 Outpatient DHARI, [facility] [id number] Ary 00:00:00 00:00:00 [facility] 2020-10-28 2020-10-28 Outpatient VANESSA, [facility] [id number] Ary 00:00:00 00:00:00 [facility] 2020-10-09 2020-10-09 Outpatient [facility] [id number] Ary 00:00:00 00:00:00 [facility] 2020-09-20 2020-09-21 [facility] [id number] Ary 15:33:00 08:15:00 [facility] 2020-09-21 2020-09-21 Emergency TYRONE AMAYA [facility] [id number] Ary 06:21:58 06:21:58 [facility] 2020-09-21 2020-09-21 Emergency TYRONE AMAYA [place] [id number] Ary 05:35:30 05:35:30 [facility] 2020-09-21 2020-09-21 [facility] [id number] Ary 00:17:17 00:17:17 [facility] 2020-09-21 2020-09-21 [facility] [id number] Ary 00:17:12 00:17:12 [facility] 2020-09-20 2020-09-20 [facility] [id number] Ary 23:24:27 23:24:27 [facility] 2020-09-19 2020-09-19 Emergency TRAUMA [id number] 16:34:00 20:24:00 RUFFS DALE [id number] 2020-09-19 2020-09-19 Emergency ER [facility] Emergency [id number] [facility] 20:23:00 20:23:00 2020-04-27 2020-04-27 Emergency E EUSEBIA MHBL MHBL [id number] MHBL 12:45:00 13:10:00 TRAN 2020-02-23 2020-02-23 Emergency 1 [place] Simone [facility] [place] [id number] 18:33:00 21:25:00 [place] Simoneericka Sauceda [facility] 2020-02-23 2020-02-23 Emergency 1 [place] Simone [facility] [place] [id number] 18:33:00 18:33:00 [place] -[id number] J [facility] 2020-01-17 2020-01-17 [facility] [id number] [facility] 14:43:00 15:28:[address] [facility] [facility] [address] 2016-12-11 2016-12-11 Emergency [facility] [id number] Ary 22:14:06 22:14:06 Health Results Test Description Test Time Test Comments Results Result [facility] e Comments U/S, PELVIS, WITH 2020-09-20 Reason for ENDOVAG AND 01:52:00 exam:->ABDOMINA DOPPLER L PAINR flank pain and lower [facility] - [facility] for [facility] days. Reason PLACIDO FERRIS for GABRIELLA : exam:->GENERALI 1990 ZED BODY ACHES Sex: [...] Taylor MDReport Verified Date/Time: 09/20/2020 01:52:04 -COV2/RT-PCR ([facility]) 2020-09-20 00:55:00 Test Item Value Reference Range Interpretation Comme nts SARS-COV2/RT-PCR Negative Not Performance of the Xpert Xpress SARS-CoV-2/Flu/RSV test has only been established in nasopharyngeal swab (test code = Detected, specimens. Use of the Xpert Xpress SARS-CoV-2/Flu/RSV test with other specimen types has not been [id number]) Negative, assessed and pe rformance characteristics are [...] revoked soon er.Fact Sheet for Healthcare Providers: https://www.[employer]/Documents/Xpert%20Xpress%13GOYA-FhL-9-Flu-RSV/3024508%2 0Rev.%20B%20HCP%20Fact%20 Sheet.pdfFact S heet for Healthcare Patients: https://www.[employer]/Documents/Xpert%20Xpress%47XRFL-AuH-7-Flu-RSV/302-4507%2 0Rev.%20B%20Patient%20Fac t%20Sheet.pdf SARS-COV-2 SLSL Performed at:[facility] [place], [place] [address]mm: [phone] PERFORMING LAB (test code = 1957481) COMPREHENSIVE METABOLIC [id number] 23:43:00 Test Item Value Reference Range Interpretation [...] S NOT APPLICABLE FOR DIALYSIS PATIEN TS. Sole Skiver ID - [id number] ID - [id number] ID - [id number] ID - [id number] ID - [id number] ID - [id number] ID - [id number] ID - [id number] ID - [id number] ID - [id number] ID - [id number] ID - [id number] ID - [id number] ID - [id number] ID - [id number] ID - [id number] ID - [id number] ID - [id number] ID - [id number], ABDOMEN 2020-09-19 23:27:00With IV AND Oral contrast.Unlisted Reason for Exam - Click Yes and Enter Reason Below->NoWill this procedure require oral contrast?->NoMAG[facility]US [facility] FERRIS : 1990 Sex: FFINAL [...] patient's right lowerquadrant pain. Signed: Hebert Taylor Verified Date/Time: 09/19/2020 23:27:51 CBC W/PLT COUNT & AUTO [id number] 21:25:00 Test Item Value Reference Range Interpretation [...] PERCENT (BEAKER) (test code = 2801) SCREEN, [id number] 21:20:00 Test Item Value Reference Range Interpretation Comments TEST URINE (BEAKER) (test Negative code = 583) Creatine [id number] 21:02:48 Test Item Value Reference Range Interpretation Comments CK (test code = CK) 114 U/L 34-145 Comprehensive Metabolic [id number] 21:02:47 Test Item Value Reference Range Interpretation [...] = Lipemia) 0 g/dL 1-2 Comprehensive Metabolic [id number] 21:02:47 Test Item Value Reference Range Interpretation [...] = 0 g/dL 1-2 Lipemia) Comprehensive Metabolic [id number] 21:02:47 Test Item Value Reference Range Interpretation [...] ag e have not been validated by [facility] MDRD study and should be interpreted [...] ag e have not been validated by [facility] MDRD study and should be interpreted [...] = 0 g/dL 1-2 Lipemia) HCG Qualitative [id number] 19:45:46 Test Item Value Reference Range Interpretation [...] 72 hours. Lot # (test code = [id number] N Lot #) Expiration Dt (test 01-06-21 N code = Expiration Dt) Neg Control (test Negative code = Neg Control) Pos Control (test Positive code = Pos Control) Internal QC (test Acceptable code = Internal QC) Urinalysis with Microscopic if [id number] 19:45:46 Test Item Value Reference Range Interpretation [...] Indicated Micro Ind?) Complete Blood Count with [id number] 19:17:51 Test Item Value Reference Range Interpretation [...] N code = Pos Morph XN) Automated [id number] 19:17:51 Test Item Value Reference Range Interpretation Comments Neutro Auto (test code = Neutro 46.1 % 36.0-70.0 Auto) Lymph Auto (test code = Lymph Auto) 45.9 % 12.0-44.0 H Washburn Auto (test code = Washburn Auto) 5.6 % 0.0-11.0 Eos, Auto (test code = Eos, Auto) 1.4 % 0.0-7.0 Basophil Auto (test code = Basophil 0.8 % 0.0-2.0 Auto) Neutro Absolute (test code = Neutro 2.9 x10 1.6-7.4 Absolute) Lymph Absolute (test code = Lymph 2.85 x10 .50-4.60 Absolute) Washburn Absolute (test code = Washburn .35 x10 .00-1.20 Absolute) Eos Absolute (test code = Eos 0.09 x10 0.00-0.74 Absolute) Baso Absolute (test code = Baso 0.05 x10 0.00-0.21 Absolute) IG [id number] 19:17:51 Test Item Value Reference Range Interpretation Comments IG (test code = IG) 0.2 % 0.0-5.0 IG Abs (test code = IG Abs) 0 x10 N Streptococcus A Screen Rapid w/ Reflex [id number] 15:21:41 Test Item Value Reference Range Interpretation Comments Strep A Scn (test code Positive Negative A Resul ts called to = Strep A Scn) and read back by: Ramona Deal 01/17/20 15:21:32 CDT GM Lot # (test code = Lot [id number] N #) Expiration Dt (test 08/21/2020 N code = Expiration Dt) Internal QC (test code Acceptable = Internal QC)
[2021-10-21 21:09] LABS: Absolute Lymphocytes (CBC) 2.7 K/uL (0.7-4.9); Hematocrit 34.6 % (36.0-45.0); Lymphocytes % 38.4 % (15.3-44.8); MPV 9.2 fL (7.6-11.3); RBC Red Blood Cell Count 4.56 M/uL (3.86-4.86)
[2021-10-21 21:25] LABS: Albumin 3.3 g/dL (3.4-5.0); Bilirubin Total 0.2 mg/dL (0.2-1.0); Potassium 3.6 mmol/L (3.5-5.1); Protein, Total 7.2 g/dL (6.4-8.2)
[2021-10-21] MEDS ORDERED: ONDANSETRON 4 MG/2 ML VIAL ONE (21:25)
[2021-10-21] MEDS ORDERED: NA CHLORIDE 0.9% 1,000 ML ONE (21:25)
[2021-10-21 21:42] LABS: Urine Blood Negative (Negative); Urine Glucose Negative (Negative); Urine Protein Negative (Negative); Urine Specific Gravity 1.025 (1.005-1.030)
[2021-10-21 22:03] LABS: Urine Bacteria <20 /HPF (<20); Urine Mucus 2+ /HPF (NONE SEEN); Urine RBC <5 /HPF (NONE SEEN)
[2021-10-21 22:40] LABS: Urine Specific Gravity/Preg 1.025 (1.005-1.030)
--- NOTE | 2021-10-21 23:27 | EDPHYS ---
Physician Documentation [facility] Name: Aleksandra Cheng Age: 31 yrs Sex: Female : 1990 Arrival Date: 10/21/2021 Time: 20:16 Bed 18 Private MD: GONZALO Physician Qasim Arredondo HPI: 10/21 20:35 This 31 yrs old Black Female presents to ER via Ambulatory with complaints of Heat cp Exposure, Heat Exhaustion. 20:35 "generalized muscle cramps". Patient concerned she may be dehydrated. Reports she works cp outside and c/o fatigue, nausea, vomited once today. 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 - Social history:: Smoking status: Reported history of juuling and/or vaping. Patient/guardian denies using alcohol. ROS: 20:40 Constitutional: Positive for fatigue, Negative for body aches, chills, fever, poor PO cp intake. 20:40 Eyes: Negative for injury, pain, redness, and discharge. cp 20:40 ENT: Negative for drainage from ear(s), ear pain, sore throat, difficulty swallowing, difficulty handling secretions. 20:40 Cardiovascular: Negative for chest pain, palpitations. 20:40 Respiratory: Negative for cough, shortness of breath, wheezing. 20:40 Abdomen/GI: Positive for nausea and vomiting, Negative for abdominal pain, diarrhea, constipation. 20:40 : Negative for urinary symptoms. 20:40 Neuro: Negative for altered mental status, dizziness, headache, loss of consciousness, syncope, weakness. 20:40 All other systems are negative. Exam: 20:45 Constitutional: The patient appears in no acute distress, alert, awake, cp non-diaphoretic, non-toxic, well developed, well nourished, obese. 20:45 Head/Face: Normocephalic, atraumatic. cp 20:45 Eyes: Periorbital structures: appear normal, Conjunctiva: normal, no exudate, no injection, Sclera: no appreciated abnormality, Lids and lashes: appear normal, bilaterally. 20:45 ENT: External ear(s): are unremarkable, Nose: is normal, Mouth: Lips: moist, Oral mucosa: pink and intact, moist, Posterior pharynx: Airway: no evidence of obstruction, patent. 20:45 Neck: ROM/movement: is normal, is supple, without pain, no range of motions limitations. 20:45 Chest/axilla: Inspection: normal. 20:45 Cardiovascular: Rate: normal, Rhythm: regular, Edema: is not appreciated, JVD: is not appreciated. 20:45 Respiratory: the patient does not display signs of respiratory distress, Respirations: normal, no use of accessory muscles, no retractions, labored breathing, is not present, Breath sounds: are clear throughout, no decreased breath sounds, no stridor, no wheezing. 20:45 Abdomen/GI: Inspection: abdomen appears normal, Palpation: abdomen is soft and non-tender, in all quadrants. 20:45 Back: pain, is absent, ROM is normal. 20:45 Neuro: Orientation: to person, place \\T\\ time. Mentation: is normal, Cerebellar function: is grossly normal, Motor: moves all fours, strength is normal, Sensation: is normal. Vital Signs: 20:23 BP 145 / 99; Pulse 77; Resp 18; Temp 98.2(O); Pulse Ox 100% on R/A; Weight 122.47 kg; ld1 Height 5 ft. 6 in. (167.64 cm); Pain 0/10; 23:13 BP 142 / 74; Pulse 62; Resp 18; Pulse Ox 100% on R/A; kd3 20:23 Body Mass Index 43.58 (122.47 kg, 167.64 cm) ld1 MDM: 20:27 Patient medically screened. [facility] 23:25 Data reviewed: vital signs, nurses notes, lab test result(s), and as a result, I will cp discharge patient. 23:25 Differential Diagnosis dehydration, electrolyte abnormality. Counseling: I had a cp detailed discussion with the patient and/or guardian regarding: the historical points, exam findings, and any diagnostic results supporting the discharge/admit diagnosis, lab results, to return to the emergency department if symptoms worsen or persist or if there are any questions or concerns that arise at home. Response to treatment: the patient's symptoms have markedly improved after treatment, and as a result, I will discharge patient. 10/21 20:33 Order name: CBC with Diff; Complete Time: 23:12 cp 10/21 20:33 Order name: CMP; Complete Time: 23:12 cp 10/21 20:33 Order name: Lipase; Complete Time: 23:12 cp 10/21 20:33 Order name: Urine Microscopic Only; Complete Time: 23:12 cp 10/21 20:33 Order name: CK; Complete Time: 23:12 cp 10/21 21:42 Order name: Urine Dipstick-Ancillary; Complete Time: 23:12 EDMS 10/21 20:33 Order name: IV Saline Lock; Complete Time: 21:04 cp 10/21 20:33 Order name: Labs collected and sent; Complete Time: 21:04 cp 10/21 20:33 Order name: Urine Dipstick-Ancillary (obtain specimen); Complete Time: 21:43 cp 10/21 20:33 Order name: Urine Test (obtain specimen); Complete Time: 21:43 cp 10/21 21:42 Order name: Urine --Ancillary (enter results); Complete Time: 23:12 mw2 10/21 23:12 Order name: PO challenge; Complete Time: 23:20 cp Administered Medications: 21:24 Drug: NS 0.9% 1000 ml Route: IV; Rate: 1 bolus; Site: right antecubital; kd3 23:44 Follow up: Response: No adverse reaction; IV Status: Completed infusion kd3 21:24 Drug: Zofran (Ondansetron) 4 mg Route: IVP; Site: right antecubital; kd3 23:45 Follow up: Response: No adverse reaction kd3 Disposition Summary: 10/21/21 23:27 Discharge Ordered Location: Home cp Problem: new cp Symptoms: have improved cp Condition: Stable cp Diagnosis - Heat exhaustion, unspecified cp Followup: cp - With: Private Physician - When: 1 - 2 days - Reason: Worsening of condition Discharge Instructions: - Discharge Summary Sheet cp - Heat Exhaustion cp - Preventing Heat Exhaustion, Adult cp Forms: - Medication Reconciliation Form cp - Thank You Letter cp - Antibiotic Education cp - Prescription Opioid Use cp - Work release form kd3 Addendum: 10/23/2021 08:34 Co-signature as Attending Physician, Qasim Arnulfo MD I agree with the assessment and c morales plan of care. Signatures: Dispatcher [employer] Qasim Vogt MD MD cha Page, Corey, PA PA cp Dibbern, Lauren, RN RN ld1 Elen Rahman RN RN kd3
--- NOTE | 2021-10-21 23:27 | ER ---
Nurse's Notes [facility] Name: Aleksandra Cheng Age: 31 yrs Sex: Female : 1990 Arrival Date: 10/21/2021 Time: 20:16 Bed 18 Private MD: Diagnosis: Heat exhaustion, unspecified Presentation: 10/21 20:23 Chief complaint: Patient states: "I feel like I am dehydrated from working outside all ld1 day at [employer]." C/O N/V, muscle cramps. Coronavirus screen: At this time, the client does not indicate any symptoms associated with coronavirus-19. Ebola Screen: No symptoms or risks identified at this time. Initial Sepsis Screen: Does the patient meet any 2 criteria? No. Patient's initial sepsis screen is negative. Does the patient have a suspected source of infection? No. Patient's initial sepsis screen is negative. Risk Assessment: Do you want to hurt yourself or someone else? Patient reports no desire to harm self or others. Onset of symptoms was October 21, 2021 at 20:25. 20:23 Method Of Arrival: Ambulatory ld1 20:23 Acuity: VIN 3 ld1 Triage Assessment: 20:25 General: Appears in no apparent distress. comfortable, Behavior is calm, cooperative, ld1 appropriate for age. Pain: Denies pain. EENT: No signs and/or symptoms were reported regarding the EENT system. Neuro: Level of Consciousness is awake, alert, obeys commands, Oriented to person, place, time, situation. Cardiovascular: Capillary refill < 3 seconds Patient's skin is warm and dry. Respiratory: Airway is patent Respiratory effort is even, unlabored. GI: Abdomen is round non-distended. : No signs and/or symptoms were reported regarding the genitourinary system. Derm: No signs and/or symptoms reported regarding the dermatologic system. Musculoskeletal: Reports muscle cramps. 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 - Social history:: Smoking status: Reported history of juuling and/or vaping. Patient/guardian denies using alcohol. Screenin:10 Abuse screen: Denies threats or abuse. Denies injuries from another. Nutritional kd3 screening: No deficits noted. Tuberculosis screening: No symptoms or risk factors identified. Fall Risk IV access (20 points). Assessment: 23:12 Reassessment: No changes from previously documented assessment. Patient and/or family kd3 updated on plan of care and expected duration. Pain level reassessed. Patient is alert, oriented x 3, equal unlabored respirations, skin warm/dry/pink. General: Appears in no apparent distress. Behavior is calm, cooperative. Vital Signs: 20:23 BP 145 / 99; Pulse 77; Resp 18; Temp 98.2(O); Pulse Ox 100% on R/A; Weight 122.47 kg; ld1 Height 5 ft. 6 in. (167.64 cm); Pain 0/10; 23:13 BP 142 / 74; Pulse 62; Resp 18; Pulse Ox 100% on R/A; kd3 20:23 Body Mass Index 43.58 (122.47 kg, 167.64 cm) ld1 ED Course: 20:16 Patient arrived in ED. bp1 20:19 Elen Rahman, CAS is Primary Nurse. kd3 20:24 Qasim Corea PA is PHCP. cp 20:24 Qasim Arredondo MD is Attending Physician. cp 20:25 Triage completed. ld1 20:25 Arm band placed on right wrist. ld1 21:00 Inserted saline lock: 22 gauge in right antecubital area, using aseptic technique. ds4 Blood collected. 23:10 Patient has correct armband on for positive identification. kd3 23:10 No provider procedures requiring assistance completed. kd3 23:44 IV discontinued, intact, bleeding controlled, No redness/swelling at site. Pressure kd3 dressing applied. Administered Medications: 21:24 Drug: NS 0.9% 1000 ml Route: IV; Rate: 1 bolus; Site: right antecubital; kd3 23:44 Follow up: Response: No adverse reaction; IV Status: Completed infusion kd3 21:24 Drug: Zofran (Ondansetron) 4 mg Route: IVP; Site: right antecubital; kd3 23:45 Follow up: Response: No adverse reaction kd3 Medication: 23:10 VIS not applicable for this client. kd3 Outcome: 23:27 Discharge ordered by . cathi 23:44 Discharged to home ambulatory. kd3 23:44 Condition: stable 23:44 Discharge instructions given to patient, Instructed on discharge instructions, follow up and referral plans. Demonstrated understanding of instructions, follow-up care. 23:45 Patient left the ED. kd3 Signatures: Júnior Burton ds4 Qasim Corea PA PA cp Paniauga, Brittany bp1 Dibbern, Lauren, RN RN ld1 Elen Rahman, RN RN kd3
[2021-10-21 23:52] VITALS: TEMP 98.2; O2SAT 100
[2021-10-21 23:54] VITALS: BP 142/74
== END 2021-10-21 23:45 | disposition home or self-care (01) ==
LOC: ER 20:15
DX: T67.5XXA Heat exhaustion, unspecified, initial encounter (principal); Z88.0 Allergy status to penicillin
CPT/HCPCS: 36415; 80053; 81003; 81015; 81025; 82550; 83690; 85025; 96361; 96374; 99283; J2405; J7030

== ENCOUNTER 2021-11-20 06:41 | Emergency (ER) | payer SELFPAY ==
[2021-11-20] MEDS ORDERED: LIDOCAINE 1% W/EPI 1:100,000 MDV 50 ML VIAL ONE (08:40)
--- NOTE | 2021-11-20 08:42 | ER ---
Nurse's Notes [facility] Name: Aleksandra Cheng Age: 31 yrs Sex: Female : 1990 Arrival Date: 11/20/2021 Time: 06:44 Bed 17 Private MD: Diagnosis: Abscess of left external ear Presentation: 11/20 07:19 Chief complaint: Patient states: left ear pain X 2 days , she has a bump behind her iw ear. Coronavirus screen: At this time, the client does not indicate any symptoms associated with coronavirus-19. Ebola Screen: Patient negative for fever greater than or equal to 101.5 degrees Fahrenheit, and additional compatible Ebola Virus Disease symptoms Patient denies exposure to infectious person. Patient denies travel to an Ebola-affected area in the 21 days before illness onset. No symptoms or risks identified at this time. Initial Sepsis Screen: Does the patient meet any 2 criteria? No. Patient's initial sepsis screen is negative. Does the patient have a suspected source of infection? No. Patient's initial sepsis screen is negative. Risk Assessment: Do you want to hurt yourself or someone else? Patient reports no desire to harm self or others. Onset of symptoms was November 18, 2021. 07:19 Method Of Arrival: Ambulatory iw 07:19 Acuity: VIN 4 iw Triage Assessment: 07:45 General: Appears in no apparent distress. Behavior is calm, cooperative. morales Historical: - Allergies: 07:20 PENICILLINS; iw - PMHx: 07:20 Dermoid Tumor; iw - PSHx: 07:20 section; Cholecystectomy; Ligation of fallopian tube; iw - Immunization history:: Client reports receiving the 2nd dose of the Covid vaccine. - Social history:: Smoking status: Patient reports the use of cigarette tobacco products. Screenin:44 Abuse screen: Denies threats or abuse. Denies injuries from another. Nutritional morales screening: No deficits noted. Tuberculosis screening: No symptoms or risk factors identified. Fall Risk None identified. Assessment: 07:44 Pain: Complains of pain in left ear. EENT: Ear canal clear on left ear pt reports morales having bump behind the left ear. Vital Signs: 07:19 BP 162 / 98; Pulse 74; Resp 16; Temp 97.5; Pulse Ox 100% on R/A; iw ED Course: 06:44 Patient arrived in ED. bp1 07:20 Triage completed. iw 07:20 Arm band placed on. iw 07:21 Qasim Arredondo MD is Attending Physician. néstor 07:43 Brenda Ruiz, CAS is Primary Nurse. morales 07:44 Patient has correct armband on for positive identification. Bed in low position. morales 07:46 No provider procedures requiring assistance completed. morales 09:08 Mary Zarate MD is Referral Physician. néstor 09:37 Patient did not have IV access during this emergency room visit. morales Administered Medications: 09:19 Drug: Lidocaine-Epinephrine -1%: (1:100,000) 4 ml Volume: 20 ml; Route: Infiltration; morales 09:19 Drug: Bactrim (trimethoprim-sulfamethoxazole) (160 mg-800 mg (DS) 1 tablet Route: PO; morales 09:20 Follow up: Response: No adverse reaction morales 09:19 Drug: KeFLEX (cephalexin) 500 mg Route: PO; morales 09:19 Follow up: Response: No adverse reaction morales 09:19 Drug: Bactroban (mupirocin) Ointment 2 % 1 application Route: Topical; Site: wound; morales Medication: 07:44 VIS not applicable for this client. morales Outcome: 08:42 Discharge ordered by . néstor 09:36 Discharged to home ambulatory. morales 09:36 Condition: good 09:36 Discharge instructions given to patient. 09:37 Patient left the ED. morales Signatures: Qasim Arredondo MD MD cha Williams, Irene RN CAS Clementine Travis [facility] Brenda Ruiz RN RN morales
--- NOTE | 2021-11-20 08:43 | EDPHYS ---
Physician Documentation [facility] Name: Aleksandra Cheng Age: 31 yrs Sex: Female : 1990 Arrival Date: 11/20/2021 Time: 06:44 Bed 17 Private MD: GONZALO Physician Qasim Arredondo HPI: 11/20 08:37 This 31 yrs old Black Female presents to ER via Ambulatory with complaints of Ear Pain. néstor 08:37 The patient presents with pain, swelling, tenderness. The complaints affect the left [facility] ear. Onset: The symptoms/episode began/occurred 3 day(s) ago. Modifying factors: The symptoms are alleviated by nothing, the symptoms are aggravated by pulling on ears, touching. Associated signs and symptoms: The patient has no apparent associated signs or symptoms. Severity of symptoms: At their worst the symptoms were mild moderate in the emergency department the symptoms are unchanged. The patient has not experienced similar symptoms in the past. Historical: - Allergies: 07:20 PENICILLINS; iw - PMHx: 07:20 Dermoid Tumor; iw - PSHx: 07:20 section; Cholecystectomy; Ligation of fallopian tube; iw - Immunization history:: Client reports receiving the 2nd dose of the Covid vaccine. - Social history:: Smoking status: Patient reports the use of cigarette tobacco products. ROS: 08:38 Constitutional: Negative for fever, chills, and weight loss, Eyes: Negative for injury, néstor pain, redness, and discharge, Neck: Negative for injury, pain, and swelling, Cardiovascular: Negative for chest pain, palpitations, and edema, Respiratory: Negative for shortness of breath, cough, wheezing, and pleuritic chest pain, Abdomen/GI: Negative for abdominal pain, nausea, vomiting, diarrhea, and constipation, Back: Negative for injury and pain, : Negative for injury, bleeding, discharge, and swelling, MS/Extremity: Negative for injury and deformity, Skin: Negative for injury, rash, and discoloration, Neuro: Negative for headache, weakness, numbness, tingling, and seizure, Psych: Negative for depression, anxiety, suicide ideation, homicidal ideation, and hallucinations, Allergy/Immunology: Negative for hives, rash, and allergies, Endocrine: Negative for neck swelling, polydipsia, polyuria, polyphagia, and marked weight changes. 08:38 ENT: Positive for ear pain. Exam: 08:38 Constitutional: This is a well developed, well nourished patient who is awake, alert, néstor and in no acute distress. Head/Face: Normocephalic, atraumatic. Eyes: Pupils equal round and reactive to light, extra-ocular motions intact. Lids and lashes normal. Conjunctiva and sclera are non-icteric and not injected. Cornea within normal limits. Periorbital areas with no swelling, redness, or edema. Neck: Trachea midline, no thyromegaly or masses palpated, and no cervical lymphadenopathy. Supple, full range of motion without nuchal rigidity, or vertebral point tenderness. No Meningismus. Chest/axilla: Normal chest wall appearance and motion. Nontender with no deformity. No lesions are appreciated. Cardiovascular: Regular rate and rhythm with a normal S1 and S2. No gallops, murmurs, or rubs. Normal PMI, no JVD. No pulse deficits. Respiratory: Lungs have equal breath sounds bilaterally, clear to auscultation and percussion. No rales, rhonchi or wheezes noted. No increased work of breathing, no retractions or nasal flaring. Abdomen/GI: Soft, non-tender, with normal bowel sounds. No distension or tympany. No guarding or rebound. No evidence of tenderness throughout. Back: No spinal tenderness. No costovertebral tenderness. Full range of motion. Skin: Warm, dry with normal turgor. Normal color with no rashes, no lesions, and no evidence of cellulitis. MS/ Extremity: Pulses equal, no cyanosis. Neurovascular intact. Full, normal range of motion. Neuro: Awake and alert, GCS 15, oriented to person, place, time, and situation. Cranial nerves II-XII grossly intact. Motor strength 5/5 in all extremities. Sensory grossly intact. Cerebellar exam normal. Normal gait. Psych: Awake, alert, with orientation to person, place and time. Behavior, mood, and affect are within normal limits. 08:38 ENT: External ear(s): abscess, that is small, of the pinna of left ear. Vital Signs: 07:19 BP 162 / 98; Pulse 74; Resp 16; Temp 97.5; Pulse Ox 100% on R/A; iw MDM: 07:21 Patient medically screened. néstor 08:38 Differential diagnosis: otitis externa. Data reviewed: vital signs, nurses notes. Data néstor interpreted: personnel monitor: not applicable for this patient encounter. rate is 74 beats/min, rhythm is regular, Pulse oximetry: on room air is 100 %. Counseling: I had a detailed discussion with the patient and/or guardian regarding: the historical points, exam findings, and any diagnostic results supporting the discharge/admit diagnosis, the need for outpatient follow up, for definitive care, an ENT specialist. 11/20 08:34 Order name: Dressing - Wound; Complete Time: : [facility] 11/20 08:34 Order name: Gloves, Sterile; Complete Time: : [facility] 11/20 08:34 Order name: Setup Suture Tray; Complete Time: [facility] 11/20 08:34 Order name: Urine Dipstick-Ancillary (obtain specimen) [facility] 11/20 08:34 Order name: Urine Test (obtain specimen) néstor Administered Medications: 09:19 Drug: Lidocaine-Epinephrine -1%: (1:100,000) 4 ml Volume: 20 ml; Route: Infiltration; morales 09:19 Drug: Bactrim (trimethoprim-sulfamethoxazole) (160 mg-800 mg (DS) 1 tablet Route: PO; morales 09:20 Follow up: Response: No adverse reaction morales 09:19 Drug: KeFLEX (cephalexin) 500 mg Route: PO; morales 09:19 Follow up: Response: No adverse reaction morales 09:19 Drug: Bactroban (mupirocin) Ointment 2 % 1 application Route: Topical; Site: wound; morales Disposition Summary: 11/20/21 08:42 Discharge Ordered Location: Home néstor Problem: new néstor Symptoms: have improved néstor Condition: Stable néstor Diagnosis - Abscess of left external ear néstor Followup: néstor - With: Private Physician - When: 2 - 3 days - Reason: Recheck today's complaints, Continuance of care, Re-evaluation by your physician Followup: néstor - With: Mary Zarate MD - When: 2 - 3 days - Reason: Recheck today's complaints, Re-evaluation by your physician Discharge Instructions: - Discharge Summary Sheet néstor - Skin Abscess néstor - Incision and Drainage néstor - Skin Abscess, [id number] néstor - Incision and Drainage, Care After néstor Forms: - Medication Reconciliation Form néstor - Thank You Letter néstor - Antibiotic Education néstor - Prescription Opioid Use [facility] Prescriptions: - Centany 2 % Topical ointment - apply 1 application by TOPICAL route 3 times per day; 15 gram; Refills: 0, [facility] Product Selection Permitted - Cephalexin 500 mg Oral Capsule - take 1 capsule by ORAL route every 6 hours for 7 days; 28 capsule; Refills: 0, [facility] Product Selection Permitted - Bactrim DS 800-160 mg Oral Tablet - take 1 tablet by ORAL route every 12 hours for 10 days; 20 tablet; Refills: 0, [facility] Product Selection Permitted - Tylenol-Codeine #3 300 mg-30 mg Oral - take 2 application by ORAL route every 6 hours; 20 tablet; Refills: 0, Product [facility] Selection Permitted Signatures: Qasim Arredondo MD MD cha Williams, Irene RN RN Brenda Mcculolugh RN RN morales
[2021-11-20] MEDS ORDERED: SMZ./TMP. 800/160 MG TABLET ONE (08:59)
[2021-11-20] MEDS ORDERED: CEPHALEXIN 250 MG CAP ONE (08:59)
[2021-11-20] MEDS ORDERED: MUPIROCIN 2% OINT 22GM TUBE TOP ONE (08:59)
[2021-11-20 09:43] VITALS: BP 162/98; TEMP 97.5; O2SAT 100
== END 2021-11-20 09:37 | disposition home or self-care (01) ==
LOC: ER 06:41
DX: H60.02 Abscess of left external ear (principal); Z88.0 Allergy status to penicillin; Z72.0 Tobacco use
CPT/HCPCS: 99283

== ENCOUNTER 2022-02-21 18:02 | Emergency (ER) | payer OTHER, SELFPAY ==
--- OUTSIDE RECORDS SUMMARY | 2022-02-21 18:10 | XMS REPORT | Continuity of Care Document ---
:1990 Author Organization [facility] t Address [address] [place] [address] Care Team Providers Name Role Phone PCP, PATIENT DOES NOT HAVE A Primary Care Physician UnavailMARY KATE Arana Attending Clinician Unavailable Mary Kate Roblero MD Attending Clinician Doctor Unassigned, [place] Attending Clinician Unavailable SHAWNA HOUSTON Attending Clinician Unavailable Shawna [place] MD Attending Clinician Adali Choi PA-C Attending Clinician 2, [facility] Attending Clinician Unavailable ADALI CHOI Attending Clinician Unavailable DEIDRE DOTY Attending Clinician Unavailable TEJAL FROST Attending Clinician Unavailable FRANCIE RUSSO Attending Clinician Unavailable CARLY ALEJANDRE Attending Clinician Unavailable MILE ESTRELLA Attending Clinician Unavailable DARSHAN MENDEZ Attending Clinician Unavailable DAVID CARBAJAL Attending Clinician Unavailable TYRONE AMAYA Attending Clinician Unavailable MELISSA RAMSAY Attending Clinician Unavailable INGA LORD Attending Clinician Unavailable TRAN LAWS Attending Clinician Unavailable Simone Verdin Attending Clinician Unavailable Simone Verdin Attending Clinician Unavailable Shady Cantrell Attending Clinician Unavailable Shady Cantrell Attending Clinician Unavailable MARY KATE ROBLERO Admitting Clinician Unavailable SHAWNA HOUSTON Admitting Clinician Unavailable Shawna [place] MD Admitting Clinician Simone Verdin Admitting Clinician Unavailable Shady Cantrell Admitting Clinician Unavailable Payers Payer Name Policy Type Policy Number Effective Date Expiration Date S enrrique [facility] [id number] 2021 HMO 00:00:00 COMMERCIAL [id number] 2021 NON-CONTRACT 00:00:00 GENERIC [employer] [id number] 2021 00:00:00 Problems Condition Condition Condition Status Onset Resolution Last Treating Co mments Source Name Details Category Date Date Treatment Clinician Date Morbid Morbid Disease Active Univers obesity obesity 2-17 [place]y of [place] mass index 00 [place] dical of of Branch 40.0-49.9 40.0-49.9 Migraines Migraines Disease Active 2013-05 Uni vers 09 ity of 00:00: [place] 00 Medical Branch Rubella Rubella Disease Active Univers non-immune non-immune 9 it y of status, status, 00:00: [place] antepartum antepartum 00 Me dical Branch Asthma Asthma Disease Active Overview: Univer s 01-22 Formattin ity of 00:00: g of this 00 note Medical might be Branch different from the original. ICD10 Diagnosis Term [employer] Utility Tobacco Tobacco Disease Active Univers use use 01-22 ity of disorder disorder 00:00: [place] [facility] Multiparit Multiparit Disease Active U nivers y y 01-22 ity of 00:00: 00 Medical Branch Allergies, Adverse Reactions, Alerts Allergy Allergy Status Severity Reaction(s) Onset Inactive Treating Comm ents Source Name Type Date Date Clinician PENICILL [facility]ergy [facility] Penicill Propensi Active Method i ins ty to 8-25 st adverse 00:00: Hospita reaction 00 l s to drug Penicill Propensi Active Rash Univer s ins ty to 4- ity of adverse 00:00: [place] reaction 00 Medical s Branch PENICILL Drug Active Rash Univers INS Class 4- ity of 00:00: [place] 00 Medical Branch Penicill Propensi Active Rash Univer s ins ty to 4- ity of adverse 00:00: [place] reaction 00 Medical s Branch penicill Drug Active [facility] penicill Drug Active [facility] penicill Drug Active [facility] penicill Drug Active [facility] penicill Drug Active [facility] penicill Drug Active [facility] penicill Drug Active [facility] penicill Drug Active [facility] penicill Drug Active [facility] Social History Social Habit Start Date Stop Date Quantity Comments Source History of Cigarette Smoker Universi ty of tobacco use [place] [facility] [place] History SDOH University o f Alcohol Frequency [facility] edical Branch History SDOH University o f Alcohol Std [place] [facility] Drinks Branch History SDOH University o f Alcohol Binge [facility] al Branch Exposure to 2021-07-11 2021-08-10 Not sure University of SARS-CoV-2 00:00:00 15:25:00 [facility] (event) [place] Tobacco Comment 2021-06-18 2021-06-18 3 ciggs a day Univer sity of 00:00:00 00:00:00 [facility] Tobacco use and 2021-06-18 2021-06-18 Never used Universit y of exposure 00:00:00 00:00:00 [facility] Alcohol Comment 2021-06-18 2021-06-18 occasionally Univers ity of 00:00:00 00:00:00 [facility] Alcohol intake 2016-05-27 2016-05-27 Current non-drinker M ethodist 00:00:00 00:00:00 of [facility] (finding) Sex Assigned At [birth year] [facility] 00:00:00 00:00:00 Hospital Smoking Status Start Date Stop Date Source Current every day smoker 2021-06-18 00:00:00 Uni versity of [facility] Medications Ordered Filled Start Stop Current Ordering Indication Dosage Frequency Signature Comments Components Source Medication Medication Date Date Medication? Clinician (SIG) Name Name No known No Univers medications -04 ity of 17:37: [place] 10 [facility] Branch ibuprofen 2021- No [id number] 600mg Take 1 Univers 600 mg 07-01 tablet by ity of tablet 00:00: 00:00 mouth [place] 00 :00 every 6 Medical (six) Branch hours. docusate 2021- No [id number] 100mg Take 1 U nivers 100 mg 07-01 capsule by ity of capsule 00:00: 00:00 mouth [place] 00 :00 every 12 Medical (twelve) Branch hours. No known No No known Metho di medications 1-[address] 19:27: s Hospita 15 l Immunizations Ordered Filled Immunization Date Status Comments Sourc e Immunization Name Name PPD (TB) 2016-11-25 Completed University 00:00:00 [facility] PPD (TB) 2016-11-25 Completed University 00:00:00 [facility] Influenza Virus 2015-02-17 Completed Universit y of Vaccine 00:00:00 [facility] Influenza Virus 2015-02-17 Completed Universit y of Vaccine 00:00:00 [facility] TDAP 2014-04-22 Completed University of 00:00:00 [facility] TDAP 2014-04-22 Completed [facility] 00:00:00 [facility] Vital Signs Vital Name Observation Time Observation Value Comments Source Systolic blood 2021-08-10 21:03:00 152 mm[Hg] Univer sity of pressure [facility] Diastolic blood 2021-08-10 21:03:00 81 mm[Hg] Unive rsity of pressure [facility] Heart rate 2021-08-10 20:56:00 74 /min [facility] Body temperature 2021-08-10 20:56:00 36.78 Romi [facility] Respiratory rate 2021-08-10 20:56:00 18 /min [facility] Body height 2021-08-10 20:56:00 167.6 cm [facility] Body weight 2021-08-10 20:56:00 124.286 kg [facility] BMI 2021-08-10 20:56:00 44.22 [facility]2 [facility] HEIGHT 2020-09-19 20:33:00 167.6 cm WEIGHT 2020-09-19 20:33:00 120.657 kg HEIGHT 2020-09-19 20:33:00 167.6 cm WEIGHT 2020-09-19 20:33:00 120.657 kg Height/Length 2021-05-26 12:56:17 165.1 cm Measured Height/Length 2021-05-26 12:56:15 165.1 cm Measured Height/Length 2021-05-26 12:56:14 165.1 cm Measured Height/Length 2020-02-23 18:45:01 Measured Procedures Procedure Date / Time Performed Performing Clinician [facility] e MEDICAL 2021-08-10 05:01:00 Doctor Unassigned, No Univer [facility] RELEASE/CLEARANCE Name [facility] FORMS Plan of Care Planned Activity Planned Date Details Comments Source Future Scheduled 2022-01-08 Screening for [facility] Test 01:48:10 malignant neoplasm of cervix (procedure) [code = 458790273] Future Scheduled 2022-01-08 INFLUENZA VACCINE [facility] Test 01:48:10 [code = INFLUENZA VACCINE] Future Scheduled 2022-01-08 [facility]IS B [facility] Test 01:48:10 VACCINES (1 of 3 - 3-dose series) [code = HEPATITIS B VACCINES (1 of 3 - 3-dose series)] Future Scheduled 2022-01-08 COVID[facility] 01:48:10 (#1) [code = COVID-19 VACCINE (#1)] Encounters Start End Encounter Admission Attending Care Care Encounter Source Date/Time Date/Time Type Type Clinicians Facility Department ID 2021-06-25 Outpatient MARY KATE BASHIR [facility] 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 Ri dical [address] 2021-08-10 2021-08-10 Outpatient R ANNIKA BRYAN [facility] [id number] Univers 15:30:00 16:37:04 ity [facility] 2021-08-10 2021-08-10 Outpatient R ANNIKA BRYAN [facility] [id number] Univers 15:30:00 15:30:00 ity [facility] 2021-08-10 2021-08-10 Outpatient R ANNIKA BRYAN [facility] [id number] Univers 15:30:00 15:30:00 ity [facility] 2021-08-10 2021-08-10 Orders Doctor SILVA [id number] Univers 00:00:00 00:00:00 Only Unassigned, PEDRO [id number] ity of [place] [facility] [id number] [place] as [phone] [address] 2021-07-20 2021-07-20 [facility] [id number] Univers 09:00:00 09:22:36 ity [facility] 2021-07-20 2021-07-20 Office [facility] [id number] Univers 09:00:00 09:22:36 Visit Darren AZUL [id number] i ty of [facility] 4.2.7.2.686 [place] [phone] Ri dic[address] 2021-07-20 2021-07-20 Outpatient R ANNIKA [facility] [id number] Univers 09:00:00 09:22:36 ity [facility] 2021-07-20 2021-07-20 Outpatient R ROBLERO BRYAN [facility] [id number] Univers 09:00:00 09:22:36 ity [facility] 2021-07-09 2021-07-09 Orders Doctor RICARDO [id number] Univers 00:00:00 00:00:00 Only Unassigned, PEDRO 350.1.13.10 ity of [place] [facility] 4.2.7.2.686 [place] as [phone] [facility] [address] [place] 2021-07-02 2021-07-02 Telephone Mary Kate Roblero MESUDARSHAN [id number] Univers 00:00:00 00:00:00 Cam JORGE ALBERTO 350.1.13.10 i ty [place] [id number] Ri dical [address] 2021-06-29 2021-07-01 Outpatient X ANETA MESUDARSHAN DE ICER FINISHER [id number] Univers 22:12:00 10:15:00 SHAWNA ity [facility] 2021-06-29 2021-07-01 Emergency MINA [place] [id number] Univers 22:12:00 10:15:00 Marielle PEDRO 350.1.13.10 it y of [facility] 4.2.7.2.686 [place] [phone] [facility] [address] [place] 2021-06-29 2021-07-01 Outpatient X ANETA MESUDARSHAN DE ICER FINISHER [id number] Univers 22:12:00 10:15:00 SHAWNA ity [facility] 2021-06-30 2021-06-30 Outpatient R MARY KATE ROBLERO [facility] DE ICER FINISHER [id number] Univers 10:30:00 10:30:00 ity of [facility] 2021-06-30 2021-06-30 Surgery MINA [place] [id number] Univers 01:20:00 04:52:00 Marielle PEDRO 350.1.13.10 it y of [facility] 4.2.7.2.686 [place] [phone] [facility] [address] [place] 2021-06-29 2021-06-29 Outpatient R MARY KATE ROBLERO MESUDARSHAN [facility] [id number] Univers 09:45:00 09:45:00 ity of [facility] 2021-06-29 2021-06-29 Outpatient R MARY KATE ROBLERO [facility] [id number] Univers 09:45:00 09:45:00 ity [facility] 2021-06-25 2021-06-25 Office Mary Kate Roblero [facility] [id number] Univers 10:30:00 11:17:52 Visit Darren AZUL 350.1.13.10 i ty of [place] 4[place].2.[place] [phone] Ri dic[address] 2021-06-25 2021-06-25 Outpatient R MARY KATE ROBLERO [facility] [id number] Univers 10:30:00 11:17:52 ity [facility] 2021-06-25 2021-06-25 Outpatient R [facility] [id number] Univers 10:30:00 11:17:52 ity [facility] 2021-06-25 2021-06-25 Outpatient R MARY KATE ROBLERO [facility] [id number] Univers 10:30:00 10:30:00 ity [facility] 2021-06-25 2021-06-25 Outpatient R [facility] [id number] Univers 08:45:00 08:45:00 ity [facility] 2021-06-25 2021-06-25 Prep For [facility] [id number] Univers 00:00:00 00:00:00 Surgery Darren AZUL 350.1.13.10 i ty of [place] 4.2.7.2.[place] [id number] [address] 2021-06-22 2021-06-22 [facility] 1.2.840.114 [id number] Univers 00:00:00 00:00:00 Adali AZUL 350.1.13.10 i ty of [place] 4[place].2.[place] [id number] Ri dic[address] 2021-06-18 2021-06-18 Outpatient R MARY KATE ROBLERO [facility] [id number] Univers 15:15:00 15:15:00 ity [facility] 2021-06-18 2021-06-18 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, 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 [facility] [id number] Univers 15:15:00 15:15:00 Visit Mary Kate Roblero Darren AZUL [id number] ity of [place] [id number] [phone] Ri dical [facility] [address] [facility] 2021-06-18 2021-06-18 Outpatient R STEPH [facility] [id number] Univers 14:00:00 14:42:49 [facility] 2021-06-18 2021-06-18 Outpatient R STEPH [facility] [id number] Univers 14:00:00 14:42:49 [facility] 2021-06-18 2021-06-18 Outpatient R STEPH [facility] [id number] Univers 14:00:00 14:42:49 [facility] 2021-06-18 2021-06-18 Office Steph [facility] [id number] Univers 14:00:00 14:42:49 Visit Adali AZUL 350.1.13.10 i ty of [place] 4.2.[place].2.[place] [id number] Ri dical [facility] [address] [facility] 2021-06-18 2021-06-18 Orders Doctor RICARDO [id number] Univers 00:00:00 00:00:00 Only Unassigned, PEDRO 350.1.13.10 ity of [place] [facility] 4.2.7.2.686 [place] as [phone] [address] 2021-06-18 2021-06-18 [facility] [id number] Univers 00:00:00 00:00:00 (Out) Adali AZUL 350.1.13.10 i ty of [place] [id number] Ri dical NAL [address] [facility] 2021-04-06 2021-04-06 Outpatient FUNK, DEIDRE [facility] [id number] Ecru 07:44:18 07:44:18 Health 2021-02-04 2021-02-04 Outpatient MARGOT, [facility] [id number] Diaz 07:18:50 12:23:32 TEJAL Heal 2021-01-20 2021-01-20 Outpatient DHARI, [facility] [id number] [place] 00:00:00 00:00:00 [facility] 2020-11-02 2020-11-02 Emergency X CACACE, [facility] ERT [id number] [facility] 18:39:00 18:39:00 [facility] 2020-10-28 2020-10-28 Outpatient DHARI, [facility] [id number] [place] 11:14:20 11:25:33 [facility] 2020-10-28 2020-10-28 Outpatient SAMEER, [facility] [id number] Ecru 09:42:42 11:11:47 [facility] 2020-10-28 2020-10-28 Outpatient DHARI, [facility] [id number] [place] 00:00:00 00:00:00 [facility] 2020-10-28 2020-10-28 Outpatient VANESSA, [facility] [id number] [facility] 00:00:00 00:00:00 [facility] 2020-10-09 2020-10-09 Outpatient [facility] [id number] Ecru 00:00:00 00:00:00 [facility] 2020-09-20 2020-09-21 Emergency [facility] [id number] Ecru 15:33:00 08:15:00 MONAYANA Healt 2020-09-21 2020-09-21 Emergency TYRONE AMAYA [facility] [id number] Joe 06:21:58 06:21:58 Health 2020-09-21 2020-09-21 Emergency TYRONE AMAYA [facility] [id number] Diaz 05:35:30 05:35:30 Health 2020-09-21 2020-09-21 Emergency DEVENDRA, [facility] [id number] Diaz 00:17:17 00:17:17 [facility] 2020-09-21 2020-09-[address] [facility] [id number] Ecru 00:17:12 00:17:12 [facility] 2020-09-20 2020-09-20 Emergency DEVENDRA, [facility] [id number] Ecru 23:24:27 23:24:27 [facility] 2020-09-19 2020-09-19 Emergency TRAUMA [id number] 16:34:00 20:24:00 [place] [id number] [id number] 2020-09-19 2020-09-19 Emergency ER SLSL Emergency [id number] SLSL 20:23:00 20:23:00 2020-09-19 2020-09-19 Emergency X MEMB ERT [id number] Univers 16:28:00 16:28:00 [facility] 2020-04-27 2020-04-27 Emergency E FADOWOLE, MHBL MHBL [id number] MHBL 12:45:00 13:10:[address] [facility] 2020-02-23 2020-02-23 Emergency 1 Simone Verdin [facility] [id number] 18:33:00 21:25:00 [facility] 2020-02-23 2020-02-23 Emergency 1 Lambert Simone [facility] [id number] 18:33:00 18:33:00 [place]dine -[id number] [facility] 2020-01-17 2020-01-17 Emergency 1 MiketrevaFreyaferny [facility] [id number] [facility]. 14:43:00 15:28:00 Shady Cantrell [facility] 2016-12-11 2016-12-11 Emergency [facility] [id number] Ecru 22:14:06 22:14:06 Health Results Test Description Test Time Test Comments Results Result Sour e Comments U/S, PELVIS, WITH 2020-09-20 Reason for ENDOVAG AND 01:52:00 exam:->ABDOMINA DOPPLER L PAINR flank pain and lower [facility] - [facility] for [facility]. Reason PLACIDO FERRIS for GABRIELLA : exam:->GENERALI 1990 Sex: ZED BODY ACHES F *FINAL REPORT HISTORY: Right lower quadrant [...] Taylor MDReport Verified Date/Time: 09/20/2020 01:52:04 -COV2/RT-PCR ([facility]) 2020-09-20 00:55:00 Test Item Value Reference Range Interpretation Comme nts SARS-COV2/RT-PCR Negative Not Performance of the Xpert Xpress SARS-CoV-2/Flu/RSV test has only been established in nasopharyngeal swab specimens. Use (test code = Detected, of the Xpert Xp ress SARS-CoV-2/Flu/RSV test with other specimen types has not been assessed and performance [id number]) Negative, characteristics are unknown. As with any molecular test, mutations within the targeted genetic regions identified by See the Xpert Xpres s SARS-CoV-2/Flu/RSV test could affect primer and/or probe binding resulting in failure to detect the external presence of vir us or the virus being detected less predictably.Negative results do not preclude SARS-CoV-2, Influenza report for A/B, or RSV inf ection and should not be used as the sole basis for treatment or other patient management decisions. linked Results from e Xpert Xpress SARS-CoV-2/Flu/RSV test should be correlated with the clinical history, epidemiological test data, and other data available to the clinician evaluating the patient. Invalid test results may occur from improper specimen collec tion; failure to follow the recommended sample collection, handling, and storage procedures; technical error. False ne gative results may occur if virus is present at levels below the analytical limit of detection (LOD: 131 copies/mL). Vir al nucleic acid may persist in vivo, independent of virus viability. Detection of analyte target(s) does not imply that the corresponding virus(es) are infectious or are the causative agents for clinical symptoms. Recent patient exposur e to FluMist or other live attenuated influenza vaccines may cause inaccurate positive results.This test has been author ized by FDA under an EUA for use by authorized laboratories. This test is only authorized for the duration of the declaration that circumstances exist justifying the authorization of emergency use of in vitro diagnostic test s for detection and/or diagnosis of COVID-19 under Section 564(b)(1) of the Federal Food, Drug and Cosmetic Act, 2 1 U.S.C. 360bbb-3(b)(1), unless the authorization is terminated or revoked sooner.Fact Sheet for Healthcare Prov iders: https://www.Echograph/Documents/Xpert%20Xpress%51HQDP-OfU-1-Flu-RSV/302-4508%2 0Rev.%20B%20HCP%20Fact%20Sheet.pdfFact Sheet for Healt hcare Patients: https://www.EveryRack.MyCadbox/Documents/Xpert%20Xpress%38DRYC-IpY-3-Flu-RSV/302-0127%2 0Rev.%20B%20Patient%20Fact%20Sheet.pdf SARS-COV-2 SLSL Performed at:[facility] [place], [place] [address]yc: [phone] PERFORMING LAB (test code = 4575734) COMPREHENSIVE METABOLIC [id number] 23:43:00 Test Item Value Reference Range Interpretation [...] S NOT APPLICABLE FOR DIALYSIS PATIEN TS. Artificial Marble Worker ID - [id number] ID - [id number] ID - [id number] ID - [id number] ID - [id number] ID - [id number] ID - [id number] ID - [id number] ID - [id number] ID - [id number] ID - [id number] ID - [id number] ID - [id number] ID - [id number] ID - [id number] ID - [id number] ID - [id number] ID - [id number] ID - [id number], ABDOMEN 2020-09-19 23:27:00With IV AND Oral contrast.Unlisted Reason for Exam - Click Yes and Enter Reason Below->NoWill this procedure require oral contrast?->No[facility]ID[facility]ERRIS : 1990 Sex: FFINAL [...] the iterative reconstruction technique. Comparison:None. Lower chest: Clearlungs. No pleural effusion or pneumothorax. Visualized cardiac contours normal. Liver: No significant findings. Gallbladder and biliary tree: Previous cholecystectomy. Pneumobilia probably relates to pr evious intervention Spleen: No significant findings. Adrenal Glands: [...] Hebert Taylor MDReport Verified Date/Time: 09/19/2020 23:27:51 CBC W/PLT COUNT & AUTO [id number] 21:25:00 Test Item Value Reference Range Interpretation [...] PERCENT (BEAKER) (test code = 2801) SCREEN, [id number] 21:20:00 Test Item Value Reference Range Interpretation Comments TEST URINE (BEAKER) (test Negative code = 583) Creatine [id number] 21:02:48 Test Item Value Reference Range Interpretation Comments CK (test code = CK) 114 U/L 34-145 Comprehensive Metabolic [id number] 21:02:47 Test Item Value Reference Range Interpretation [...] = Lipemia) 0 g/dL 1-2 Comprehensive Metabolic [id number] 21:02:47 Test Item Value Reference Range Interpretation [...] = 0 g/dL 1-2 Lipemia) Comprehensive Metabolic [id number] 21:02:47 Test Item Value Reference Range Interpretation [...] = 0 g/dL 1-2 Lipemia) HCG Qualitative [id number] 19:45:46 Test Item Value Reference Range Interpretation Comments hCG Ur (test code = Negative If the r esult is hCG Ur) "Negative" in p atients suspected to be , recom mend retest with a s ample obtained 48 to 72 hours later, or by ordering a quantitative as say. If the result is "Borderline" te sting should be repea michaela in 48 to 72 hours. Lot # (test code = [id number] Lot #) Expiration Dt (test 01-06-21 N code = Expiration Dt) Neg Control (test Negative code = Neg Control) Pos Control (test Positive code = Pos Control) Internal QC (test Acceptable code = Internal QC) Urinalysis with Microscopic if [id number] 19:45:46 Test Item Value Reference Range Interpretation [...] UA Not Indicated Not Indicated Micro Ind?) IG [id number] 19:17:51 Test Item Value Reference Range Interpretation Comments IG (test code = IG) 0.2 % 0.0-5.0 IG Abs (test code = IG Abs) 0 x10 N Complete Blood Count with [id number] 19:17:51 Test Item Value Reference Range Interpretation [...] N code = Pos Morph XN) Automated [id number] 19:17:51 Test Item Value Reference Range Interpretation Comments Neutro Auto (test code = Neutro 46.1 % 36.0-70.0 Auto) Lymph Auto (test code = Lymph Auto) 45.9 % 12.0-44.0 H Jessamine Auto (test code = Jessamine Auto) 5.6 % 0.0-11.0 Eos, Auto (test code = Eos, Auto) 1.4 % 0.0-7.0 Basophil Auto (test code = Basophil 0.8 % 0.0-2.0 Auto) Neutro Absolute (test code = Neutro 2.9 x10 1.6-7.4 Absolute) Lymph Absolute (test code = Lymph 2.85 x10 .50-4.60 Absolute) Jessamine Absolute (test code = Jessamine .35 x10 .00-1.20 Absolute) Eos Absolute (test code = Eos 0.09 x10 0.00-0.74 Absolute) Baso Absolute (test code = Baso 0.05 x10 0.00-0.21 Absolute) Streptococcus A Screen Rapid w/ Reflex [id number] 15:21:41 Test Item Value Reference Range Interpretation Comments Strep A Scn (test code Positive Negative A Resul ts called to = Strep A Scn) and read back by: Ramona Deal 01/17/20 20 15:21:32 CDT GM Lot # (test code = Lot [id number] N #) Expiration Dt (test 08/21/2020 N code = Expiration Dt) Internal QC (test code Acceptable = Internal QC)
[2022-02-21] MEDS ORDERED: LIDOCAINE 1% MPF 5 ML VIAL ONE (20:12)
[2022-02-21] MEDS ORDERED: SMZ./TMP. 800/160 MG TABLET ONE (20:13)
[2022-02-21] MEDS ORDERED: HYDROCODONE/APAP 10/325 TAB ONE (20:20)
--- NOTE | 2022-02-21 20:38 | ER ---
Nurse's Notes [facility] Name: Aleksandra Cheng Age: 31 yrs Sex: Female : 1990 Arrival Date: 02/21/2022 Time: 18:07 Bed 28 Private MD: Ollie Dos Santos E Diagnosis: Cutaneous abscess of right ear Presentation: 02/21 18:41 Chief complaint: Patient states: my RIGHT ear is swollen for 4 days. Coronavirus tw2 screen: At this time, the client does not indicate any symptoms associated with coronavirus-19. Ebola Screen: Patient denies travel to an Ebola-affected area in the 21 days before illness onset. Initial Sepsis Screen: Does the patient meet any 2 criteria? No. Patient's initial sepsis screen is negative. Does the patient have a suspected source of infection? No. Patient's initial sepsis screen is negative. Risk Assessment: Do you want to hurt yourself or someone else? Patient reports no desire to harm self or others. Onset of symptoms was February 21, 2022. 18:41 Method Of Arrival: Ambulatory tw2 18:41 Acuity: VIN 3 tw2 18:42 Note provider rambo morocho in triage room at this time. tw2 Triage Assessment: 18:43 General: Appears in no apparent distress. obese, well groomed, Behavior is calm, tw2 cooperative, appropriate for age. Pain: Complains of pain in right ear. EENT: swelling noted on outer ear. Historical: - Allergies: 18:42 PENICILLINS; tw2 - Home Meds: 18:42 None [Active]; tw2 - PMHx: 18:42 Dermoid Tumor; tw2 - PSHx: 18:42 section; Cholecystectomy; Ligation of fallopian tube; tw2 - Immunization history:: Last tetanus immunization: unknown. - Social history:: Smoking status: Patient reports the use of cigarette tobacco products, 4 cigarettes a day. Screenin:48 Abuse screen: Denies threats or abuse. Denies injuries from another. Nutritional as6 screening: No deficits noted. Tuberculosis screening: No symptoms or risk factors identified. Fall Risk None identified. Assessment: 20:48 General: pt seen at discharge by this RN. as6 Vital Signs: 18:41 BP 144 / 88; Pulse 60; Resp 18; Temp 98.2; Pulse Ox 100% on R/A; Pain 10/10; tw2 ED Course: 18:07 Patient arrived in ED. ja2 18:12 Ollie Dos Santos MD is Private Physician. am2 18:13 Beatrice Lanier FNP-C is [facility]. kb 18:13 Qasim Arredondo MD is Attending Physician. kb 18:42 Triage completed. tw2 18:42 Arm band placed on. tw2 19:56 Will Hendrix, RN is Primary Nurse. as6 20:37 Mary Zarate MD is Referral Physician. kb 20:49 Bed in low position. Call light in reach. as6 20:49 No provider procedures requiring assistance completed. Patient did not have IV access as6 during this emergency room visit. Administered Medications: 20:23 Drug: Bactrim (trimethoprim-sulfamethoxazole) (160 mg-800 mg (DS) 1 tablet Route: PO; bb 20:47 Follow up: Response: No adverse reaction as6 20:23 Drug: Lidocaine (1 %) 1 vials {Note: administered by Beatrice Lanier CABLE TELEVISION PROGRAM DIRECTOR to affected bb area.} Volume: 5 ml; Route: Infiltration; 20:47 Follow up: Response: No adverse reaction as6 20:23 Drug: [place] (HYDROcodone-acetaminophen) 10 mg-325 mg 1 tabs Route: PO; bb 20:47 Follow up: Response: No adverse reaction as6 Medication: 20:49 VIS not applicable for this client. as6 Outcome: 20:37 Discharge ordered by MD. kb 20:49 Discharged to home ambulatory. as6 20:49 Condition: stable 20:49 Discharge instructions given to patient, Instructed on discharge instructions, follow up and referral plans. medication usage, Demonstrated understanding of instructions, follow-up care, medications, Prescriptions given X 2. 20:50 Patient left the ED. as6 Signatures: Beatrice Lanier FNP-C FNP-Ckb Ballard, Brenda, RN RN bb Hailey Cardona RN RN 2 S[place] Denise Reynolds [facility] Will Hendrix, CAS RN as6
--- NOTE | 2022-02-21 20:39 | EDPHYS ---
Physician Documentation [facility] Name: Aleksandra Cheng Age: 31 yrs Sex: Female : 1990 Arrival Date: 02/21/2022 Time: 18:07 Bed 28 Private MD: Ollie Dos Santos E ED Physician Qasim Arredondo HPI: 02/21 23:18 This 31 yrs old Black Female presents to ER via Ambulatory with complaints of Ear Pain kb - swelling. 23:18 The patient presents with pain, swelling, tenderness. The complaints affect the right kb ear. Onset: The symptoms/episode began/occurred 4 day(s) ago. Modifying factors: The symptoms are alleviated by nothing, the symptoms are aggravated by touching. Associated signs and symptoms: The patient has no apparent associated signs or symptoms. Severity of symptoms: At their worst the symptoms were moderate in the emergency department the symptoms are unchanged. The patient has not experienced similar symptoms in the past. The patient has not recently seen a physician. Historical: - Allergies: 18:42 PENICILLINS; tw2 - Home Meds: 18:42 None [Active]; tw2 - PMHx: 18:42 Dermoid Tumor; tw2 - PSHx: 18:42 section; Cholecystectomy; Ligation of fallopian tube; tw2 - Immunization history:: Last tetanus immunization: unknown. - Social history:: Smoking status: Patient reports the use of cigarette tobacco products, 4 cigarettes a day. ROS: 23:17 Constitutional: Negative for fever, chills, and weight loss. kb 23:17 ENT: Positive for ear pain. 23:17 All other systems are negative. Exam: 23:17 Constitutional: This is a well developed, well nourished patient who is awake, alert, kb and in no acute distress. Head/Face: Normocephalic, atraumatic. ENT: Moist Mucous membranes Cardiovascular: Regular rate and rhythm with a normal S1 and S2. No gallops, murmurs, or rubs. No pulse deficits. Respiratory: Respirations even and unlabored. No increased work of breathing. Talking in full sentences MS/ Extremity: Pulses equal, no cyanosis. Neurovascular intact. Full, normal range of motion. Neuro: Awake and alert, GCS 15, oriented to person, place, time, and situation. Moves all extremities. Normal gait. 23:17 Skin: abscess, that is small, of the right ear, with fluctuance. Vital Signs: 18:41 BP 144 / 88; Pulse 60; Resp 18; Temp 98.2; Pulse Ox 100% on R/A; Pain 10/10; tw2 MDM: 18:44 Patient medically screened. 23:16 Data reviewed: vital signs, nurses notes. Data interpreted: Pulse oximetry: on room air kb is 100 %. Interpretation: normal. Counseling: I had a detailed discussion with the patient and/or guardian regarding: the historical points, exam findings, and any diagnostic results supporting the discharge/admit diagnosis, the need for outpatient follow up, an ENT specialist, to return to the emergency department if symptoms worsen or persist or if there are any questions or concerns that arise at home. ED course: Incision and drainage of abscess on right ear attempted. Moderate amount of purulent fluid drained but patient unable to tolerate completion of procedure. Patient educated to follow-up with ENT for further treatment.. 02/21 20:03 Order name: I\T\D Setup; Complete Time: 20:18 kb Administered Medications: 20:23 Drug: Bactrim (trimethoprim-sulfamethoxazole) (160 mg-800 mg (DS) 1 tablet Route: PO; bb 20:47 Follow up: Response: No adverse reaction as6 20:23 Drug: Lidocaine (1 %) 1 vials {Note: administered by Beatrice Lanier COO to affected bb area.} Volume: 5 ml; Route: Infiltration; 20:47 Follow up: Response: No adverse reaction as6 20:23 Drug: [place] (HYDROcodone-acetaminophen) 10 mg-325 mg 1 tabs Route: PO; bb 20:47 Follow up: Response: No adverse reaction as6 Disposition Summary: 02/21/22 20:37 Discharge Ordered Location: Home kb Condition: Stable kb Diagnosis - Cutaneous abscess of right ear kb Followup: kb - With: Emergency Department - When: As needed - Reason: Worsening of condition Followup: kb - With: Private Physician - When: 2 - 3 days - Reason: Recheck today's complaints, Continuance of care, Re-evaluation by your physician Followup: kb - With: Mary Zarate MD - When: 1 - 2 days - Reason: Recheck today's complaints Discharge Instructions: - Discharge Summary Sheet kb - Skin Abscess, [id number] kb Forms: - Medication Reconciliation Form kb - Thank You Letter kb - Antibiotic Education kb - Prescription Opioid Use kb Prescriptions: - Diclofenac Sodium 75 mg Oral tablet,delayed release (DR/EC) - take 1 tablet by ORAL route 2 times per day As needed; 30 tablet; Refills: 0, kb Product Selection Permitted - Bactrim DS 800-160 mg Oral Tablet - take 1 tablet by ORAL route every 12 hours for 10 days; 20 tablet; Refills: 0, kb Product Selection Permitted Signatures: Beatrice Lanier FNP-C FNP-Ckb Ballard, Brenda, RN RN bb Hailey Cardona RN RN tw2 Will Hendrix RN as6
[2022-02-21 21:30] VITALS: BP 144/88; TEMP 98.2; O2SAT 100
== END 2022-02-21 20:50 | disposition home or self-care (01) ==
LOC: ER 18:02
PROC: 0H92XZZ Drainage of Right Ear Skin, External Approach (ICD-10-PCS; principal; 2022-02-21)
DX: H60.01 Abscess of right external ear (principal); F17.210 Nicotine dependence, cigarettes, uncomplicated; Z88.0 Allergy status to penicillin
CPT/HCPCS: 99283; 69000; J2001

== ENCOUNTER 2022-04-03 18:39 | Emergency (ER) | payer OTHER ==
--- OUTSIDE RECORDS SUMMARY | 2022-04-03 18:43 | XMS REPORT | Continuity of Care Document ---
:1990 Author Organization [facility] t Address [address] [place] [address] Care Team Providers Name Role Phone Asked, No Pcp Primary Care Physician Unavailable MARY KATE ROBLERO Attending Clinician Unavailable Mary Kate Roblero MD Attending Clinician Doctor Unassigned, [place] Attending Clinician Unavailable SHAWNA HOUSTON Attending Clinician [...] Number Effective Date Expiration Date S enrrique [facility] [id number] 2021 HMO 00:00:00 COMMERCIAL [id number] 2021 NON-CONTRACT 00:00:00 netFactor [id number] 2021 00:00:00 Problems Condition Condition Condition Status [...] Rubella Rubella Disease Active Univers non-immune non-immune 01-23 it y of status, status, 00:00: [place] antepartum antepartum 00 Me dical Branch Asthma Asthma Disease Active Overview: Univer s 01-22 Formattin ity of 00:00: g of this [place] 00 note Medical might be Branch different from the original. ICD10 Diagnosis Term Patient Safety Coordinator Utility Tobacco Tobacco Disease Active Univers use use 01-22 ity of disorder disorder 00:00: [place] 00 Medical Branch Multiparit Multiparit Disease Active U nivers y y 01-22 ity of 00:00: [place] 00 Medical Branch Allergies, Adverse Reactions, Alerts Allergy Allergy Status Severity Reaction(s) Onset Inactive Treating Comm ents Source Name Type Date Date Clinician Penicill [facility]ensi [facility] adverse [facility]: Medical reaction 00 Center s PENICILL Allergy [facility] Medical [facility] Center Penicill Propensi Active Method i ins ty to 8-25 st adverse 00:00: Hospita reaction 00 l s to drug Penicill Propensi Active Rash Univer s ins ty to 08-07 ity of adverse 00:00: [place] reaction 00 Medical s Branch PENICILL Drug Active Rash Univers INS Class 4 ity of 00:00: [place] 00 Medical Branch Penicill Propensi Active Rash Univer s ins ty to 08-07 ity of adverse 00:00: [place] reaction 00 Medical s Branch penicill Drug Active [facility] in [facility] penicill Drug Active [facility] in [facility] penicill Drug Active [facility] in [facility] penicill Drug Active [facility] in [facility] penicill [facility] penicill Drug [facility] penicill Drug Active [facility] in [facility] penicill Drug Active [facility] in [facility] penicill Drug Active [facility] in [facility] Social History Social Habit Start Date Stop Date Quantity Comments Source History of Cigarette Smoker Universi ty of tobacco use [place] [facility] [place] History SDOH University o f Alcohol Frequency [facility] edical Branch History SDOH University o f Alcohol Std [place] [facility] Drinks Branch History SDOH University o f Alcohol Binge [facility] al Branch Exposure to 2021-07-11 2021-08-10 Not sure University of SARS-CoV-2 00:00:00 15:25:00 [facility] (event) [place] Tobacco Comment 2021-06-18 2021-06-18 3 ciggs a day Univer sity of 00:00:00 00:00:00 [facility] [place] [facility] Alcohol Comment 2021-06-18 2021-06-18 occasionally Univers ity of 00:00:00 00:00:00 [facility] Tobacco use and 2020-09-19 2020-09-[address] [facility] kes exposure 00:00:00 00:00:00 [facility] Center Alcohol intake 2020-09-19 2020-09-19 [facility]finding[facility] Sex Assigned At [address] [facility] 00:00[facility]00 00[facility]00 [facility] Center Smoking Status Start Date Stop Date Source Current every day smoker 2021-06-18 00:00:[address] [facility] [place] [place] Medications Ordered Filled Start Stop Current Ordering Indication Dosage Frequency Signature Comments Components Source Medication Medication Date Date Medication? Clinician (SIG) Name Name No known No Univers medications -04 ity of 17:37: [place] 10 [facility] Branch ibuprofen 2021- No [id number] 600mg Take 1 Univers 600 mg 07-01- tablet by ity of tablet 00:00: 00:00 mouth [place] 00 :00 every 6 Medical (six) Branch hours. docusate 2021- No [id number] 100mg Take 1 U nivers 100 mg 07-01- capsule by ity of capsule 00:00: 00:00 mouth [place] 00 :00 every 12 Medical (twelve) Branch hours. No known No No known Metho di medications 1-[address] 19:27: s Hospita 15 l No known No No known Metho di medications 1-[address] 19:27: s Hospita 15 l Immunizations Ordered Filled Immunization Date Status Comments Sour e Immunization Name Name PPD (TB) 2016-11-25 Completed University of 00:00:00 [facility] [place] [facility] PPD (TB) 2016-11-25 Completed University of 00:00:00 [facility] Influenza Virus 2015-02-17 Completed Universit y of Vaccine 00:00:00 [facility] Influenza Virus 2015-02-17 Completed Universit y of Vaccine 00:00:00 [facility] TDAP 2014-04-22 Completed University of 00:00:00 [facility] TDAP 2014-04-22 Completed University of 00:00:00 [facility] Vital Signs Vital Name Observation Time Observation Value Comments Source Systolic blood 2021-08-10 21:03:00 152 mm[Hg] Univer sity of pressure [facility] Diastolic blood 2021-08-10 21:03:00 81 mm[Hg] Unive rsity of pressure [facility] Heart rate 2021-08-10 20:56:00 74 /min [facility] Body temperature 2021-08-10 20:56:00 36.78 Romi [facility] [place] [place] Respiratory rate 2021-08-10 20:56:00 18 /min [facility] [place] [place] Body height 2021-08-10 20:56:00 167.6 cm [facility] Body weight 2021-08-10 20:56:00 124.286 kg [facility] BMI 2021-08-10 20:56:00 44.22 kg/m2 [facility] HEIGHT 2020-09-19 20:33:00 167.6 cm WEIGHT 2020-09-19 20:33:00 120.657 kg HEIGHT 2020-09-19 20:33:00 167.6 cm WEIGHT 2020-09-19 20:33:00 120.657 kg Height/Length 2021-05-26 12:56:17 165.1 cm Measured Height/Length 2021-05-26 12:56:15 165.1 cm Measured Height/Length 2021-05-26 12:56:14 165.1 cm Measured Height/Length 2020-02-23 18:45:01 Measured Procedures Procedure Date / Time Performed Performing Clinician [facility] e MEDICAL 2021-08-10 05:01:00 Doctor Unassigned, No Univer [facility] RELEASE/CLEARANCE Name [facility] FORMS Plan of Care Planned Activity Planned Date Details Comments Source Future Scheduled 2024-04-22 DTAP/TDAP/TD [facility]ACCINES [facility]00 (2 - Td or Tdap) [code Medic al Center = DTAP/TDAP/TD VACCINES (2 - Td or Tdap)] Future Scheduled 2022-03-13 Screening for [facility] Test 02:47:55 malignant neoplasm of cervix (procedure) [code = 218735317] Future Scheduled 2022-03-13 INFLUENZA VACCINE [facility] Test 02:47:55 [code = INFLUENZA VACCINE] Future Scheduled 2022-03-13 HEPATITIS B VACCINES Met [facility] Test 02:47:55 (1 of 3 - 3-dose series) [code = HEPATITIS B VACCINES (1 of 3 - 3-dose series)] Future Scheduled 2022-03-13 COVID-19 VACCINE (#1) [facility] Test 02:47:55 [code = COVID-19 VACCINE (#1)] Future Scheduled 2022-01-08 INFLUENZA VACCINE Method [facility] Test 01:48:10 [code = INFLUENZA VACCINE] Future Scheduled 2022-01-08 HEPATITIS B VACCINES Met [facility] Test 01:48:10 (1 of 3 - 3-dose series) [code = HEPATITIS B VACCINES (1 of 3 - 3-dose series)] Future Scheduled 2022-01-08 COVID-19 VACCINE (#1) [facility] Test 01:48:10 [code = COVID-19 VACCINE (#1)] Future Scheduled 2022-01-08 Screening for [facility] Test 01:48:10 malignant neoplasm of cervix (procedure) [code = 141112911] Future Scheduled 2022-01-07 INFLUENZA VACCINE (#1) [facility] Test 00:00:00 [code = INFLUENZA Medical Ce nter VACCINE (#1)] Future Scheduled 2021-09-[address] [facility] Test 00:00:00 Counseling and Medical Cente r Screening (12+) [code = Tobacco Cessation Counseling and Screening (12+)] Future Scheduled 2021-05-[address] [facility] Test 00:00:00 (12+) [code = Medical Center DEPRESSION SCREENING (12+)] Future Scheduled [address] [facility] Test 00:00:00 malignant neoplasm of Medica l Center cervix (procedure) [code = 154719110] Future Scheduled [address] [facility] [facility] Test 00:00:00 (procedure) [code = Medical Center [id number]] Future Scheduled 2010 HEPATITIS C SCREENING [facility] Test 00:00:00 [code = HEPATITIS C Medical Center SCREENING] Future Scheduled [address] [facility] Test 00:00:00 0-64 YRS (1 - PCV) Medical C enter [code = PNEUMOCOCCAL VACCINE 0-64 YRS (1 - PCV)] Future Scheduled 1992 COVID-19 VACCINE (#1) [facility] Test 00:00:00 [code = COVID-[address] VACCINE (#1)] Encounters Start End Encounter Admission Attending Care Care Encounter Source Date/Time Date/Time Type Type Clinicians Facility Department ID 2021-06-25 Outpatient MARY KATE BASHIR CTSUDARSHAN 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 [place] [place] 2021-11-11 2021-11-11 Outpatient MARY KATE BASHIR CTSUDARSHAN [facility] [id number] Univers 15:00:00 [facility] 2021-11-11 2021-11-11 Outpatient R ANNIKA [facility] [id number] Univers 15:00:00 15:00:00 ity of [facility] 2021-08-10 2021-08-10 [facility] [id number] Univers 15:30:00 16:37:04 Visit Cam [place] [id number] i ty of [place] [id number] [place] [phone] [place] [address] 2021-08-10 2021-08-10 Outpatient R ROBLERO [facility] [id number] Univers 15:30:00 16:37:04 ity [facility] 2021-08-10 2021-08-10 Outpatient R ANNIKA [facility] [id number] Univers 15:30:00 15:30:00 ity [facility] 2021-08-10 2021-08-10 Outpatient R ANNKIA [facility] [id number] Univers 15:30:00 15:30:00 ity [facility] 2021-08-10 2021-08-10 Orders Doctor RICARDO [id number] Univers 00:00:00 00:00:00 Only Unassigned, PEDRO [id number] ity of [place] [facility] [id number] [place] as [phone] [address] 2021-07-20 2021-07-20 Outpatient R ANNIKA [facility] [id number] Univers 09:00:00 09:22:36 ity [facility] 2021-07-20 2021-07-20 Office Roblero [facility] [id number] Univers 09:00:00 09:22:36 Visit Cam [place] [id number] i ty of [facility] [id number] [place] [phone] Il dical NAL [address] [place] [address] 2021-07-20 2021-07-20 Outpatient R ANNIKA [facility] [id number] Univers 09:00:00 09:22:36 ity of [facility] 2021-07-20 2021-07-20 Outpatient R MARY KATE ROBLERO [facility] [id number] Univers 09:00:00 09:22:36 ity of [facility] 2021-07-09 2021-07-09 Orders Doctor RICARDO [id number] Univers 00:00:00 00:00:00 Only Unassigned, PEDRO [id number] ity of [place] [facility] [id number] Brent as [phone] [facility] 009 [place] 2021-07-02 2021-07-02 Telephone Mary Kate Roblero [facility] [id number] Univers 00:00:00 00:00:00 Darren AZUL [id number] i ty [facility] [id number] [phone] [place] dical [address] 2021-06-29 2021-07-01 Outpatient X ANETA [facility] MOLD MAKER [id number] Univers 22:12:00 10:15:00 SHAWNA ity of [facility] 2021-06-29 2021-07-01 Emergency [place]A [place] [id number] Univers 22:12:00 10:15:00 Marielle [place] [id number] it y of [facility] [id number] [place] as [phone] [facility] 092 [place] 2021-06-29 2021-07-01 Outpatient X ANETA CTSUDARSHAN [facility] [id number] Univers 22:12:00 10:15:00 SHAWNA ity of [facility] 2021-06-30 2021-06-30 Outpatient R MARY KATE ROBLERO [facility] MOLD MAKER [id number] Univers 10:30:00 10:30:00 ity of [facility] 2021-06-30 2021-06-30 Surgery MINA [place] [id number] Univers 01:20:00 04:52:00 Marielle PED[place] [id number] it y of [facility] [id number] [place] as [phone] [address] 2021-06-29 2021-06-29 Outpatient R MARY KATE ROBLERO [facility] [id number] Univers 09:45:00 09:45:00 ity of [facility] 2021-06-29 2021-06-29 Outpatient R MARY KATE ROBLERO [facility] [id number] Univers 09:45:00 09:45:00 ity [facility] 2021-06-25 2021-06-25 Office [facility] [id number] Univers 10:30:00 11:17:52 Visit Darren AZUL [id number] i ty of [place] [id number] [place] [phone] [address] 2021-06-25 2021-06-25 Outpatient R MARY KATE ROBLERO [facility] [id number] Univers 10:30:00 11:17:52 ity of [facility] 2021-06-25 2021-06-25 Out[facility] [id number] Univers 10:30:00 11:17:52 ity of [facility] 2021-06-25 2021-06-25 Outpatient R [facility] [id number] Univers 10:30:00 10:30:00 ity of [facility] 2021-06-25 2021-06-25 Outpatient R MARY KATE ROBLERO [facility] [id number] Univers 08:45:00 08:45:00 ity [facility] 2021-06-25 2021-06-25 Prep For [facility] [id number] Univers 00:00:00 00:00:00 Surgery Darren AZUL [id number] i ty [place] [id number] [phone] [place] dic[address] 2021-06-22 2021-06-22 Telephone [facility] [id number] Univers 00:00:00 00:00:00 Adali AZUL [id number] i ty of [place] [id number] [place] [phone] Il dical NAL [address] [facility] 2021-06-18 2021-06-18 Outpatient R ANNIKA MARY KATE [facility] [id number] Univers 15:15:00 15:15:00 ity of [facility] 2021-06-18 2021-06-18 Surgical Resident 2, Adc Lab [facility] [id number] Univers 15:15:00 15:15:00 Visit Mary Kate Roblero [id number] ity of [place] [id number] [place] [phone] [facility] [address] [facility] 2021-06-18 2021-06-18 Outpatient R STEPH [facility] [id number] Univers 14:00:00 14:42:49 [facility] 2021-06-18 2021-06-18 Outpatient R STEPH [facility] [id number] Univers 14:00:00 14:42:49 [facility] 2021-06-18 2021-06-18 Outpatient R STEPH [facility] [id number] Univers 14:00:00 14:42:49 [facility] 2021-06-18 2021-06-18 Office [facility] [id number] Univers 14:00:00 14:42:49 Visit Adali AZUL [id number] i ty [facility] [id number] [place] [id number] Il dical [facility] [address] [facility] 2021-06-18 2021-06-18 Orders Doctor RICARDO [id number] Univers 00:00:00 00:00:00 Only Unassigned, PEDRO 350.1.13.10 ity of [facility] [id number] [place] as [phone] [address] 2021-06-18 2021-06-18 Letter [facility] [id number] Univers 00:00:00 00:00:00 (Out) Adali ZAUL 350.1.13.10 i Reji [id number] Black PETERSEN [phone] [address] 2021-04-06 2021-04-06 Outpatient DEIDRE DOTY [facility] [id number] [place] 07:44:18 07:44:18 Health 2021-02-04 2021-02-04 Outpatient MARGOT, [facility] [id number] [place] 07:18:50 12:23:32 TEJAL [facility] 2021-01-20 2021-01-20 Outpatient DHARI, [facility] [id number] [place] 00:00:00 00:00:00 [facility] 2020-11-02 2020-11-02 Emergency X CACCYNTHIA, [facility] ERT [id number] [facility] 18:39:00 18:39:[address] [facility] [place] 2020-10-28 2020-10-28 Outpatient DHARI, [facility] [id number] [place] 11:14:20 11:25:33 [facility] 2020-10-28 2020-10-28 Outpatient SAMEER, [facility] [id number] [place] 09:42:42 11:11:47 [facility] 2020-10-28 2020-10-28 Outpatient DHARI, [facility] [id number] [place] 00:00:00 00:00:00 [facility] 2020-10-28 2020-10-28 Outpatient VANESSA, [facility] [id number] [place] 00:00:00 00:00:00 [facility] 2020-10-09 2020-10-09 Outpatient [facility] [id number] [place] 00:00:00 00:00:00 [facility] 2020-09-20 2020-09-21 Emergency AL-YOMI, [facility] [id number] [place] 15:33:00 08:15:00 MOPITAAFTamica Pazt 2020-09-21 2020-09-21 Emergency TYRONE AMAYA [facility] [id number] [place] 06:21:58 06:21:58 Health 2020-09-21 2020-09-21 Emergency TYRONE AMAYA [facility] [id number] [place] 05:35:30 05:35:30 Health 2020-09-21 2020-09-21 [id number] [place] 00:17:17 00:17:17 [facility] 2020-09-21 2020-09-21 [facility] [id number] [place] 00:17:12 00:17:12 [facility] 2020-09-20 2020-09-20 [facility] [id number] [place] 23:24:27 23:24:27 [facility] 2020-09-19 2020-09-19 Emergency TRAUMA [id number] 16:34:00 20:24:00 [place] [id number] [id number] 2020-09-19 2020-09-19 Emergency ER [facility] Emergency [id number] [facility] 20:23:00 20:23:00 2020-09-19 2020-09-19 Emergency X [facility] ERT [id number] Univers 16:28:00 16:28:[address] [facility] [place] 2020-04-27 2020-04-27 Emergency E FADOWOLE, [facility] 7500 [facility] 12:45:00 13:10:00 [facility] 2020-02-23 2020-02-23 Emergency 1 Simone Verdin [facility] [id number] 18:33:00 21:25:[address] [facility] 2020-02-23 2020-02-23 Emergency 1 Verdin Simone [facility] [id number] 18:33:00 18:33:00 Simone Verdin -[id number] [facility] 2020-01-17 2020-01-17 Emergency 1 MikechelsyFreya sarmientoarmando [facility] [id number] 14:43:00 15:28:00 Shady Cantrell [facility] 2016-12-11 2016-12-11 Emergency [facility] [id number] [place] 22:14:06 22:14:06 Health Results Test Description Test Time Test Comments Results Result Sourc e Comments U/S, PELVIS, WITH 2020-09-20 Reason [...] Taylor MDReport Verified Date/Time: 09/20/2020 01:52:04 -COV2/RT-PCR ([facility]) 2020-09-20 00:55:00 Test Item Value Reference Range Interpretation Comme nts SARS-COV2/RT-PCR Negative Not Performance of the Xpert Xpress SARS-CoV-2/Flu/RSV test has only been established in nasopharyngeal swab specimens. Use (test code = Detected, of the Xpert Xp ress SARS-CoV-2/Flu/RSV test with other specimen types has not been assessed and performance 8813958) Negative, characteristics are unknown. As with any [...] terminated or revoked sooner.Fact Sheet for Healthcare [facility] [employer]: https://www.[employer]/Documents/Xpert%20Xpress%44JJEV-JnP-7-Flu-RSV/302-9734%2 0Rev.%20B%20HCP%20Fact%20Sheet.pdfFact Sheet for Healt hcare Patients: https://www.[employer]/Documents/Xpert%20Xpress%59HALJ-LqI-1-Flu-RSV/302-5982%2 0Rev.%20B%20Patient%20Fact%20Sheet.pdf SARS-COV-2 SLSL Performed at:[facility] [place], [place] [address]zt: [phone] PERFORMING LAB (test code = 7097802) COMPREHENSIVE METABOLIC [id number] 23:43:00 Test Item Value Reference Range Interpretation [...] S NOT APPLICABLE FOR DIALYSIS PATIEN TS. 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 ID - [id number] ID - [id number] ID - [id number] ID - [id number] ID - [id number] ID - [id number] ID - [id number] ID - [id number] ID - [id number] ID - [id number] ID - [id number] ID - [id number] ID - [id number] ID - [id number] ID - [id number] ID - [id number] ID - [id number] ID - [id number] ID - [id number], ABDOMEN 2020-09-19 23:27:00With IV AND Oral contrast.Unlisted Reason for Exam - Click Yes and Enter Reason Below->NoWill this procedure require oral contrast?->NoMENLO PARK SUR[facility]ITAL[facility]: PLACIDO FERRIS : 1990 Sex: FFINAL [...] 09/19/2020 23:27:51 CBC W/PLT COUNT & AUTO [id number] 21:25:00 Test Item Value Reference Range Interpretation [...] PERCENT (BEAKER) (test code = 2801) SCREEN, [id number] 21:20:00 Test Item Value Reference Range Interpretation Comments TEST URINE (BEAKER) (test Negative code = 583) Creatine [id number] 21:02:48 Test Item Value Reference Range Interpretation Comments CK (test code = CK) 114 U/L 34-145 Comprehensive Metabolic [id number] 21:02:47 Test Item Value Reference Range Interpretation [...] = Lipemia) 0 g/dL 1-2 Comprehensive Metabolic [id number] 21:02:47 Test Item Value Reference Range Interpretation [...] = 0 g/dL 1-2 Lipemia) Comprehensive Metabolic [id number] 21:02:47 Test Item Value Reference Range Interpretation [...] = 0 g/dL 1-2 Lipemia) HCG Qualitative [id number] 19:45:46 Test Item Value Reference Range Interpretation [...] 72 hours. Lot # (test code = [id number] N Lot #) Expiration Dt (test 01-06-21 N code = Expiration Dt) Neg Control (test Negative code = Neg Control) Pos Control (test Positive code = Pos Control) Internal QC (test Acceptable code = Internal QC) Urinalysis with Microscopic if [id number] 19:45:46 Test Item Value Reference Range Interpretation [...] Indicated Micro Ind?) Complete Blood Count with [id number] 19:17:51 Test Item Value Reference Range Interpretation [...] N code = Pos Morph XN) Automated [id number] 19:17:51 Test Item Value Reference Range Interpretation Comments Neutro Auto (test code = Neutro 46.1 % 36.0-70.0 Auto) Lymph Auto (test code = Lymph Auto) 45.9 % 12.0-44.0 H Roseau Auto (test code = [place] Auto) 5.6 % 0.0-11.0 Eos, Auto (test code = Eos, Auto) 1.4 % 0.0-7.0 Basophil Auto (test code = Basophil 0.8 % 0.0-2.0 Auto) Neutro Absolute (test code = Neutro 2.9 x10 1.6-7.4 Absolute) Lymph Absolute (test code = Lymph 2.85 x10 .50-4.60 Absolute) [place] Absolute (test code = [place] .35 x10 .00-1.20 Absolute) Eos Absolute (test code = Eos 0.09 x10 0.00-0.74 Absolute) Baso Absolute (test code = Baso 0.05 x10 0.00-0.21 Absolute) IG [id number] 19:17:51 Test Item Value Reference Range Interpretation Comments IG (test code = IG) 0.2 % 0.0-5.0 IG Abs (test code = IG Abs) 0 x10 N Streptococcus A Screen Rapid w/ Reflex [id number] 15:21:41 Test Item Value Reference Range Interpretation Comments Strep A Scn (test code Positive Negative A Resul ts called to = Strep A Scn) and read back by: Ramona Deal 01/17/20 20 15:21:32 CDT GM Lot # (test code = Lot [id number] N #) Expiration Dt (test 08/21/2020 N code = Expiration Dt) Internal QC (test code Acceptable = Internal QC)
[2022-04-03] MEDS ORDERED: dexAMETHasone 10 MG/ML VIAL ONE (19:40)
[2022-04-03] MEDS ORDERED: hydrOXYzine HCL 25 MG TAB ONE (19:40)
--- NOTE | 2022-04-03 19:41 | ER ---
Nurse's Notes [facility] Name: Aleksandra Cheng Age: 32 yrs Sex: Female : 1990 Arrival Date: 04/03/2022 Time: 18:41 Bed IW1 Private MD: Diagnosis: Urticaria, unspecified Presentation: 04/03 19:28 Chief complaint: Patient states: Sudden onset of hives that began around 1900 kb3 yesterday. Hives noted to left arm, left posterior shoulder, left flank and right posterior thigh. Coronavirus screen: Vaccine status: Patient reports receiving the 2nd dose of the covid vaccine. Client denies travel out of the [place] in the last 14 days. Ebola Screen: Patient negative for fever greater than or equal to 101.5 degrees Fahrenheit, and additional compatible Ebola Virus Disease symptoms Patient denies exposure to infectious person. Patient denies travel to an Ebola-affected area in the 21 days before illness onset. Onset: The symptoms/episode began/occurred gradually, 1 day(s) ago. Anaphylaxis evaluation, no signs or symptoms of anaphylaxis were noted. Initial Sepsis Screen: Does the patient meet any 2 criteria? No. Patient's initial sepsis screen is negative. Does the patient have a suspected source of infection? No. Patient's initial sepsis screen is negative. Risk Assessment: Do you want to hurt yourself or someone else? Patient reports no desire to harm self or others. Onset of symptoms was April 02, 2022 at 19:00. 19:28 Method Of Arrival: Ambulatory kb3 19:28 Acuity: VIN 3 kb3 Triage Assessment: 19:31 General: Appears in no apparent distress. Behavior is calm, cooperative. Pain: Denies kb3 pain. 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 - Social history:: Smoking status: Patient denies any tobacco usage or history of. Screenin:40 Abuse screen: Denies threats or abuse. Denies injuries from another. Nutritional kb3 screening: No deficits noted. Tuberculosis screening: No symptoms or risk factors identified. Fall Risk None identified. Assessment: 19:30 General: See triage note. kb3 19:30 Respiratory: No deficits noted. Airway is patent Respiratory effort is even, unlabored, kb3 Breath sounds are clear. Vital Signs: 19:28 BP 138 / 90; Pulse 89; Resp 20; Temp 98.9; Pulse Ox 100% ; Weight 117.93 kg; Height 5 kb3 ft. 6 in. (167.64 cm); Pain 0/10; 19:28 Body Mass Index 41.96 (117.93 kg, 167.64 cm) kb3 ED Course: 18:41 Patient arrived in ED. jj6 18:50 Sam Lucio PA is PHCP. sony 18:50 Hunter Berumen DO is Attending Physician. jmm 19:31 Triage completed. kb3 19:31 Arm band placed on right wrist. kb3 19:40 Patient has correct armband on for positive identification. kb3 19:40 No provider procedures requiring assistance completed. Patient did not have IV access kb3 during this emergency room visit. 20:12 Isabel Leyva, RN is Primary Nurse. kb3 Administered Medications: 19:43 Drug: hydrOXYzine 50 mg Route: PO; kb3 19:55 Follow up: Response: No adverse reaction kb3 19:43 Drug: Decadron (dexamethasone) 10 mg Route: IM; Site: right ventrogluteal; kb3 19:55 Follow up: Response: No adverse reaction kb3 Medication: 19:40 VIS not applicable for this client. kb3 Outcome: 19:41 Discharge ordered by . [facility] 19:55 Discharged to home ambulatory. kb3 19:55 Condition: stable kb3 19:55 Discharge instructions given to patient, Instructed on discharge instructions, follow up and referral plans. medication usage, Demonstrated understanding of instructions, follow-up care, medications, Prescriptions given X 2. 20:14 Patient left the ED. kb3 Signatures: Sam Lcuio PA PA jmm Jeffries, Jennifer jj6 Isabel Leyva, RN RN kb3
--- NOTE | 2022-04-03 19:41 | EDPHYS ---
Physician Documentation [facility] Name: Aleksandra Cheng Age: 32 yrs Sex: Female : 1990 Arrival Date: 04/03/2022 Time: 18:41 Bed IW1 Private MD: ED Physician Hunter Berumen HPI: 04/03 19:35 This 32 yrs old Black Female presents to ER via Ambulatory with complaints of Hives, jmm Rash. 19:35 Onset: The symptoms/episode began/occurred gradually. This is a 32 year old female with jmm no chronic medical conditions that presents to the ED with complaints of rash for 2 days. Patient unsure of the cause but states symptoms started after a nail appointment. . 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 - Social history:: Smoking status: Patient denies any tobacco usage or history of. ROS: 19:35 Constitutional: Negative for fever, chills, and weight loss, Cardiovascular: Negative jmm for chest pain, palpitations, and edema, Respiratory: Negative for shortness of breath, cough, wheezing, and pleuritic chest pain. 19:35 Skin: Positive for rash. 19:35 All other systems are negative. Exam: 19:35 Constitutional: This is a well developed, well nourished patient who is awake, alert, jmm and in no acute distress. Head/Face: atraumatic. Eyes: EOMI, no conjunctival erythema appreciated ENT: Moist Mucus Membranes Neck: Trachea midline, Supple Chest/axilla: Normal chest wall appearance and motion. Cardiovascular: Regular rate and rhythm. No edema appreciated Respiratory: Normal respirations, no respiratory distress appreciated Abdomen/GI: Non distended Back: Normal ROM 19:35 Skin: erythema noted to the left forearm. left side of the back. 19:35 Neuro: Orientation: is normal, Mentation: is normal, Memory: is normal. 19:35 Psych: Behavior/mood is pleasant, cooperative. Vital Signs: 19:28 BP 138 / 90; Pulse 89; Resp 20; Temp 98.9; Pulse Ox 100% ; Weight 117.93 kg; Height 5 kb3 ft. 6 in. (167.64 cm); Pain 0/10; 19:28 Body Mass Index 41.96 (117.93 kg, 167.64 cm) kb3 MDM: 19:35 Patient medically screened. [facility] 19:40 Data reviewed: vital signs, nurses notes. Counseling: I had a detailed discussion with pete the patient and/or guardian regarding: the historical points, exam findings, and any diagnostic results supporting the discharge/admit diagnosis, the need for outpatient follow up, to return to the emergency department if symptoms worsen or persist or if there are any questions or concerns that arise at home. Administered Medications: 19:43 Drug: hydrOXYzine 50 mg Route: PO; kb3 19:55 Follow up: Response: No adverse reaction kb3 19:43 Drug: Decadron (dexamethasone) 10 mg Route: IM; Site: right ventrogluteal; kb3 19:55 Follow up: Response: No adverse reaction kb3 Disposition: 04/04 07:57 Co-signature as Attending Physician, Hunter Berumen DO I was immediately available on-site ms3 in the Emergency Department for consultation in the care of the patient. Disposition Summary: 04/03/22 19:41 Discharge Ordered Location: Home [facility] Condition: Stable [facility] Diagnosis - Urticaria, unspecified [facility] Followup: [facility] - With: Private Physician - When: 2 - 3 days - Reason: Recheck today's complaints, Continuance of care, Re-evaluation by your physician Discharge Instructions: - Discharge Summary Sheet sony Banerjee [facility] Forms: - Medication Reconciliation Form [facility] - Thank You Letter [facility] - Antibiotic Education [facility] - Prescription Opioid Use [facility] Prescriptions: - Hydroxyzine HCl 25 mg Oral Tablet - take 1 tablet by ORAL route every 6 hours As needed; 30 tablet; Refills: 0, [facility] Product Selection Permitted - Prednisone 20 mg Oral Tablet - take 3 tablets by ORAL route once daily for 5 days; 15 tablet; Refills: 0, [facility] Product Selection Permitted Signatures: Sam Lucio PA PA Hunter Crowley DO DO ms3 Gordon, Isabel, RN RN kb3
[2022-04-03 20:22] VITALS: BP 138/90; TEMP 98.9; O2SAT 100
== END 2022-04-03 20:14 | disposition home or self-care (01) ==
LOC: ER 18:39
DX: L50.9 Urticaria, unspecified (principal); Z88.0 Allergy status to penicillin
CPT/HCPCS: 96372; 99283; J1100

== ENCOUNTER 2022-05-06 05:41 | Emergency (ER) | payer OTHER ==
--- OUTSIDE RECORDS SUMMARY | 2022-05-06 05:45 | XMS REPORT | Continuity of Care Document ---
:1990 Author Organization [facility] t Address [address] [place] [address] Care Team Providers Name Role Phone Asked, No Pcp Primary Care Physician Unavailable MARY KATE ROBLERO Attending Clinician Unavailable Mary Kaet Roblero MD Attending Clinician Doctor Unassigned, [place] Attending Clinician Unavailable SHAWNA HOUSTON Attending Clinician [...] Number Effective Date Expiration Date S enrrique [facility] [id number] 2021 HMO 00:00:00 COMMERCIAL [id number] 2021 NON-CONTRACT 00:00:00 GENERIC eMinor LIFE [id number] 2021 00:00:00 Problems Condition Condition Condition Status Onset Resolution Last Treating Co mments Source Name Details Category Date Date Treatment Clinician Date Morbid Morbid Disease Active Univers obesity obesity 2-17 ity of [place] mass [place] mass index 00 Me dical of of Branch 40.0-49.9 40.0-49.9 Migraines Migraines Disease Active 2013-05 Uni vers 09 ity of 00:00: [place] 00 Medical Branch Rubella Rubella Disease Active Univers non-immune non-immune 01-23 it y of status, status, 00:00: [place] antepartum antepartum 00 Me dical Branch Asthma Asthma Disease Active Overview: Univer s 01-22 Formattin ity of 00:00: g of this [place] 00 note Medical might be Branch different from the original. ICD10 Diagnosis Term State Archivist Utility Tobacco Tobacco Disease Active Univers use use 01-22 ity of disorder disorder 00:00: [place] 00 Medical Branch Multiparit Multiparit Disease Active U nivers y y 01-22 ity of 00:00: [place] 00 Medical Branch Allergies, Adverse Reactions, Alerts Allergy Allergy Status Severity Reaction(s) Onset Inactive Treating Comm ents Source Name Type Date Date Clinician Penicill [facility]ensi [facility] adverse [facility]:00: Medical reaction 00 Center s PENICILL Allergy [facility]: Medical 00 Center Penicill Propensi Active 2021-[address] [facility] [address] [facility] adverse 00:00: Medical reaction 00 Center s Penicill Propensi Active Method i ins ty to 8-25 [facility] adverse 00:00: Hospita reaction 00 l s to drug Penicill Propensi Active Rash Univer s ins ty to 4- ity of adverse 00:00: [place] reaction 00 Medical s Branch PENICILL Drug Active Rash Univers INS Class 4 ity of 00:00: [place] 00 Medical Branch Penicill Propensi Active Rash Univer s ins ty to 4 ity of adverse 00:00: [place] reaction 00 [facility] s Branch penicill Drug Active [facility] in [facility] penicill Drug Active [facility] in [facility] penicill Drug Active [facility] in [facility] penicill Drug Active [facility] in [facility] penicill Drug [facility] penicill Drug Active [facility] penicill Drug Active [facility] in [facility] penicill Drug Active [facility] in [facility] penicill Drug Active [facility] in [facility] Social History Social Habit Start Date Stop Date Quantity Comments Source History of Cigarette Smoker Universi ty of tobacco use [place] [facility] [place] History SDOH University o f Alcohol Frequency [facility] edical Branch History SDVT University o f Alcohol Std [place] Medical Drinks Branch History SDVT University o f Alcohol Binge [facility] al Branch Exposure to 2021-07-11 2021-08-10 Not sure University of SARS-CoV-2 00:00:00 15:25:00 [facility] (event) Branch Tobacco Comment 2021-06-18 2021-06-18 3 ciggs a day Univer sity of 00:00:00 00:00:00 [facility] Alcohol Comment 2021-06-18 2021-06-18 occasionally Univers ity of 00:00:00 00:00:00 [facility] Tobacco use and 2020-09-19 2020-09-[address] [facility] exposure 00:00:00 00:00:00 Medical [place] Alcohol intake 2020-09-19 2020-09-19 [facility] Sex Assigned At [address] [facility] 00:00[facility]00 00[facility]00 Medical Center Smoking Status Start Date Stop Date Source Current every day smoker 2021-06-18 00:00:00 Uni versity [facility] Medications Ordered Filled Start Stop Current Ordering Indication Dosage Frequency Signature Comments Components Source Medication Medication Date Date Medication? Clinician (SIG) Name Name No known No Univers medications 4-04 ity of 17:37: [place] 10 Medical Branch ibuprofen 2021- No [id number] 600mg Take 1 Univers 600 mg 07-01 tablet by ity of tablet 00:00: 00:00 mouth [place] 00 :00 every 6 Medical (six) Branch hours. docusate 2021- No [id number] 100mg Take 1 U nivers 100 mg 07-01 capsule by ity of capsule 00:00: 00:00 mouth [place] 00 :00 every 12 Medical (twelve) Branch hours. No known No No known Metho di medications 1-[address] 19:27: s [facility]osp[facility] 15 l No known No No known Metho di medications 1-[address] 19:27: s [facility] 15 l No known 2016- No No known Metho di medications 1-[address] 19:27: s [facility]ospita 15 l Immunizations Ordered Filled Immunization Date Status Comments Sourc e Immunization Name Name PPD (TB) 2016-11-25 Completed [facility] 00:00:00 [facility] PPD (TB) 2016-11-25 Completed [facility] 00:00:00 [facility] Influenza Virus 2015-02-17 Completed Universit y of Vaccine 00:00:00 [facility] Influenza Virus 2015-02-17 Completed Universit y of Vaccine 00:00:00 [facility] TDAP 2014-04-22 Completed University 00:00:00 [facility] TDAP 2014-04-22 Completed [facility] 00:00:00 [facility] Vital Signs Vital Name Observation Time Observation Value Comments Source Systolic blood 2021-08-10 21:03:00 152 mm[Hg] Univer sity of pressure [facility] Diastolic blood 2021-08-10 21:03:00 81 mm[Hg] Unive rsity of pressure [facility] Heart rate 2021-08-10 20:56:00 74 /min Universi ty of [facility] Body temperature 2021-08-10 20:56:00 36.78 Romi [facility] Respiratory rate 2021-08-10 20:56:00 18 /min [facility] Body height 2021-08-10 20:56:00 167.6 cm [facility] Body weight 2021-08-10 20:56:00 124.286 kg [facility] BMI 2021-08-10 20:56:00 44.22 kg/m2 [facility] HEIGHT 2020-09-19 20:33:00 167.6 cm WEIGHT 2020-09-19 20:33:00 120.657 kg HEIGHT 2020-09-19 20:33:00 167.6 cm WEIGHT 2020-09-19 20:33:00 120.657 kg Height/Length 2021-05-26 12:56:17 165.1 cm Measured Height/Length 2021-05-26 12:56:15 165.1 cm Measured Height/Length 2021-05-26 12:56:14 165.1 cm Measured Height/Length 2020-02-23 18:45:01 Measured Procedures Procedure Date / Time Performed Performing Clinician [facility] e MEDICAL 2021-08-10 05:01:00 Doctor Unassigned, No Univer [facility] RELEASE/CLEARANCE Name [facility] Branch FORMS Plan of Care Planned Activity Planned Date Details Comments Source Future Scheduled 2024-04-22 DTAP/TDAP/TD VACCINES [facility] Test 00:00:00 (2 - Td or Tdap) [code Medic al Center = DTAP/TDAP/TD VACCINES (2 - Td or Tdap)] Future Scheduled 2024-04-22 DTAP/TDAP/TD VACCINES [facility] Test 00:00:00 (2 - Td or Tdap) [code Medic al Center = DTAP/TDAP/TD VACCINES (2 - Td or Tdap)] Future Scheduled 2022-04-30 INFLUENZA VACCINE [facility] Test 23:56:41 [code = INFLUENZA VACCINE] Future Scheduled 2022-04-30 COVID-19 VACCINE (#1) [facility] Hospital Test 23:56:41 [code = COVID-19 VACCINE (#1)] Future Scheduled 2022-04-30 Screening for [facility] Test 23:56:41 malignant neoplasm of cervix (procedure) [code = 280060815] Future Scheduled 2022-03-13 INFLUENZA VACCINE Method [facility] Test 02:47:55 [code = INFLUENZA VACCINE] Future Scheduled 2022-03-13 HEPATITIS B VACCINES Met [facility] Test 02:47:55 (1 of 3 - 3-dose series) [code = HEPATITIS B VACCINES (1 of 3 - 3-dose series)] Future Scheduled 2022-03-13 COVID-19 VACCINE (#1) [facility] Test 02:47:55 [code = COVID-19 VACCINE (#1)] Future Scheduled 2022-03-13 Screening for [facility] Test 02:47:55 malignant neoplasm of cervix (procedure) [code = 983512125] Future Scheduled 2022-01-08 INFLUENZA VACCINE Method [facility] Hospital Test 01:48:10 [code = INFLUENZA VACCINE] Future Scheduled 2022-01-08 HEPATITIS B VACCINES Met [facility] Test 01:48:10 (1 of 3 - 3-dose series) [code = HEPATITIS B VACCINES (1 of 3 - 3-dose series)] Future Scheduled 2022-01-08 COVID-19 VACCINE (#1) [facility] Test 01:48:10 [code = COVID-19 VACCINE (#1)] Future Scheduled 2022-01-08 Screening for [facility] Test 01:48:10 malignant neoplasm of cervix (procedure) [code = 981000000] Future Scheduled 2022-01-07 INFLUENZA VACCINE (#1) [facility] Test 00:00:00 [code = INFLUENZA Medical Ce nter VACCINE (#1)] Future Scheduled 2022-01-07 INFLUENZA VACCINE (#1) [facility] Test 00:00:00 [code = INFLUENZA Medical Ce nter VACCINE (#1)] Future Scheduled 2021-09-[address] [facility] Test 00:00:00 Counseling and Medical Cente r Screening (12+) [code = Tobacco Cessation Counseling and Screening (12+)] Future Scheduled 2021-09-[address] [facility] Test 00:00:00 Counseling and Medical Cente r Screening (12+) [code = Tobacco Cessation Counseling and Screening (12+)] Future Scheduled 2021-05-[address] [facility] Test 00:00:00 (12+) [code = Medical Center DEPRESSION SCREENING (12+)] Future Scheduled 2021-05-[address] [facility] Test 00:00:00 (12+) [code = Medical Center DEPRESSION SCREENING (12+)] Future Scheduled [address] [facility] Test 00:[facility]:00 malignant neoplasm of Medica l Center cervix (procedure) [code = 396174991] Future Scheduled [address] [facility] Test 00:00:00 malignant neoplasm of Medica l Center cervix (procedure) [code = 123490571] Future Scheduled [address] [facility] Test 00:00:00 (procedure) [code = [facility] 73434835] Future Scheduled [address] [facility] Test 00:00:00 (procedure) [code = [facility] 75236847] Future Scheduled 2010 HEPATITIS C [facility]CRE[facility]ING [facility] Test 00:00:00 [code = HEPATITIS C Medical Center SCREENING] Future Scheduled 2010 HEPATITIS C [facility]CRE[facility] Test 00:00:00 [code = HEPATITIS C Medical Center SCREENING] Future Scheduled [address] [facility] Test 00:00:00 0-64 YRS (1 - PCV) Medical C enter [code = PNEUMOCOCCAL VACCINE 0-64 YRS (1 - PCV)] Future Scheduled [address] [facility] Test 00:00:00 0-64 YRS (1 - PCV) Medical C enter [code = PNEUMOCOCCAL VACCINE 0-64 YRS (1 - PCV)] Future Scheduled 1992 COVID-19 VACCINE (#1) [facility] Test 00:00:00 [code = COVID-[address] VACCINE (#1)] Future Scheduled 1990 COVID-19 VACCINE (#1) [facility] Test 00:00:00 [code = COVID-[address] VACCINE (#1)] Encounters Start End Encounter Admission Attending Care Care Encounter Source Date/Time Date/Time Type Type Clinicians Facility Department ID 2021-06-25 Outpatient MARY KATE BASHIR [facility]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 [id number] Univers 12:29:25 [facility] 2021-11-11 2021-11-11 Outpatient MARY KATE BASHIR [facility] [id number] Univers 15:00:00 15:00:00 ity [facility] 2021-11-11 2021-11-[address] [facility] [id number] Univers 15:00:00 15:00:00 ity [facility] 2021-08-10 2021-08-10 [facility] [id number] Univers 15:30:00 16:37:04 Visit Cam [place] [id number] i ty of [place] [id number] [place] PROFESS[place] [id number] Mn dical NAL [address] [place] [address] 2021-08-10 2021-08-10 [address] [facility] [id number] Univers 15:30:00 16:37:04 ity [facility] 2021-08-10 2021-08-10 Out[facility] R [facility] [id number] Univers 15:30:00 15:30:00 ity [facility] 2021-08-10 2021-08-10 [address] [facility] [facility] [id number] Univers 15:30:00 15:30:00 ity [facility] 2021-08-10 2021-08-10 Orders Doctor RICARDO [id number] Univers 00:00:00 00:00:00 Only Unassigned, PEDRO [id number] ity of [place] [employer] [id number] [place] as [phone] [address] 2021-07-20 2021-07-20 Outpatient R MARY KATE ROBLERO [facility] [id number] Univers 09:00:00 09:22:36 ity [facility] 2021-07-20 2021-07-20 Office Nhan [facility] [id number] Univers 09:00:00 09:22:36 Visit Cam [place] [id number] i ty of [place] [id number] PROF[place] [id number] Mn dical NAL [address] [place] [address] 2021-07-20 2021-07-20 Outpatient R MARY KATE ROBLERO [facility] [id number] Univers 09:00:00 09:22:36 ity of [facility] 2021-07-20 2021-07-20 Outpatient R MARY KATE ROBLERO [facility] [id number] Univers 09:00:00 09:22:36 ity of [facility] 2021-07-09 2021-07-09 Orders Doctor RICARDO [id number] Univers 00:00:00 00:00:00 Only Unassigned, PEDRO [id number] ity of [place] [employer] [facility] [id number] [place] as [phone] [facility] 009 [place] 2021-07-02 2021-07-02 Telephone Mary Kate Roblero [facility] 1..840.114 [id number] Univers 00:00:00 00:00:00 Cam JORGE ALBERTO 350.1.13.10 i ty [id number] [phone] Mn dical NAL [address] [place] [address] 2021-06-29 2021-07-01 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 [id number] Univers 22:12:00 10:15:00 SHAWNA ity [facility] 2021-06-29 2021-07-01 Emergency [place]A [place] 1..840.114 [id number] Univers 22:12:00 10:15:00 Shawna VASQUEZ 350.1.13.10 it y of [employer] [facility] [id number] [place] as [phone] [facility] 092 [place] 2021-06-29 2021-07-01 Outpatient X ANETA [facility]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 [id number] Univers 22:12:00 10:15:00 SHAWNA ity of [facility] 2021-06-30 2021-06-30 Outpatient R MARY KATE ROBLERO [facility]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 [id number] Univers 10:30:00 10:30:00 ity of [facility] 2021-06-30 2021-06-30 Surgery [place] [place] [id number] Univers 01:20:00 04:52:00 Shawna VASQUEZ 350.1.13.10 it y of HOSPITAL [id number] [place] as [id number] [address] 2021-06-29 2021-06-29 Outpatient R MARY KATE ROBLERO [facility] [id number] Univers 09:45:00 09:45:00 ity of [facility] 2021-06-29 2021-06-29 Outpatient R MARY KATE ROBLERO [facility] [id number] Univers 09:45:00 09:45:00 ity [facility] 2021-06-25 2021-06-25 Office [facility] [id number] Univers 10:30:00 11:17:52 Visit Darren AZUL 350.1.13.10 i ty [id number] [phone] Mn dical NAL [address] [facility] 2021-06-25 2021-06-25 Outpatient R MARY KATE ROBLERO [facility] [id number] Univers 10:30:00 11:17:52 ity of [facility] 2021-06-25 2021-06-[address] [facility] [id number] Univers 10:30:00 11:17:52 ity of [facility] 2021-06-25 2021-06-25 Outpatient R MARY KATE ROBLERO [facility] [id number] Univers 10:30:00 10:30:00 ity of [facility] 2021-06-25 2021-06-25 [address] [facility] [id number] Univers 08:45:00 08:45:00 ity [facility] 2021-06-25 2021-06-25 Prep For [facility] [id number] [id number] Univers 00:00:00 00:00:00 Surgery Darren AZUL 350.1.13.10 i ty [id number] [phone] Mn dical NAL [address] [facility] 2021-06-22 2021-06-22 Telephone Steph VASUDARSHAN 1.2.840.114 [id number] Univers 00:00:00 00:00:00 Adali AZUL 350.1.13.10 i ty of [place] [id number] [id number] Mn dical NAL [address] [facility] 2021-06-18 2021-06-18 Outpatient R MARY KATE ROBLERO [facility] [id number] Univers 15:15:00 15:15:00 ity of [facility] 2021-06-18 2021-06-18 [employer] Worker 2, Adc Lab [facility] [id number] Univers 15:15:00 15:15:00 Visit Mary Kate Roblero Darren AZUL 350.1.13.10 ity [id number] [phone] Mn dical [facility] 2021-06-18 2021-06-18 Outpatient R STEPH [facility] [id number] Univers 14:00:00 14:42:49 [facility] [place] [facility] 2021-06-18 2021-06-18 Outpatient R STEPH [facility] [id number] Univers 14:00:00 14:42:49 [facility] [place] [facility] 2021-06-18 2021-06-18 Outpatient R STEPH [facility] [id number] Univers 14:00:00 14:42:[address] [facility] 2021-06-18 2021-06-18 [facility] [id number] Univers 14:00:00 14:42:49 Visit Adali AZUL 350.1.13.10 i ty [place] [id number] [id number] Mn dical [facility] 2021-06-18 2021-06-18 Orders Doctor RICARDO [id number] [id number] Univers 00:00:00 00:00:00 Only Unassigned, PEDRO 350.1.13.10 ity of [place] [employer] [id number] [place] as [phone] [address] 2021-06-18 2021-06-18 Letter Steph [facility] [id number] Univers 00:00:00 00:00:00 (Out) Adali AZUL 350.1.13.10 i flynn roby [place] [id number] Black PETERSEN [phone] Mn dical [address] 2021-04-06 2021-04-[address] [facility] [id number] Diaz 07:44:18 07:44:18 Health 2021-02-04 2021-02-04 Outpatient MARGOT, [facility] [id number] [place] 07:18:50 12:23:32 TEJAL [facility] 2021-01-20 2021-01-20 Outpatient DHARI, [facility] [id number] [place] 00:00:00 00:00:00 [facility] 2020-11-02 2020-11-02 Emergency X MONAECYNTHIA, [facility] ERT [id number] [facility] [place] 18:39:00 18:39:00 [facility] 2020-10-28 2020-10-28 Outpatient DHARI, [facility] [id number] [place] 11:14:20 11:25:33 [facility] 2020-10-28 2020-10-28 Outpatient SAMEER, [facility] [id number] [place] 09:42:42 11:11:47 [facility] 2020-10-28 2020-10-28 Outpatient DHARI, [facility] [id number] [place] 00:00:00 00:00:00 [facility] 2020-10-28 2020-10-28 Outpatient VANESSA, [facility] [id number] [place] 00:00:00 00:00:00 [facility] 2020-10-09 2020-10-[address] [facility] [id number] [place] 00:00:00 00:00:00 [facility] 2020-09-20 2020-09-21 Emergency HEATH-YOMI, [facility] [id number] [place] 15:33:00 08:15:00 [facility]OU[facility]FA [facility]alt 2020-09-21 2020-09-[address] [facility] [id number] Joe 06:21:58 06:21:58 Health 2020-09-21 2020-09-[address] [facility] [id number] [place] 05:35:30 05:35:30 [facility] 2020-09-21 2020-09-21 [place] [id number] [place] 00:17:17 00:17:17 [facility] 2020-09-21 2020-09-21 [id number] [place] 00:17:12 00:17:12 [facility] 2020-09-20 2020-09-20 Emergency [place] [id number] Linch 23:24:27 23:24:27 [facility] 2020-09-19 2020-09-19 Emergency TRAUMA [id number] 16:34:00 20:24:00 [place] [id number] [id number] 2020-09-19 2020-09-19 Emergency ER [facility] Emergency [id number] [facility] 20:23:00 20:23:00 2020-09-19 2020-09-19 Emergency X [facility] ERT [id number] Univers 16:28:00 16:28:00 [facility] 2020-04-27 2020-04-27 Emergency E FADOWOLE, MHBL MHBL 7500 MHBL 12:45:00 13:10:00 TRAN 2020-02-23 2020-02-23 Emergency 1 Simone Verdin [facility] [id number] 18:33:00 21:25:00 Simone Verdin [facility] 2020-02-23 2020-02-23 Emergency 1 Lambert Simone [facility] [id number] 18:33:00 18:33:00 Simone Verdin -[id number] [facility] 2020-01-17 2020-01-17 Emergency 1 MikeFreya tilleyferny [facility] [id number] St. 14:43:00 15:28:00 Shady Cantrell [facility] 2016-12-11 2016-12-11 Emergency [facility] [id number] [place] 22:14:06 22:14:06 Health Results Test Description Test [...] the time of imaging. Signed: Hebert Taylor Verified Date/Time: 09/20/2020 01:52:04 -COV2/RT-PCR ([facility]) 2020-09-20 00:55:00 Test Item Value Reference Range Interpretation Comme nts SARS-COV2/RT-PCR Negative Not Performance of the Xpert Xpress SARS-CoV-2/Flu/RSV test has only been established in nasopharyngeal swab specimens. Use (test code = Detected, of the Xpert Xp ress SARS-CoV-2/Flu/RSV test with other specimen types has not been assessed and performance [id number]) Negative, characteristics are unknown. As with any [...] terminated or revoked sooner.Fact Sheet for Healthcare [facility] iders: https://www.Eyepic.Farehelper/Documents/Xpert%20Xpress%96YPVS-JhI-1-Flu-RSV/302-4508%2 0Rev.%20B%20HCP%20Fact%20Sheet.pdfFact Sheet for Healt hcare Patients: https://www.mSilica/Documents/Xpert%20Xpress%49MHJM-WaR-7-Flu-RSV/302-4507%2 0Rev.%20B%20Patient%20Fact%20Sheet.pdf SARS-COV-2 SLSL Performed at:[facility] [place], [place] [address]kb: [phone] PERFORMING LAB (test code = 2280675) COMPREHENSIVE METABOLIC [id number] 23:43:00 Test Item Value Reference Range Interpretation [...] S NOT APPLICABLE FOR DIALYSIS PATIEN TS. Mixing Machine Attendant ID - [id number] ID - [id number] ID - [id number] ID - [id number] ID - [id number] ID - [id number] ID - [id number] ID - [id number] ID - [id number] ID - [id number] ID - [id number] ID - [id number] ID - [id number] ID - [id number] ID - [id number] ID - [id number] ID - [id number] ID - [id number] ID - [id number], ABDOMEN 2020-09-19 23:27:00With IV AND Oral contrast.Unlisted Reason for Exam - Click Yes and Enter Reason Below->NoWill this procedure require oral contrast?->[facility]IS : 1990 Sex: FFINAL [...] 09/19/2020 23:27:51 CBC W/PLT COUNT & AUTO [id number] 21:25:00 Test Item Value Reference Range Interpretation [...] PERCENT (BEAKER) (test code = 2801) SCREEN, [id number] 21:20:00 Test Item Value Reference Range Interpretation Comments TEST URINE (BEAKER) (test Negative code = 583) Creatine [id number] 21:02:48 Test Item Value Reference Range Interpretation Comments CK (test code = CK) 114 U/L 34-145 Comprehensive Metabolic [id number] 21:02:47 Test Item Value Reference Range Interpretation [...] = Lipemia) 0 g/dL 1-2 Comprehensive Metabolic [id number] 21:02:47 Test Item Value Reference Range Interpretation [...] = 0 g/dL 1-2 Lipemia) Comprehensive Metabolic [id number] 21:02:47 Test Item Value Reference Range Interpretation [...] = 0 g/dL 1-2 Lipemia) HCG Qualitative [id number] 19:45:46 Test Item Value Reference Range Interpretation [...] 72 hours. Lot # (test code = [id number] Lot #) Expiration Dt (test 01-06-21 N code = Expiration Dt) Neg Control (test Negative code = Neg Control) Pos Control (test Positive code = Pos Control) Internal QC (test Acceptable code = Internal QC) Urinalysis with Microscopic if [id number] 19:45:46 Test Item Value Reference Range Interpretation [...] Indicated Micro Ind?) Complete Blood Count with [id number] 19:17:51 Test Item Value Reference Range Interpretation [...] N code = Pos Morph XN) Automated [id number] 19:17:51 Test Item Value Reference Range Interpretation Comments Neutro Auto (test code = Neutro 46.1 % 36.0-70.0 Auto) Lymph Auto (test code = Lymph Auto) 45.9 % 12.0-44.0 H Parke Auto (test code = Parke Auto) 5.6 % 0.0-11.0 Eos, Auto (test code = Eos, Auto) 1.4 % 0.0-7.0 Basophil Auto (test code = Basophil 0.8 % 0.0-2.0 Auto) Neutro Absolute (test code = Neutro 2.9 x10 1.6-7.4 Absolute) Lymph Absolute (test code = Lymph 2.85 x10 .50-4.60 Absolute) Parke Absolute (test code = Parke .35 x10 .00-1.20 Absolute) Eos Absolute (test code = Eos 0.09 x10 0.00-0.74 Absolute) Baso Absolute (test code = Baso 0.05 x10 0.00-0.21 Absolute) IG [id number] 19:17:51 Test Item Value Reference Range Interpretation Comments IG (test code = IG) 0.2 % 0.0-5.0 IG Abs (test code = IG Abs) 0 x10 N Streptococcus A Screen Rapid w/ Reflex [id number] 15:21:41 Test Item Value Reference Range Interpretation Comments Strep A Scn (test code Positive Negative A Resul ts called to = Strep A Scn) and read back by: Ramona Deal 01/17/20 20 15:21:32 CDT GM Lot # (test code = Lot [id number] N #) Expiration Dt (test 08/21/2020 N code = Expiration Dt) Internal QC (test code Acceptable = Internal QC)
[2022-05-06] MEDS ORDERED: PROMETHAZINE INJ 25 MG/ML AMP ONE (06:14)
[2022-05-06] MEDS ORDERED: DIPHENHYDRAMINE 50 MG/ML VIAL ONE (06:14)
[2022-05-06] MEDS ORDERED: NA CHLORIDE 0.9% 1,000 ML ONE (06:14)
[2022-05-06 06:26] LABS: Absolute Lymphocytes (CBC) 2.3 K/uL (0.7-4.9); Hematocrit 35.2 % (36.0-45.0); Lymphocytes % 36.1 % (15.3-44.8); MCV 73.8 fL (80-100); MPV 9.4 fL (7.6-11.3); RBC Red Blood Cell Count 4.77 M/uL (3.86-4.86)
[2022-05-06 06:43] LABS: Albumin 3.4 g/dL (3.4-5.0); Bilirubin Total 0.2 mg/dL (0.2-1.0); Protein, Total 7.3 g/dL (6.4-8.2)
[2022-05-06 06:44] LABS: Potassium 3.9 mmol/L (3.5-5.1)
--- NOTE | 2022-05-06 08:25 | ER ---
Nurse's Notes [facility] Name: Aleksandra Cheng Age: 32 yrs Sex: Female : 1990 Arrival Date: 05/06/2022 Time: 05:51 Bed 4 Private MD: Diagnosis: Migraine, unspecified, not intractable, without status migrainosus Presentation: 05/06 06:02 Chief complaint: Patient states: "I have had a headache for the past 5 days. It feels tw5 like is it is making the right side of my face hurt and my right shoulder numb.". Coronavirus screen: Vaccine status: Patient reports receiving the 2nd dose of the covid vaccine. RateItAll. Ebola Screen: Patient negative for fever greater than or equal to 101.5 degrees Fahrenheit, and additional compatible Ebola Virus Disease symptoms Patient denies exposure to infectious person. Patient denies travel to an Ebola-affected area in the 21 days before illness onset. Initial Sepsis Screen: Does the patient meet any 2 criteria? No. Patient's initial sepsis screen is negative. Does the patient have a suspected source of infection? No. Patient's initial sepsis screen is negative. Risk Assessment: Do you want to hurt yourself or someone else? Patient reports no desire to harm self or others. Onset of symptoms was May 01, 2022. 06:02 Method Of Arrival: Ambulatory tw5 06:02 Acuity: VIN 3 tw5 Triage Assessment: 06:04 Headache History: The patient has had previous headaches. General: Appears in no tw5 apparent distress. obese, Behavior is calm, cooperative, appropriate for age. Pain: Pain currently is 8 out of 10 on a pain scale. Pain began 5 days ago Also complains of. Neuro: Level of Consciousness is awake, alert, obeys commands. 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 - Social history:: Smoking status: Reported history of juuling and/or vaping. Screenin:05 Abuse screen: Denies threats or abuse. Denies injuries from another. Nutritional tw5 screening: No deficits noted. Tuberculosis screening: No symptoms or risk factors identified. 07:15 [facility] ED Fall Risk Assessment (Adult) History of falling in the last 3 months, ko1 including since admission No falls in past 3 months (0 pts) Confusion or Disorientation No (0 pts) Intoxicated or Sedated No (0 pts) Impaired Gait No (0 pts) Mobility Assist Device Used No (0 pt) Altered Elimination No (0 pt) Score/Fall Risk Level 0 - 2 = Low Risk Oriented to surroundings, Maintained a safe environment, Educated pt \\T\\ family on fall prevention, incl call for assistance when getting out of bed, Assessed \\T\\ reinforced patient's understanding of fall precautions, Provided non-skid footwear, Hourly rounding (assess needs \\T\\ fall precautionary measures) done. Assessment: 06:05 General: Appears in no apparent distress. obese, Behavior is calm, cooperative, tw5 appropriate for age. Pain: Complains of pain in right temporal area, right ear, right spiritism and right zygomatic area Pain radiates to right arm Pain currently is 8 out of 10 on a pain scale. Neuro: Level of Consciousness is awake, alert, obeys commands, Oriented to person, place, time, situation. Respiratory: Airway is patent Trachea midline Respiratory effort is even, unlabored. 07:17 Reassessment: Patient appears in no apparent distress at this time. Patient and/or hb family updated on plan of care and expected duration. Pain level reassessed. Patient is alert, oriented x 3, equal unlabored respirations, skin warm/dry/pink. Vital Signs: 06:02 Resp 18; Temp 98.2; Weight 117.93 kg; Height 5 ft. 7 in. (170.18 cm); tw5 06:05 BP 158 / 98; Pulse 81; Pulse Ox 100% on R/A; tw5 06:05 Pain 8/10; tw5 06:19 BP 158 / 98; Pulse 70; Resp 20; Pulse Ox 100% on R/A; tw5 07:17 BP 151 / 96; Pulse 67; Resp 16; Pulse Ox 100% on R/A; hb 08:34 BP 124 / 72; Pulse 68; Resp 16; Pulse Ox 97% on R/A; ko1 06:02 Body Mass Index 40.72 (117.93 kg, 170.18 cm) tw5 ED Course: 05:51 Patient arrived in ED. es 05:58 Zion Myers MD is Attending Physician. sp3 06:02 Emy Henderson is Primary Nurse. tw5 06:04 Triage completed. tw5 06:05 Awaiting lab results. tw5 06:05 Arm band placed on. tw5 06:05 Patient has correct armband on for positive identification. Placed in gown. Bed in low tw5 position. Call light in reach. Client placed on continuous cardiac and pulse oximetry monitoring. NIBP monitoring applied. Door closed. Moved to private room. Warm blanket given. Verbal reassurance given. 06:18 Inserted saline lock: 20 gauge in left antecubital area, using aseptic technique. Blood rv1 collected. 06:18 CBC with Diff Sent. tw5 06:18 CMP Sent. tw5 07:15 No provider procedures requiring assistance completed. IV discontinued, intact, ko1 bleeding controlled, No redness/swelling at site. Pressure dressing applied. Administered Medications: 06:10 Not Given (physician canceledd): Compazine (prochlorperazine) 10 mg IVP once sp3 06:16 Drug: Benadryl (diphenhydrAMINE) 25 mg Route: IVP; Site: right antecubital; tw5 07:30 Follow up: Response: No adverse reaction ko1 06:16 Drug: Phenergan (promethazine) 12.5 mg Route: IVP; Site: right antecubital; tw5 07:30 Follow up: Response: No adverse reaction ko1 06:16 Drug: NS 0.9% 1000 ml Route: IV; Rate: 1 bolus; Site: right antecubital; tw5 08:30 Follow up: IV Status: Completed infusion; IV Intake: 1000ml ko1 Medication: 06:05 VIS not applicable for this client. tw5 Intake: 08:30 IV: 1000ml; Total: 1000ml. ko1 Outcome: 07:15 Discharged to home ambulatory. ko1 07:15 Condition: improved 07:15 Discharge instructions given to patient, Instructed on discharge instructions, follow up and referral plans. Demonstrated understanding of instructions, follow-up care, medications, Prescriptions given X 08:24 Discharge ordered by . sd2 08:38 Patient left the ED. ko1 Signatures: Mireya Lainez Heather, RN RN hb Zion Meyrs MD MD sp3 Emy Henderson tw5 Lin Rivera MD MD sd2 Mary Carmen Gómez RN RN ko1 Lindsay Strange [facility]
--- NOTE | 2022-05-06 08:25 | EDPHYS ---
Physician Documentation [facility] Name: Aleksandra Cheng Age: 32 yrs Sex: Female : 1990 Arrival Date: 05/06/2022 Time: 05:51 Bed 4 Private MD: ED Physician Zion Myers HPI: 05/06 06:17 This 32 yrs old Black Female presents to ER via Ambulatory with complaints of Headache, sp3 Shoulder Pain, Eye Problem. 06:17 32-year-old female with a history of migraine headaches presents to the ED with 5-day sp3 history of off-and-on headache on the right frontal region extending down into her right shoulder with scotoma of the right eye. Symptoms follow her classic migraine pattern except this time severity is a little bit higher. Patient denies any direct trauma, fever, URI symptoms, neck pain, chest pain, shortness of breath, back pain, rash, known sick contacts, travel history, any other symptoms on ROS at this time.. 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 - Social history:: Smoking status: Reported history of juuling and/or vaping. ROS: 06:18 Constitutional: Negative for fever, chills, and weight loss, ENT: Negative for injury, sp3 pain, and discharge, Neck: Negative for injury, pain, and swelling, Cardiovascular: Negative for chest pain, palpitations, and edema, Respiratory: Negative for shortness of breath, cough, wheezing, and pleuritic chest pain, Abdomen/GI: Negative for abdominal pain, nausea, vomiting, diarrhea, and constipation, Back: Negative for injury and pain, MS/Extremity: Negative for injury and deformity, Skin: Negative for injury, rash, and discoloration, Psych: Negative for depression, anxiety, suicide ideation, homicidal ideation, and hallucinations, Allergy/Immunology: Negative for hives, rash, and allergies, Endocrine: Negative for neck swelling, polydipsia, polyuria, polyphagia, and marked weight changes, Hematologic/Lymphatic: Negative for swollen nodes, abnormal bleeding, and unusual bruising. 06:18 All other systems are negative. Exam: 06:18 Constitutional: This is a well developed, well nourished patient who is awake, alert, sp3 and in no acute distress. Head/Face: Normocephalic, atraumatic. ENT: Nares patent. No nasal discharge, no septal abnormalities noted. External auditory canals are clear. Oropharynx with no redness, swelling, or masses, exudates, or evidence of obstruction, uvula midline. Mucous membranes moist. Neck: Trachea midline, no thyromegaly or masses palpated, and no cervical lymphadenopathy. Supple, full range of motion without nuchal rigidity, or vertebral point tenderness. No Meningismus. Chest/axilla: Normal chest wall appearance and motion. Nontender with no deformity. No lesions are appreciated. Cardiovascular: Regular rate and rhythm with a normal S1 and S2. No gallops, murmurs, or rubs. Normal PMI, no JVD. No pulse deficits. Respiratory: Lungs have equal breath sounds bilaterally, clear to auscultation and percussion. No rales, rhonchi or wheezes noted. No increased work of breathing, no retractions or nasal flaring. Abdomen/GI: Soft, non-tender, with normal bowel sounds. No distension or tympany. No guarding or rebound. No evidence of tenderness throughout. Back: No spinal tenderness. No costovertebral tenderness. Full range of motion. Skin: Warm, dry with normal turgor. Normal color with no rashes, no lesions, and no evidence of cellulitis. MS/ Extremity: Pulses equal, no cyanosis. Neurovascular intact. Full, normal range of motion. Neuro: Awake and alert, GCS 15, oriented to person, place, time, and situation. Cranial nerves II-XII grossly intact. Motor strength 5/5 in all extremities. Sensory grossly intact. Cerebellar exam normal. Normal gait. Psych: Awake, alert, with orientation to person, place and time. Behavior, mood, and affect are within normal limits. 06:18 Eyes: Mild positive photophobia.. Vital Signs: 06:02 Resp 18; Temp 98.2; Weight 117.93 kg; Height 5 ft. 7 in. (170.18 cm); tw5 06:05 BP 158 / 98; Pulse 81; Pulse Ox 100% on R/A; tw5 06:05 Pain 8/10; tw5 06:19 BP 158 / 98; Pulse 70; Resp 20; Pulse Ox 100% on R/A; tw5 07:17 BP 151 / 96; Pulse 67; Resp 16; Pulse Ox 100% on R/A; hb 08:34 BP 124 / 72; Pulse 68; Resp 16; Pulse Ox 97% on R/A; ko1 06:02 Body Mass Index 40.72 (117.93 kg, 170.18 cm) tw5 MDM: 06:06 Patient medically screened. sp3 06:18 Data reviewed: vital signs, nurses notes. ED course: 32-year-old with classic migraine sp3 headache pattern. We will obtain general laboratory values since we are giving IV medications and treat with Phenergan IV and Benadryl IV. Compazine IV is not available at this hospital. Diagnosis is migraine headache, general headache, viral syndrome. I do not believe patient has intracranial hemorrhage, space-occupying lesion, or any other symptoms at this time. Patient has had imaging in the past. CT scan is not indicated at this time. Patient is improved, will discharge patient home with general precautions and follow-up with PCP. Do not improve, consider alternate medication.. 08:23 Transition of care: Care assumed from Zion Myers MD. ED course: Patient sleeping sd2 comfortably. Feeling improved. Comfortable with plan for discharge with continued supportive care and outpatient follow up. Verbalizes understanding of strict return precautions. . 05/06 06:05 Order name: CBC with Diff; Complete Time: 06:32 sp3 05/06 06:05 Order name: CMP; Complete Time: 07:09 sp3 05/06 06:05 Order name: IV Saline Lock; Complete Time: 06:18 sp3 05/06 06:05 Order name: Labs collected and sent; Complete Time: 06:18 sp3 Administered Medications: 06:10 Not Given (physician canceledd): Compazine (prochlorperazine) 10 mg IVP once sp3 06:16 Drug: Benadryl (diphenhydrAMINE) 25 mg Route: IVP; Site: right antecubital; tw5 07:30 Follow up: Response: No adverse reaction ko1 06:16 Drug: Phenergan (promethazine) 12.5 mg Route: IVP; Site: right antecubital; tw5 07:30 Follow up: Response: No adverse reaction ko1 06:16 Drug: NS 0.9% 1000 ml Route: IV; Rate: 1 bolus; Site: right antecubital; tw5 08:30 Follow up: IV Status: Completed infusion; IV Intake: 1000ml ko1 Disposition Summary: 05/06/22 08:24 Discharge Ordered Location: Home sd2 Problem: an acute exacerbation sd2 Symptoms: have improved sd2 Condition: Stable sd2 Diagnosis - Migraine, unspecified, not intractable, without status migrainosus sd2 Followup: sd2 - With: Private Physician - When: 2 - 3 days - Reason: Recheck today's complaints, Continuance of care, Re-evaluation by your physician Discharge Instructions: - Discharge Summary Sheet sd2 - Migraine Headache sd2 - Recurrent Migraine Headache sd2 Forms: - Medication Reconciliation Form sd2 - Thank You Letter sd2 - Antibiotic Education sd2 - Prescription Opioid Use sd2 Signatures: Dispatcher [employer] EDZion Gomes MD MD sp3 Emy Henderson tw5 Lin Rivera MD MD sd2 Mary Carmen Gómez RN ko1
[2022-05-06 08:42] VITALS: TEMP 98.2
[2022-05-06 08:47] VITALS: BP 124/72; O2SAT 97
== END 2022-05-06 08:38 | disposition home or self-care (01) ==
LOC: ER 05:41
DX: G43.009 Migraine without aura, not intractable, without status migrainosus (principal); Z88.0 Allergy status to penicillin
CPT/HCPCS: 96361; 85025; 36415; 80053; 96375; 96374; 99284; J2550; J1200; J7030

== ENCOUNTER 2022-05-16 17:52 | Emergency (ER) | payer OTHER ==
--- OUTSIDE RECORDS SUMMARY | 2022-05-16 17:57 | XMS REPORT | Continuity of Care Document ---
:1990 Author Organization [facility] t Address [address] [place] [address] Care Team Providers Name Role Phone Asked, No Pcp Primary Care Physician Unavailable MARY KATE ROBLERO Attending Clinician Unavailable Mary Kate Roblero MD Attending Clinician Doctor Unassigned, [place] Attending Clinician Unavailable SHAWNA HOUSTON Attending Clinician [...] Type Policy Number Effective Date Expiration Date Melisa osuna [facility] [id number] 2021 HMO 00:00:00 COMMERCIAL [id number] 2021 NON-CONTRACT 00:00:00 GENERIC [employer] LIFE [id number] 2021 00:00:00 Problems Condition Condition Condition Status Onset Resolution Last Treating Co mments Source Name Details Category Date Date Treatment Clinician Date Morbid Morbid Disease Active Univers obesity obesity 2-17 ity of [place] mass [place] mass index 00 Me dical of of Branch 40.0-49.9 40.0-49.9 Migraines Migraines Disease Active 2013-05 Uni vers 09 ity of 00:00: [place] 00 Medical Branch Rubella Rubella Disease Active Univers non-immune non-immune 01-23 it y of status, status, 00:00: [place] antepartum antepartum 00 Me dical Branch Asthma Asthma Disease Active Overview: Univer s 01-22 Formattin ity of 00:00: g of this 00 note Medical might be Branch different from the original. 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 Tobacco Tobacco Disease Active Univers use use 01-22 ity of disorder disorder 00:00: [place] 00 Medical Branch Multiparit Multiparit Disease Active U nivers y y 01-22 ity of 00:00: [place] 00 Medical Branch Allergies, Adverse Reactions, Alerts Allergy Allergy Status Severity Reaction(s) Onset Inactive Treating Comm ents Source Name Type Date Date Clinician Penicill Propensi [facility] adverse [facility]: Medical reaction 00 Center s Penicill Propensi Active [facility] [...] ity of adverse 00:00: [place] reaction 00 [facility] s Branch penicill Drug Active [facility] in [facility] penicill Drug Active [facility] penicill Drug Active [facility] penicill Drug Active [facility] penicill Drug [facility] penicill Drug Active [facility] penicill Drug Active [facility] penicill Drug Active [facility] penicill Drug Active [facility] Social History Social Habit Start Date Stop Date Quantity Comments Source History of Cigarette Smoker Universi ty of tobacco use [facility] History SDOH University o f Alcohol Frequency [facility] edical Branch History SDOH University o f Alcohol Std [place] [facility] Drinks Branch History SDOH University o f Alcohol Binge [facility] [place] [facility] al Branch Exposure to 2021-07-11 2021-08-10 Not sure University of SARS-CoV-2 00:00:00 15:25:00 [facility] (event) [place] Tobacco Comment 2021-06-18 2021-06-18 3 ciggs a day Univer sity of 00:00:00 00:00:00 [facility] Alcohol Comment 2021-06-18 2021-06-18 occasionally Univers ity of 00:00:00 00:00:00 [facility] Tobacco use and 2020-09-19 2020-09-[address] [facility] exposure 00:00:00 00:00:00 Medical [place] Alcohol intake 2020-09-19 2020-09-19 [facility] Sex Assigned At [address] [facility] 00:00[facility]00 [facility] Smoking Status Start Date Stop Date Source Current every day smoker 2021-06-18 00:00:00 Uni versity of [facility] Medications Ordered Filled Start Stop Current Ordering Indication Dosage Frequency Signature Comments Components Source Medication Medication Date Date Medication? Clinician (SIG) Name Name No known No Univers medications 4-04 ity of 17:37: [place] 10 Medical Branch ibuprofen 2021- No [id number] 600mg Take 1 Univers 600 mg 07-01 tablet by ity of tablet 00:00: 00:00 mouth [place] 00 :00 every 6 Medical (six) Branch hours. docusate 2021- No [id number] 100mg Take 1 U nivers 100 mg 07-01 capsule by ity of capsule 00:00: 00:00 mouth [place] 00 :00 every 12 Medical (twelve) Branch hours. No known 2016- No No known Metho di medications 1-[address] [facility] No known 2016- No No known Metho di medications 1-[address] 19:27: [facility] l No known 2016- No No known Metho di medications 1-[address] 19:27: [facility] l No known 2016-0 No No known Metho di medications 1-[address] 19:27: [facility] 15 l Immunizations Ordered Filled Immunization Date Status Comments Sour e Immunization Name Name PPD (TB) 2016-11-25 Completed [facility] 00:00:00 [facility] PPD (TB) 2016-11-25 Completed [facility] 00:00:00 [facility] Influenza Virus 2015-02-17 Completed Universit y of Vaccine 00:00:00 [facility] Influenza Virus 2015-02-17 Completed Universit y of Vaccine 00:00:00 [facility] TDAP 2014-04-22 Completed University 00:00:00 [facility] TDAP 2014-04-22 Completed [facility] 00:00:00 [facility] Vital Signs Vital Name Observation Time Observation Value Comments Source Systolic blood 2021-08-10 21:03:00 152 mm[Hg] Univer sity of pressure [facility] Diastolic blood 2021-08-10 21:03:00 81 mm[Hg] Unive rsity of pressure [facility] Heart rate 2021-08-10 20:56:00 74 /min [facility] Body temperature 2021-08-10 20:56:00 36.78 Romi [facility] Respiratory rate 2021-08-10 20:56:00 18 /min [facility] Body height 2021-08-10 20:56:00 167.6 cm [facility] Body weight 2021-08-10 20:56:00 124.286 kg [facility] BMI 2021-08-10 20:56:00 44.22 kg/m2 [facility] HEIGHT 2020-09-19 20:33:00 167.6 cm WEIGHT 2020-09-19 20:33:00 120.657 kg HEIGHT 2020-09-19 20:33:00 167.6 cm WEIGHT 2020-09-19 20:33:00 120.657 kg Height/Length 2021-05-26 12:56:17 165.1 cm Measured Height/Length 2021-05-26 12:56:15 165.1 cm Measured Height/Length 2021-05-26 12:56:14 165.1 cm Measured Height/Length 2020-02-23 18:45:01 Measured Procedures Procedure Date / Time Performed Performing Clinician [facility] ericka CORDOBA 2021-08-10 05:01:00 Doctor Unassigned, No [facility] RELEASE/CLEARANCE Name [facility] FORMS Plan of Care Planned Activity Planned [...] (2 - Td or Tdap)] Future Scheduled 2022-05-[address] [facility] Test 00:00:00 (12+) [code = [facility] DEPRESSION SCREENING (12+)] Future Scheduled 2022-04-30 INFLUENZA VACCINE Method is Hospital Test 23:56:41 [code = INFLUENZA VACCINE] Future Scheduled 2022-04-30 COVID-19 VACCINE (#1) [facility] Test 23:56:41 [code = COVID-19 VACCINE (#1)] Future Scheduled 2022-04-30 [facility] Test 23:56:41 malignant neoplasm of cervix (procedure) [code = 613234612] Future Scheduled 2022-04-30 COVID-19 VACCINE (#1) [facility] Test 23:56:41 [code = COVID-19 VACCINE (#1)] Future Scheduled 2022-04-30 [facility] Test 23:56:41 malignant neoplasm of cervix (procedure) [code = 793907208] Future Scheduled 2022-04-30 INFLUENZA VACCINE Method [facility] Hospital Test 23:56:41 [code = INFLUENZA VACCINE] Future Scheduled 2022-03-13 COVID-19 VACCINE (#1) [facility] Test 02:47:55 [code = COVID-19 VACCINE (#1)] Future Scheduled 2022-03-13 [facility] Test 02:47:55 malignant neoplasm of cervix (procedure) [code = 815817975] Future Scheduled 2022-03-13 INFLUENZA VACCINE Method [facility] Test 02:47:55 [code = INFLUENZA VACCINE] Future Scheduled 2022-03-13 HEPATITIS B VACCINES Met [facility] Test 02:47:55 (1 of 3 - 3-dose series) [code = HEPATITIS B VACCINES (1 of 3 - 3-dose series)] Future Scheduled 2022-01-08 INFLUENZA VACCINE Method [facility] Test 01:48:10 [code = INFLUENZA VACCINE] Future Scheduled 2022-01-08 HEPATITIS B VACCINES Met [facility] Test 01:48:10 (1 of 3 - 3-dose series) [code = HEPATITIS B VACCINES (1 of 3 - 3-dose series)] Future Scheduled 2022-01-08 COVID-19 VACCINE (#1) [facility] Test 01:48:10 [code = COVID-19 VACCINE (#1)] Future Scheduled 2022-01-08 [facility] Test 01:48:10 malignant neoplasm of cervix (procedure) [code = 360899051] Future Scheduled 2022-01-07 INFLUENZA VACCINE (#1) [facility] Test 00:[facility]:00 (12+) [code = [facility] DEPRESSION SCREENING (12+)] Future Scheduled 2021-05-[address] [facility] Test 00:00:00 (12+) [code = Medical Center DEPRESSION SCREENING (12+)] Future Scheduled [address] [facility] Test 00:00:00 malignant neoplasm of Medica l Center cervix (procedure) [code = 118175518] Future Scheduled [address] [facility] Test 00:00:00 malignant neoplasm of Medica l Center cervix (procedure) [code = 052717902] Future Scheduled [address] [facility] [facility] Test 00:00:00 malignant neoplasm of Medica l Center cervix (procedure) [code = 067766215] Future Scheduled [address] [facility] Test 00:00:00 (procedure) [code = Medical Center 34699867] Future Scheduled [address] Test 00:00:00 (procedure) [code = [facility] 68372274] Future Scheduled [address] [facility] Test 00:00:00 (procedure) [code = [facility] 20433213] Future Scheduled 2010 HEPATITIS C SCREENING CH [...] Department ID 2021-06-25 Outpatient MARY KATE BASHIR 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 [id number] Univers 15:00:00 15:00:00 ity [facility] 2021-08-10 2021-08-10 [facility] [id number] Univers 15:30:00 16:37:04 Visit Cam [place] 350.1.13.10 i ty of [place] 4.2.7.2.686 [place] PROFESS[place] [id number] Sd dical NAL [address] [place] [address] 2021-08-10 2021-08-10 Outpatient R ANNIKA [facility] [id number] Univers 15:30:00 16:37:04 ity [facility] 2021-08-10 2021-08-10 Outpatient R ANNIKA [facility] [id number] Univers 15:30:00 15:30:00 ity [facility] 2021-08-10 2021-08-10 Outpatient R ROBLERO [facility] [id number] Univers 15:30:00 15:30:00 ity [facility] 2021-08-10 2021-08-10 Orders Doctor RICARDO [id number] Univers 00:00:00 00:00:00 Only Unassigned, PEDRO 350.1.13.10 ity of [place] [facility] 4.2.7.2.686 [place] as [phone] [address] 2021-07-20 2021-07-20 Outpatient R ANNIKA [facility] [id number] Univers 09:00:00 09:22:36 ity [facility] 2021-07-20 2021-07-20 Office Roblero [facility] [id number] Univers 09:00:00 09:22:36 Visit Cam [place] 350.1.13.10 i ty of [facility] 4.2.7.2.686 [place] [id number] Sd dical NAL [address] [place] [address] 2021-07-20 2021-07-20 Outpatient R MARY KATE ROBLERO [facility] [id number] Univers 09:00:00 09:22:36 ity of [facility] 2021-07-20 2021-07-20 Outpatient R MARY KATE ROBLERO [facility] [id number] Univers 09:00:00 09:22:36 ity of [facility] 2021-07-09 2021-07-09 Orders Doctor RICARDO [id number] Univers 00:00:00 00:00:00 Only Unassigned, PEDRO 350.1.13.10 ity of [place] [facility] 4.2.7.2.686 [place] as [phone] [facility] 009 [place] 2021-07-02 2021-07-02 Telephone Mary Kate Roblero [facility] [id number] Univers 00:00:00 00:00:00 Darren AZUL 350.1.13.10 i ty [facility] 4.2.7.2.686 [place] [phone] Sd dical [address] 2021-06-29 2021-07-01 [facility] 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 [id number] Univers 22:12:00 10:15:00 SHAWNA ity [facility] 2021-06-29 2021-07-01 Emergency MINA [place] [id number] Univers 22:12:00 10:15:00 Shawna VASQUEZ 350.1.13.10 it y [facility] 4.2.7.2.686 [place] [phone] [facility] 092 [place] 2021-06-29 2021-07-01 Outpatient X ANETA [facility] 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 [id number] Univers 22:12:00 10:15:00 SHAWNA ity of [facility] 2021-06-30 2021-06-30 Outpatient R MARY KATE ROBLERO [facility] 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 [id number] Univers 10:30:00 10:30:00 ity of [facility] 2021-06-30 2021-06-30 Surgery MIN[facility] [place] [id number] Univers 01:20:00 04:52:00 Shawna VASQUEZ 350.1.13.10 it y of [facility] 4.2.7.2.686 [place] [id number] [address] 2021-06-29 2021-06-29 Outpatient R MARY KATE ROBLERO [facility] [id number] Univers 09:45:00 09:45:00 ity [facility] 2021-06-29 2021-06-29 Outpatient R MARY KATE ROBLERO [facility] [id number] Univers 09:45:00 09:45:00 ity [facility] 2021-06-25 2021-06-25 Office Mary Kate Roblero [facility] [id number] Univers 10:30:00 11:17:52 Visit Darren AZUL 350.1.13.10 i ty of [place]2.[place].2.[place] [phone] [address] 2021-06-25 2021-06-25 Outpatient R MARY KATE ROBLERO [facility] [id number] Univers 10:30:00 11:17:52 ity of [facility] 2021-06-25 2021-06-25 Out[facility] [id number] Univers 10:30:00 11:17:52 ity of [facility] 2021-06-25 2021-06-25 Outpatient R MARY KATE ROBLERO [facility] [id number] Univers 10:30:00 10:30:00 ity [facility] 2021-06-25 2021-06-25 Outpatient [facility] [id number] Univers 08:45:00 08:45:00 ity [facility] 2021-06-25 2021-06-25 Prep For Mary Kate Roblero [facility] 1.2.840.114 [id number] Univers 00:00:00 00:00:00 Surgery Darren AZUL 350.1.13.10 i ty of [place] 4[place]2.7.2.[place] [phone] [address] 2021-06-22 2021-06-22 [facility] 1.2.840.114 [id number] Univers 00:00:00 00:00:00 Adali AZUL 350.1.13.10 i ty of [place] 4.2.7.2.686 [place] [phone] Sd dical NAL [address] [facility] 2021-06-18 2021-06-18 Outpatient R MARY KATE ROBLERO [facility] [id number] Univers 15:15:00 15:15:00 ity of [facility] 2021-06-18 2021-06-18 Spanish Linguist 2, Adc Lab [facility] 1.2.840.114 [id number] Univers 15:15:00 15:15:00 Visit Mary Kate Roblero Darren LUCASPEE 350.1.13.10 ity of [place] 4.2.7.2.[place] [phone] Sd dical [facility] 353 [facility] 2021-06-18 2021-06-18 Outpatient R STEPH [facility] [id number] Univers 14:00:00 14:42:49 [facility] 2021-06-18 2021-06-18 [facility] [id number] Univers 14:00:00 14:42:49 [facility] 2021-06-18 2021-06-18 [facility] [id number] Univers 14:00:00 14:42:49 [facility] 2021-06-18 2021-06-18 Office [facility] [id number] Univers 14:00:00 14:42:49 Visit Adali AZUL 350.1.13.10 i ty of [place] 4.2.7.2.[place] [id number] Sd dical NAL 134 [facility] 2021-06-18 2021-06-18 Orders Doctor RICARDO 1.2.840.114 [id number] Univers 00:00:00 00:00:00 Only Unassigned, PEDRO 350.1.13.10 ity of [place] [facility] 4.2.7.2.686 [place] as [phone] [address] 2021-06-18 2021-06-18 Letter [facility] [id number] Univers 00:00:00 00:00:00 (Out) Adali AZUL 350.1.13.10 i banner [facility] 4.2.7.2.686 Black PETERSEN [phone] Sd dical [address] 2021-04-06 2021-04-06 Outpatient DEIDRE DOTY [facility] [id number] [place] 07:44:18 07:44:18 Health 2021-02-04 2021-02-04 Outpatient BERRA, [facility] [id number] [place] 07:18:50 12:23:32 TEJAL [facility] 2021-01-20 2021-01-20 Outpatient DHARI, [facility] [id number] [place] 00:00:00 00:00:00 [facility] 2020-11-02 2020-11-02 Emergency X CACCYNTHIA, [facility] ERT [id number] [facility] 18:39:00 18:39:00 [facility] 2020-10-28 2020-10-28 Outpatient DHARI, [facility] [id number] [place] 11:14:20 11:25:33 [facility] 2020-10-28 2020-10-28 Outpatient SAMEER, [facility] [id number] [place] 09:42:42 11:11:47 [facility] 2020-10-28 2020-10-28 Outpatient DHARI, [facility] [id number] [place] 00:00:00 00:00:00 [facility] 2020-10-28 2020-10-28 Outpatient VANESSA, [facility] [id number] [place] 00:00:00 00:00:00 [facility] 2020-10-09 2020-10-09 Outpatient [facility] [id number] [place] 00:00:00 00:00:00 [facility] 2020-09-20 2020-09-21 Emergency HEATH-YOMI, [facility] [id number] [place] 15:33:00 08:15:00 [facility] 2020-09-21 2020-09-21 Emergency TYRONE AMAYA [facility] [id number] Joe 06:21:58 06:21:58 Health 2020-09-21 2020-09-21 Emergency TYRONE AMAYA [facility] [id number] [place] 05:35:30 05:35:30 [facility] 2020-09-21 2020-09-21 [facility] [id number] [place] 00:17:17 00:17:17 [facility] 2020-09-21 2020-09-21 Emergency [place] [id number] [place] 00:17:12 00:17:12 [facility] 2020-09-20 2020-09-20 Emergency [place] [id number] [place] 23:24:27 23:24:27 [facility] 2020-09-19 2020-09-19 Emergency TRAUMA [id number] 16:34:00 20:24:00 [place] 98255.1.13.10 4.2.7.2.686 [id number] [facility] 2020-09-19 2020-09-19 Emergency ER [facility] Emergency [id number] [facility] 20:23:00 20:23:00 2020-09-19 2020-09-19 Emergency X [facility] ERT [id number] Univers 16:28:00 [facility] 2020-04-27 2020-04-27 Emergency E FADOWOLE, [facility]BL [facility] 7500 [facility] 12:45:00 13:10:00 TRAN 2020-02-23 2020-02-23 Emergency 1 Simone Verdin [facility] [id number] 18:33:00 21:25:00 Simone Verdin [facility] 2020-02-23 2020-02-23 Emergency 1 Lambert Simone [facility] [id number] 18:33:00 18:33:00 Simone Verdin -[id number] [facility] 2020-01-17 2020-01-17 Emergency 1 MikeFreya tilleyferny [facility] [id number] St. 14:43:00 15:28:00 Tamia armando [facility] 2016-12-11 2016-12-11 Emergency [facility] [id number] [place] 22:14:06 22:14:06 Health Results Test Description Test Time Test Comments Results Result Sourc e Comments U/S, PELVIS, WITH 2020-09-20 Reason for ENDOVAG AND 01:52:00 exam:->ABDOMINA DOPPLER L PAINR flank pain and lower [facility] for [facility]. Reason PLACIDO FERRIS for TREYRAY : exam:->GENERALI 1990 Sex: ZED BODY ACHES [...] Taylor MDReport Verified Date/Time: 09/20/2020 01:52:04 -COV2/RT-PCR ([facility]) 2020-09-20 00:55:00 Test Item Value Reference Range Interpretation Comme nts SARS-COV2/RT-PCR Negative Not Performance of the Xpert Xpress SARS-CoV-2/Flu/RSV test has only been established in nasopharyngeal swab specimens. Use (test code = Detected, of the Xpert Xp ress SARS-CoV-2/Flu/RSV test with other specimen types has not been assessed and performance 8779042) Negative, characteristics are unknown. As with any [...] terminated or revoked sooner.Fact Sheet for Healthcare [facility] ideResQU: https://www.Nurego.Axis Three/Documents/Xpert%20Xpress%10WHHB-XpO-5-Flu-RSV/4508%2 0Rev.%20B%20HCP%20Fact%20Sheet.pdfFact Sheet for Healt hcare Patients: https://www.Visure Solutions/Documents/Xpert%20Xpress%83ZDFI-VyD-7-Flu-RSV/302-4507%2 0Rev.%20B%20Patient%20Fact%20Sheet.pdf SARS-COV-2 SLSL Performed at:[facility] [place], [place] [address]hv: [phone] PERFORMING LAB (test code = 8664973) COMPREHENSIVE METABOLIC [id number] 23:43:00 Test Item Value Reference Range Interpretation [...] S NOT APPLICABLE FOR DIALYSIS PATIEN TS. 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 ID - [id number] ID - [id number] ID - [id number] ID - [id number] ID - [id number] ID - JOIB22Rnawepun ID - [id number] ID - [id number] ID - RWEI50Fcdwwbyo ID - UDFC06Oiisyksl ID - SPHP27Petolxdt ID - [id number] ID - EQEO09Exstngpt ID - ZVYY27Heqnsoje ID - [id number] ID - [id number] ID - [id number] ID - [id number] ID - [id number], ABDOMEN 2020-09-19 23:27:00With IV AND Oral contrast.Unlisted Reason for Exam - Click Yes and Enter Reason Below->NoWill this procedure require oral contrast?->[facility]ERRIS : 1990 Sex: FFINAL [...] 09/19/2020 23:27:51 CBC W/PLT COUNT & AUTO [id number] 21:25:00 Test Item Value Reference Range Interpretation [...] PERCENT (BEAKER) (test code = 2801) SCREEN, [id number] 21:20:00 Test Item Value Reference Range Interpretation Comments TEST URINE (BEAKER) (test Negative code = 583) Creatine [id number] 21:02:48 Test Item Value Reference Range Interpretation Comments CK (test code = CK) 114 U/L 34-145 Comprehensive Metabolic [id number] 21:02:47 Test Item Value Reference Range Interpretation [...] = Lipemia) 0 g/dL 1-2 Comprehensive Metabolic [id number] 21:02:47 Test Item Value Reference Range Interpretation [...] = 0 g/dL 1-2 Lipemia) Comprehensive Metabolic [id number] 21:02:47 Test Item Value Reference Range Interpretation [...] = 0 g/dL 1-2 Lipemia) HCG Qualitative [id number] 19:45:46 Test Item Value Reference Range Interpretation [...] 72 hours. Lot # (test code = [id number] N Lot #) Expiration Dt (test 01-06-21 N code = Expiration Dt) Neg Control (test Negative code = Neg Control) Pos Control (test Positive code = Pos Control) Internal QC (test Acceptable code = Internal QC) Urinalysis with Microscopic if [id number] 19:45:46 Test Item Value Reference Range Interpretation [...] Indicated Micro Ind?) Complete Blood Count with [id number] 19:17:51 Test Item Value Reference Range Interpretation [...] N code = Pos Morph XN) Automated [id number] 19:17:51 Test Item Value Reference Range Interpretation Comments Neutro Auto (test code = Neutro 46.1 % 36.0-70.0 Auto) Lymph Auto (test code = Lymph Auto) 45.9 % 12.0-44.0 H [place] Auto (test code = [place] Auto) 5.6 % 0.0-11.0 Eos, Auto (test code = Eos, Auto) 1.4 % 0.0-7.0 Basophil Auto (test code = Basophil 0.8 % 0.0-2.0 Auto) Neutro Absolute (test code = Neutro 2.9 x10 1.6-7.4 Absolute) Lymph Absolute (test code = Lymph 2.85 x10 .50-4.60 Absolute) [place] Absolute (test code = [place] .35 x10 .00-1.20 Absolute) Eos Absolute (test code = Eos 0.09 x10 0.00-0.74 Absolute) Baso Absolute (test code = Baso 0.05 x10 0.00-0.21 Absolute) IG [id number] 19:17:51 Test Item Value Reference Range Interpretation Comments IG (test code = IG) 0.2 % 0.0-5.0 IG Abs (test code = IG Abs) 0 x10 N Streptococcus A Screen Rapid w/ Reflex [id number] 15:21:41 Test Item Value Reference Range Interpretation Comments Strep A Scn (test code Positive Negative A Resul ts called to = Strep A Scn) and read back by: Ramona Deal 01/17/20 20 15:21:32 CDT GM Lot # (test code = Lot [id number] N #) Expiration Dt (test 08/21/2020 N code = Expiration Dt) Internal QC (test code Acceptable = Internal QC)
[2022-05-16 19:33] LABS: SARS-COV-2 RT PCR POSITIVE (NEGATIVE)
--- NOTE | 2022-05-16 19:39 | ER ---
Nurse's Notes [facility] Name: Aleksandra Cheng Age: 32 yrs Sex: Female : 1990 Arrival Date: 05/16/2022 Time: 17:54 Bed IW4 Private MD: Diagnosis: SARS-associated coronavirus as the cause of diseases classified elsewhere Presentation: 05/16 18:15 Chief complaint: Headache, sore throat, body aches, nausea, and chills x 2 days. hb Coronavirus screen: Client presents with at least one sign or symptom that may indicate coronavirus-19. Standard/surgical mask placed on the client. Provider contacted for isolation considerations. Ebola Screen: No symptoms or risks identified at this time. Initial Sepsis Screen: Does the patient meet any 2 criteria? No. Patient's initial sepsis screen is negative. Does the patient have a suspected source of infection? No. Patient's initial sepsis screen is negative. Risk Assessment: Do you want to hurt yourself or someone else? Patient reports no desire to harm self or others. Onset of symptoms was May 15, 2022. 18:15 Method Of Arrival: Ambulatory hb 18:15 Acuity: VIN 4 hb Triage Assessment: 18:16 General: Appears in no apparent distress. Behavior is calm, cooperative. Pain: Pain hb currently is 10 out of 10 on a pain scale. Neuro: Level of Consciousness is awake, alert, obeys commands, Oriented to person, place, time, situation. Cardiovascular: Patient's skin is warm and dry. Respiratory: Respiratory effort is even, unlabored, Respiratory pattern is regular, symmetrical. Historical: - Allergies: 18:17 PENICILLINS; hb - PMHx: 18:17 Dermoid Tumor; hb - PSHx: 18:17 section; Cholecystectomy; Ligation of fallopian tube; Oopherectomy and hb Salpingectomy-right; - Immunization history:: Adult Immunizations up to date. - Social history:: Smoking status: Reported history of juuling and/or vaping. Screenin:58 Abuse screen: Denies threats or abuse. Nutritional screening: No deficits noted. vc1 Tuberculosis screening: No symptoms or risk factors identified. Assessment: 19:58 Respiratory: Airway is patent Respiratory effort is even, unlabored, Respiratory vc1 pattern is regular, symmetrical, Breath sounds are clear. Vital Signs: 18:15 BP 171 / 109; Pulse 85; Resp 16; Temp 99.6(O); Pulse Ox 99% on R/A; Weight 122.47 kg; hb Height 5 ft. 6 in. (167.64 cm); Pain 10/10; 18:15 Body Mass Index 43.58 (122.47 kg, 167.64 cm) hb ED Course: 17:54 Patient arrived in ED. am2 17:58 Beatrice Lanier FNP-C is [facility]. kb 17:58 Mauri Morales MD is Attending Physician. kb 18:17 Triage completed. hb 18:17 Arm band placed on. hb 18:20 COVID-19/FLU A+B Sent. hb 18:20 Strep Sent. hb 19:58 No provider procedures requiring assistance completed. Patient did not have IV access vc1 during this emergency room visit. Administered Medications: No medications were administered Medication: 19:58 VIS not applicable for this client. vc1 Outcome: 19:38 Discharge ordered by . kb 19:58 Discharged to home ambulatory. vc1 19:58 Condition: good 19:58 Discharge instructions given to patient, Instructed on discharge instructions, follow up and referral plans. medication usage, Demonstrated understanding of instructions, follow-up care, medications. 19:59 Patient left the ED. vc1 Signatures: Beatrice Lanier FNP-C FNP-Ckb Baxter, Heather, RN RN Sury [place] am2 Santa Stewart RN RN vc1
--- NOTE | 2022-05-16 19:39 | EDPHYS ---
Physician Documentation [facility] Name: Aleksandra Cheng Age: 32 yrs Sex: Female : 1990 Arrival Date: 05/16/2022 Time: 17:54 Bed IW4 Private MD: ED Physician Mauri Morales HPI: 05/16 19:33 This 32 yrs old Black Female presents to ER via Ambulatory with complaints of Sore kb Throat, Headache. 19:33 The patient or guardian reports cough, that is intermittent, described as mild, flu kb symptoms, myalgias. Onset: The symptoms/episode began/occurred yesterday. Severity of symptoms: At their worst the symptoms were moderate, in the emergency department the symptoms are unchanged. Modifying factors: The symptoms are alleviated by nothing, the symptoms are aggravated by nothing. Associated signs and symptoms: Pertinent positives: rhinorrhea, sore throat, Pertinent negatives: chest pain, diarrhea, ear ache, nausea, vomiting. The patient has not experienced similar symptoms in the past. The patient has not recently seen a physician. Patient reports chills, body aches, headache, sore throat, cough since yesterday.. Historical: - Allergies: 18:17 PENICILLINS; hb - PMHx: 18:17 Dermoid Tumor; hb - PSHx: 18:17 section; Cholecystectomy; Ligation of fallopian tube; Oopherectomy and hb Salpingectomy-right; - Immunization history:: Adult Immunizations up to date. - Social history:: Smoking status: Reported history of juuling and/or vaping. ROS: 19:33 Abdomen/GI: Negative for abdominal pain, nausea, vomiting, diarrhea, and constipation. kb 19:33 Constitutional: Positive for body aches, chills, fatigue, malaise. 19:33 ENT: Positive for rhinorrhea, sinus congestion, sore throat. 19:33 Respiratory: Positive for cough, Negative for dyspnea on exertion, hemoptysis, orthopnea, pleurisy, shortness of breath, sputum production, wheezing. 19:33 All other systems are negative. Exam: 19:33 Constitutional: This is a well developed, well nourished patient who is awake, alert, kb and in no acute distress. Head/Face: Normocephalic, atraumatic. ENT: Moist Mucous membranes Cardiovascular: Regular rate and rhythm with a normal S1 and S2. No gallops, murmurs, or rubs. No pulse deficits. Respiratory: Respirations even and unlabored. No increased work of breathing. Talking in full sentences Abdomen/GI: Soft, non-tender. No distention Skin: Warm, dry with normal turgor. Normal color. MS/ Extremity: Pulses equal, no cyanosis. Neurovascular intact. Full, normal range of motion. Neuro: Awake and alert, GCS 15, oriented to person, place, time, and situation. Moves all extremities. Normal gait. Vital Signs: 18:15 BP 171 / 109; Pulse 85; Resp 16; Temp 99.6(O); Pulse Ox 99% on R/A; Weight 122.47 kg; hb Height 5 ft. 6 in. (167.64 cm); Pain 10/10; 18:15 Body Mass Index 43.58 (122.47 kg, 167.64 cm) hb MDM: 18:07 Patient medically screened. kb 19:35 Differential Diagnosis: Bronchitis Influenza Upper Respiratory Infection Sinusitis kb Pharyngitis. Data reviewed: vital signs, nurses notes. Data interpreted: Pulse oximetry: on room air is 99 %. Interpretation: normal. Counseling: I had a detailed discussion with the patient and/or guardian regarding: the historical points, exam findings, and any diagnostic results supporting the discharge/admit diagnosis, lab results, the need for outpatient follow up, a family practitioner, to return to the emergency department if symptoms worsen or persist or if there are any questions or concerns that arise at home. ED course: I considered the following discharge prescriptions or medication management in the emergency department: Antibiotics considered but patient has a viral illness. History obtained from: Patient . 05/16 18:17 Order name: Strep; Complete Time: 18:58 kb 05/16 18:17 Order name: COVID-19/FLU A+B; Complete Time: 19:38 kb 05/16 18:53 Order name: Throat Culture EDMS Administered Medications: No medications were administered Disposition Summary: 05/16/22 19:38 Discharge Ordered Location: Home kb Condition: Stable kb Diagnosis - SARS-associated coronavirus as the cause of diseases classified elsewhere kb Followup: kb - With: Emergency Department - When: As needed - Reason: Worsening of condition Followup: kb - With: Private Physician - When: 2 - 3 days - Reason: Recheck today's complaints, Continuance of care, Re-evaluation by your physician Discharge Instructions: - Discharge Summary Sheet kb - COVID-19 kb - Viral Illness, Adult kb Forms: - Medication Reconciliation Form kb - Thank You Letter kb - Work release form kb - Antibiotic Education kb - Prescription Opioid Use kb Addendum: 05/19/2022 19:54 Co-signature as Attending Physician, Mauri Morales MD. r n Signatures: Dispatcher [employer] EDKY Beatrice Lanier, ACCESS SERVICE REPRESENTATIVE-C ACCESS SERVICE REPRESENTATIVE-Ckb Mauri Morales MD MD rn Brenda Herrera RN RN
[2022-05-16 20:33] VITALS: BP 171/109; TEMP 99.6; O2SAT 99
== END 2022-05-16 19:59 | disposition home or self-care (01) ==
LOC: ER 17:52
DX: U07.1 COVID-19 (principal); Z88.0 Allergy status to penicillin
CPT/HCPCS: 87070; 87081; 0240U; 99283

== ENCOUNTER 2022-05-19 00:12 | Emergency (ER) | payer OTHER ==
--- OUTSIDE RECORDS SUMMARY | 2022-05-19 00:16 | XMS REPORT | Continuity of Care Document ---
:1990 Author Organization [facility] t Address [address] [place] [address] Care Team Providers Name Role Phone Asked, No Pcp Primary Care Physician Unavailable MARY KATE ROBLERO Attending Clinician Unavailable Mary Kate Roblero MD Attending Clinician Doctor Unassigned, [place] Attending Clinician Unavailable SHAWNA HOUSTON Attending Clinician [...] Number Effective Date Expiration Date S enrrique [facility] [id number] 2021 HMO 00:00:00 COMMERCIAL [id number] 2021 NON-CONTRACT 00:00:00 Legend3D [id number] 2021 00:00:00 Problems Condition Condition Condition Status Onset Resolution Last Treating Co mments Source Name Details Category Date Date Treatment Clinician Date Morbid Morbid Disease Active Univers obesity obesity 2-17 ity of [place] mass [place] mass index 00 Me dical of of Branch 40.0-49.9 40.0-49.9 Migraines Migraines Disease Active 2013-05 Uni vers 05-17 ity of 00:00: [place] 00 Medical Branch Rubella Rubella Disease Active Univers non-immune non-immune 01-23 it y of status, status, 00:00: [place] antepartum antepartum 00 Me dical Branch Asthma Asthma Disease Active Overview: Univer s 01-22 Formattin ity of 00:00: g of this 00 note Medical might be Branch different from the original. 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 Tobacco Tobacco Disease Active Univers use use 01-22 ity of disorder disorder 00:00: 00 Medical Branch Multiparit Multiparit Disease Active [...] s PENICILL Allergy Active [facility] Penicill Propensi Active Method i ins ty to 8-25 st adverse 00:00: Hospita reaction 00 l s to drug Penicill Propensi Active Rash Univer s ins ty to 4 ity of adverse 00:00: [place] reaction 00 Medical s Branch PENICILL Drug Active Rash Univers INS Class 4 ity of 00:00: [place] 00 [facility] Branch Penicill Propensi Active Rash Univer s ins ty to 4 ity of adverse 00:00: [place] reaction 00 [facility] [place] penicill Drug Active [facility] in [facility] penicill Drug Active [facility] penicill Drug Active [facility] penicill Drug Active [facility] penicill [facility] penicill Drug Active [facility] penicill Drug Active [facility] penicill Drug Active [facility] penicill Drug Active [facility] Social History Social Habit Start Date Stop Date Quantity Comments Source History of Cigarette Smoker Universi ty of tobacco use [facility] History SDOH University o f Alcohol Frequency [facility] edical Branch History SDOH University o f Alcohol Std [place] Medical Drinks Branch History SDOH University o f Alcohol Binge [facility] al Branch Exposure to 2021-07-11 2021-08-10 Not sure University of SARS-CoV-2 00:00:00 15:25:00 [facility] (event) Branch Tobacco Comment 2021-06-18 2021-06-18 3 ciggs a day Univer sity of 00:00:00 00:00:00 [facility] Alcohol Comment 2021-06-18 2021-06-18 occasionally Univers ity of 00:00:00 00:00:00 [facility] Tobacco use and 2020-09-19 2020-09-[address] [facility] kes exposure 00:00:00 00:00:00 Medical [place] Alcohol intake 2020-09-19 2020-09-19 [facility]finding[facility] Sex Assigned At [birth year] MAGNUS Gutiérrez 00:00:00 00:00:00 [facility] Center Smoking Status Start Date Stop Date Source Current every day smoker 2021-06-18 00:00:00 Uni versity of [facility] Medications Ordered Filled Start Stop Current Ordering Indication Dosage Frequency Signature Comments Components Source Medication Medication Date Date Medication? Clinician (SIG) Name Name No known No Univers medications -04 ity of 17:37: [place] [address] Medical Branch ibuprofen 2021- No [id number] 600mg Take 1 Univers 600 mg 07-01 tablet by ity of tablet 00:00: 00:00 mouth [place] 00 :00 every 6 Medical (six) Branch hours. docusate 2021- No [id number] 100mg Take 1 U nivers 100 mg 07-01 capsule by ity of capsule 00:00: 00:00 mouth [place] 00 :00 every 12 Medical (twelve) Branch hours. No known 2017- No No known Metho di medications 1-[address] 19:27: s [facility]osp[facility] 15 l No known 2017-0 No No known Metho di medications 1-[address] 19:27: s [facility]osp[facility] 15 l No known 2017-0 No No known Metho di medications 1-[address] 19:27: s [facility]osp[facility] 15 l No known 2017-0 No No known Metho di medications 1-[address] 19:27: s Hospita 15 l No known 2017-0 No No known Metho di medications 1-[address] 19:27: s Hospita 15 l Immunizations Ordered Filled Immunization Date Status Comments [facility] e Immunization Name Name PPD (TB) 2016-11-25 Completed [facility] 00:00:00 [facility] PPD (TB) 2016-11-25 Completed [facility] 00:00:00 [facility] Influenza Virus 2015-02-17 Completed Universit y of Vaccine 00:00:00 [facility] Influenza Virus 2015-02-17 Completed Universit y of Vaccine 00:00:00 [facility] TDAP 2014-04-22 Completed University 00:00:00 [facility] TDAP 2014-04-22 Completed University 00:00:00 [facility] Vital Signs Vital Name Observation Time Observation Value Comments Source Systolic blood 2021-08-10 21:03:00 152 mm[Hg] Univer sity of [facility] Diastolic blood 2021-08-10 21:03:00 81 mm[Hg] [facility] Heart rate 2021-08-10 20:56:00 74 /min [facility] Body temperature 2021-08-10 20:56:00 36.78 Romi [facility] Respiratory rate 2021-08-10 20:56:00 18 /min [facility] Body height 2021-08-10 20:56:00 167.6 cm [facility] Body weight 2021-08-10 20:56:00 124.286 kg [facility] BMI 2021-08-10 20:56:00 44.22 kg/m2 [facility] HEIGHT 2020-09-19 20:33:00 167.6 cm WEIGHT 2020-09-19 20:33:00 120.657 kg HEIGHT 2020-09-19 20:33:00 167.6 cm WEIGHT 2020-09-19 20:33:00 120.657 kg Height/Length 2021-05-26 12:56:17 165.1 cm Measured Height/Length 2021-05-26 12:56:15 165.1 cm Measured Height/Length 2021-05-26 12:56:14 165.1 cm Measured Height/Length 2020-02-23 18:45:01 Measured Procedures Procedure Date / Time Performed Performing Clinician [facility] MEDICAL 2021-08-10 05:01:00 Doctor [facility]igned[facility]CLEARANCE Name [facility] Er FORMS Plan of Care Planned Activity Planned [...] (2 - Td or Tdap)] Future Scheduled 2022-05-19 INFLUENZA VACCINE [facility] Test 00:14:47 [code = INFLUENZA VACCINE] Future Scheduled 2022-05-19 COVID[facility]19 [facility] 00:14:47 [code = COVID-19 VACCINE (#1)] Future Scheduled 2022-05-19 [facility] 00:14:47 malignant neoplasm of cervix (procedure) [code = 236178441] Future Scheduled 2022-05-[address] [facility] Test 00:00:00 (12+) [code = Medical Center DEPRESSION SCREENING (12+)] Future Scheduled 2022-05-[address] [facility] Test 00:00:00 (12+) [code = Medical Center DEPRESSION SCREENING (12+)] Future Scheduled 2022-04-30 COVID-19 VACCINE (#[facility] 23:56:41 [code = COVID-19 VACCINE (#1)] Future Scheduled 2022-04-30 [facility] Test 23:56:41 malignant neoplasm of cervix (procedure) [code = 470180740] Future Scheduled 2022-04-30 INFLUENZA VACCINE [facility] Test 23:56:41 [code = INFLUENZA VACCINE] Future Scheduled 2022-04-30 COVID-19 VACCINE (#[facility] 23:56:41 [code = COVID-19 VACCINE (#1)] Future Scheduled 2022-04-30 [facility] Test 23:56:41 malignant neoplasm of cervix (procedure) [code = 386350821] Future Scheduled 2022-04-30 INFLUENZA VACCINE Method [facility] Test 23:56:41 [code = INFLUENZA VACCINE] Future Scheduled 2022-03-13 HEPATITIS B VACCINES [facility] Test 02:47:55 (1 of 3 - 3-dose series) [code = HEPATITIS B VACCINES (1 of 3 - 3-dose series)] Future Scheduled 2022-03-13 COVID-19 VACCINE (#1) [facility] Test 02:47:55 [code = COVID-19 VACCINE (#1)] Future Scheduled 2022-03-13 Screening for [facility] Test 02:47:55 malignant neoplasm of cervix (procedure) [code = 835026629] Future Scheduled 2022-03-13 INFLUENZA VACCINE Method [facility] Test 02:47:55 [code = INFLUENZA VACCINE] Future Scheduled 2022-01-08 INFLUENZA VACCINE [facility] Test 01:48:10 [code = INFLUENZA VACCINE] Future Scheduled 2022-01-08 HEPATITIS B VACCINES Met [facility] Test 01:48:10 (1 of 3 - 3-dose series) [code = HEPATITIS B VACCINES (1 of 3 - 3-dose series)] Future Scheduled 2022-01-08 COVID-19 VACCINE (#1) [facility] Test 01:48:10 [code = COVID-19 VACCINE (#1)] Future Scheduled 2022-01-08 Screening for [facility] Test 01:48:10 malignant neoplasm of cervix (procedure) [code = 261948476] Future Scheduled 2022-01-07 INFLUENZA VACCINE (#1) C [...] [facility] es Test 00:00:00 [facility] [code = 350614167] Future Scheduled [address] [facility] Test 00:00:00 malignant neoplasm of Medica l Center cervix (procedure) [code = 524518962] Future Scheduled [address] [facility] Test 00:00:00 malignant neoplasm of Medica l Center cervix (procedure) [code = 342024196] Future Scheduled [address] [facility] Test 00:00:00 malignant neoplasm of Medica l Center cervix (procedure) [code = 485848976] Future Scheduled [address] [facility] Test 00:00:00 (procedure) [code = [facility] 27832497] Future Scheduled [address] Test 00:00:00 (procedure) [code = [facility] 59107380] Future Scheduled [address] Test 00:00:00 (procedure) [code = [facility] 86266614] Future Scheduled [address] [facility] Test 00:00:00 (procedure) [code = 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2.[place] [phone] Ms dical NAL [address] [place] [address] 2021-08-10 2021-08-10 Outpatient Chino ROBLERO [facility] [id number] Univers 15:30:00 16:37:04 ity [facility] 2021-08-10 2021-08-10 Outpatient Chino ROBLERO [facility] [id number] Univers 15:30:00 15:30:00 ity [facility] 2021-08-10 2021-08-10 Outpatient Chino ROBLERO [facility] [id number] Univers 15:30:00 15:30:00 ity [facility] 2021-08-10 2021-08-10 Orders Doctor RICARDO [id number] Univers 00:00:00 00:00:00 Only Unassigned, PEDRO [id number] [facility] 4.2.7.2.686 [place] as [phone] [address] 2021-07-20 2021-07-20 [facility] [id number] Univers 09:00:00 09:22:36 ity [facility] 2021-07-20 2021-07-20 Office Nhan [facility] [id number] Univers 09:00:00 09:22:36 Visit Cam [place] [id number] i ty of [place] [id number] PROF[place] [phone] Ms dical NAL [address] [place] [address] 2021-07-202021-07-20 Outpatient R MARY KATE ROBLERO [facility] [id number] Univers 09:00:00 09:22:36 ity of [facility] 2021-07-20 2021-07-20 Outpatient R MARY KATE ROBLERO [facility] [id number] Univers 09:00:00 09:22:36 ity of [facility] 2021-07-09 2021-07-09 Orders Doctor RICARDO [id number] Univers 00:00:00 00:00:00 Only Unassigned, PEDRO [id number] ity of [place] [facility] 4.2.7.2.686 [place] as [phone] [facility] 00[address] [place] 2021-07-02 2021-07-02 Telephone Mary Kate Roblero [facility] 1..840.114 [id number] Univers 00:00:00 00:00:00 Cam JORGE ALBERTO 350.1.13.10 i ty [facility] [id number] [place] [phone] Ms dical [address] 2021-06-29 2021-07-01 [facility] 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 [id number] Univers 22:12:00 10:15:00 SHAWNA ity [facility] 2021-06-29 2021-07-01 Emergency MINA [place] [id number] Univers 22:12:00 10:15:00 Shawna VASQUEZ 350.1.13.10 it y of [facility] [id number] [place] as [phone] [facility] 092 [place] 2021-06-29 2021-07-01 Outpatient X ANETA [facility] 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 [id number] Univers 22:12:00 10:15:00 SHAWNA ity [facility] 2021-06-30 2021-06-30 Outpatient R MARY KATE ROBLERO [facility] 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 [id number] Univers 10:30:00 10:30:00 ity of [facility] 2021-06-30 2021-06-30 Surgery MINA [place] 1.2.840.114 [id number] Univers 01:20:00 04:52:00 Shawna VASQUEZ 350.1.13.10 it y of HOSPITAL 4.2.7.2.686 [place] as [phone] [address] 2021-06-29 2021-06-29 Outpatient R MARY KATE ROBLERO [facility] [id number] Univers 09:45:00 09:45:00 ity of [facility] 2021-06-29 2021-06-29 Outpatient R MARY KATE ROBLERO [facility] [id number] Univers 09:45:00 09:45:00 ity [facility] 2021-06-25 2021-06-25 Office [facility] [id number] Univers 10:30:00 11:17:52 Visit Darren AZUL 350.1.13.10 i ty of [place] 4.[place].2.[place] [phone] Ms dical NAL [address] [place] [address] 2021-06-25 2021-06-25 Outpatient R MARY KATE ROBLERO [facility] [id number] Univers 10:30:00 11:17:52 ity of [facility] 2021-06-25 2021-06-25 Outpatient R [facility] [id number] Univers 10:30:00 11:17:52 ity of [facility] 2021-06-25 2021-06-25 Outpatient R MARY KATE ROBLERO [facility] [id number] Univers 10:30:00 10:30:00 ity of [facility] 2021-06-25 2021-06-25 Outpatient R [facility] [id number] Univers 08:45:00 08:45:00 ity of [facility] 2021-06-25 2021-06-25 Prep For Mary Kate Roblero [facility] 1.2.840.114 [id number] Univers 00:00:00 00:00:00 Surgery Darren AZUL 350.1.13.10 i ty [place] [id number] [phone] Ms dical NAL [address] [facility] 2021-06-22 2021-06-22 Telephone Steph PRSUDARSHAN 1.2.840.114 [id number] Univers 00:00:00 00:00:00 Adali AZUL 350.1.13.10 i ty of [place] [id number] [phone] Ms dical NAL 134 [facility] 2021-06-18 2021-06-18 Outpatient R MARY KATE ROBLERO [facility] [id number] Univers 15:15:00 15:15:00 ity of [facility] 2021-06-18 2021-06-18 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, 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 [facility] 1.2.840.114 [id number] Univers 15:15:00 15:15:00 Visit Mary Kate Roblero 350.1.13.10 ity of [id number] [phone] [facility] [address] [facility] 2021-06-18 2021-06-18 Outpatient R STEPH [facility] [id number] Univers 14:00:00 [facility]42:[facility] 2021-06-18 2021-06-18 Outpatient R STEPH [facility] [id number] Univers 14:00:00 14:42:49 [facility] 2021-06-18 2021-06-18 Outpatient R STEPH [facility] [id number] Univers 14:00:00 14:42:49 [facility] 2021-06-18 2021-06-18 [facility] [id number] Univers 14:00:00 14:42:49 Visit Adali AZUL 350.1.13.10 i ty of [place] [id number] [phone] Ms dical [facility] 134 [facility] 2021-06-18 2021-06-18 Orders Doctor RICARDO 1.2.840.114 [id number] Univers 00:00:00 00:00:00 Only Unassigned, PEDRO 350.1.13.10 ity of [place] [facility] 4.2.7.2.686 [place] as [phone] [address] 2021-06-18 2021-06-18 Letter Steph [facility] [id number] Univers 00:00:00 00:00:00 (Out) Adali AZUL 350.1.13.10 i flynn roby [place] [id number] Black PETERSEN [phone] Ms dical [address] 2021-04-06 2021-04-06 Outpatient SORENDEIDRE [facility] [id number] [place] 07:44:18 07:44:18 Health 2021-02-04 2021-02-04 Outpatient BERRTamica, [facility] [id number] [place] 07:18:50 12:23:[address] [facility] 2021-01-20 2021-01-20 Outpatient DHARI, [facility] [id number] [place] 00:00:00 00:00:00 [facility] 2020-11-02 2020-11-02 Emergency X CACCYNTHIA, [facility] ERT [id number] Univers 18:39:00 18:39:00 [facility] 2020-10-28 2020-10-28 Outpatient DHARI, [facility] [id number] [place] 11:14:20 11:25:33 [facility] 2020-10-28 2020-10-28 Outpatient SAMEER, [facility] [id number] [place] 09:42:42 11:11:47 [facility] 2020-10-28 2020-10-28 Outpatient DHARI, [facility] [id number] [place] 00:00:00 00:00:00 [facility] 2020-10-28 2020-10-28 Outpatient VANESSA, [facility] [id number] [place] 00:00:00 00:00:00 [facility] 2020-10-09 2020-10-09 Outpatient [facility] [id number] [place] 00:00:00 00:00:00 [facility] 2020-09-20 2020-09-21 Emergency HEATH-YOMI, [facility] [id number] [place] 15:33:00 08:15:00 [facility] 2020-09-21 2020-09-21 Emergency TYRONE AMAYA [facility] [id number] Joe 06:21:58 06:21:58 Health 2020-09-21 2020-09-21 Emergency T[place]ONE AMAYA [place] [id number] [place] 05:35:30 05:35:30 [facility] 2020-09-21 2020-09-21 Emergency DEVENDRA, [place] [id number] [place] 00:17:17 00:17:17 [facility] 2020-09-21 2020-09-21 [facility] [id number] [place] 00:17:12 00:17:12 [facility] 2020-09-20 2020-09-20 Emergency [place]AP[place]ICIA [place] [id number] [place] 23:24:27 23:24:27 [facility] 2020-09-19 2020-09-19 Emergency TRAUMA [id number] 16:34:00 20:24:00 [place] [id number] 4.2.7.2.686 [id number] 2020-09-19 2020-09-19 Emergency ER [facility] Emergency [id number] [facility] 20:23:00 20:23:00 2020-09-19 2020-09-19 Emergency X [facility] ERT [id number] Univers 16:28:00 16:28:00 [facility] 2020-04-27 2020-04-27 Emergency E FADOWOLE, [facility]BL [facility] 7500 [facility] 12:45:00 13:10:00 TRAN 2020-02-23 2020-02-23 Emergency 1 Simone Verdin [facility] [id number] 18:33:00 21:25:00 Simone Vredin [facility] 2020-02-23 2020-02-23 Emergency 1 Verdin Simone [facility] [id number] 18:33:00 18:33:00 Simone Verdin -[id number] [facility] 2020-01-17 2020-01-17 Emergency 1 Freya Cantrellferny [facility] [id number] St. 14:43:00 15:28:00 Shady Cantrell [facility] 2016-12-11 2016-12-11 Emergency [facility] [id number] [place] 22:14:06 22:14:06 Health Results Test Description Test [...] Taylor MDReport Verified Date/Time: 09/20/2020 01:52:04 -COV2/RT-PCR ([facility]) 2020-09-20 00:55:00 Test Item Value Reference Range Interpretation Comme nts SARS-COV2/RT-PCR Negative Not Performance of the Xpert Xpress SARS-CoV-2/Flu/RSV test has only been established in nasopharyngeal swab specimens. Use (test code = Detected, of the Xpert Xp ress SARS-CoV-2/Flu/RSV test with other specimen types has not been assessed and performance 6500908) Negative, characteristics are unknown. As with any [...] revoked sooner.Fact Sheet for Healthcare Prov iders: https://www.Intimate Bridge [employer]ception.[employer]/Documents/Xpert%20Xpress%02HTQC-NjC-6-Flu-RSV/302-4508%2 0Rev.%20B%20HCP%20Fact%20Sheet.pdfFact Sheet for Healt hcare Patients: https://www.[employer]/Documents/Xpert%20Xpress%33YLES-AkL-2-Flu-RSV/302-4507%2 0Rev.%20B%20Patient%20Fact%20Sheet.pdf SARS-COV-2 SLSL Performed at:[facility] [place], [place] [address]fn: [phone] PERFORMING LAB (test code = 9004204) COMPREHENSIVE METABOLIC [id number] 23:43:00 Test Item Value Reference Range Interpretation [...] S NOT APPLICABLE FOR DIALYSIS PATIEN TS. Customer Service Consultant ID - [id number] ID - [id number] ID - [id number] ID - [id number] ID - [id number] ID - [id number] ID - [id number] ID - [id number] ID - [id number] ID - [id number] ID - [id number] ID - [id number] ID - [id number] ID - KNQZ21Pkprcbds ID - [id number] ID - [id number] ID - [id number] ID - [id number] ID - [id number], ABDOMEN 2020-09-19 23:27:00With IV AND Oral contrast.Unlisted Reason for Exam - Click Yes and Enter Reason Below->NoWill this procedure require oral contrast?->No[facility]AC[facility]ERRIS : 1990 Sex: FFINAL [...] tree: Previous cholecystectomy. Pneumobilia probably relates to p revious intervention Spleen: No significant findings. Adrenal Glands: No significant findings. Kidneys and ureters: No significant findings. Stomach and Duodenum: No significant findings. Pancreas: No significant findings. Bowel: No significant findings. Appendix: Normal. Bladder: No significant findings. Major vascular structures: No significant findings. Reproductive organs: There is an 8.2 x 6.7 x9.5 cm right ovarian dermoid cyst containing fat, soft tissue and calcified density. Other: No free air, fluid or adenopathy Skeleton: No acute bony abnormality. IMPRESSION: 8.2 x 6.7 x 9.5 cm right ovarian dermoid. Gynecology evaluation may be in order given the patient's right lower quadrant pain. Signed: Hebert Taylor MDReport Verified Date/Time: 09/19/2020 23:27:51 CBC W/PLT COUNT & AUTO [id number] 21:25:00 Test Item Value Reference Range Interpretation [...] PERCENT (BEAKER) (test code = 2801) SCREEN, [id number] 21:20:00 Test Item Value Reference Range Interpretation Comments TEST URINE (BEAKER) (test Negative code = 583) Creatine [id number] 21:02:48 Test Item Value Reference Range Interpretation Comments CK (test code = CK) 114 U/L 34-145 Comprehensive Metabolic [id number] 21:02:47 Test Item Value Reference Range Interpretation [...] = Lipemia) 0 g/dL 1-2 Comprehensive Metabolic [id number] 21:02:47 Test Item Value Reference Range Interpretation [...] = 0 g/dL 1-2 Lipemia) Comprehensive Metabolic [id number] 21:02:47 Test Item Value Reference Range Interpretation [...] = 0 g/dL 1-2 Lipemia) HCG Qualitative [id number] 19:45:46 Test Item Value Reference Range Interpretation [...] 72 hours. Lot # (test code = [id number] N Lot #) Expiration Dt (test 01-06-21 N code = Expiration Dt) Neg Control (test Negative code = Neg Control) Pos Control (test Positive code = Pos Control) Internal QC (test Acceptable code = Internal QC) Urinalysis with Microscopic if [id number] 19:45:46 Test Item Value Reference Range Interpretation [...] Indicated Micro Ind?) Complete Blood Count with [id number] 19:17:51 Test Item Value Reference Range Interpretation [...] N code = Pos Morph XN) Automated [id number] 19:17:51 Test Item Value Reference Range Interpretation Comments Neutro Auto (test code = Neutro 46.1 % 36.0-70.0 Auto) Lymph Auto (test code = Lymph Auto) 45.9 % 12.0-44.0 H Trimble Auto (test code = Trimble Auto) 5.6 % 0.0-11.0 Eos, Auto (test code = Eos, Auto) 1.4 % 0.0-7.0 Basophil Auto (test code = Basophil 0.8 % 0.0-2.0 Auto) Neutro Absolute (test code = Neutro 2.9 x10 1.6-7.4 Absolute) Lymph Absolute (test code = Lymph 2.85 x10 .50-4.60 Absolute) Trimble Absolute (test code = Trimble .35 x10 .00-1.20 Absolute) Eos Absolute (test code = Eos 0.09 x10 0.00-0.74 Absolute) Baso Absolute (test code = Baso 0.05 x10 0.00-0.21 Absolute) IG [id number] 19:17:51 Test Item Value Reference Range Interpretation Comments IG (test code = IG) 0.2 % 0.0-5.0 IG Abs (test code = IG Abs) 0 x10 N Streptococcus A Screen Rapid w/ Reflex [id number] 15:21:41 Test Item Value Reference Range Interpretation Comments Strep A Scn (test code Positive Negative A Resul ts called to = Strep A Scn) and read back by: Ramona Deal 01/17/20 20 15:21:32 CDT GM Lot # (test code = Lot [id number] N #) Expiration Dt (test 08/21/2020 N code = Expiration Dt) Internal QC (test code Acceptable = Internal QC)
[2022-05-19] MEDS ORDERED: HYDROCODONE/APAP 7.5/325 MG TAB ONE (01:47)
[2022-05-19] MEDS ORDERED: IBUPROFEN 400 MG TAB ONE (01:48)
[2022-05-19] MEDS ORDERED: LIDOCAINE 1% MPF 30 ML VIAL ONE (02:22)
--- NOTE | 2022-05-19 02:52 | EDPHYS ---
Physician Documentation [facility] Name: Aleksandra Cheng Age: 32 yrs Sex: Female : 1990 Arrival Date: 05/19/2022 Time: 00:16 Bed 20 Private MD: ED Physician Misael Bang HPI: 05/19 01:10 This 32 yrs old Black Female presents to ER via Ambulatory with complaints of Abscess. cp 01:10 The patient presents with an abscess of the suprapubic area and lower abdomen. cp Description: fluctuant, swollen, painful. 01:10 Onset: The symptoms/episode began/occurred 3 day(s) ago. cp 01:10 Possible cause(s): unknown. Associated signs and symptoms: Pertinent negatives: cp discharge, drainage, fever, vomiting. Severity of symptoms: in the emergency department the symptoms are unchanged, despite home interventions. 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 - Social history:: Smoking status: Reported history of juuling and/or vaping. ROS: 01:15 Constitutional: Negative for body aches, chills, fever, poor PO intake. cp 01:15 Respiratory: Negative for cough, shortness of breath, wheezing. cp 01:15 Abdomen/GI: Positive for abdominal pain, of the lower mid pannus of abdomen, Negative for vomiting, diarrhea, constipation. 01:15 Skin: Positive for abscess, of the suprapubic area. 01:15 All other systems are negative. Exam: 01:20 Constitutional: The patient appears in no acute distress, alert, awake, non-toxic, well cp developed, well nourished, obese, uncomfortable. 01:20 Head/Face: Normocephalic, atraumatic. cp 01:20 Eyes: Periorbital structures: appear normal, Conjunctiva: normal, no exudate, no injection, Sclera: no appreciated abnormality, Lids and lashes: appear normal, bilaterally. 01:20 ENT: External ear(s): are unremarkable, Nose: is normal, Mouth: Lips: moist, Oral mucosa: moist, Posterior pharynx: Airway: no evidence of obstruction, patent. 01:20 Chest/axilla: Inspection: normal. 01:20 Cardiovascular: Rate: normal. 01:20 Respiratory: the patient does not display signs of respiratory distress, Respirations: normal, no use of accessory muscles, no retractions, labored breathing, is not present. 01:20 Abdomen/GI: Inspection: obese small abscess noted mid lower pannus of abdomen, Bowel sounds: active, all quadrants, Palpation: abdomen is soft and non-tender, in all quadrants. 01:20 Skin: abscess, that is small, of the suprapubic area, with fluctuance, that is mild. Vital Signs: 01:01 Weight 117.93 kg; Height 5 ft. 6 in. (167.64 cm); Pain 8/10; vc1 01:03 BP 152 / 113; Pulse 78; Resp 18; Temp 98.4(O); Pulse Ox 100% ; vc1 02:18 BP 151 / 65; Pulse 62; Resp 20; Pulse Ox 99% ; jj7 03:21 BP 150 / 87; Pulse 62; Resp 19; Pulse Ox 100% ; Pain 0/10; jj7 01:01 Body Mass Index 41.96 (117.93 kg, 167.64 cm) vc1 Procedures: 02:46 I \T\ D: Incision and drainage was performed for an abscess of the lower abdomen Prepped cp with Betadine, Anesthetized with 3 ccs of mixture of 1% lidocaine w/o epi and 0.5% marcaine w/o epi. Drained small amount Dressing: sterile 4x4 gauze, the patient tolerated the procedure well, area pierced with 18 gauge needle. 02:48 I \T\ D: Incision and drainage was performed for an abscess of the suprapubic area cp Prepped with Betadine, Anesthetized with 5 ccs of mixture 1% lidocaine w/o epi and 0.5% marcaine w/o epi. Incised with #11 blade. Drained small amount purulent fluid. bloody fluid. Packed with iodoform gauze, Dressing: sterile 4x4 gauze, the patient tolerated the procedure well. MDM: 01:03 Patient medically screened. cp 02:50 Data reviewed: vital signs, nurses notes. cp 02:50 I considered the following discharge prescriptions or medication management in the emergency department Medications were administered in the Emergency Department. See MAR. Test considered but Not performed: Other Details CT of abdomen/pelvis. Care significantly affected by the following chronic conditions: Obesity. Counseling: I had a detailed discussion with the patient and/or guardian regarding: the historical points, exam findings, and any diagnostic results supporting the discharge/admit diagnosis, to return to the emergency department if symptoms worsen or persist or if there are any questions or concerns that arise at home. Response to treatment: the patient's symptoms have markedly improved after treatment, and as a result, I will discharge patient. 05/19 01:34 Order name: I\T\D Setup; Complete Time: 02:44 cp 05/19 02:43 Order name: Wound dressing; Complete Time: 02:44 cp Administered Medications: 02:10 Drug: Hydrocodone-Acetaminophen (7.5 mg-325 mg) 1 tabs Route: PO; aa9 02:10 Drug: Ibuprofen 800 mg Route: PO; aa9 02:23 Drug: Lidocaine-Epinephrine -1%: (1:100,000) 20 ml {Note: GIVEN BY Kelvin BLAS.} Volume: jj7 20 ml; Route: Infiltration; 02:23 Drug: Marcaine (bupivacaine) (0.5 %) 10 ml {Note: GIVEN BY Kelvin BLAS.} Volume: 10 ml; jj7 Route: Infiltration; 03:19 Drug: Bactrim (trimethoprim-sulfamethoxazole) (160 mg-800 mg (DS) 2 tablet Route: PO; jj7 Disposition: 05:47 Co-signature as Attending Physician, Qasim BLAS I reviewed the patient's care rt provided by the Advanced Practice Provider and agree with the diagnosis and treatment plan. Disposition Summary: 05/19/22 02:51 Discharge Ordered Location: Home cp Problem: new cp Symptoms: have improved cp Condition: Stable cp Diagnosis - Cutaneous abscess of abdominal wall cp - Cutaneous of Abscess of Suprapubic Area cp Followup: cp - With: Private Physician - When: 2 - 3 days - Reason: Worsening of condition Discharge Instructions: - Discharge Summary Sheet cp - Skin Abscess cp - Incision and Drainage cp - Incision and Drainage, Care After cp Forms: - Medication Reconciliation Form cp - Thank You Letter cp - Antibiotic Education cp - Prescription Opioid Use cp Prescriptions: - Ibuprofen 800 mg Oral Tablet - take 1 tablet by ORAL route every 8 hours As needed take with food; 30 tablet; cp Refills: 0, Product Selection Permitted - Bactrim DS 800-160 mg Oral Tablet - take 1 tablet by ORAL route every 12 hours for 10 days; 20 tablet; Refills: 0, cp Product Selection Permitted - Tylenol-Codeine #3 300 mg-30 mg Oral - take 2 tablet by ORAL route every 8-10 hours; 10 tablet; Refills: 0, Product cp Selection Permitted Signatures: Qasim Corea PA PA cp Santa Stewart RN RN vc1 Jyoti Raymond RN RN aa9 Evaristo Ochoa RN RN jj7 Misael Bang MD MD rt Corrections: (The following items were deleted from the chart) 23:03 01:15 Abdomen/GI: Positive for abdominal pain, of the lower mid pannis of abdomen, cp Negative for vomiting, diarrhea, constipation, cp
--- NOTE | 2022-05-19 02:52 | ER ---
Nurse's Notes [facility] Name: Aleksandra Cheng Age: 32 yrs Sex: Female : 1990 Arrival Date: 05/19/2022 Time: 00:16 Bed 20 Private MD: Diagnosis: Cutaneous abscess of abdominal wall;Cutaneous of Abscess of Suprapubic Area Presentation: 05/19 00:57 Chief complaint: Patient states: "I am getting over covid and was running fever the vc1 last few days now I have 2 abscesses one on my lower stomach and one on my vagina.". 01:01 Coronavirus screen: Vaccine status: Patient reports receiving the 2nd dose of the covid vc1 vaccine. At this time, the client does not indicate any symptoms associated with coronavirus-19. Ebola Screen: No symptoms or risks identified at this time. Risk Assessment: Do you want to hurt yourself or someone else? Patient reports no desire to harm self or others. Onset of symptoms was May 19, 2022. 01:01 Method Of Arrival: Ambulatory vc1 01:01 Acuity: VIN 3 vc1 01:07 Initial Sepsis Screen: Does the patient meet any 2 criteria? No. Patient's initial vc1 sepsis screen is negative. Does the patient have a suspected source of infection? No. Patient's initial sepsis screen is negative. Triage Assessment: 01:00 General: Appears in no apparent distress. uncomfortable, Behavior is calm, cooperative, vc1 appropriate for age. Pain: Complains of pain in right lower quadrant and groin Pain does not radiate. Pain currently is 8 out of 10 on a pain scale. at worst was 10 out of 10 on a pain scale. Quality of pain is described as sharp, pulsating. EENT: No deficits noted. Neuro: No deficits noted. Cardiovascular: Capillary refill < 3 seconds Patient's skin is warm and dry. Respiratory: Airway is patent Respiratory effort is even, unlabored, Respiratory pattern is regular, symmetrical. GI: No deficits noted. No signs and/or symptoms were reported involving the gastrointestinal system. : No deficits noted. No signs and/or symptoms were reported regarding the genitourinary system. Derm: Reports pain that is 8 out of 10 on a pain scale. Musculoskeletal: No deficits noted. No signs and/or symptoms reported regarding the musculoskeletal system. 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 - Social history:: Smoking status: Reported history of juuling and/or vaping. Screenin:25 [facility] ED Fall Risk Assessment (Adult) History of falling in the last 3 months, jj7 including since admission No falls in past 3 months (0 pts) Confusion or Disorientation No (0 pts) Intoxicated or Sedated No (0 pts) Impaired Gait. Abuse screen: Denies threats or abuse. Nutritional screening: No deficits noted. Tuberculosis screening: No symptoms or risk factors identified. Assessment: 01:25 General: Appears in no apparent distress. uncomfortable, Behavior is calm, cooperative, jj7 appropriate for age. Pain: Complains of pain in groin. Derm: Abscess located on suprapubic area. Vital Signs: 01:01 Weight 117.93 kg; Height 5 ft. 6 in. (167.64 cm); Pain 8/10; vc1 01:03 BP 152 / 113; Pulse 78; Resp 18; Temp 98.4(O); Pulse Ox 100% ; vc1 02:18 BP 151 / 65; Pulse 62; Resp 20; Pulse Ox 99% ; jj7 03:21 BP 150 / 87; Pulse 62; Resp 19; Pulse Ox 100% ; Pain 0/10; jj7 01:01 Body Mass Index 41.96 (117.93 kg, 167.64 cm) vc1 ED Course: 00:16 Patient arrived in ED. ja2 00:18 Qasim Corea PA is PHCP. cp 00:18 Misael Bang MD is Attending Physician. cp 01:01 Arm band placed on left wrist. vc1 01:02 Triage completed. vc1 01:21 Evaristo Ochoa RN is Primary Nurse. jj7 01:25 Patient has correct armband on for positive identification. Placed in gown. Bed in low jj7 position. Call light in reach. Warm blanket given. 02:05 Assist provider with I \\T\\ D: Set up I\\T\\D tray. jj 7 02:23 Assist provider with I \\T\\ D: Performed by Qasim BLAS Wound packed. iodoform gauze, jj7 Dressing with 4X4s, tape Patient tolerated well. 03:21 Patient did not have IV access during this emergency room visit. jj7 Administered Medications: 02:10 Drug: Hydrocodone-Acetaminophen (7.5 mg-325 mg) 1 tabs Route: PO; aa9 02:10 Drug: Ibuprofen 800 mg Route: PO; aa9 02:23 Drug: Lidocaine-Epinephrine -1%: (1:100,000) 20 ml {Note: GIVEN BY Kelvin BLAS.} Volume: jj7 20 ml; Route: Infiltration; 02:23 Drug: Marcaine (bupivacaine) (0.5 %) 10 ml {Note: GIVEN BY Kelvin BLAS.} Volume: 10 ml; jj7 Route: Infiltration; 03:19 Drug: Bactrim (trimethoprim-sulfamethoxazole) (160 mg-800 mg (DS) 2 tablet Route: PO; jj7 Medication: 01:25 VIS not applicable for this client. jj7 Outcome: 02:51 Discharge ordered by MD. winkler 03:21 Discharged to home ambulatory. jj7 03:21 Condition: improved 03:21 Discharge instructions given to patient, Instructed on discharge instructions, medication usage, Demonstrated understanding of instructions, medications, Prescriptions given X 3. 03:22 Patient left the ED. jj7 Signatures: Qasim Corea PA PA cp Alexander, Jessica ja2 Calcote, Vanessa RN RN vc1 Jyoti Raymond, CAS CARDOZO aa9 Evaristo Ochoa RN RN jj7
[2022-05-19] MEDS ORDERED: SMZ./TMP. 800/160 MG TABLET ONE (03:11)
[2022-05-19 03:28] VITALS: TEMP 98.4
[2022-05-19 03:31] VITALS: BP 150/87; O2SAT 100
== END 2022-05-19 03:22 | disposition home or self-care (01) ==
LOC: ER 00:12
PROC: 0H9AXZZ Drainage of Inguinal Skin, External Approach (ICD-10-PCS; principal; 2022-05-19)
PROC: 0H97XZZ Drainage of Abdomen Skin, External Approach (ICD-10-PCS; 2022-05-19)
DX: L02.211 Cutaneous abscess of abdominal wall (principal); L02.214 Cutaneous abscess of groin
CPT/HCPCS: 99283; 10060; J2001

== ENCOUNTER 2022-09-26 20:57 | Emergency (ER) | payer OTHER ==
--- OUTSIDE RECORDS SUMMARY | 2022-09-26 21:00 | XMS REPORT | Continuity of Care Document ---
:1990 Author Organization [facility] t Address [address] [facility] [address] [place] [address] Care Team Providers Name Role Phone Asked, No Pcp Primary Care Physician Unavailable MARY KATE ROBLERO Attending Clinician Unavailable Mary Kate Roblero MD Attending Clinician Doctor Unassigned, [place] Attending Clinician Unavailable SHAWNA HOUSTON Attending Clinician [...] Policy Number Effective Date Expiration Date [facility] [id number] 2021 HMO 00:00:00 COMMERCIAL [id number] 2021 NON-CONTRACT 00:00:00 [place] [id number] 2021 00:00:00 Problems Condition Condition Condition Status Onset Resolution Last Treating Co mments Source Name Details Category Date Date Treatment Clinician Date Morbid Morbid Disease Active Univers obesity obesity 2-17 [place]y of [place] mass [place] mass index 00 Me dical of of Branch 40.0-49.9 40.0-49.9 Migraines Migraines Disease Active 2013-05 Uni vers 05-17 ity of 00:00: [place] 00 Medical Branch Rubella Rubella Disease Active Univers non-immune non-immune 01-23 it y of status, status, 00:00: [place] antepartum antepartum 00 Me dical Branch Asthma Asthma Disease Active Overview: Univer s 01-22 Formattin ity of 00:00: g of this 00 note Medical might be Branch different from the original. ICD10 Diagnosis Term Critical Care Nurse Practitioner Utility Tobacco Tobacco Disease Active Univers use [...] ity of adverse 00:00: [place] reaction 00 [facility] s [place] PENICILL Drug Active Rash Univers INS Class 4 ity of 00:00: [place] 00 [facility] Penicill Propensi Active Rash Univer s ins ty to 4 ity of adverse 00:00: [place] reaction 00 [facility] penicill Drug Active [facility] penicill Drug Active [facility] penicill Drug Active [facility] penicill Drug Active [facility] penicill Drug [facility] penicill [facility] penicill Drug Active [facility] penicill Drug Active [facility] penicill Drug Active [facility] Social History Social Habit Start Date Stop Date Quantity Comments Source History of tobacco Cigarette Smoker University of use [facility] History SDOH University o f [facility] [place] History SDOH University o f Alcohol Std Drinks [facility] History SDOH University o f Alcohol Binge [facility] Gender identity [facility] Sexual orientation [facility] Exposure to 2021-07-11 2021-08-10 Not sure University of SARS-CoV-2 (event) 00:00:00 15:25:00 [facility] Tobacco Comment 2021-06-18 2021-06-18 3 ciggs a day Univer sity of 00:00:00 00:00:00 [facility] Alcohol Comment 2021-06-18 2021-06-18 occasionally Univers ity of 00:00:00 00:00:00 [facility] Tobacco use and 2020-09-19 2020-09-19 Smokeless tobacco [facility] exposure [facility]00[facility]00 non-user [facility] History of Social 2016-11-08 2016-11-[address] function 00:00:00 00:00:00 Hospital Alcohol intake 2016-05-27 2016-05-27 Current non-drinker M ethodist 00:00:00 00:00:00 of [facility] (finding) Sex Assigned At [birth year] [facility] 00:00:00 00:[facility]:00 Hospital Smoking Status Start Date Stop Date Source Current every day smoker 2021-06-18 00:00:00 Uni versity of [facility] Medications Ordered Filled Start Stop Current Ordering Indication Dosage Frequency Signature Comments Components Source Medication Medication Date Date Medication? Clinician (SIG) Name Name No known No Univers medications 4-04 ity of 17:37: [place] 10 Medical Branch ibuprofen 2021- No [id number] 600mg Take 1 Univers 600 mg 07-01- tablet by ity of tablet 00:00: 00:00 mouth [place] 00 :00 every 6 Medical (six) Branch hours. docusate 2021- No [id number] 100mg Take 1 U nivers 100 mg [...] Name PPD (TB) 2016-11-25 Completed University 00:00:00 [facility] PPD (TB) 2016-11-25 Completed [facility] 00:00:00 [facility] Influenza Virus 2015-02-17 Completed Universit y of Vaccine 00:00:00 [facility] Influenza Virus 2015-02-17 Completed Universit y of Vaccine 00:00:00 [facility] TDAP 2014-04-22 Completed University of 00:00:00 [facility] TDAP 2014-04-22 Completed University of 00:00:00 [facility] Vital Signs Vital Name Observation Time Observation Value Comments Source Systolic blood 2021-08-10 21:03:00 152 mm[Hg] Univer sity of pressure [facility] Diastolic blood 2021-08-10 21:03:00 81 mm[Hg] [facility] 2021-08-10 20:56:00 74 /min [facility] Body temperature 2021-08-10 20:56:00 36.78 Romi [facility] Respiratory rate 2021-08-10 20:56:00 18 /min [facility] Body height 2021-08-10 20:56:00 167.6 cm [facility] Body weight 2021-08-10 20:56:00 124.286 kg [facility] BMI 2021-08-10 20:56:00 44.22 kg/m2 [facility] HEIGHT 2020-09-19 20:33:00 167.6 cm WEIGHT 2020-09-19 20:33:00 120.657 kg HEIGHT 2020-09-19 20:33:00 167.6 cm WEIGHT 2020-09-19 20:33:00 120.657 kg Height/Length 2021-05-26 12:56:17 165.1 cm Measured Height/Length 2021-05-26 12:56:15 165.1 cm Measured Height/Length 2021-05-26 12:56:14 165.1 cm Measured Height/Length 2020-02-23 18:45:01 Measured Procedures Procedure Date / Time Performed Performing Clinician [facility] ericka MEDICAL 2021-08-10 05:01:00 Doctor Unassigned, No [facility] RELEASE/CLEARANCE Name Medical Branch FORMS Plan of Care Planned Activity [...] (2 - Td or Tdap)] Future Scheduled 2023-01-[address] [facility] Test 00:00:00 (Season Ended) [code = Medic al Center INFLUENZA VACCINE (Season Ended)] Future Scheduled 2023-01-[address] [facility] Test 00:00:00 (Season Ended) [code = Medic al Center INFLUENZA VACCINE (Season Ended)] Future Scheduled 2022-08-14 COVID-19 [facility]INE (#[facility] 01:38:26 [code = COVID-19 VACCINE (#1)] Future Scheduled 2022-08-14 [facility] Test 01:38:26 malignant neoplasm of cervix (procedure) [code = 479707183] Future Scheduled 2022-08-14 [facility]INE [facility] Test 01:38:26 [code = INFLUENZA VACCINE] Future Scheduled 2022-05-19 COVID-19 VACCINE (#1) [facility] 00:14:47 [code = COVID-19 VACCINE (#1)] Future Scheduled 2022-05-19 [facility] Test 00:14:47 malignant neoplasm of cervix (procedure) [code = 029333578] Future Scheduled 2022-05-19 [facility]ZA [facility]ACCINE [facility] Test 00:14:47 [code = INFLUENZA VACCINE] Future Scheduled 2022-05-19 [facility]:14[facility]47 [code = COVID-19 VACCINE (#1)] Future Scheduled 2022-05-19 [facility] Test 00:14:47 malignant neoplasm of cervix (procedure) [code = 770049648] Future Scheduled 2022-05-19 INFLUENZA VACCINE [facility] Test 00:14:47 [code = INFLUENZA VACCINE] Future Scheduled 2022-05-[address] [...] VACCINE (#1)] Future Scheduled 2022-04-30 [facility] Test 23:56:41 malignant neoplasm of cervix (procedure) [code = 264432346] Future Scheduled 2022-04-30 [facility]ENZA [facility]ACCINE [facility] Test 23:56:41 [code = INFLUENZA VACCINE] Future Scheduled 2022-04-30 COVID[facility]19 [facility] 23:56:41 [code = COVID-19 VACCINE (#1)] Future Scheduled 2022-04-30 [facility] Test 23:56:41 malignant neoplasm of cervix (procedure) [code = 267242361] Future Scheduled 2022-04-30 [facility]ZA [facility]ACCINE [facility] Test 23:56:41 [code = INFLUENZA VACCINE] Future Scheduled 2022-03-13 HEPATITIS B VACCINES [facility] Test 02:47:55 (1 of 3 - 3-dose series) [code = HEPATITIS B VACCINES (1 of 3 - 3-dose series)] Future Scheduled 2022-03-13 COVID-19 VACCINE (#1) [facility] Test 02:47:55 [code = COVID-19 VACCINE (#1)] Future Scheduled 2022-03-13 Screening for [facility] Test 02:47:55 malignant neoplasm of cervix (procedure) [code = 631538964] Future Scheduled 2022-03-13 INFLUENZA VACCINE [facility] Test 02:47:55 [code = INFLUENZA VACCINE] Future Scheduled 2022-01-08 [facility]ZA VACCINE [facility] Test 01:48:10 [code = INFLUENZA VACCINE] Future Scheduled 2022-01-08 HEPATITIS B VACCINES Met [facility] Test 01:48:10 (1 of 3 - 3-dose series) [code = HEPATITIS B VACCINES (1 of 3 - 3-dose series)] Future Scheduled 2022-01-08 COVID-19 VACCINE (#1) [facility] Test 01:48:10 [code = COVID-19 VACCINE (#1)] Future Scheduled 2022-01-08 Screening for [facility] Test 01:48:10 malignant neoplasm of cervix (procedure) [code = 359816441] Future Scheduled 2022-01-07 INFLUENZA VACCINE (#1) [facility]00 (12+) [code = [facility] Center DEPRESSION SCREENING (12+)] Future Scheduled 2021-05-[address] [facility] Test 00:00:00 (12+) [code = [facility] Center DEPRESSION SCREENING (12+)] Future Scheduled [address] [facility] Test 00:[facility]:00 malignant neoplasm of Medica l Center cervix (procedure) [code = 559980442] Future Scheduled [address] [facility] [facility] Test 00:00:00 malignant neoplasm of Medica l Center cervix (procedure) [code = 179098817] Future Scheduled [address] [facility] Test 00:00:00 malignant neoplasm of Medica l Center cervix (procedure) [code = 726702980] Future Scheduled [address] [facility] [facility] Test 00:00:00 malignant neoplasm of Medica l Center cervix (procedure) [code = 318911882] Future Scheduled [address] [facility] Test 00:00:00 malignant neoplasm of Medica l Center cervix (procedure) [code = 464018193] Future Scheduled [address] [facility] Test 00:00:00 malignant neoplasm of Medica l Center cervix (procedure) [code = 312329519] Future Scheduled [address] [facility] Test 00:[facility]:00 (procedure) [code = Medical Center 67035240] Future Scheduled [address] [facility] Test 00:00:00 (procedure) [code = Medical Center 43936211] Future Scheduled [address] [facility] Test 00:00:00 (procedure) [code = Medical Center 68263602] Future Scheduled [address] [facility] Test 00:00:00 (procedure) [code = Medical Center 39626727] Future Scheduled [address] [facility] Test 00:00:00 (procedure) [code = Medical Center 88385072] Future Scheduled [address] [facility] Test 00:00:00 (procedure) [code = Medical Center 15110627] Future Scheduled 2010 HEPATITIS C SCREENING CH [...] Department ID 2021-06-25 Outpatient MARY KATE BASHIR NESUDARSHAN [employer]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 [id number] Univers 12:29:25 [facility] 2021-11-11 2021-11-11 Outpatient MARY KATE BASHIR NESUDARSHAN [facility] [id number] Univers 15:00:00 15:00:00 [facility] 2021-11-11 2021-11-11 Outpatient R [facility] [id number] Univers 15:00:00 15:00:00 ity [facility] 2021-08-10 2021-08-10 Office Annika Mary Kate [facility] [id number] Univers 15:30:00 16:37:04 Visit Cam [place] 350.1.13.10 i ty of [place]7.2.[place] [phone] T[place] dical [address] 2021-08-10 2021-08-10 Outpatient R [facility] [id number] Univers 15:30:00 16:37:04 ity of [facility] 2021-08-10 2021-08-10 Outpatient R [facility] [id number] Univers 15:30:00 15:30:00 ity [facility] 2021-08-10 2021-08-10 Outpatient R [facility] [id number] Univers 15:30:00 15:30:00 ity [facility] 2021-08-10 2021-08-10 Orders Doctor RICARDO [id number] [id number] Univers 00:00:00 00:00:00 Only Unassigned, PEDRO 350.1.13.10 ity of [facility] 4.2.7.2.686 [place] [phone] [address] 2021-07-20 2021-07-20 Outpatient R [facility] [id number] Univers 09:00:00 09:22:36 ity [facility] 2021-07-20 2021-07-20 Office Annika [facility] [id number] Univers 09:00:00 09:22:36 Visit Cam [place] 350.1.13.10 i ty [facility] 4.2.7.2.686 [place] [phone] T[place] dical NAL [address] [place] [address] 2021-07-20 2021-07-20 Outpatient R [facility] [id number] Univers 09:00:00 09:22:36 ity of [facility] 2021-07-20 2021-07-20 Outpatient R MARY KATE ROBLERO [facility] [id number] Univers 09:00:00 09:22:36 ity of [facility] 2021-07-09 2021-07-09 Orders Doctor RICARDO [id number] [id number] Univers 00:00:00 00:00:00 Only Unassigned, PEDRO 350.1.13.10 ity of [place] [facility] 4.2.7.2.686 [place] as [phone] [facility] 009 [place] 2021-07-02 2021-07-02 Telephone Annika Mary Kate [facility] 1.2.840.114 [id number] Univers 00:00:00 00:00:00 Darren AZUL 350.1.13.10 i ty [place] [id number] [phone] T[place] dical [address] 2021-06-29 2021-07-01 Outpatient X ANETA [facility] [employer]ER ENGINEER [id number] Univers 22:12:00 10:15:00 SHAWNA ity [facility] 2021-06-29 2021-07-01 Emergency [place]A [place] [id number] [id number] Univers 22:12:00 10:15:00 Shawna VASQUEZ 350.1.13.10 it y of [address]686 [place] as [phone] [facility] 092 [place] 2021-06-29 2021-07-01 Outpatient X ANETA [facility] [employer]ER ENGINEER [id number] Univers 22:12:00 10:15:00 SHAWNA ity [facility] 2021-06-30 2021-06-30 Outpatient R ANNIKA MARY KATE [facility] [employer]ER COASTER ENGINEER [id number] Univers 10:30:00 10:30:00 ity [facility] 2021-06-30 2021-06-30 Surgery MINA [place] 1.2.840.114 [id number] Univers 01:20:00 04:52:00 Marielle PEDRO 350.1.13.10 it y of [facility] 4.2.7.2.686 [place] [phone] [facility] 103 [place] 2021-06-29 2021-06-29 Outpatient R MARY KATE ROBLERO [facility] [id number] Univers 09:45:00 09:45:00 ity [facility] 2021-06-29 2021-06-29 Outpatient R MARY KATE ROBLERO [facility] [id number] Univers 09:45:00 09:45:00 ity of [facility] 2021-06-25 2021-06-25 Office Mary Kate Roblero [facility] [id number] Univers 10:30:00 11:17:52 Visit Darren AZUL 350.1.13.10 i ty of [place] 4.2.7.2.[place] [phone] T[place] dical NAL [address] [place] [address] 2021-06-25 2021-06-25 Outpatient R MARY KATE ROBLERO [facility] [id number] Univers 10:30:00 11:17:52 ity of [facility] 2021-06-25 2021-06-25 [facility] [id number] Univers 10:30:00 11:17:52 ity of [facility] 2021-06-25 2021-06-25 Outpatient R MARY KATE ROBLERO [facility] [id number] Univers 10:30:00 10:30:00 ity of [facility] 2021-06-25 2021-06-25 Outpatient R MARY KATE ROBLERO [facility] [id number] Univers 08:45:00 08:45:00 ity of [facility] 2021-06-25 2021-06-25 Prep For Mary Kate Roblero [facility] 1..840.114 [id number] Univers 00:00:00 00:00:00 Surgery Darren AZUL 350.1.13.10 i ty of [place] 4.[place].7.2.[place] [phone] Tx dical NAL [address] [place] [address] 2021-06-22 2021-06-22 Telephone Steph [facility] 1.2.840.114 [id number] Univers 00:00:00 00:00:00 Adali AZUL 350.1.13.10 i ty of [place] 4.2.7.2.686 [place] [phone] Tx dical NAL [address] [place] [address] 2021-06-18 2021-06-18 Outpatient R MARY KATE ROBLERO [facility] [id number] Univers 15:15:00 15:15:00 ity of [facility] 2021-06-18 2021-06-18 Tape Editor 2, Adc Lab [facility] 1.2.840.114 [id number] Univers 15:15:00 15:15:00 Visit Mary Kate Roblero Darren AZUL 350.1.13.10 ity of [place] 4[place] [phone] [facility] 353 [facility] 2021-06-18 2021-06-18 Outpatient R STEPH [facility] [id number] Univers 14:00:00 14:42:49 ADALI kaur [facility] 2021-06-18 2021-06-18 Outpatient R STEPH [facility] [id number] Univers 14:00:00 14:42:49 ADALI kaur [facility] 2021-06-18 2021-06-18 Outpatient R STEPH [facility] [id number] Univers 14:00:00 14:42:[facility] 2021-06-18 2021-06-18 Office Steph [facility] [id number] Univers 14:00:00 14:42:49 Visit Adali AZUL 350.1.13.10 i ty of [place] 4[place]2.7.2.[place] [phone] [facility] 2021-06-18 2021-06-18 Orders Doctor RICARDO 1.2.840.114 [id number] Univers 00:00:00 00:00:00 Only Unassigned, PEDRO 350.1.13.10 ity of [place] [facility] 4.2.7.2.686 [place] as [phone] [address] 2021-06-18 2021-06-18 Letter Steph [facility] 1.2.995.154 [id number] Univers 00:00:00 00:00:00 (Out) Adali AZUL 350.1.13.10 i ty of [place] 4.2.7.2.686 Black PETERSEN [phone] [address] 2021-04-06 2021-04-06 Outpatient DEIDRE DOTY [facility] [id number] [place] 07:44:18 07:44:18 [facility] 2021-02-04 2021-02-04 Outpatient MARGOT, [facility] [id number] [place] 07:18:50 12:23:32 TE[facility] 2021-01-20 2021-01-20 Outpatient DHARI, [facility] [id number] [place] 00:00:00 00:00:00 [facility] 2020-11-02 2020-11-02 Emergency X CACACE, [facility] ERT [id number] [facility] 18:39:00 18:39:00 [facility] 2020-10-28 2020-10-28 Outpatient PENNYRI, [facility] [id number] [place] 11:14:20 11:25:33 [facility] 2020-10-28 2020-10-28 Outpatient SAMEER, [facility] [id number] [place] 09:42:42 11:11:47 [facility] 2020-10-28 2020-10-28 Outpatient PENNYRI, [facility] [id number] [place] 00:00:00 00:00:00 [facility] 2020-10-28 2020-10-28 Outpatient VANESSA, [facility] [id number] [place] 00:00:00 00:00:00 [facility] 2020-10-09 2020-10-09 Outpatient [facility] [id number] [place] 00:00:00 00:00:00 [facility] 2020-09-20 2020-09-21 Emergency HE[facility]LY [facility] [id number] [place] 15:33:00 08:15:00 MOUSTAFA [facility]alt 2020-09-21 2020-09-21 Emergency TYRONE AMAYA [facility] [id number] Joe 06:21:58 06:21:58 Health 2020-09-21 2020-09-21 Emergency TYRONE AMAYA [facility] [id number] Joe 05:35:30 05:35:30 Health 2020-09-21 2020-09-21 Emergency DEVENDRA, [facility] [id number] [place] 00:17:17 00:17:17 [facility] 2020-09-21 2020-09-21 [facility] [id number] [place] 00:17:12 00:17:12 [facility] 2020-09-20 2020-09-20 [facility] [id number] [place] 23:24:27 23:24:27 [facility] 2020-09-19 2020-09-19 Emergency TRAUMA [id number] 16:34:00 20:24:00 [place] [address]30.1.13.10 4.2.7.2.686 [id number] 2020-09-19 2020-09-19 Emergency ER [facility] Emergency [id number] [facility] 20:23:00 20:23:00 2020-09-19 2020-09-19 Emergency X [facility] ERT [id number] Univers 16:28:00 16:28:00 [facility] 2020-04-27 2020-04-27 Emergency E GIAOLE, [facility] 7500 [facility] 12:45:00 13:10:00 TRAN 2020-02-23 2020-02-23 Emergency 1 Verdin Simone [facility] [id number] 18:33:00 21:25:00 Simone Verdin [facility] 2020-02-23 2020-02-23 Emergency 1 Lambert Simone [facility] [id number] 18:33:00 18:33:00 Simone Verdin -[id number] [facility] 2020-01-17 2020-01-17 Emergency 1 MikechelsyFreya sarmientoarmando [facility] [id number] 14:43:00 15:28:[address] [facility] 2016-12-11 2016-12-11 Emergency [facility] [id number] [place] 22:14:06 22:14:06 Health Results Test Description Test [...] Taylor MDReport Verified Date/Time: 09/20/2020 01:52:04 -COV2/RT-PCR ([facility]) 2020-09-20 00:55:00 Test Item Value Reference Range Interpretation Comme nts SARS-COV2/RT-PCR Negative Not Performance of the Xpert Xpress SARS-CoV-2/Flu/RSV test has only been established in nasopharyngeal swab specimens. Use (test code = Detected, of the Xpert Xp ress SARS-CoV-2/Flu/RSV test with other specimen types has not been assessed and performance ) Negative, characteristics are unknown. As with any [...] is terminated or revoked sooner.Fact Sheet for [facility] ide: https://www.[employer]Dnevnik/Documents/Xpert%20Xpress%88DROU-VzH-5-Flu-RSV/302-4508%2 0Rev.%20B%20HCP%20Fact%20Sheet.pdfFact Sheet for Healt hcare Patients: https://www.Apto/Documents/Xpert%20Xpress%95DYPD-OaJ-4-Flu-RSV/302-0387%2 0Rev.%20B%20Patient%20Fact%20Sheet.pdf SARS-COV-2 [facility]SL Performed at:[facility] [place], [place] [address]aq: [phone] PERFORMING LAB (test code = 7244063) COMPREHENSIVE METABOLIC [id number] 23:43:00 Test Item Value Reference Range Interpretation [...] S NOT APPLICABLE FOR DIALYSIS PATIEN TS. 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 HELENAName: PLACIDO FERRIS : 1990 Sex: FFINAL REPORT [...] 09/19/2020 23:27:51 CBC W/PLT COUNT & AUTO [id number] 21:25:00 Test Item Value Reference Range Interpretation [...] PERCENT (BEAKER) (test code = 2801) SCREEN, [id number] 21:20:00 Test Item Value Reference Range Interpretation Comments TEST URINE (BEAKER) (test Negative code = 583) Creatine [id number] 21:02:48 Test Item Value Reference Range Interpretation Comments CK (test code = CK) 114 U/L 34-145 Comprehensive Metabolic [id number] 21:02:47 Test Item Value Reference Range Interpretation [...] = Lipemia) 0 g/dL 1-2 Comprehensive Metabolic [id number] 21:02:47 Test Item Value Reference Range Interpretation [...] = 0 g/dL 1-2 Lipemia) Comprehensive Metabolic [id number] 21:02:47 Test Item Value Reference Range Interpretation [...] = 0 g/dL 1-2 Lipemia) HCG Qualitative [id number] 19:45:46 Test Item Value Reference Range Interpretation [...] 72 hours. Lot # (test code = [id number] N Lot #) Expiration Dt (test 01-06-21 N code = Expiration Dt) Neg Control (test Negative code = Neg Control) Pos Control (test Positive code = Pos Control) Internal QC (test Acceptable code = Internal QC) Urinalysis with Microscopic if [id number] 19:45:46 Test Item Value Reference Range Interpretation [...] Indicated Micro Ind?) Complete Blood Count with [id number] 19:17:51 Test Item Value Reference Range Interpretation [...] N code = Pos Morph XN) Automated [id number] 19:17:51 Test Item Value Reference Range Interpretation Comments Neutro Auto (test code = Neutro 46.1 % 36.0-70.0 Auto) Lymph Auto (test code = Lymph Auto) 45.9 % 12.0-44.0 H [place] Auto (test code = [place] Auto) 5.6 % 0.0-11.0 Eos, Auto (test code = Eos, Auto) 1.4 % 0.0-7.0 Basophil Auto (test code = Basophil 0.8 % 0.0-2.0 Auto) Neutro Absolute (test code = Neutro 2.9 x10 1.6-7.4 Absolute) Lymph Absolute (test code = Lymph 2.85 x10 .50-4.60 Absolute) [place] Absolute (test code = [place] .35 x10 .00-1.20 Absolute) Eos Absolute (test code = Eos 0.09 x10 0.00-0.74 Absolute) Baso Absolute (test code = Baso 0.05 x10 0.00-0.21 Absolute) IG [id number] 19:17:51 Test Item Value Reference Range Interpretation Comments IG (test code = IG) 0.2 % 0.0-5.0 IG Abs (test code = IG Abs) 0 x10 N Streptococcus A Screen Rapid w/ Reflex [id number] 15:21:41 Test Item Value Reference Range Interpretation Comments Strep A Scn (test code Positive Negative A Resul ts called to = Strep A Scn) and read back by: Ramona Deal 01/17/20 15:21:32 CDT GM Lot # (test code = Lot [id number] N #) Expiration Dt (test 08/21/2020 N code = Expiration Dt) Internal QC (test code Acceptable = Internal QC)
[2022-09-26] MEDS ORDERED: HYDROCODONE/APAP 5/325 MG TAB ONE ×2 (22:56→23:18)
[2022-09-26 23:57] LABS: Urine Bacteria 20-50 /HPF (<20); Urine Bilirubin NEGATIVE (Negative); Urine Blood Negative (Negative); Urine Clarity Turbid (Clear); Urine Color Light-Yellow (Yellow); Urine Glucose NEGATIVE (Negative); Urine Mucus 4+ /HPF (None Seen); Urine Protein NEGATIVE (Negative); Urine RBC <5 /HPF (None Seen); Urine Urobilinogen Normal (Normal); Urine pH 5.5 (5.0-7.0)
--- NOTE | 2022-09-27 00:50 | ER ---
Nurse's Notes [facility] Name: Aleksandra Cheng Age: 32 yrs Sex: Female : 1990 Arrival Date: 09/26/2022 Time: 20:57 Bed 8 Private MD: Diagnosis: Other bursitis of hip, left hip Presentation: 09/26 21:44 Chief complaint: Patient states: left hip pain causing left back pain X2 weeks. denies lg3 trauma. Coronavirus screen: Client denies travel out of the [place] in the last 14 days. At this time, the client does not indicate any symptoms associated with coronavirus-19. Ebola Screen: No symptoms or risks identified at this time. Initial Sepsis Screen: Does the patient meet any 2 criteria? No. Patient's initial sepsis screen is negative. Does the patient have a suspected source of infection? No. Patient's initial sepsis screen is negative. Risk Assessment: Do you want to hurt yourself or someone else? Patient reports no desire to harm self or others. Onset of symptoms is unknown. 21:44 Method Of Arrival: Ambulatory lg3 21:44 Acuity: VIN 4 lg3 Triage Assessment: 21:45 General: Appears in no apparent distress. uncomfortable, Behavior is calm, cooperative. lg3 Pain: Complains of pain in left hip Pain radiates to left back. EENT: No deficits noted. No signs and/or symptoms were reported regarding the EENT system. Neuro: No deficits noted. Baumann Agitation-Sedation Scale (RASS): 0 - Alert and Calm Level of Consciousness is awake, alert, obeys commands, Oriented to person, place, time, situation. Cardiovascular: No deficits noted. Denies chest pain, shortness of breath, Capillary refill < 3 seconds Clubbing of nail beds is absent JVD is absent Patient's skin is warm and dry. Respiratory: No deficits noted. Airway is patent Respiratory effort is even, unlabored, Respiratory pattern is regular, symmetrical. GI: No deficits noted. No signs and/or symptoms were reported involving the gastrointestinal system. : No deficits noted. No signs and/or symptoms were reported regarding the genitourinary system. Derm: No deficits noted. No signs and/or symptoms reported regarding the dermatologic system. Skin is intact, is healthy with good turgor, Skin is dry, Skin is normal, Skin temperature is warm. Musculoskeletal: Circulation, motion, and sensation intact. Range of motion: intact in all extremities, Reports pain in left hip, left back. 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 - Social history:: Smoking status: Reported history of juuling and/or vaping. Patient/guardian denies using alcohol, street drugs. Screenin:32 [facility] ED Fall Risk Assessment (Adult) History of falling in the last 3 months, rv including since admission No falls in past 3 months (0 pts). Abuse screen: Denies threats or abuse. Denies injuries from another. Nutritional screening: No deficits noted. Tuberculosis screening: No symptoms or risk factors identified. Assessment: 22:31 General: Appears in no apparent distress. uncomfortable, Behavior is calm, cooperative, rv Reports. Pain: Complains of pain in left hip Is intermittent. Neuro: Level of Consciousness is awake, alert, obeys commands, Oriented to person, place, time, situation. Cardiovascular: No deficits noted. Respiratory: Airway is patent. GI: No deficits noted. No signs and/or symptoms were reported involving the gastrointestinal system. : No deficits noted. No signs and/or symptoms were reported regarding the genitourinary system. 23:15 Reassessment: No changes from previously documented assessment. Patient and/or family vc1 updated on plan of care and expected duration. Pain level reassessed. Patient is alert, oriented x 3, equal unlabored respirations, skin warm/dry/pink. 09/27 00:30 Reassessment: No changes from previously documented assessment. Patient and/or family vc1 updated on plan of care and expected duration. Pain level reassessed. Patient is alert, oriented x 3, equal unlabored respirations, skin warm/dry/pink. 01:06 Reassessment: Patient appears in no apparent distress at this time. iunbstructions rv given., dc ambulatory, ao x4. Vital Signs: 09/26 21:44 BP 163 / 96; Pulse 67; Resp 18; Temp 99.9(O); Pulse Ox 100% on R/A; Weight 117.93 kg lg3 (R); Height 5 ft. 6 in. (R); 23:15 BP 154 / 105; Pulse 66; Resp 19; Pulse Ox 100% ; vc1 09/27 00:00 BP 148 / 105; Pulse 58; Resp 20; Pulse Ox 100% ; vc1 01:05 BP 142 / 96; Pulse 58; Resp 18; Temp 98(O); Pulse Ox 100% ; rv 09/26 21:44 Body Mass Index 41.96 (117.93 kg, 167.64 cm) lg3 [place] Coma Score: 01:06 Eye Response: spontaneous(4). Motor Response: obeys commands(6). Verbal Response: rv oriented(5). Total: 15. ED Course: 09/26 20:57 Patient arrived in ED. mr 21:40 Jyotsna Rodriguez, [facility] snw 21:40 Myorn Wild MD is Attending Physician. snw 21:45 Triage completed. lg3 21:45 Arm band placed on right wrist. lg3 23:00 Pelvis XRAY In Process Unspecified. EDMS 23:00 Hip Left 2 View XRAY In Process Unspecified. EDMS 23:08 Urine W/Microscopic (UAM) Sent. vc1 23:15 Patient has correct armband on for positive identification. Bed in low position. Call vc1 light in reach. Pulse ox on. NIBP on. Administered Medications: 23:07 Drug: HYDROcodone-acetaminophen PO 5 mg-325 mg 2 tabs Route: PO; vc1 09/27 01:04 Follow up: Response: Pain is decreased rv 01:04 Drug: Decadron - Dexamethasone IVP 10 mg {Note: given po.} Route: IVP; Site: Other; rv 01:05 Follow up: Response: Medication administered at discharge. rv Medication: 09/26 23:15 VIS not applicable for this client. vc1 Outcome: 09/27 00:49 Discharge ordered by . snw 01:07 Patient left the ED. rv Signatures: Dispatcher [employer] EDMS Jyotsna Rodriguez, POLICY INTERN-C POLICY INTERN-Csnw EstesEwa recinos mr Neo, Leonidas, RN RN rv Reena Dumont, RN RN lg3 Santa Stewart, RN RN vc1
--- NOTE | 2022-09-27 00:50 | EDPHYS ---
Physician Documentation [facility] Name: Aleksandra Cheng Age: 32 yrs Sex: Female : 1990 Arrival Date: 09/26/2022 Time: 20:57 Bed 8 Private MD: ED Physician Myron Wild HPI: 09/27 00:47 This 32 yrs old Black Female presents to ER via Ambulatory with complaints of Hip Pain, snw Back Pain. 00:47 The patient or guardian reports pain, weakness. that occurred at an unknown site, The snw patient is able to bear partial body weight. The complaints affect the left hip. Onset: The symptoms/episode began/occurred 1 week(s) ago, and became persistent. Severity of symptoms: At their worst the symptoms were moderate, severe. The patient has experienced a previous episode. It is unknown whether or not the patient has recently seen a physician. 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 - Social history:: Smoking status: Reported history of juuling and/or vaping. Patient/guardian denies using alcohol, street drugs. ROS: 22:52 Constitutional: Negative for fever, chills, and weight loss, Eyes: Negative for injury, snw pain, redness, and discharge, ENT: Negative for injury, pain, and discharge, Neck: Negative for injury, pain, and swelling, Cardiovascular: Negative for chest pain, palpitations, and edema, Respiratory: Negative for shortness of breath, cough, wheezing, and pleuritic chest pain, Abdomen/GI: Negative for abdominal pain, nausea, vomiting, diarrhea, and constipation, Back: Negative for injury and pain, : Negative for injury, bleeding, discharge, and swelling, Skin: Negative for injury, rash, and discoloration, Neuro: Negative for headache, weakness, numbness, tingling, and seizure, Psych: Negative for depression, anxiety, suicide ideation, homicidal ideation, and hallucinations. 22:52 MS/extremity: Positive for pain, of the left hip. Exam: 22:51 Constitutional: This is a well developed, well nourished patient who is awake, alert, snw and in no acute distress. Head/Face: Normocephalic, atraumatic. Eyes: Pupils equal round and reactive to light, extra-ocular motions intact. Lids and lashes normal. Conjunctiva and sclera are non-icteric and not injected. Cornea within normal limits. Periorbital areas with no swelling, redness, or edema. ENT: Nares patent. No nasal discharge, no septal abnormalities noted. Tympanic membranes are normal and external auditory canals are clear. Oropharynx with no redness, swelling, or masses, exudates, or evidence of obstruction, uvula midline. Mucous membranes moist. Neck: Trachea midline, no thyromegaly or masses palpated, and no cervical lymphadenopathy. Supple, full range of motion without nuchal rigidity, or vertebral point tenderness. No Meningismus. Chest/axilla: Normal chest wall appearance and motion. Nontender with no deformity. No lesions are appreciated. Cardiovascular: Regular rate and rhythm with a normal S1 and S2. No gallops, murmurs, or rubs. Normal PMI, no JVD. No pulse deficits. Respiratory: Lungs have equal breath sounds bilaterally, clear to auscultation and percussion. No rales, rhonchi or wheezes noted. No increased work of breathing, no retractions or nasal flaring. Abdomen/GI: Soft, non-tender, with normal bowel sounds. No distension or tympany. No guarding or rebound. No evidence of tenderness throughout. Back: No spinal tenderness. No costovertebral tenderness. Full range of motion. Skin: Warm, dry with normal turgor. Normal color with no rashes, no lesions, and no evidence of cellulitis. Neuro: Awake and alert, GCS 15, oriented to person, place, time, and situation. Cranial nerves II-XII grossly intact. Motor strength 5/5 in all extremities. Sensory grossly intact. Cerebellar exam normal. Normal gait. Psych: Awake, alert, with orientation to person, place and time. Behavior, mood, and affect are within normal limits. 22:51 Musculoskeletal/extremity: Extremities: grossly normal except: noted in the left hip: pain. Vital Signs: 21:44 BP 163 / 96; Pulse 67; Resp 18; Temp 99.9(O); Pulse Ox 100% on R/A; Weight 117.93 kg lg3 (R); Height 5 ft. 6 in. (R); 23:15 BP 154 / 105; Pulse 66; Resp 19; Pulse Ox 100% ; vc1 09/27 00:00 BP 148 / 105; Pulse 58; Resp 20; Pulse Ox 100% ; vc1 01:05 BP 142 / 96; Pulse 58; Resp 18; Temp 98(O); Pulse Ox 100% ; rv 09/26 21:44 Body Mass Index 41.96 (117.93 kg, 167.64 cm) lg3 [place] Coma Score: 01:06 Eye Response: spontaneous(4). Motor Response: obeys commands(6). Verbal Response: rv oriented(5). Total: 15. MDM: 09/26 22:29 Patient medically screened. snw 09/27 00:50 Differential diagnosis: bursitis, arthritis. Data reviewed: vital signs, nurses notes. snw Counseling: I had a detailed discussion with the patient and/or guardian regarding: the historical points, exam findings, and any diagnostic results supporting the discharge/admit diagnosis, the presence of at least one elevated blood pressure reading (>120/80) during this emergency department visit, the need for outpatient follow up, for definitive care, to return to the emergency department if symptoms worsen or persist or if there are any questions or concerns that arise at home. Response to treatment: the patient's symptoms have mildly improved after treatment. Special discussion: I have referred the patient to see his PCP for further evaluation of high blood pressure. Based on the history and exam findings, there is no indication for further emergent testing or inpatient evaluation. I discussed with the patient/guardian the need to see the orthopedic surgeon for further evaluation of the symptoms. I discussed with the patient/guardian the need to see the primary care provider for further evaluation of the symptoms. 09/26 22:41 Order name: Urine W/Microscopic (UAM); Complete Time: 23:58 snw 09/26 22:41 Order name: Pelvis XRAY snw 05/21 22:41 Order name: Hip Left 2 View XRAY snw Administered Medications: 09/26 23:07 Drug: HYDROcodone-acetaminophen PO 5 mg-325 mg 2 tabs Route: PO; vc1 09/27 01:04 Follow up: Response: Pain is decreased rv 01:04 Drug: Decadron - Dexamethasone IVP 10 mg {Note: given po.} Route: IVP; Site: Other; rv 01:05 Follow up: Response: Medication administered at discharge. rv Disposition Summary: 09/27/22 00:49 Discharge Ordered Location: Home snw Condition: Stable snw Diagnosis - Other bursitis of hip, left hip snw Followup: snw - With: Emergency Department - When: As needed - Reason: Worsening of condition Followup: snw - With: Private Physician - When: 2 - 3 days - Reason: Recheck today's complaints, Continuance of care, Re-evaluation by your physician Discharge Instructions: - Discharge Summary Sheet snw - Hip Bursitis snw - Heat Therapy snw Forms: - Medication Reconciliation Form snw - Thank You Letter snw - Antibiotic Education snw - Prescription Opioid Use snw Prescriptions: - Diclofenac Sodium 75 mg Oral Tablet Sustained Release - take 1 tablet by ORAL route 2 times per day; 30 tablet; Refills: 0, Product snw Selection Permitted - orphenadrine citrate 100 mg Oral Tablet Sustained Release - take 1 tablet by ORAL route 2 times per day As needed; 20 tablet; Refills: 0, snw Product Selection Permitted Signatures: Dispatcher [employer] Jyotsna Alcaraz FNP-C BOX PRESS OPERATOR-Csnw Leonidas Larson RN RN Reena Maxwell, RN RN lg3 Santa Stewart RN RN vc1
[2022-09-27] MEDS ORDERED: dexAMETHasone 10 MG/ML VIAL ONE (01:05)
[2022-09-27 01:12] VITALS: O2SAT 100
[2022-09-27 01:17] VITALS: BP 142/96; TEMP 98
--- NOTE | 2022-09-27 01:42 | RAD REPORT ---
EXAM DESCRIPTION: RAD - Pelvis - 09/26/2022 10:58 pm CLINICAL HISTORY: PAIN COMPARISON: <Comparisons> FINDINGS: No fracture, dislocation or radiographic evidence of AVN. IMPRESSION: Negative study.
--- NOTE | 2022-09-27 01:44 | RAD REPORT ---
EXAM DESCRIPTION: RAD - Hip Left 2 View - 09/26/2022 10:58 pm CLINICAL HISTORY: PAIN COMPARISON: <Comparisons> FINDINGS: Mild left hip arthritic changes. No fracture, dislocation or AVN.
== END 2022-09-27 01:07 | disposition home or self-care (01) ==
LOC: ER 20:57
DX: M71.552 Other bursitis, not elsewhere classified, left hip (principal); Z88.0 Allergy status to penicillin
CPT/HCPCS: 81001; 72170; 73502; J1100

== ENCOUNTER 2022-11-06 16:21 | Observation (INO) | payer OTHER ==
--- OUTSIDE RECORDS SUMMARY | 2022-11-06 16:26 | XMS REPORT | Continuity of Care Document ---
:1990 Author Organization [facility] t Address [address] [facility] [address] [place] [address] Care Team Providers Name Role Phone Asked, No Pcp Primary Care Physician Unavailable MARY KATE ROBLERO Attending Clinician Unavailable Mary Kate Roblero MD Attending Clinician Doctor Unassigned, [place] Attending Clinician Unavailable SHAWNA HOUSTON Attending Clinician [...] Policy Number Effective Date Expiration Date [facility] [id number] 2021 HMO 00:00:00 COMMERCIAL [id number] 2021 NON-CONTRACT 00:00:00 EDITION [employer] [id number] 2021 00:00:00 Problems Condition Condition Condition Status Onset Resolution Last Treating Co mments Source Name Details Category Date Date Treatment Clinician Date Morbid Morbid Disease Active Univers obesity obesity 2-17 [place]y of [place] mass index 00 [place] dical of of Branch 40.0-49.9 40.0-49.9 Migraines Migraines Disease Active 2013-05 Uni vers 05-17 ity of 00:00: [place] 00 Medical Branch Rubella Rubella Disease Active Univers non-immune non-immune 01-23 it y of status, status, 00:00: [place] antepartum antepartum 00 Me dical Branch Asthma Asthma Disease Active Overview: Univer s 01-22 Formattin ity of 00:00: g of this 00 note Medical might be Branch different from the original. 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 penicill Drug Active [facility] penicill Drug Active [facility] penicill Drug Active [facility] penicill Drug Active [facility] penicill Drug Active [facility] penicill Drug Active [facility] penicill Drug Active [facility] penicill Drug Active [facility] Social History Social Habit Start Date Stop Date Quantity Comments Source History of tobacco Cigarette Smoker University of use [facility] History SDOH University o f Alcohol [facility] [place] History SDOH University o f Alcohol Std Drinks [facility] History SDOH University o f Alcohol Binge [facility] Gender identity [facility] Sexual orientation [facility] Exposure to 2021-07-11 2021-08-10 Not sure University of SARS-CoV-2 (event) 00:00:00 15:25:00 [facility] Tobacco Comment 2021-06-18 2021-06-18 3 ciggs a day Univer sity of 00:00:00 00:00:00 [facility] Alcohol Comment 2021-06-18 2021-06-18 occasionally Univers ity of 00:00:00 00:00:00 [facility] Tobacco use and 2020-09-19 2020-09-19 Smokeless tobacco [facility] exposure 00:00:00 00:00:00 non-user [facility] Alcohol intake 2020-09-19 2020-09-19 Current drinker of [facility] 00:00:00 00:00:00 alcohol (finding) [facility] History of Social 2016-11-08 2016-11-[address] function 00:00:00 00:00:00 Hospital Sex Assigned At [birth year] MAGNUS Gutiérrez 00:00:00 00:00:00 [facility] Center Smoking Status Start Date Stop Date Source Current every day smoker 2021-06-18 00:00:00 Uni versity of [facility] Medications Ordered Filled Start Stop Current Ordering Indication Dosage Frequency Signature Comments Components Source Medication Medication Date Date Medication? Clinician (SIG) Name Name No known No Univers medications 4-04 ity of 17:37: [place] 10 Medical Branch ibuprofen 2021-2021- No [id number] 600mg Take 1 Univers 600 mg 07-01- tablet by ity of tablet 00:00: 00:00 mouth [place] 00 :00 every 6 Medical (six) Branch hours. docusate 2021- No [id number] 100mg Take 1 U nivers 100 mg [...] Immunization Name Name PPD (TB) 2016-11-25 Completed [facility] 00:00:00 [facility] PPD (TB) 2016-11-25 Completed [facility] 00:00:00 [facility] Influenza Virus 2015-02-17 Completed Universit y of Vaccine 00:00:00 [facility] Influenza Virus 2015-02-17 Completed Universit y of Vaccine 00:00:00 [facility] TDAP 2014-04-22 Completed University 00:00:00 [facility] TDAP 2014-04-22 Completed University 00:00:00 [facility] Vital Signs Vital Name Observation Time Observation Value Comments Source Systolic blood 2021-08-10 21:03:00 152 mm[Hg] Univer sity of pressure [facility] Diastolic blood 2021-08-10 21:03:00 81 mm[Hg] [facility] Heart rate 2021-08-10 20:56:00 74 /min [facility] Body temperature 2021-08-10 20:56:00 36.78 Romi [facility] Respiratory rate 2021-08-10 20:56:00 18 /min [facility] Body height 2021-08-10 20:56:00 167.6 cm [facility] Body weight 2021-08-10 20:56:00 124.286 kg [facility] BMI 2021-08-10 20:56:00 44.22 kg/m2 [facility] HEIGHT 2020-09-19 20:33:00 167.6 cm WEIGHT 2020-09-19 20:33:00 120.657 kg HEIGHT 2020-09-19 20:33:00 167.6 cm WEIGHT 2020-09-19 20:33:00 120.657 kg Height/Length 2021-05-26 12:56:17 165.1 cm Measured Height/Length 2021-05-26 12:56:15 165.1 cm Measured Height/Length 2021-05-26 12:56:14 165.1 cm Measured Height/Length 2020-02-23 18:45:01 Measured Procedures Procedure Date / Time Performed Performing Clinician [facility] ericka MEDICAL 2021-08-10 05:01:00 Doctor Unassigned, No [facility] RELEASE/CLEARANCE Name Medical Branch FORMS Plan [...] INFLUENZA VACCINE (Season Ended)] Future Scheduled 2023-01-[address] [facility] Test 00:00:00 (Season Ended) [code = Medic al Center Influenza Vaccine (Season Ended)] Future Scheduled 2022-10-22 COVID-19 VACCINE (#1) [facility] Test 13:54:56 [code = COVID-19 VACCINE (#1)] Future Scheduled 2022-10-22 Screening for [facility] Test 13:54:56 malignant neoplasm of cervix (procedure) [code = 181316470] Future Scheduled 2022-10-22 [facility]ZA [facility]ACCINE [facility] 13:54:56 [code = INFLUENZA VACCINE] Future Scheduled 2022-08-14 COVID[facility] 01:38:26 [code = COVID-19 VACCINE (#1)] Future Scheduled 2022-08-14 [facility] Test 01:38:26 malignant neoplasm of cervix (procedure) [code = 125291072] Future Scheduled 2022-08-14 [facility]ENZA VACCINE [facility] Test 01:38:26 [code = INFLUENZA VACCINE] Future Scheduled 2022-05-19 COVID-19 VACCINE (#1[facility] 00:14:47 [code = COVID-19 VACCINE (#1)] Future Scheduled 2022-05-19 [facility] Test 00:14:47 malignant neoplasm of cervix (procedure) [code = 997849219] Future Scheduled 2022-05-19 [facility]ZA [facility]ACCINE [facility] Test 00:14:47 [code = INFLUENZA VACCINE] Future Scheduled 2022-05-19 COVID-19 VACCINE (#1) [facility] 00:14:47 [code = COVID-19 VACCINE (#1)] Future Scheduled 2022-05-19 [facility] Test 00:14:47 malignant neoplasm of cervix (procedure) [code = 329135738] Future Scheduled 2022-05-19 INFLUENZA VACCINE Method ist [...] (12+)] Future Scheduled 2022-04-30 COVID-19 VACCINE (#1) [facility] Test 23:56:41 [code = COVID-19 VACCINE (#1)] Future Scheduled 2022-04-30 [facility] Test 23:56:41 malignant neoplasm of cervix (procedure) [code = 729779951] Future Scheduled 2022-04-30 [facility]ENZA VACCINE [facility] 23:56:41 [code = INFLUENZA VACCINE] Future Scheduled 2022-04-30 COVID-19 VACCINE (#1) [facility] 23:56:41 [code = COVID-19 VACCINE (#1)] Future Scheduled 2022-04-30 [facility] Test 23:56:41 malignant neoplasm of cervix (procedure) [code = 696914373] Future Scheduled 2022-04-30 INFLUENZA VACCINE [facility] Test 23:56:41 [code = INFLUENZA VACCINE] Future Scheduled 2022-03-13 HEPATITIS B VACCINES [facility] Test 02:47:55 (1 of 3 - 3-dose series) [code = HEPATITIS B VACCINES (1 of 3 - 3-dose series)] Future Scheduled 2022-03-13 COVID-19 VACCINE (#1) [facility] Test 02:47:55 [code = COVID-19 VACCINE (#1)] Future Scheduled 2022-03-13 [facility] Test 02:47:55 malignant neoplasm of cervix (procedure) [code = 467141703] Future Scheduled 2022-03-13 [facility]ENZA VACCINE [facility] Test 02:47:55 [code = INFLUENZA VACCINE] Future Scheduled 2022-01-08 [facility]ENZA VACCINE [facility] Test 01:48:10 [code = INFLUENZA VACCINE] Future Scheduled 2022-01-08 [facility] 01:48[facility]10 (1 of 3 - 3-dose series) [code = HEPATITIS B VACCINES (1 of 3 - 3-dose series)] Future Scheduled 2022-01-08 COVID-19 VACCINE (#[facility]) [facility] Test 01:48:10 [code = COVID-19 VACCINE (#1)] Future Scheduled 2022-01-08 [facility] Test 01:48:10 malignant neoplasm of cervix (procedure) [code = 201011070] Future Scheduled 2022-01-07 INFLUENZA VACCINE (#1) [facility]00 (12+) [code = [facility] DEPRESSION SCREENING (12+)] Future Scheduled [address] [facility] 00:[facility]:00 malignant neoplasm of Medica l Center cervix (procedure) [code = 883028246] Future Scheduled [address] [facility] Test 00:00:00 malignant neoplasm of Medica [facility] Center cervix (procedure) [code = 330857123] Future Scheduled [address] [facility] Test 00:00:00 malignant neoplasm of Medica l Center cervix (procedure) [code = 066686386] Future Scheduled [address] [facility] Test 00:00:00 malignant neoplasm of Medica l Center cervix (procedure) [code = 786465736] Future Scheduled [address] [facility] Test 00:00:00 malignant neoplasm of Medica l Center cervix (procedure) [code = 649188537] Future Scheduled [address] [facility] Test 00:00:00 malignant neoplasm of Medica l Center cervix (procedure) [code = 869975859] Future Scheduled [address] [facility] [facility] Test 00:00:00 malignant neoplasm of Medica l Center cervix (procedure) [code = 003957133] Future Scheduled [address] [facility] Test 00:00:00 (procedure) [code = [facility] 15722516] Future Scheduled [address] [facility] Test 00:00:00 (procedure) [code = [facility] 19773305] Future Scheduled [address] [facility] Test 00:00:00 (procedure) [code = [facility] 20643173] Future Scheduled [address] [facility] Test 00:00:00 (procedure) [code = [facility] 03190290] Future Scheduled [address] [facility] Test 00:00:00 (procedure) [code = [facility] 65884305] Future Scheduled [address] [facility] Test 00:00:00 (procedure) [code = [facility] 86161012] Future Scheduled [address] [facility] Test 00:00:00 (procedure) [code = Medical Center 16691319] Future Scheduled 2010 HEPATITIS C SCREENING CH [...] YRS (1 - PCV)] Future Scheduled 1998 Pneumococcal Vaccine: [facility] 00:00:00 0-64 Years (1 - PCV) Medical Center [code = Pneumococcal Vaccine: 0-64 Years (1 - PCV)] Future Scheduled 1992 COVID-19 [...] Department ID 2021-06-25 Outpatient MARY KATE BASHIR [facility] CAREER BASED INTERVENTION COORDINATOR [id number] Univers 12:29:25 [facility] 2021-11-11 2021-11-11 Outpatient MARY KATE BASHIR [facility] [id number] Univers 15:00:00 15:00:00 [facility] 2021-11-11 2021-11-11 Outpatient MARY KATE BASHIR [facility] [id number] Univers 15:00:00 15:00:00 [facility] 2021-08-10 2021-08-10 Office Annika [facility] [id number] Univers 15:30:00 16:37:04 Visit Cam [place] 350.1.13.10 i ty of [place] 4[place]7.2.[place] [phone] [address] 2021-08-10 2021-08-10 Outpatient R ANNIKA [facility] [id number] Univers 15:30:00 16:37:04 ity of [facility] 2021-08-10 2021-08-10 Outpatient R ANNIKA [facility] [id number] Univers 15:30:00 15:30:00 ity [facility] 2021-08-10 2021-08-10 Outpatient R ANNIKA [facility] [id number] Univers 15:30:00 15:30:00 ity [facility] 2021-08-10 2021-08-10 Orders Doctor RICARDO [id number] Univers 00:00:00 00:00:00 Only Unassigned, PED[place] 350.1.13.10 [facility] 4.2.7.2.686 [place] [phone] [address] 2021-07-20 2021-07-20 Outpatient R ANNIKA [facility] [id number] Univers 09:00:00 09:22:36 ity [facility] 2021-07-20 2021-07-20 Office Roblero [facility] [id number] Univers 09:00:00 09:22:36 Visit Darren SHAYYPEE 350.1.13.10 i ty of [place] 4.2.[place].2.[place] [phone] [place] dic[address] 2021-07-20 2021-07-20 Outpatient R [facility] [id number] Univers 09:00:00 09:22:36 ity [facility] 2021-07-20 2021-07-20 Outpatient R ANNIKA [facility] [id number] Univers 09:00:00 09:22:36 ity of [facility] 2021-07-09 2021-07-09 Orders Doctor RICARDO [id number] Univers 00:00:00 00:00:00 Only Unassigned, [place]ED[place] 350.1.13.10 ity of [place] [facility] 4.2.7.2.686 [place] as [phone] [facility] [address] Branch 2021-07-02 2021-07-02 Telephone Mary Kate Roblero PRSUDARSHAN 1.2.840.114 [id number] Univers 00:00:00 00:00:00 Cam JORGE ALBERTO 350.1.13.10 i ty of [address] [phone] [place] dical [address] 2021-06-29 2021-07-01 Outpatient X ANETA PRSUDARSHAN CAREER BASED INTERVENTION COORDINATOR [id number] Univers 22:12:00 10:15:00 SHAWNA ity [facility] 2021-06-29 2021-07-01 Emergency MINA [place] [id number] Univers 22:12:00 10:15:00 Marielle PEDRO 350.1.13.10 it y of [place] [address].7.2.686 [place] as [phone] [facility] [address] [place] 2021-06-29 2021-07-01 Outpatient X ANETA PRSUDARSHAN CAREER BASED INTERVENTION COORDINATOR [id number] Univers 22:12:00 10:15:00 SHAWNA ity [facility] 2021-06-30 2021-06-30 Outpatient R MARY KATE ROBLERO PRSUDARSHAN CAREER BASED INTERVENTION COORDINATOR [id number] Univers 10:30:00 10:30:00 ity of [facility] 2021-06-30 2021-06-30 Surgery MINA [place] [id number] Univers 01:20:00 04:52:00 MariellePratima VASQUEZ 350.1.13.10 it y of [facility] 42.7.2.686 [place] [phone] [facility] 103 Branch 2021-06-29 2021-06-29 Outpatient R MARY KATE ROBLERO PRSUDARSHAN [facility] [id number] Univers 09:45:00 09:45:00 ity of [facility] 2021-06-29 2021-06-29 Outpatient R MARY KATE ROBLERO [facility] [id number] Univers 09:45:00 09:45:00 ity [facility] 2021-06-25 2021-06-25 Office Mary Kate Roblero [facility] [id number] Univers 10:30:00 11:17:52 Visit Darren AZUL 350.1.13.10 i ty of [place] 4.2.7.2.[place] [phone] [address] 2021-06-25 2021-06-25 Outpatient R MARY KATE ROBLERO [facility] [id number] Univers 10:30:00 11:17:52 ity [facility] 2021-06-25 2021-06-25 Out[facility] [id number] Univers 10:30:00 11:17:52 ity [facility] 2021-06-25 2021-06-25 Outpatient R MARY KATE ROBLERO [facility] [id number] Univers 10:30:00 10:30:00 ity [facility] 2021-06-25 2021-06-25 [facility] [id number] Univers 08:45:00 08:45:00 ity [facility] 2021-06-25 2021-06-25 Prep For Annika [facility] 1.2.840.114 [id number] Univers 00:00:00 00:00:00 Surgery Darren AZUL 350.1.13.10 i ty [place] 4.2.[place] [id number] [address] 2021-06-22 2021-06-22 Telephone [facility] 1.2.840.114 [id number] Univers 00:00:00 00:00:00 Adali AZUL 350.1.13.10 i ty of [place] 4.2.7.2.[place] [phone] [place] dical NAL [address] [place] [address] 2021-06-18 2021-06-18 Outpatient R MARY KATE ROBLERO [facility] [id number] Univers 15:15:00 15:15:00 ity [facility] 2021-06-18 2021-06-18 Chair Inspector And Leveler 2, Adc Lab [facility] 1.2.840.114 [id number] Univers 15:15:00 15:15:00 Visit Mary Kate Roblero JORGE ALBERTO 350.1.13.10 ity of [place] 4.[place].2.[place] [phone] [facility] [address] [facility] 2021-06-18 2021-06-18 Outpatient R STEPH [facility] [id number] Univers 14:00:00 14:42:49 [facility] 2021-06-18 2021-06-18 Outpatient R STEPH [facility] [id number] Univers 14:00:00 14:42:49 [facility] 2021-06-18 2021-06-18 Outpatient R STEPH [facility] [id number] Univers 14:00:00 14:42:49 [facility] 2021-06-18 2021-06-18 Office [facility] [id number] Univers 14:00:00 14:42:49 Visit Adali AZUL 350.1.13.10 i ty of [place] 4.2.7.2.[place] [phone] [facility] 2021-06-18 2021-06-18 Orders Doctor RICARDO 1.2.840.114 [id number] Univers 00:00:00 00:00:00 Only Unassigned, PEDRO 350.1.13.10 ity of [place] [facility] 4.2.7.2.686 [place] as [phone] [address] 2021-06-18 2021-06-18 Letter Steph [facility] [id number] Univers 00:00:00 00:00:00 (Out) Adali AZUL 350.1.13.10 i ty of [place] 4.2.[place].2.[place] [phone] [place] dic[address] 2021-04-06 2021-04-06 Outpatient DEIDRE DOTY [facility] [id number] [place] 07:44:18 07:44:18 [facility] 2021-02-04 2021-02-04 Outpatient BERRA, [facility] [id number] [place] 07:18:50 12:23:32 TEJAL [facility] 2021-01-20 2021-01-20 Outpatient DHARI, [facility] [id number] [place] 00:00:00 00:00:00 [facility] 2020-11-02 2020-11-02 Emergency X CACACE, [facility] ERT [id number] Univers 18:39:00 18:39:00 [facility] 2020-10-28 2020-10-28 Outpatient DHARI, [facility] [id number] [place] 11:14:20 11:25:33 [facility] 2020-10-28 2020-10-28 Outpatient SAMEER, [facility] [id number] [place] 09:42:42 11:11:47 [facility] 2020-10-28 2020-10-28 Outpatient DHARI, [facility] [id number] [place] 00:00:00 00:00:00 [facility] 2020-10-28 2020-10-28 Outpatient VANESSA, [facility] [id number] [place] 00:00:00 00:00:00 [facility] 2020-10-09 2020-10-09 Outpatient [facility] [id number] [place] 00:00:00 00:00:00 [facility] 2020-09-20 2020-09-21 Emergency [facility] [id number] [place] 15:33:00 08:15:00 [facility] 2020-09-21 2020-09-21 Emergency TYRONE AMAYA [facility] [id number] [place] 06:21:58 06:21:58 Health 2020-09-21 2020-09-21 Emergency TYRONE AMAYA [facility] [id number] [place] 05:35:30 05:35:30 Health 2020-09-21 2020-09-21 [facility] [id number] [place] 00:17:17 00:17:17 [facility] 2020-09-21 2020-09-21 [facility] [id number] [place] 00:17:12 00:17:12 [facility] 2020-09-20 2020-09-20 Emergency DEVENDRA [facility] [id number] [place] 23:24:27 23:24:27 [facility] 2020-09-19 2020-09-19 Emergency TRAUMA [id number] 16:34:00 20:24:00 [place] [id number] 4.2.7.2.686 [id number] 2020-09-19 2020-09-19 Emergency ER [facility] Emergency [id number] [facility] 20:23:00 20:23:00 2020-09-19 2020-09-19 Emergency X [facility] ERT [id number] Univers 16:28:00 16:28:00 [facility] 2020-04-27 2020-04-27 Emergency E FADOWOLE, MHBL MHBL 7500 [facility]BL 12:45:00 13:10:00 TRAN 2020-02-23 2020-02-23 Emergency 1 Simone Verdin [facility] [id number] 18:33:00 21:25:00 [facility] 2020-02-23 2020-02-23 Emergency 1 Lambert Simone [facility] [id number] 18:33:00 18:33:00 Simone Verdin -[id number] J [facility] 2020-01-17 2020-01-17 Emergency 1 MikechelsyFreya sarmientoferny [facility] [id number] [facility] 14:43:00 15:28:00 Tamia armando [facility] 2016-12-11 2016-12-11 Emergency [facility] [id number] [place] 22:14:06 22:14:06 Health Results Test Description Test [...] Taylor MDReport Verified Date/Time: 09/20/2020 01:52:04 -COV2/RT-PCR ([facility]) 2020-09-20 00:55:00 Test Item Value Reference Range Interpretation Comme nts SARS-COV2/RT-PCR Negative Not Performance of the Xpert Xpress SARS-CoV-2/Flu/RSV test has only been established in nasopharyngeal swab specimens. Use (test code = Detected, of the Xpert Xp ress SARS-CoV-2/Flu/RSV test with other specimen types has not been assessed and performance [id number]) Negative, characteristics are unknown. As with any [...] other patient management decisions. linked Results from th e Xpert Xpress SARS-CoV-2/Flu/RSV test should be [...] revoked sooner.Fact Sheet for Healthcare Prov iders: https://www.[employer]/Documents/Xpert%20Xpress%78WHQD-NkZ-0-Flu-RSV/302-4508%2 0Rev.%20B%20HCP%20Fact%20Sheet.pdfFact Sheet for Healt hcare Patients: https://www.[employer]/Documents/Xpert%20Xpress%02LDGN-IeZ-4-Flu-RSV/302-4507%2 0Rev.%20B%20Patient%20Fact%20Sheet.pdf SARS-COV-2 SLSL Performed at:[facility] [place], [place] [address]un: [phone] PERFORMING LAB (test code = 8778378) COMPREHENSIVE METABOLIC [id number] 23:43:00 Test Item Value Reference Range Interpretation [...] S NOT APPLICABLE FOR DIALYSIS PATIEN 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 ID - [id number] ID - [id number] ID - [id number] ID - [id number] ID - [id number] ID - [id number] ID - [id number] ID - ITHQ79Qrypnagd ID - [id number] ID - [id number] ID - [id number] ID - [id number] ID - LJNZ33Dfifpaxb ID - XOEC19Tstjjxlm ID - [id number] ID - [id number] ID - [id number] ID - [id number] ID - [id number], ABDOMEN 2020-09-19 23:27:00With IV AND Oral contrast.Unlisted Reason for Exam - Click Yes and Enter Reason Below->NoWill this procedure require oral contrast?->NoHOAG [facility] PLACIDO FERRIS : 1990 Sex: FFINAL REPORT [...] 09/19/2020 23:27:51 CBC W/PLT COUNT & AUTO [id number] 21:25:00 Test Item Value Reference Range Interpretation [...] PERCENT (BEAKER) (test code = 2801) SCREEN, [id number] 21:20:00 Test Item Value Reference Range Interpretation Comments TEST URINE (BEAKER) (test Negative code = 583) Creatine [id number] 21:02:48 Test Item Value Reference Range Interpretation Comments CK (test code = CK) 114 U/L 34-145 Comprehensive Metabolic [id number] 21:02:47 Test Item Value Reference Range Interpretation [...] = Lipemia) 0 g/dL 1-2 Comprehensive Metabolic [id number] 21:02:47 Test Item Value Reference Range Interpretation [...] = 0 g/dL 1-2 Lipemia) Comprehensive Metabolic [id number] 21:02:47 Test Item Value Reference Range Interpretation [...] = 0 g/dL 1-2 Lipemia) HCG Qualitative [id number] 19:45:46 Test Item Value Reference Range Interpretation [...] 72 hours. Lot # (test code = [id number] N Lot #) Expiration Dt (test 01-06-21 N code = Expiration Dt) Neg Control (test Negative code = Neg Control) Pos Control (test Positive code = Pos Control) Internal QC (test Acceptable code = Internal QC) Urinalysis with Microscopic if [id number] 19:45:46 Test Item Value Reference Range Interpretation [...] Indicated Micro Ind?) Complete Blood Count with [id number] 19:17:51 Test Item Value Reference Range Interpretation [...] N code = Pos Morph XN) Automated [id number] 19:17:51 Test Item Value Reference Range Interpretation Comments Neutro Auto (test code = Neutro 46.1 % 36.0-70.0 Auto) Lymph Auto (test code = Lymph Auto) 45.9 % 12.0-44.0 H [place] Auto (test code = [place] Auto) 5.6 % 0.0-11.0 Eos, Auto (test code = Eos, Auto) 1.4 % 0.0-7.0 Basophil Auto (test code = Basophil 0.8 % 0.0-2.0 Auto) Neutro Absolute (test code = Neutro 2.9 x10 1.6-7.4 Absolute) Lymph Absolute (test code = Lymph 2.85 x10 .50-4.60 Absolute) [place] Absolute (test code = [place] .35 x10 .00-1.20 Absolute) Eos Absolute (test code = Eos 0.09 x10 0.00-0.74 Absolute) Baso Absolute (test code = Baso 0.05 x10 0.00-0.21 Absolute) IG [id number] 19:17:51 Test Item Value Reference Range Interpretation Comments IG (test code = IG) 0.2 % 0.0-5.0 IG Abs (test code = IG Abs) 0 x10 N Streptococcus A Screen Rapid w/ Reflex [id number] 15:21:41 Test Item Value Reference Range Interpretation Comments Strep A Scn (test code Positive Negative A Resul ts called to = Strep A Scn) and read back by: Ramona Deal 01/17/20 20 15:21:32 CDT GM Lot # (test code = Lot [id number] N #) Expiration Dt (test 08/21/2020 N code = Expiration Dt) Internal QC (test code Acceptable = Internal QC)
[2022-11-06] MEDS ORDERED: LIDOCAINE 1% 20 ML MDV ONE (16:56)
[2022-11-06] MEDS ORDERED: DOXYCYCLINE 100 MG CAP PO ONE (16:57)
[2022-11-06] MEDS ORDERED: MORPHINE 4 MG/ML SYR ONE (17:29)
[2022-11-06] MEDS ORDERED: Ringers Lactate 1,000 ML IV ONE (17:29)
[2022-11-06 17:46] LABS: Absolute Lymphocytes (CBC) 1.5 K/uL (0.7-4.9); Hematocrit 32.5 % (36.0-45.0); Lymphocytes % 17.4 % (15.3-44.8); MCV 70.8 fL (80-100); MPV 9.4 fL (7.6-11.3)
--- NOTE | 2022-11-06 17:59 | ER ---
Nurse's Notes [facility] Name: Aleksandra Cheng Age: 32 yrs Sex: Female : 1990 Arrival Date: 11/06/2022 Time: 16:21 Bed 16 Private MD: Diagnosis: Pilonidal cyst with abscess;Cellulitis, unspecified Presentation: 11/06 16:33 Chief complaint: Patient states: pilonidal cyst that began yesterday. Coronavirus ss screen: Client denies travel out of the [place] in the last 14 days. Ebola Screen: Patient denies exposure to infectious person. Patient denies travel to an Ebola-affected area in the 21 days before illness onset. Initial Sepsis Screen: Does the patient meet any 2 criteria? No. Patient's initial sepsis screen is negative. Does the patient have a suspected source of infection? No. Patient's initial sepsis screen is negative. Risk Assessment: Do you want to hurt yourself or someone else? Patient reports no desire to harm self or others. Onset of symptoms was November 05, 2022. 16:33 Method Of Arrival: Ambulatory ss 16:33 Acuity: VIN 3 ss Historical: - Allergies: 16:35 PENICILLINS; ss - PMHx: 16:35 Dermoid Tumor; ss - PSHx: 16:35 section; Cholecystectomy; Ligation of fallopian tube; Oopherectomy and ss Salpingectomy-right; - Immunization history:: Client reports receiving the 2nd dose of the Covid vaccine. - Social history:: Smoking status: Patient denies any tobacco usage or history of. Screenin:[facility] ED Fall Risk Assessment (Adult) History of falling in the last 3 months, kc6 including since admission No falls in past 3 months (0 pts) Confusion or Disorientation No (0 pts) Intoxicated or Sedated No (0 pts) Impaired Gait No (0 pts) Mobility Assist Device Used No (0 pt) Altered Elimination No (0 pt) Score/Fall Risk Level 0 - 2 = Low Risk Oriented to surroundings, Maintained a safe environment, Educated pt \T\ family on fall prevention, incl call for assistance when getting out of bed, Assessed \T\ reinforced patient's understanding of fall precautions, Hourly rounding (assess needs \T\ fall precautionary measures) done. Abuse screen: Denies threats or abuse. Denies injuries from another. Nutritional screening: No deficits noted. Tuberculosis screening: No symptoms or risk factors identified. Assessment: 17:42 General: Appears in no apparent distress. uncomfortable, Behavior is calm, cooperative, kc6 appropriate for age. Pain: Complains of pain in coccyx Pain does not radiate. Pain currently is 10 out of 10 on a pain scale. Pain began 2-3 days ago. Neuro: Level of Consciousness is awake, alert, obeys commands, Oriented to person, place, time, situation, Appropriate for age. Cardiovascular: Capillary refill < 3 seconds. Respiratory: Airway is patent Trachea midline Respiratory effort is even, unlabored, Respiratory pattern is regular, symmetrical. GI: No signs and/or symptoms were reported involving the gastrointestinal system. : No signs and/or symptoms were reported regarding the genitourinary system. EENT: No signs and/or symptoms were reported regarding the EENT system. Derm: Skin is intact, Skin is pink, warm \T\ dry. Abscess located on coccyx. Musculoskeletal: Circulation, motion, and sensation intact. Capillary refill < 3 seconds, Range of motion: intact in all extremities. 18:44 Reassessment: Patient appears in no apparent distress at this time. No changes from kc6 previously documented assessment. Patient and/or family updated on plan of care and expected duration. Pain level reassessed. Patient is alert, oriented x 3, equal unlabored respirations, skin warm/dry/pink. Vital Signs: 16:33 BP 129 / 61; Pulse 90; Resp 16; Temp 98.1(TE); Pulse Ox 98% on R/A; Weight 117.93 kg; ss Height 5 ft. 6 in. ; Pain 10/10; 18:44 BP 142 / 88; Pulse 89; Resp 17 S; Pulse Ox 100% on R/A; kc6 22:00 BP 128 / 74; Pulse 72; Resp 16; Pulse Ox 99% on R/A; ll3 16:33 Body Mass Index 41.96 (117.93 kg, 167.64 cm) 16:33 Pain Scale: Adult ss ED Course: 16:22 Patient arrived in ED. ts1 16:23 [facility]yotsna [facility]C [facility] snw 16:23 Mauri Morales MD is Attending Physician. snw 16:31 Marcy Avelar, CAS is Primary Nurse. kc6 16:35 Triage completed. ss 16:35 Arm band placed on right wrist. ss 16:37 Patient has correct armband on for positive identification. Bed in low position. Call kc6 light in reach. Side rails up X 1. 17:43 Inserted saline lock: 20 gauge in left antecubital area, using aseptic technique. Blood kc6 collected. 17:59 Chacorta Mcadams MD is Hospitalizing Provider. snw 22:41 No provider procedures requiring assistance completed. Patient admitted, IV remains in ll3 place. Administered Medications: 16:53 Drug: Doxycycline PO 100 mg Route: PO; kc6 17:42 Follow up: Response: No adverse reaction kc6 16:53 Drug: Lidocaine Infiltration (1 %) 1 vials {Note: to bedside.} Volume: 20 ml; Route: kc6 Infiltration; 17:41 Follow up: Response: No adverse reaction; Pain is unchanged, physician notified kc6 17:12 CANCELLED (Other Intervention Used): morphine IM 4 mg IM once snw 17:41 Drug: morphine IVP or IV 4 mg Route: IVP; Infused Over: 4 mins; Site: left antecubital; kc6 18:44 Follow up: Response: No adverse reaction; Pain is unchanged, physician notified; RASS: kc6 Alert and Calm (0) 17:41 Drug: Lactated Ringers Solution IV 1000 ml Route: IV; Rate: 150 ml/hr; Site: left kc6 antecubital; 22:41 Follow up: Response: No adverse reaction; IV Status: Infusion continued upon admission; ll3 IV Intake: 700ml 19:45 Drug: fentaNYL (PF) IVP 25 mcg Route: IVP; Site: left antecubital; ll3 22:37 Follow up: Response: No adverse reaction ll3 Medication: 22:41 VIS not applicable for this client. ll3 Intake: 22:41 IV: 700ml; Total: 700ml. ll3 Outcome: 17:59 Decision to Hospitalize by Provider. snw 22:36 Patient left the ED. ll3 22:41 Admitted to Med/surg ll3 22:41 Condition: stable 22:41 Instructed on the need for admit. Signatures: Jyotsna Rodriguez, PARTY COORDINATOR-C PARTY COORDINATOR-Csnw Deisi Shin, RN RN ss Laura Lemon, RN RN ll3 Marcy Avelar, RN RN kc6 Sheree Lopez, GIBRAN PAS ts1
--- NOTE | 2022-11-06 18:00 | EDPHYS ---
Physician Documentation [facility] Name: Aleksandra Cheng Age: 32 yrs Sex: Female : 1990 Arrival Date: 11/06/2022 Time: 16:21 Bed 16 Private MD: ED Physician Mauri Morales HPI: 11/06 16:45 This 32 yrs old Black Female presents to ER via Ambulatory with complaints of Boil. snw 16:45 Onset: The symptoms/episode began/occurred acutely. Associated signs and symptoms: snw Pertinent positives: painful to sit down. The patient has not experienced similar symptoms in the past. It is unknown whether or not the patient has recently seen a physician. Historical: - Allergies: 16:35 PENICILLINS; ss - PMHx: 16:35 Dermoid Tumor; ss - PSHx: 16:35 section; Cholecystectomy; Ligation of fallopian tube; Oopherectomy and ss Salpingectomy-right; - Immunization history:: Client reports receiving the 2nd dose of the Covid vaccine. - Social history:: Smoking status: Patient denies any tobacco usage or history of. ROS: 16:45 Constitutional: Negative for fever, chills, and weight loss, Eyes: Negative for injury, snw pain, redness, and discharge, ENT: Negative for injury, pain, and discharge, Neck: Negative for injury, pain, and swelling, Cardiovascular: Negative for chest pain, palpitations, and edema, Respiratory: Negative for shortness of breath, cough, wheezing, and pleuritic chest pain, Abdomen/GI: Negative for abdominal pain, nausea, vomiting, diarrhea, and constipation, Back: Negative for injury and pain, : Negative for injury, bleeding, discharge, and swelling, MS/Extremity: Negative for injury and deformity, Neuro: Negative for headache, weakness, numbness, tingling, and seizure, Psych: Negative for depression, anxiety, suicide ideation, homicidal ideation, and hallucinations. 16:45 Skin: Positive for abscess, of the top of buttock. Exam: 16:44 Constitutional: This is a well developed, well nourished patient who is awake, alert, snw and in no acute distress. Head/Face: Normocephalic, atraumatic. Eyes: Pupils equal round and reactive to light, extra-ocular motions intact. Lids and lashes normal. Conjunctiva and sclera are non-icteric and not injected. Cornea within normal limits. Periorbital areas with no swelling, redness, or edema. ENT: Nares patent. No nasal discharge, no septal abnormalities noted. Tympanic membranes are normal and external auditory canals are clear. Oropharynx with no redness, swelling, or masses, exudates, or evidence of obstruction, uvula midline. Mucous membranes moist. Neck: Trachea midline, no thyromegaly or masses palpated, and no cervical lymphadenopathy. Supple, full range of motion without nuchal rigidity, or vertebral point tenderness. No Meningismus. Chest/axilla: Normal chest wall appearance and motion. Nontender with no deformity. No lesions are appreciated. Cardiovascular: Regular rate and rhythm with a normal S1 and S2. No gallops, murmurs, or rubs. Normal PMI, no JVD. No pulse deficits. Respiratory: Lungs have equal breath sounds bilaterally, clear to auscultation and percussion. No rales, rhonchi or wheezes noted. No increased work of breathing, no retractions or nasal flaring. Abdomen/GI: Soft, non-tender, with normal bowel sounds. No distension or tympany. No guarding or rebound. No evidence of tenderness throughout. Back: No spinal tenderness. No costovertebral tenderness. Full range of motion. MS/ Extremity: Pulses equal, no cyanosis. Neurovascular intact. Full, normal range of motion. Neuro: Awake and alert, GCS 15, oriented to person, place, time, and situation. Cranial nerves II-XII grossly intact. Motor strength 5/5 in all extremities. Sensory grossly intact. Cerebellar exam normal. Normal gait. Psych: Awake, alert, with orientation to person, place and time. Behavior, mood, and affect are within normal limits. 16:44 Skin: Appearance: normal except for affected area, abscess, that is moderate sized, of the pilonidal, with induration, with surrounding cellulitis, that is mild. Vital Signs: 16:33 BP 129 / 61; Pulse 90; Resp 16; Temp 98.1(TE); Pulse Ox 98% on R/A; Weight 117.93 kg; ss Height 5 ft. 6 in. ; Pain 10/10; 18:44 BP 142 / 88; Pulse 89; Resp 17 S; Pulse Ox 100% on R/A; kc6 22:00 BP 128 / 74; Pulse 72; Resp 16; Pulse Ox 99% on R/A; ll3 16:33 Body Mass Index 41.96 (117.93 kg, 167.64 cm) ss 16:33 Pain Scale: Adult ss Procedures: 17:10 I \T\ D: Incision and drainage was performed for an abscess of the pilonidal cyst Prepped snw with Hibiclens. Anesthetized with 10 ml's 1% Lidocaine. Incised with #11 blade. Drained purulent fluid. serosanguinous fluid. the patient tolerated the procedure poorly, Pt unable to tolerate I\T\D. Dr. Dior contacted and will take to OR in the morning. MDM: 16:23 Patient medically screened. snw 16:46 Differential diagnosis: bacterial infection, abscess, cellulitis. Data reviewed: vital snw signs, nurses notes. Counseling: I had a detailed discussion with the patient and/or guardian regarding: the historical points, exam findings, and any diagnostic results supporting the discharge/admit diagnosis, the need for outpatient follow up, for definitive care, to return to the emergency department if symptoms worsen or persist or if there are any questions or concerns that arise at home. Special discussion: Based on the history and exam findings, there is no indication for further emergent testing or inpatient evaluation. I discussed with the patient/guardian the need to see the general surgeon for further evaluation of the symptoms. 17:10 Management of patient was discussed with the following: Field Technician: Dr. Dior, admit snw to Hospitalist, NPO post ND. 11/06 17:12 Order name: CBC with Diff; Complete Time: 19:06 snw 11/06 17:12 Order name: CMP; Complete Time: 18:30 snw 11/06 17:12 Order name: Test, Serum; Complete Time: 18:30 snw 11/06 17:52 Order name: CBC Smear Scan; Complete Time: 19:06 EDMS 11/06 20:14 Order name: Basic Metabolic Panel EDMS 11/06 20:14 Order name: Basic Metabolic Panel EDMS 11/06 20:14 Order name: CBC with Automated Diff EDMS 11/06 20:14 Order name: CBC with Automated Diff EDNM 11/06 20:14 Order name: CONS Physician Consult EDNM 11/06 20:14 Order name: NPO EDNM 11/06 16:38 Order name: Suture Tray at Bedside; Complete Time: 16:47 snw 11/06 16:38 Order name: Scalpel; Complete Time: 16:47 snw 11/06 16:40 Order name: Misc. Order: iodoform packing; Complete Time: 16:47 snw 11/06 17:12 Order name: NPO: post MN; Complete Time: 17:18 snw Administered Medications: 16:53 Drug: Doxycycline PO 100 mg Route: PO; kc6 17:42 Follow up: Response: No adverse reaction kc6 16:53 Drug: Lidocaine Infiltration (1 %) 1 vials {Note: to bedside.} Volume: 20 ml; Route: kc6 Infiltration; 17:41 Follow up: Response: No adverse reaction; Pain is unchanged, physician notified kc6 17:12 CANCELLED (Other Intervention Used): morphine IM 4 mg IM once snw 17:41 Drug: morphine IVP or IV 4 mg Route: IVP; Infused Over: 4 mins; Site: left antecubital; kc6 18:44 Follow up: Response: No adverse reaction; Pain is unchanged, physician notified; RASS: kc6 Alert and Calm (0) 17:41 Drug: Lactated Ringers Solution IV 1000 ml Route: IV; Rate: 150 ml/hr; Site: left kc6 antecubital; 22:41 Follow up: Response: No adverse reaction; IV Status: Infusion continued upon admission; ll3 IV Intake: 700ml 19:45 Drug: fentaNYL (PF) IVP 25 mcg Route: IVP; Site: left antecubital; ll3 22:37 Follow up: Response: No adverse reaction ll3 Disposition Summary: 11/06/22 17:59 Hospitalization Ordered Hospitalization Status: Observation snw Provider: Chacorta Mcadams snw Location: Telemetry/MedSurg (observation) snw Condition: Stable snw Problem: new snw Symptoms: are unchanged snw Bed/Room Type: Standard snw Room Assignment: 205(11/06/22 21:15) mw Diagnosis - Pilonidal cyst with abscess snw - Cellulitis, unspecified snw Discharge Instructions: - Discharge Summary Sheet snw - Pilonidal Cyst snw - Pilonidal Cyst Drainage, Care After snw - Wound Packing snw - Pilonidal Cyst Removal snw Forms: - Work release form snw - Medication Reconciliation Form snw - SBAR form snw Prescriptions: - Doxycycline Hyclate 100 mg Oral Tablet - take 1 tablet by ORAL route every 12 hours; 20 tablet; Refills: 0, Product snw Selection Permitted - Tramadol 50 mg Oral Tablet - take 1 tablet by ORAL route every 8 hours as needed; 12 tablet; Refills: 0, snw Product Selection Permitted Signatures: Dispatcher [employer] EDMS Denia Spencer RN RN mw Jyotsna Rodriguez, INSTRUCTOR WARPER-C INSTRUCTOR WARPER-Csnw Sam Lucio PA PA jmm Blanchard, Shelby, RN RN ss Laura Lemon RN RN ll3 Marcy Avelar RN RN kc6 Corrections: (The following items were deleted from the chart) 17:12 17:04 morphine IM 4 mg IM once ordered. snw snw 17:12 17:11 morphine IM 4 mg IM once ordered. snw snw 21:15 17:59 snw
[2022-11-06 18:07] LABS: Albumin 3.3 g/dL (3.4-5.0); Bilirubin Total 0.6 mg/dL (0.2-1.0); Potassium 3.3 mEq/L (3.5-5.1); Protein, Total 7.3 g/dL (6.4-8.2)
[2022-11-06 18:58] LABS: Blood Morphology Comment NOTED (NOT SEEN); Hypochromasia 1+; Ovalocytes 2+; Platelet Estimate ADEQ; White Blood Cell Scan OK (OK)
[2022-11-06] MEDS ORDERED: FENTANYL CITR 100 MCG/2 ML ONE (19:50)
[2022-11-06] MEDS ORDERED: ONDANSETRON 4 MG/2 ML VIAL IV PRN (20:07)
--- NOTE | 2022-11-06 20:14 | P.HP ---
Patient History Date of Service: 11/06/22 Allergies penicillin G Allergy (Verified 04/28/14 14:38) Hives Penicillins Allergy (Unverified 10/02/14 23:08) Unknown Physical Examination - Studies Laboratory Data (last 24 hrs) 11/06/22 17:38: Sodium 140, Potassium 3.3 L, BUN 6 L, Creatinine 0.73, Glucose 89, Total Bilirubin 0.6, AST 10 L, ALT 13, Alkaline Phosphatase 74 11/06/22 17:38: WBC 8.70, Hgb 9.8 L, Hct 32.5 L, Plt Count 197 Assessment and Plan - Advance Directives Does patient have a Living Will: No Does patient have a Durable POA for Healthcare: No
[2022-11-06] MEDS ORDERED: Levofloxacin500mg IV 500 MG/100 ML BAG IV SCH (21:00)
--- NOTE | 2022-11-06 21:08 | P.HP ---
Certification for Inpatient With expected LOS: <2 Midnights Patient will require the following post-hospital care: None Practitioner: I am a practitioner with admitting privileges, knowledge of patient current condition, hospital course, and medical plan of care. Services: Services provided to patient in accordance with Admission requirements found in Title 42 Section 412.3 of the Code of Federal Regulations Patient History Date of Service: 11/06/22 Reason for admission: pilonidal cyst History of Present Illness: 32 year old AA female with no significant past medical history presents to the ER with boil. she reports she woke with sacral pain caused by boil, pain worse with sitting. She reports started 2 days ago is progressively getting worse. She reports associated chills that started today. She reports sacral pain, worse with sitting, 01/16. 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 She denies nausea, vomiting, fever, cough, shortness of breath, or chest pain. Allergies penicillin G Allergy (Verified 04/28/14 14:38) Hives Penicillins Allergy (Unverified 10/02/14 23:08) Unknown Home medications list reviewed: No (take no prescription medications) - Past Medical/Surgical History Diabetic: No Past Medical History: Patient denies medical history -: Hysterectomy, tubal, - Family History Family History: Reviewed- Non-Contributory - Social History Smoking Status: Current some day smoker (Vapes, No use of recreational drugs) Alcohol use: No Place of Residence: Home Review of Systems 10-point ROS is otherwise unremarkable General: Chills Integumentary: As per HPI Physical Examination - Physical Exam General: In no apparent distress, Oriented x3 HEENT: Normocephalic, PERRLA Neck: Supple, JVD not distended Respiratory: Clear to auscultation bilaterally Cardiovascular: Regular rate/rhythm, Normal S1 S2 Capillary refill: <2 Seconds Gastrointestinal: Normal bowel sounds Musculoskeletal: No clubbing, No swelling Integumentary: Other (Pilonidal cyst top of tailbone, tender to touch, ) - Studies Laboratory Data (last 24 hrs) 11/06/22 17:38: Sodium 140, Potassium 3.3 L, BUN 6 L, Creatinine 0.73, Glucose 89, Total Bilirubin 0.6, AST 10 L, ALT 13, Alkaline Phosphatase 74 07/01/23 17:38: WBC 8.70, Hgb 9.8 L, Hct 32.5 L, Plt Count 197 Assessment and Plan - Plan Assessment/Plan Plionidial cyst Assessment/Plan Plionidial cyst consult surg to eval NPO p MN prn analgesics, antiemtics IV ABX Full code DVT SCD Diet NPO Discharge Plan: Home Plan to discharge in: 24 Hours - Advance Directives Does patient have a Living Will: No Does patient have a Durable POA for Healthcare: No - Code Status/Comfort Care Code Status: Full Code Physician Review: Patient Assessed, Agree with Above Assessment and Plan Time Spent Managing Pts Care (In Minutes): 50
[2022-11-06 22:54] VITALS: BMI 41.1
[2022-11-06] MEDS: MORPHINE 4 MG/ML SYR IV PRN (23:03)
[2022-11-06] MEDS: NA CHLORIDE 0.9% 1,000 ML IV SCH (23:03)
[2022-11-07] MEDS: METRONIDAZOLE 500mg IVPB 500 MG/100 ML BAG IV SCH ×3 (00:53→11:18)
[2022-11-07] MEDS: MORPHINE 4 MG/ML SYR IV PRN ×2 (04:23→13:57)
[2022-11-07] MEDS: NA CHLORIDE 0.9% 1,000 ML IV SCH (05:58)
[2022-11-07 06:44] LABS: Potassium 3.3 mEq/L (3.5-5.1)
[2022-11-07] MEDS ORDERED: METHYLENE BLUE 1% 10 ML VIAL ONE (08:36)
[2022-11-07] MEDS ORDERED: BUPIVACAINE 0.25% PF 10 ML VIAL ONE (08:36)
[2022-11-07] MEDS ORDERED: LIDOCAINE HCL/EPINEPHRINE 20 ML MDV ONE (08:36)
[2022-11-07 08:56] LABS: Absolute Lymphocytes (CBC) 1.7 K/uL (0.7-4.9); Lymphocytes % 21.9 % (15.3-44.8); MCV 70.7 fL (80-100); RBC Red Blood Cell Count 4.54 M/uL (3.86-4.86)
[2022-11-07] MEDS ORDERED: SUCCINYLCHOLINE 20 MG/ML (10 ML) IV ONE (09:34)
[2022-11-07] MEDS ORDERED: MIDAZOLAM HCL 2 MG/2 ML INJ ONE (09:41)
[2022-11-07] MEDS ORDERED: FENTANYL CITR 100 MCG/2 ML ONE ×3 (09:41→10:56)
[2022-11-07] MEDS ORDERED: propofoL 200 MG/20 ML VIAL IV ONE (09:41)
--- NOTE | 2022-11-07 10:17 | P.OP ---
Preoperative diagnosis: Pilonidal cyst with abscess Postoperative diagnosis: Pilonidal cyst with abscess Primary procedure: Wide Local Excision of Pilonidal cyst with abscess Anesthesia: GETA + Local Estimated blood loss: <5cc Specimen: Cultures, Debridement tissue Findings: ~ 3cm x 2cm x 3 cm into adipose cyst with abscess Complications: None Transferred to: Recovery Room Condition: Good
[2022-11-07] MEDS: HYDROMORPHONE HCL 1 MG/ML INJ ONE ×3 (10:32→10:39)
[2022-11-07] MEDS ORDERED: HYDROCODONE/APAP 5/325 MG TAB PO PRN (10:32)
[2022-11-07] MEDS ORDERED: ONDANSETRON 4 MG/2 ML VIAL ONE (10:38)
[2022-11-07] MEDS ORDERED: KETOROLAC 30 MG/ML INJ ONE (10:39)
[2022-11-07 10:44] VITALS: O2SAT 100
[2022-11-07] MEDS ORDERED: NA CHLORIDE 0.9% 1,000 ML ONE (10:44)
[2022-11-07 10:56] VITALS: BP 133/78; TEMP 97.5
--- NOTE | 2022-11-07 14:08 | CON ---
Date of Consultation: 11/07/2022 Brief History Of Present Illness: The patient is a 32-year-old black female with no past significant medical history, who presents to the ER with a boil on her sacral region, which is significantly inc reased with pain, tenderness, and worse with sitting. Two days ago, it progressively worse associate d with chills. She was seen with worsening sacral pain 9/10. Denied any other similar episodes befo re or in the past. Past Medical History: Significant for hysterectomy. Past Surgical History: Tubal ligation. Allergies: PENICILLIN. Family History: Reviewed, noncontributory. Social History: Smoking, she Vapes. Denies recreational drug use. Alcohol socially. Review of Systems: Ten-point review of systems other than HPI, denies. Physical Examination: General: At the time of my examination; she is awake, alert, oriented. Psychiatric: She is appropriate, conversive. HEENT: She is normocephalic. Sclerae anicteric. Mucous membranes moist. Oropharynx clear. Neck: Supple without JVD. Chest: Expansion and excursion. Cardiovascular: Regular rate and rhythm. Pulmonary: Clear to auscultation bilaterally. Abdomen: Soft. Extremities: No clubbing, cyanosis, or edema. Skin: Focused examination of the back; pilonidal cyst , which is tender to touch with swel ling, surrounding cellulitis. Skin is warm and dry otherwise. Laboratory Data: Revealed a white blood cell count of 7.6, hemoglobin 10.0, hematocrit 32.0, platele t count was 199. Her sodium 139, potassium 3.3, chloride 109, carbon dioxide is 25, BUN 5, creatinin e is 0.56, glucose is 90. No imaging was performed. Assessment And Plan: This is a 32-year-old female, who comes in with signs and symptoms of acute inf ected pilonidal cyst, possibly abscess, possible sinus. 1.IV fluid hydration. 2.N.p.o. status. 3.Antibiotic coverage. 4.I explained the risks, benefits, and alternatives of wide local debridement of pilonidal cyst, pos sible sinus including, but not limited to bleeding, infection, damage to surrounding tissues, need fo r further operation and procedures. The patient agrees to proceed as indicated. TK/MODL Voice ID: [id number] Report ID: [id number]
--- NOTE | 2022-11-07 14:20 | OP ---
Date of Procedure: 11/07/2022 Surgeon: Ino Dior MD, Preoperative Diagnosis: Pilonidal cyst with abscess. Postoperative Diagnosis: Pilonidal cyst with abscess. Procedure Performed: A wide local excision of pilonidal cyst with abscess. Anesthesia: General endotracheal plus local. Estimated Blood Loss: Less than 5 cc. Specimen: Culture sent for both aerobic and anaerobic speciation and debridement tissue. Findings: Approximately 3 cm x 2 cm x 3 cm pilonidal cyst with abscess extending all the way into th e adipose tissue. Complications: None. Disposition: The patient was transferred to the recovery room in good condition. Procedure In Detail: After informed consent was obtained, the patient was brought to the operating r oom, prepped and draped in the usual sterile fashion after adequate anesthesia was achieved. An area of the superior cleft was anesthetized with 1% lidocaine with epinephrine down to subcutaneous tissues. There was a small opening of obvious pilonidal abscess. After this was slightly opened, a bscess type material was appreciated coming through open cavity. I then cultured the area for both a erobic and anaerobic speciation. Then, I injected the area with methylene blue and made a curvilinea r approximately 3 cm x 2 cm incision down to subcutaneous tissues exposing the abscess cavity with em anating area. I removed all necrotic tissue using a combination of electrocautery, sharp dissection, blunt dissection and electrocautery removing all nonviable tissues for 2 cm x 3 cm down in the adipo se tissue. After all this tissue was removed, I irrigated the area copiously. Hemostasis was achiev ed with electrocautery. The wound was then inspected. No additional sinus tracts were appreciated a fter methylene blue inspection was performed. I then packed the wound with Vashe-soaked packing and a sterile dressing was placed over top damp to dry. The patient tolerated the procedure well without evidence of complication and transferred to PACU in good condition. All counts were correct at the end of the case. LUX/DAMIONL Voice ID: [id number] Report ID: [id number]
--- NOTE | 2022-11-07 14:32 | P.DS ---
Admission Date: 11/06/22 Discharge Date: 11/07/22 Disposition: ROUTINE DISCHARGE Discharge Condition: GOOD Reason for Admission: pilonidal cyst - Problems (1) Pilonidal abscess Current Visit: Yes Status: Acute Brief History of Present Illness: 32 year old -[place] female with no significant past medical history presents to the ER complaining of an abscess. She reported she woke with sacral pain caused by boil, pain worse with sitting. She reported symptoms started 2 days ago. She reported associated chills. She denied history DM, denies prior boil/cyst. 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 She denies nausea, vomiting, fever, cough, shortness of breath, or chest pain. Patient was hospitalized for further management. Hospital Course: She was placed under observation on the medical floor, started on IV Levaquin and Flagyl. Patient was seen by surgery Dr. Dior who performed I&D. Patient has no sepsis, vitals are stable. She is deemed stable for discharge per Dr. Dior. Dr. Dior has prescribed outpatient antibiotics and pain medications. Vital Signs/Physical Exam: Temp Pulse Resp BP Pulse Ox 97.5 F 63 16 133/78 100 11/07/22 10:53 11/07/22 10:53 11/07/22 10:53 11/07/22 10:53 11/07/22 08:00 General: Alert, In no apparent distress, Oriented x3 HEENT: Mucous membr. moist/pink Neck: Supple Respiratory: Clear to auscultation bilaterally, Normal air movement Cardiovascular: Regular rate/rhythm, Normal S1 S2 Gastrointestinal: Normal bowel sounds, Soft and benign, Non-distended, No tenderness Musculoskeletal: No swelling Integumentary: No rashes, No cyanosis Neurological: Normal strength at 5/5 x4 extr Laboratory Data at Discharge: WBC 7.60 thou/uL (4.3-10.9) 11/07/22 08:30 Hgb 10.0 g/dL (12.0-15.0) L 11/07/22 08:30 Hct 32.0 % (36.0-45.0) L 11/07/22 08:30 Plt Count 199 thou/uL (152-406) 11/07/22 08:30 Sodium 139 mEq/L (136-145) 11/07/22 05:41 Potassium 3.3 mEq/L (3.5-5.1) L 11/07/22 05:41 BUN 5 mg/dL (7-18) L 11/07/22 05:41 Creatinine 0.64 mg/dL (0.55-1.02) 11/07/22 05:41 Glucose 90 mg/dL (74-106) 11/07/22 05:41 Total Bilirubin 0.6 mg/dL (0.2-1.0) 11/06/22 17:38 AST 10 U/L (15-37) L 11/06/22 17:38 ALT 13 U/L (13-56) 11/06/22 17:38 Alkaline Phosphatase 74 U/L (45-117) 11/06/22 17:38 Diet: Regular Activity: Weight bearing as tolerated Followup: Ino Dior MD [ACTIVE - CAN ADMIT] - Unknown,U [Primary Care Provider] - Time spent managing pt's care (in minutes): 27
[2022-11-07] MEDS ORDERED: Levofloxacin 750mg IV 750 MG/150 ML BAG IV SCH (18:00)
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
== END 2022-11-07 15:05 | disposition home or self-care (01) ==
LOC: ER 16:21 → 2ND 21:11
PROVIDERS: ADMIT Internal Medicine; ATTEND Internal Medicine
PROC: 0JB90ZZ Excision of Buttock Subcutaneous Tissue and Fascia, Open Approach (ICD-10-PCS; principal; 2022-11-07 09:00)
DX: L05.01 Pilonidal cyst with abscess (principal); F17.210 Nicotine dependence, cigarettes, uncomplicated; Z88.0 Allergy status to penicillin
CPT/HCPCS: 96361; 87070; 85025 ×2; 80048; 36415; 87205; 84703; 87075; 80053; 96375; 96374; 99285; 11770; J2704; J2001; J2250; J3010 ×4; J1170; J2405; J7120; J7030 ×3; 88304; G0378

== ENCOUNTER 2022-11-08 13:14 | Emergency (ER) | payer OTHER ==
--- OUTSIDE RECORDS SUMMARY | 2022-11-08 13:19 | XMS REPORT | Continuity of Care Document ---
:1990 Author Organization [facility] t Address [address] [place] [address] Care Team Providers Name Role Phone Asked, No Pcp Primary Care Physician Unavailable MARY KATE ROBLERO Attending Clinician Unavailable Mary Kate Roblero MD Attending Clinician Doctor Unassigned, [place] Attending Clinician Unavailable SHAWNA HOUSTON Attending Clinician [...] Number Effective Date Expiration Date S enrrique [facility] [id number] 2021 HMO 00:00:00 COMMERCIAL [id number] 2021 NON-CONTRACT 00:00:00 Joyride [id number] 2021 00:00:00 Problems Condition Condition Condition Status Onset Resolution Last Treating Co mments Source Name Details Category Date Date Treatment Clinician Date Morbid Morbid Disease Active Univers obesity obesity 2-17 [place]y of [place] mass index 00 Me dical of of Branch 40.0-49.9 40.0-49.9 Migraines Migraines Disease Active 2013-05 Uni vers 05-17 ity of 00:00: [place] 00 Medical Branch Rubella Rubella Disease Active Univers non-immune non-immune 01-23 it y of status, status, 00:00: [place] antepartum antepartum 00 Me dical Branch Asthma Asthma Disease Active Overview: Univer s 01-22 Formattin ity of 00:00: g of this 00 note Medical might be Branch different from the original. 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 Branch Penicill Propensi Active Rash Univer s ins ty to 4 ity of adverse 00:00: [place] reaction 00 [facility] penicill Drug Active [facility] in [facility] penicill Drug Active [facility] penicill Drug Active [facility] penicill Drug Active [facility] penicill Drug [facility] penicill Drug Active [facility] penicill Drug Active [facility] penicill Drug Active [facility] penicill Drug Active [facility] Social History Social Habit Start Date Stop Date Quantity Comments Source History of tobacco Cigarette Smoker University of use [facility] History SDOH University o [facility] [place] [facility] SDOH University o f Alcohol Std Drinks [facility] History SDOH University o f Alcohol Binge [facility] Gender identity [facility] Sexual [facility] Exposure to 2021-07-11 2021-08-10 Not sure University of SARS-CoV-2 (event) 00:00:00 15:25:00 [facility] Tobacco Comment 2021-06-18 2021-06-18 3 ciggs a day Univer sity of 00:00:00 00:00:00 [facility] Alcohol Comment 2021-06-18 2021-06-18 occasionally Univers ity of 00:00:00 00:00:00 [facility] Tobacco use and 2020-09-19 2020-09-19 [...] day smoker 2021-06-18 00:00:00 Uni versity of [facility] Medications Ordered Filled Start Stop Current Ordering Indication Dosage Frequency Signature Comments Components Source Medication Medication Date Date Medication? Clinician (SIG) Name Name No known No Univers medications 4-04 ity of 17:37: [place] 10 Medical Branch ibuprofen 2021-2021- No [id number] 600mg Take 1 Univers 600 mg 07-01- tablet by ity of tablet 00:00: 00:00 mouth [place] 00 :00 every 6 Medical (six) Branch hours. docusate 2021- No [id number] 100mg Take 1 U nivers 100 mg [...] 19:27: [facility] No known 2017- No No known Metho di medications 1-[address] 19:27: [facility] No known 2017-0 No No known Metho di medications 1-[address] 19:27: [facility] l Immunizations Ordered Filled Immunization Date Status Comments Sourc e Immunization Name Name PPD (TB) 2016-11-25 Completed [facility] 00:00:00 [facility] PPD (TB) 2016-11-25 Completed [facility] 00:00:00 [facility] Influenza Virus 2015-02-17 Completed Universit y of Vaccine 00:00:00 [facility] Influenza Virus 2015-02-17 Completed Universit y of Vaccine 00:00:00 [facility] TDAP 2014-04-22 Completed [facility] 00:00:00 [facility] TDAP 2014-04-22 Completed [facility] 00:00:00 [facility] Vital Signs Vital Name Observation Time Observation Value Comments Source Systolic blood 2021-08-10 21:03:00 152 mm[Hg] Univer sity of pressure [facility] Diastolic blood 2021-08-10 21:03:00 81 mm[Hg] [facility] rate 2021-08-10 20:56:00 74 /min [facility] Body temperature 2021-08-10 20:56:00 36.78 Romi [facility] Respiratory rate 2021-08-10 20:56:00 18 /min [facility] Body height 2021-08-10 20:56:00 167.6 cm [facility] Body weight 2021-08-10 20:56:00 124.286 kg [facility] BMI 2021-08-10 20:56:00 44.22 kg/m2 [facility] HEIGHT 2020-09-19 20:33:00 167.6 cm WEIGHT 2020-09-19 20:33:00 120.657 kg HEIGHT 2020-09-19 20:33:00 167.6 cm WEIGHT 2020-09-19 20:33:00 120.657 kg Height/Length 2021-05-26 12:56:17 165.1 cm Measured Height/Length 2021-05-26 12:56:15 165.1 cm Measured Height/Length 2021-05-26 12:56:14 165.1 cm Measured Height/Length 2020-02-23 18:45:01 Measured Procedures Procedure Date / Time Performed Performing Clinician [facility] ericka MEDICAL 2021-08-10 05:01:00 Doctor Unassigned, No [facility] RELEASE/CLEARANCE Name Medical Branch FORMS Plan of [...] Center Influenza Vaccine (Season Ended)] Future Scheduled 2023-01-07 Influenza Vaccine (#1) [facility] Test 00:00:00 [code = Influenza Medical Ce nter Vaccine (#1)] Future Scheduled 2022-10-22 COVID-19 [facility]ACC[facility] 13:54:56 [code = COVID-19 VACCINE (#1)] Future Scheduled 2022-10-22 Scre[facility] Test 13:54:56 malignant neoplasm of cervix (procedure) [code = 882994396] Future Scheduled 2022-10-22 [facility]FL[facility]ENZA VACCINE [facility] Test 13:54:56 [code = INFLUENZA VACCINE] Future Scheduled 2022-10-22 COVID-19 VACCINE (#1[facility] 13:54:56 [code = COVID-19 VACCINE (#1)] Future Scheduled 2022-10-22 [facility] Test 13:54:56 malignant neoplasm of cervix (procedure) [code = 565448545] Future Scheduled 2022-10-22 [facility]ENZA VACCINE [facility] Test 13:54:56 [code = INFLUENZA VACCINE] Future Scheduled 2022-08-14 COVID-19 VACCINE (#1[facility] Test 01:38:26 [code = COVID-19 VACCINE (#1)] Future Scheduled 2022-08-14 [facility] Test 01:38:26 malignant neoplasm of cervix (procedure) [code = 366979649] Future Scheduled 2022-08-14 [facility]ENZA [facility]ACCINE [facility] Test 01:38:26 [code = INFLUENZA VACCINE] Future Scheduled 2022-05-19 COVID-19 VACCINE (#1[facility] Test 00:14:47 [code = COVID-19 VACCINE (#1)] Future Scheduled 2022-05-19 [facility] Test 00:14:47 malignant neoplasm of cervix (procedure) [code = 530289582] Future Scheduled 2022-05-19 [facility]ENZA [facility]ACCINE [facility] Test 00:14:47 [code = INFLUENZA VACCINE] Future Scheduled 2022-05-19 COVID-19 VACCINE (#1[facility] Test 00:14:47 [code = COVID-19 VACCINE (#1)] Future Scheduled 2022-05-19 [facility] Test 00:14:47 malignant neoplasm of cervix (procedure) [code = 194391085] Future Scheduled 2022-05-19 INFLUENZA VACCINE Method ist [...] (12+)] Future Scheduled 2022-04-30 COVID-19 VACCINE (#1) [facility] Test 23:56:41 [code = COVID-19 VACCINE (#1)] Future Scheduled 2022-04-30 [facility] Test 23:56:41 malignant neoplasm of cervix (procedure) [code = 985982929] Future Scheduled 2022-04-30 INFLUENZA VACCINE [facility] Test 23:56:41 [code = INFLUENZA VACCINE] Future Scheduled 2022-04-30 COVID-19 VACCINE (#1) [facility] Test 23:56:41 [code = COVID-19 VACCINE (#1)] Future Scheduled 2022-04-30 [facility] Test 23:56:41 malignant neoplasm of cervix (procedure) [code = 495479491] Future Scheduled 2022-04-30 [facility]FL[facility]ENZA VACCINE [facility] Test 23:56:41 [code = INFLUENZA VACCINE] Future Scheduled 2022-03-13 HEPATITIS B VACCINES Met [facility] Test 02:47:55 (1 of 3 - 3-dose series) [code = HEPATITIS B VACCINES (1 of 3 - 3-dose series)] Future Scheduled 2022-03-13 COVID-19 VACCINE (#1) [facility] Hospital Test 02:47:55 [code = COVID-19 VACCINE (#1)] Future Scheduled 2022-03-13 [facility] Test 02:47:55 malignant neoplasm of cervix (procedure) [code = 883937967] Future Scheduled 2022-03-13 INFLUENZA VACCINE Method [facility] Hospital Test 02:47:55 [code = INFLUENZA VACCINE] Future Scheduled 2022-01-08 INFLUENZA VACCINE Method [facility] Hospital Test 01:48:10 [code = INFLUENZA VACCINE] Future Scheduled 2022-01-08 HEPATITIS B VACCINES Met [facility] Hospital Test 01:48:10 (1 of 3 - 3-dose series) [code = HEPATITIS B VACCINES (1 of 3 - 3-dose series)] Future Scheduled 2022-01-08 COVID-19 VACCINE (#1) [facility] Test 01:48:10 [code = COVID-19 VACCINE (#1)] Future Scheduled 2022-01-08 Screening for [facility] Test 01:48:10 malignant neoplasm of cervix (procedure) [code = 649553569] Future Scheduled 2022-01-07 INFLUENZA VACCINE (#1) C [...] Medica l Center cervix (procedure) [code = 113118115] Future Scheduled [address] [facility] 00:[facility]:00 malignant neoplasm of Medica l Center cervix (procedure) [code = 942236697] Future Scheduled [address] [facility] Test 00:00:00 malignant neoplasm of Medica l Center cervix (procedure) [code = 520019816] Future Scheduled [address] [facility] Test 00:00:00 malignant neoplasm of Medica l Center cervix (procedure) [code = 499184587] Future Scheduled [address] [facility] Test 00:00:00 malignant neoplasm of Medica l Center cervix (procedure) [code = 766769301] Future Scheduled [address] [facility] Test 00:00:00 malignant neoplasm of Medica l Center cervix (procedure) [code = 304386853] Future Scheduled [address] [facility] Test 00:00:00 malignant neoplasm of Medica l Center cervix (procedure) [code = 742710136] Future Scheduled [address] [facility] Test 00:00:00 malignant neoplasm of Medica l Center cervix (procedure) [code = 900966681] Future Scheduled [address] [facility] Test 00:00:00 (procedure) [code = Medical Center 28723242] Future Scheduled [address] [facility] Test 00:00:00 (procedure) [code = [facility] 82223479] Future Scheduled [address] [facility] Test 00:00:00 (procedure) [code = Medical Center 24778647] Future Scheduled [address] [facility] Test 00:00:00 (procedure) [code = Medical Center 58032319] Future Scheduled [address] [facility] Test 00:00:00 (procedure) [code = Medical Center 22070709] Future Scheduled [address] [facility] Test 00:00:00 (procedure) [code = Medical Center 89339859] Future Scheduled [address] [facility] Test 00:00:00 (procedure) [code = Medical Center 15759588] Future Scheduled [address] [facility] Test 00:00:00 (procedure) [code = Medical Center 98696824] Future Scheduled 2010 HEPATITIS C SCREENING CH [...] 0-64 Years (1 - PCV)] Future Scheduled 1998 Pneumococcal [...] Department ID 2021-06-25 Outpatient MARY KATE BASHIR DCSUDARSHAN [employer] [id number] Univers 12:29:25 [facility] 2021-11-11 2021-11-11 Outpatient MARY KATE BASHIR [facility] [id number] Univers 15:00:00 15:00:00 [facility] 2021-11-11 2021-11-11 Outpatient MARY KATE BASHIR [facility] [id number] Univers 15:00:00 15:00:00 [facility] 2021-08-10 2021-08-10 Office Mary Kate Roblero [facility] [id number] Univers 15:30:00 16:37:04 Visit Darren LUCASPEE 350.1.13.10 i ty of [place] PROF[place] [phone] Nd dical [address] 2021-08-10 2021-08-10 Outpatient [place] ROBLERO [facility] [id number] Univers 15:30:00 16:37:04 ity of [facility] 2021-08-10 2021-08-10 Outpatient R ANNIKA [facility] [id number] Univers 15:30:00 15:30:00 ity [facility] 2021-08-10 2021-08-10 Outpatient [place] ROBLERO [facility] [id number] Univers 15:30:00 15:30:00 ity [facility] 2021-08-10 2021-08-10 Orders Doctor SILVA [id number] Univers 00:00:00 00:00:00 Only Unassigned, PEDRO 350.1.13.10 [facility] of [facility] 4.2.7.2.686 [place] [phone] [address] 2021-07-20 2021-07-20 Outpatient [place] ROBLERO [facility] [id number] Univers 09:00:00 09:22:36 ity [facility] 2021-07-20 2021-07-20 Devante Roblero [facility] [id number] Univers 09:00:00 09:22:36 Visit Darren AZUL 350.1.13.10 i ty [place] [phone] Nd dical [address] 2021-07-20 2021-07-20 Outpatient [place] ROBLERO [facility] [id number] Univers 09:00:00 09:22:36 ity of [facility] 2021-07-20 2021-07-20 Outpatient [place] ROBLERO [facility] [id number] Univers 09:00:00 09:22:36 ity [facility] 2021-07-09 2021-07-09 Orders Doctor SILVA [id number] Univers 00:00:00 00:00:00 Only Unassigned, PED[place] 350.1.13.10 ity of [place] [facility] 4.2.7.2.686 [place] as [phone] [facility] 009 [place] 2021-07-02 2021-07-02 Telephone Mary Kate Roblero [facility] [id number] Univers 00:00:00 00:00:00 Darren AZUL 350.1.13.10 i ty of [address] [phone] Nd dical [address] 2021-06-29 2021-07-01 Outpatient X ANETA DCSUDARSHAN [employer] [id number] Univers 22:12:00 10:15:00 SHAWNA ity [facility] 2021-06-29 2021-07-01 Emergency MINA [place] [id number] Univers 22:12:00 10:15:00 Marielle PEDRO 350.1.13.10 it y of [address]686 [place] [phone] [facility] 092 [place] 2021-06-29 2021-07-01 Outpatient X ANETA DCSUDARSHAN [employer] [id number] Univers 22:12:00 10:15:00 SHAWNA ity [facility] 2021-06-30 2021-06-30 Outpatient [place] ROBLERO [facility] T[employer]ORER [id number] Univers 10:30:00 10:30:00 ity [facility] 2021-06-30 2021-06-30 Surgery MINA [place] 1.2.840.114 [id number] Univers 01:20:00 04:52:00 Marielle PEDRO 350.1.13.10 it y of [address]686 [place] [phone] [facility] 103 [address] 2021-06-29 2021-06-29 Outpatient MARY KATE BASHIR [facility] [id number] Univers 09:45:00 09:45:00 ity [facility] 2021-06-29 2021-06-29 Outpatient [place] ROBLERO MARY KATE [facility] [id number] Univers 09:45:00 09:45:00 ity [facility] 2021-06-25 2021-06-25 Office Mary Kate Roblero [facility] [id number] Univers 10:30:00 11:17:52 Visit Darren JORGE ALBERTO 350.1.13.10 i ty [place] [id number] Nd dical [address] 2021-06-25 2021-06-25 Outpatient R MARY KATE ROBLERO [facility] [id number] Univers 10:30:00 11:17:52 ity of [facility] 2021-06-25 2021-06-25 Outpatient R ANNIKA [facility] [id number] Univers 10:30:00 11:17:52 ity [facility] 2021-06-25 2021-06-25 Outpatient R ANNIKA [facility] [id number] Univers 10:30:00 10:30:00 ity [facility] 2021-06-25 2021-06-25 Out[facility] [id number] Univers 08:45:00 08:45:00 ity [facility] 2021-06-25 2021-06-25 Prep For Annika [facility] 1.2.840.114 [id number] Univers 00:00:00 00:00:00 Surgery Darren LUCASPEE 350.1.13.10 i ty [place] [phone] Nd dical [address] 2021-06-22 2021-06-22 Telephone [facility] 1.2.840.114 [id number] Univers 00:00:00 00:00:00 Adali JORGE ALBERTO 350.1.13.10 i [place] [phone] Nd dical NAL [address] [place] [address] 2021-06-18 2021-06-18 Outpatient R ANNIKA MARY KATE [facility] [id number] Univers 15:15:00 15:15:00 ity [facility] 2021-06-18 2021-06-18 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, 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 [facility] 1.2.840.114 [id number] Univers 15:15:00 15:15:00 Visit Mary Kate Roblero Darren AZUL 350.1.13.10 [place] [id number] Nd dical NAL [address] [facility] 2021-06-18 2021-06-18 Outpatient R STEPH [facility] [id number] Univers 14:00:00 14:42:49 ADLAI kaur [facility] 2021-06-18 2021-06-18 Outpatient R STEPH [facility] [id number] Univers 14:00:00 14:42:49 ADALI kaur [facility] 2021-06-18 2021-06-18 Outpatient R STEPH [facility] [id number] Univers 14:00:00 14:42:49 [facility] 2021-06-18 2021-06-18 [facility] [id number] Univers 14:00:00 14:42:49 Visit Adali AZUL 350.1.13.10 i ty [place] [phone] Nd dical [facility] 2021-06-18 2021-06-18 Orders Doctor RICARDO 1.2.840.114 [id number] Univers 00:00:00 00:00:00 Only Unassigned, PED[place] 350.1.13.10 ity of [place] [facility] 4.2.7.2.686 [place] as [phone] [address] 2021-06-18 2021-06-18 Letter [facility] [id number] Univers 00:00:00 00:00:00 (Out) Adali AZUL 350.1.13.10 i ty [place] [phone] Nd dical NAL [address] [facility] 2021-04-06 2021-04-06 Outpatient DEIDRE DOTY [facility] [id number] [place] 07:44:18 07:44:18 Health 2021-02-04 2021-02-04 Outpatient BERRA, [facility] [id number] [place] 07:18:50 12:23:32 TEJAL [facility] 2021-01-20 2021-01-20 Outpatient DHARI, [facility] [id number] [place] 00:00:00 00:00:00 [facility] 2020-11-02 2020-11-02 Emergency X CACACE, [facility] ERT [id number] Univers 18:39:00 18:39:00 CARLY kaur [facility] 2020-10-28 2020-10-28 Outpatient DHARI, [facility] [id number] [place] 11:14:20 11:25:33 [facility] 2020-10-28 2020-10-28 Outpatient SAMEER, [facility] [id number] [place] 09:42:42 11:11:47 [facility] 2020-10-28 2020-10-28 Outpatient DHARI, [facility] [id number] [place] 00:00:00 00:00:00 [facility] 2020-10-28 2020-10-28 Outpatient VANESSA, [facility] [id number] [place] 00:00:00 00:00:00 [facility] 2020-10-09 2020-10-09 Outpatient [facility] [id number] [place] 00:00:00 00:00:00 [facility] 2020-09-20 2020-09-21 [facility] [id number] [place] 15:33:00 08:15:00 DAVID Vigil 2020-09-21 2020-09-21 Emergency TYRONE AMAYA [facility] [id number] Diaz 06:21:58 06:21:58 Health 2020-09-21 2020-09-21 Emergency TYRONE AMAYA [facility] [id number] Joe 05:35:30 05:35:30 Health 2020-09-21 2020-09-21 Emergency DEVENDRA, [facility] [id number] Joe 00:17:17 00:17:17 [facility] 2020-09-21 2020-09-21 [id number] Joe 00:17:12 00:17:12 [facility] 2020-09-202020-09-20 Emergency DEVENDRA, [facility] [id number] [place] 23:24:27 23:24:27 [facility] 2020-09-19 2020-09-19 Emergency TRAUMA [id number] 16:34:00 20:24:00 [place] [id number] 4.2.7.2.686 [id number] 2020-09-19 2020-09-19 Emergency ER [facility] Emergency [id number] [facility] 20:23:00 20:23:00 2020-09-19 2020-09-19 Emergency X DCMB ERT [id number] Univers 16:28:00 16:28:00 [facility] 2020-04-27 2020-04-27 Emergency E EUSEBIA, [facility] MHBL [id number] MHBL 12:45:00 13:10:00 [facility] 2020-02-23 2020-02-23 Emergency 1 Simone Verdin [facility] [id number] 18:33:00 21:25:00 Simone Verdin [facility] 2020-02-23 2020-02-23 Emergency 1 Lambert Simone [facility] [id number] 18:33:00 18:33:00 Simone Verdin -[id number] [facility] 2020-01-17 2020-01-17 Emergency 1 Freya Cantrellferny [facility] [id number] St. 14:43:00 15:28:[address] [facility] 2016-12-11 2016-12-11 Emergency [facility] [id number] [place] 22:14:06 22:14:06 Health Results Test Description Test [...] MDReport Verified Date/Time: 09/20/2020 01:52:04 -COV2/RT-PCR ([facility]) 2020-09-20 00:55:00 Test Item Value Reference Range Interpretation Comme nts SARS-COV2/RT-PCR Negative Not Performance of the Xpert Xpress SARS-CoV-2/Flu/RSV test has only been established in nasopharyngeal swab specimens. Use (test code = Detected, of the Xpert Xp ress SARS-CoV-2/Flu/RSV test with other specimen types has not been assessed and performance 9759764) Negative, characteristics are unknown. As with any [...] revoked sooner.Fact Sheet for Healthcare Prov iders: https://www.ForeSee/Documents/Xpert%20Xpress%02OVMD-TeG-3-Flu-RSV/969-7058%2 0Rev.%20B%20HCP%20Fact%20Sheet.pdfFact Sheet for Healt hcare Patients: https://www.Domainex.[employer]/Documents/Xpert%20Xpress%36JFAQ-RgX-2-Flu-RSV/882-8152%2 0Rev.%20B%20Patient%20Fact%20Sheet.pdf SARS-COV-2 SLSL Performed at:[facility] [place], [place] [address]kb: [phone] PERFORMING LAB (test code = 5672599) COMPREHENSIVE METABOLIC [id number] 23:43:00 Test Item Value Reference Range Interpretation [...] S NOT APPLICABLE FOR DIALYSIS PATIEN TS. Senior Planning Manager ID - [id number] ID - [id number] ID - [id number] ID - [id number] ID - [id number] ID - [id number] ID - [id number] ID - [id number] ID - [id number] ID - [id number] ID - [id number] ID - [id number] ID - [id number] ID - [id number] ID - [id number] ID - [id number] ID - [id number] ID - [id number] ID - [id number], ABDOMEN 2020-09-19 23:27:00With IV AND Oral contrast.Unlisted Reason for Exam - Click Yes and Enter Reason Below->NoWill this procedure require oral contrast?->NoCHI [facility]AC[facility]ERRIS : 1990 Sex: FFINAL [...] 09/19/2020 23:27:51 CBC W/PLT COUNT & AUTO [id number] 21:25:00 Test Item Value Reference Range Interpretation [...] PERCENT (BEAKER) (test code = 2801) SCREEN, [id number] 21:20:00 Test Item Value Reference Range Interpretation Comments TEST URINE (BEAKER) (test Negative code = 583) Creatine [id number] 21:02:48 Test Item Value Reference Range Interpretation Comments CK (test code = CK) 114 U/L 34-145 Comprehensive Metabolic [id number] 21:02:47 Test Item Value Reference Range Interpretation [...] = Lipemia) 0 g/dL 1-2 Comprehensive Metabolic [id number] 21:02:47 Test Item Value Reference Range Interpretation [...] = 0 g/dL 1-2 Lipemia) Comprehensive Metabolic [id number] 21:02:47 Test Item Value Reference Range Interpretation [...] = 0 g/dL 1-2 Lipemia) HCG Qualitative [id number] 19:45:46 Test Item Value Reference Range Interpretation [...] 72 hours. Lot # (test code = [id number] N Lot #) Expiration Dt (test 01-06-21 N code = Expiration Dt) Neg Control (test Negative code = Neg Control) Pos Control (test Positive code = Pos Control) Internal QC (test Acceptable code = Internal QC) Urinalysis with Microscopic if [id number] 19:45:46 Test Item Value Reference Range Interpretation [...] Indicated Micro Ind?) Complete Blood Count with [id number] 19:17:51 Test Item Value Reference Range Interpretation [...] N code = Pos Morph XN) Automated [id number] 19:17:51 Test Item Value Reference Range Interpretation Comments Neutro Auto (test code = Neutro 46.1 % 36.0-70.0 Auto) Lymph Auto (test code = Lymph Auto) 45.9 % 12.0-44.0 H Brown Auto (test code = Brown Auto) 5.6 % 0.0-11.0 Eos, Auto (test code = Eos, Auto) 1.4 % 0.0-7.0 Basophil Auto (test code = Basophil 0.8 % 0.0-2.0 Auto) Neutro Absolute (test code = Neutro 2.9 x10 1.6-7.4 Absolute) Lymph Absolute (test code = Lymph 2.85 x10 .50-4.60 Absolute) Brown Absolute (test code = Brown .35 x10 .00-1.20 Absolute) Eos Absolute (test code = Eos 0.09 x10 0.00-0.74 Absolute) Baso Absolute (test code = Baso 0.05 x10 0.00-0.21 Absolute) IG [id number] 19:17:51 Test Item Value Reference Range Interpretation Comments IG (test code = IG) 0.2 % 0.0-5.0 IG Abs (test code = IG Abs) 0 x10 N Streptococcus A Screen Rapid w/ Reflex [id number] 15:21:41 Test Item Value Reference Range Interpretation Comments Strep A Scn (test code Positive Negative A Resul ts called to = Strep A Scn) and read back by: Ramona Deal 01/17/20 15:21:32 CDT GM Lot # (test code = Lot [id number] N #) Expiration Dt (test 08/21/2020 N code = Expiration Dt) Internal QC (test code Acceptable = Internal QC)
--- NOTE | 2022-11-08 13:29 | EDPHYS ---
Physician Documentation [facility] Name: Aleksandra Cheng Age: 32 yrs Sex: Female : 1990 Arrival Date: 11/08/2022 Time: 13:14 Bed 10 Private MD: ED Physician Misael Bang HPI: 11/08 13:23 This 32 yrs old Black Female presents to ER via Unassigned with complaints of Wound kb Check. 13:23 Patient presents to ED for recheck of: abscess. The affected area is on the coccyx. kb Previous treatment: The patient was initially treated yesterday, the care was rendered at [facility], Treatment type: The patient's original treatment included an I\T\D. The patient has not experienced similar symptoms in the past. The patient has been recently seen by a physician:. Pt states she had an I\T\D in the OR yesterday and cannot change the dressing herself. Requests we remove the packing and she does not want it packed again. ROS: 13:33 Constitutional: Negative for fever, chills, and weight loss. kb 13:33 All other systems are negative. Exam: 13:33 Constitutional: This is a well developed, well nourished patient who is awake, alert, kb and in no acute distress. Head/Face: Normocephalic, atraumatic. ENT: Moist Mucous membranes Respiratory: Respirations even and unlabored. No increased work of breathing. Talking in full sentences MS/ Extremity: Pulses equal, no cyanosis. Neurovascular intact. Full, normal range of motion. Neuro: Awake and alert, GCS 15, oriented to person, place, time, and situation. Moves all extremities. Normal gait. MDM: 13:21 Patient medically screened. kb 13:28 Data reviewed: vital signs, nurses notes. kb 13:31 Differential diagnosis:. Management of patient was discussed with the following: umu Freelance Photographer: Discussed with Dr Dior. Recommend pt go to his office for pain management and dressing change.. Counseling: I had a detailed discussion with the patient and/or guardian regarding: the historical points, exam findings, and any diagnostic results supporting the discharge/admit diagnosis, the need for outpatient follow up, a general surgeon, to return to the emergency department if symptoms worsen or persist or if there are any questions or concerns that arise at home. ED course: Pt discharged and will go to Dr Dior's office for dressing change. Administered Medications: No medications were administered Disposition: 17:49 Co-signature as Attending Physician, Misael Bang MD I reviewed the patient's care rt provided by the Advanced Practice Provider and agree with the diagnosis and treatment plan. Disposition Summary: 11/08/22 13:28 Discharge Ordered Location: Home kb Condition: Stable kb Diagnosis - Encounter for change or removal of surgical wound dressing kb Followup: kb - With: Emergency Department - When: As needed - Reason: Worsening of condition Followup: kb - With: Private Physician - When: 2 - 3 days - Reason: Recheck today's complaints, Continuance of care, Re-evaluation by your physician Followup: kb - With: Ino Dior MD - When: As needed - Reason: Discharge Instructions: - Discharge Summary Sheet kb - How to Change Your Wound Dressing, [id number] kb Forms: - Medication Reconciliation Form kb - Thank You Letter kb - Antibiotic Education kb - Prescription Opioid Use kb - [email or web address] kb Signatures: Beatrice Lanier, VERENICE-C VERENICE-Misael Foreman MD MD rt
--- NOTE | 2022-11-08 13:38 | ER ---
Nurse's Notes [facility] Name: Aleksandra Cheng Age: 32 yrs Sex: Female : 1990 Arrival Date: 11/08/2022 Time: 13:14 Bed 10 Private MD: Diagnosis: Encounter for change or removal of surgical wound dressing ED Course: 11/08 13:15 Patient arrived in ED. im 13:21 [facility] kb 13:21 Misael Bang MD is Attending Physician. kb 13:28 Ino Dior MD is Referral Physician. kb 13:34 Judit Liu RN is Primary Nurse. eh3 Administered Medications: No medications were administered Outcome: 13:28 Discharge ordered by MD. kb 13:37 Patient left the ED. eh3 Signatures: Beatrice Lanier FNP-C FNP-Ckb Hall, Erin, RN RN eh3 Natalie Hurtado im
== END 2022-11-08 13:37 | disposition home or self-care (01) ==
LOC: ER 13:14
DX: Z48.01 Encounter for change or removal of surgical wound dressing (principal)

== ENCOUNTER 2023-03-20 03:37 | Emergency (ER) | payer OTHER ==
--- OUTSIDE RECORDS SUMMARY | 2023-03-20 03:42 | XMS REPORT | Continuity of Care Document ---
:1990 Author Organization [facility] t Address [address] [place] [address] Care Team Providers Name Role Phone Asked, No Pcp Primary Care Physician Unavailable MARY KATE ROBLERO Attending Clinician Unavailable Mary Kate Roblero MD Attending Clinician Doctor Unassigned, [place] Attending Clinician Unavailable SHAWNA HOUSTON Attending Clinician [...] Policy Number Effective Date Expiration Date [facility] [id number] 2021 HMO 00:00:00 COMMERCIAL [id number] 2021 NON-CONTRACT 00:00:00 [email or web address] [id number] 2021 00:00:00 Problems Condition Condition Condition Status Onset Resolution Last Treating Co mments Source Name Details Category Date Date Treatment Clinician Date Morbid Morbid Disease Active Univers obesity obesity 2-17 [place]y of [place] mass [place] mass index 00 Me dical of of Branch 40.0-49.9 40.0-49.9 Migraines Migraines Disease Active 2013-05 Uni vers 05-17 ity of 00:00: [place] 00 Medical Branch Rubella Rubella Disease Active Univers non-immune non-immune 01-23 it y of status, status, 00:00: [place] antepartum antepartum 00 Me dical Branch Asthma Asthma Disease Active Overview: Univer s 01-22 Formattin ity of 00:00: g of this 00 note Medical might be Branch different from the original. ICD10 Diagnosis Term Litharge Supervisor Utility Tobacco Tobacco Disease Active Univers [...] 00:00: Medical 00 Center Penicill Propensi Active [facility] [...] ity of adverse 00:00: [place] reaction 00 [facility] penicill Drug Active [facility] penicill Drug Active [facility] penicill Drug Active [facility] penicill Drug Active [facility] penicill Drug Active [facility] penicill Drug Active [facility] penicill Drug Active [facility] penicill Drug Active [facility] penicill Drug Active [facility] Social History Social Habit Start Date Stop Date Quantity Comments Source History of tobacco Cigarette Smoker University of use [facility] History SDOH University o f [facility] [place] History SDOH University o f Alcohol Std Drinks [facility] History SDOH University o f Alcohol Binge [facility] Sexual orientation [facility] Gender identity [facility] Exposure to 2021-07-11 2021-08-10 Not sure University of SARS-CoV-2 (event) 00:00:00 15:25:00 [facility] Tobacco Comment 2021-06-18 2021-06-18 3 ciggs a day Univer sity of 00:00:00 00:00:00 [facility] Alcohol Comment 2021-06-18 2021-06-18 occasionally Univers ity of 00:00:00 00:00:00 [facility] Tobacco use and 2020-09-19 2020-09-19 Smokeless tobacco [...] Current every day smoker 2021-06[facility]18 [facility]:00[facility]00 [facility]ations Ordered Filled Start Stop Current Ordering Indication Dosage Frequency Signature Comments Components Source Medication Medication Date Date Medication? Clinician (SIG) Name Name No known No Univers medications 4-04 ity of 17:37: [place] 10 Medical Branch ibuprofen 2021- No [id number] 600mg Take 1 Univers 600 mg 07-01 tablet by ity of tablet 00:00: 00:00 mouth [place] 00 :00 every 6 Medical (six) Branch hours. docusate 2021- No [id number] 100mg Take 1 U nivers 100 mg 07-01 capsule by ity of capsule 00:00: 00:00 mouth [place] 00 :00 every 12 Medical (twelve) Branch [...] medication st 19:27: [facility] l Vital Signs Vital Name Observation Time Observation Value Comments Source Systolic blood 2021-08-10 21:03:00 152 mm[Hg] Univer sity of pressure [facility] Diastolic blood 2021-08-10 21:03:00 81 mm[Hg] Unive rsity of [facility] Heart rate 2021-08-10 20:56:00 74 /min Universi [facility] Body temperature 2021-08-10 20:56:00 36.78 Romi [facility] Respiratory rate 2021-08-10 20:56:00 18 /min Univ [facility] Body height 2021-08-10 20:56:00 167.6 cm [facility] Body weight 2021-08-10 20:56:00 124.286 kg [facility] BMI 2021-08-10 20:56:00 44.22 kg/m2 [facility] HEIGHT 2020-09-19 20:33:00 167.6 cm WEIGHT 2020-09-19 20:33:00 120.657 kg HEIGHT 2020-09-19 20:33:00 167.6 cm WEIGHT 2020-09-19 20:33:00 120.657 kg Height/Length 2021-05-26 12:56:17 165.1 cm Measured Height/Length 2021-05-26 12:56:15 165.1 cm Measured Height/Length 2021-05-26 12:56:14 165.1 cm Measured Height/Length 2020-02-23 18:45:01 Measured Procedures Procedure Date / Time Performed Performing Clinician [facility] MEDICAL 2021-08-10 05:01:00 Doctor Unassigned, No [facility] RELEASE/CLEARANCE Name Medical Branch FORMS Plan of Care Planned Activity Planned Date Details Comments Source Future Scheduled 2024-04-22 DTAP/TDAP/TD VACCINES ([address] [facility] 00:00:00 - Td or Tdap) [code = Medica l Center DTAP/TDAP/TD VACCINES (2 - Td or Tdap)] Future Scheduled 2024-04-22 DTAP/TDAP/TD VACCINES ([address] [facility] 00:00:00 - Td or Tdap) [code = Medica l Center DTAP/TDAP/TD VACCINES (2 - Td or Tdap)] Future Scheduled 2024-04-22 DTAP/TDAP/TD VACCINES ([address] [facility] 00:00:00 - Td or Tdap) [code = Medica l Center DTAP/TDAP/TD VACCINES (2 - Td or Tdap)] Future Scheduled 2024-04-22 DTAP/TDAP/TD VACCINES ([address] [facility] 00:00:00 - Td or Tdap) [code = Medica l Center DTAP/TDAP/TD VACCINES (2 - Td or Tdap)] Future Scheduled 2024-04-22 DTAP/TDAP/TD VACCINES ([address] [facility] 00:00:00 - Td or Tdap) [code = Medica l Center DTAP/TDAP/TD VACCINES (2 - Td or Tdap)] Future Scheduled 2024-04-22 DTAP/TDAP/TD VACCINES ([address] [facility] 00:00:00 - Td or Tdap) [code = Medica l Center DTAP/TDAP/TD VACCINES (2 - Td or Tdap)] Future Scheduled 2024-04-22 DTAP/TDAP/TD VACCINES ([address] [facility] 00:00:00 - Td or Tdap) [code = Medica l Center DTAP/TDAP/TD VACCINES (2 - Td or Tdap)] Future Scheduled 2024-04-22 DTAP/TDAP/TD VACCINES ([address] [facility] 00:00:00 - Td or Tdap) [code = Medica l Center DTAP/TDAP/TD VACCINES (2 - Td or Tdap)] Future Scheduled 2024-04-22 DTAP/TDAP/TD VACCINES ([address] [facility] 00:00:00 - Td or Tdap) [code = Medica l Center DTAP/TDAP/TD VACCINES (2 - Td or Tdap)] Future Scheduled 2023-03-04 Screening for malignant [facility] Test 01:30:19 [facility] Hospital (procedure) [code = 686735639] Future Scheduled 2023-03-04 INFLUENZA VACCINE (#1) M ethodist Test 01:30:19 [code = INFLUENZA VACCINE Ho spital (#1)] Future Scheduled 2023-03-04 COVID-19 VACCINE (#1) Me thodist Test 01:30:19 [code = COVID-19 VACCINE Hos pital (#1)] Future Scheduled 2023-01-07 INFLUENZA VACCINE (Season [facility] 00:00:00 Ended) [code = INFLUENZA Med ical Center VACCINE (Season Ended)] Future Scheduled 2023-01-07 INFLUENZA VACCINE (Season [facility] 00:00:00 Ended) [code = INFLUENZA Med ical Center VACCINE (Season Ended)] Future Scheduled 2023-01-07 Influenza Vaccine (Season [facility] 00:00:00 Ended) [code = Influenza Med ical Center Vaccine (Season Ended)] Future Scheduled 2023-01-07 Influenza Vaccine (#1) [facility]00 [code = Influenza Vaccine Me dical Center (#1)] Future Scheduled 2023-01-07 Influenza Vaccine (#1) [facility] 00:00:00 [code = Influenza Vaccine Me dical Center (#1)] Future Scheduled 2022-10-22 COVID-19 VACCINE (#1) Me thodist Test 13:54:56 [code = COVID-19 VACCINE Hos pital (#1)] Future Scheduled 2022-10-22 Screening for malignant [facility] Test 13:54:56 neoplasm of cervix Hospital (procedure) [code = 874401035] Future Scheduled 2022-10-22 INFLUENZA VACCINE [code = [facility] Test 13:54:56 INFLUENZA VACCINE] Hospital Future Scheduled 2022-10-22 COVID-19 VACCINE (#1) Me thodist Test 13:54:56 [code = COVID-19 VACCINE Hos pital (#1)] Future Scheduled 2022-10-22 Screening for malignant [facility] Test 13:54:56 neoplasm of cervix Hospital (procedure) [code = 080783664] Future Scheduled 2022-10-22 INFLUENZA VACCINE [code = [facility] Test 13:54:56 INFLUENZA VACCINE] Hospital Future Scheduled 2022-08-14 COVID-19 VACCINE (#1) Me [facility]odist Test 01:38:26 [code = COVID-19 VACCINE Hos pital (#1)] Future Scheduled 2022-08-14 Screening for malignant [facility] Test 01:38:26 neoplasm of cervix Hospital (procedure) [code = 737285240] Future Scheduled 2022-08-14 INFLUENZA VACCINE [code = [facility] Test 01:38:26 INFLUENZA VACCINE] Hospital Future Scheduled 2022-05-19 COVID-19 VACCINE (#1) [facility] Test 00:14:47 [code = COVID-19 VACCINE Hos pital (#1)] Future Scheduled 2022-05-19 Screening for malignant [facility] Test 00:14:47 neoplasm of cervix Hospital (procedure) [code = 067956818] Future Scheduled 2022-05-19 INFLUENZA VACCINE [code = Religious Test 00:14:47 INFLUENZA VACCINE] Hospital Future Scheduled 2022-05-19 COVID-19 VACCINE (#1) [facility] Test 00:14:47 [code = COVID-19 VACCINE Hos pital (#1)] Future Scheduled 2022-05-19 Screening for malignant [facility] Test 00:14:47 neoplasm of cervix Hospital (procedure) [code = 115775149] Future Scheduled 2022-05-19 INFLUENZA VACCINE [code = Religious Test 00:14:47 INFLUENZA VACCINE] Hospital Future Scheduled 2022-05-[address] [facility] 00:00:00 (12+) [code = DEPRESSION Med ical Center SCREENING (12+)] Future Scheduled 2022-05-[address] [facility] 00:00:00 (12+) [code = DEPRESSION Med ical Center SCREENING (12+)] Future Scheduled 2022-05-[address] [facility] 00:00:00 (12+) [code = DEPRESSION Med ical Center SCREENING (12+)] Future Scheduled 2022-05-[address] [facility] 00:00:00 (12+) [code = DEPRESSION Med ical Center SCREENING (12+)] Future Scheduled 2022-05-[address] [facility] 00:00:00 (12+) [code = DEPRESSION Med ical Center SCREENING (12+)] Future Scheduled 2022-05-[address] [facility] 00:00:00 (12+) [code = DEPRESSION Med ical Center SCREENING (12+)] Future Scheduled 2022-05-[address] [facility] 00:00:00 (12+) [code = DEPRESSION Med ical Center SCREENING (12+)] Future Scheduled 2022-04-30 COVID-19 VACCINE (#1) Me [facility]od[facility] Test 23:56:41 [code = COVID-19 VACCINE Hos pital (#1)] Future Scheduled 2022-04-30 Screening for malignant [facility] Test 23:56:41 neoplasm of cervix Hospital (procedure) [code = 742058721] Future Scheduled 2022-04-30 INFLUENZA VACCINE [code = [facility] Test 23:56:41 INFLUENZA VACCINE] Hospital Future Scheduled 2022-04-30 COVID-19 VACCINE (#1) [facility] Test 23:56:41 [code = COVID-19 VACCINE Hos pital (#1)] Future Scheduled 2022-04-30 Screening for malignant [facility] 23:56:41 neoplasm of cervix Hospital (procedure) [code = 138197125] Future Scheduled 2022-04-30 INFLUENZA VACCINE [code = [facility] Test 23:56:41 INFLUENZA VACCINE] Hospital Future Scheduled 2022-03-13 HEPATITIS B VACCINES (1 [facility] Test 02:47:55 of 3 - 3-dose series) Hospit al [code = HEPATITIS B VACCINES (1 of 3 - 3-dose series)] Future Scheduled 2022-03-13 COVID-19 VACCINE (#1) [facility] Test 02:47:55 [code = COVID-19 VACCINE Hos pital (#1)] Future Scheduled 2022-03-13 Screening for malignant [facility] Test 02:47:55 neoplasm of cervix Hospital (procedure) [code = 995184220] Future Scheduled 2022-03-13 INFLUENZA VACCINE [code = Religious Test 02:47:55 INFLUENZA VACCINE] Hospital Future Scheduled 2022-01-08 INFLUENZA VACCINE [code = Religious Test 01:48:10 INFLUENZA VACCINE] Hospital Future Scheduled 2022-01-08 HEPATITIS B VACCINES (1 [facility] Test 01:48:10 of 3 - 3-dose series) Hospit al [code = HEPATITIS B VACCINES (1 of 3 - 3-dose series)] Future Scheduled 2022-01-08 COVID-19 VACCINE (#1) Me [facility]odist Test 01:48:10 [code = COVID-19 VACCINE Hos pital (#1)] Future Scheduled 2022-01-08 Screening for malignant [facility] Test 01:48:10 neoplasm of cervix Hospital (procedure) [code = 654560461] Future Scheduled 2022-01-07 INFLUENZA VACCINE (#1) [facility] 00:00[facility]00 [code = INFLUENZA VACCINE Me dical Center (#1)] Future Scheduled 2022-01-07 INFLUENZA VACCINE (#1) [facility] 00:00:00 [code = INFLUENZA VACCINE Me dical Center (#1)] Future Scheduled 2022-01-07 INFLUENZA VACCINE (#1) [facility] 00:00:00 [code = INFLUENZA VACCINE Me dical Center (#1)] Future Scheduled 2022-01-07 INFLUENZA VACCINE (#1) [facility] 00:00[facility]00 [facility] 2021-09-[address] [facility] Test 00:00:00 Counseling and Screening Med ical Center (12+) [code = Tobacco Cessation Counseling and Screening (12+)] Future Scheduled 2021-09-[address] [facility] 00:00:00 Counseling and Screening Med ical Center (12+) [code = Tobacco Cessation Counseling and Screening (12+)] Future Scheduled 2021-09-[address] [facility] 00:00:00 Counseling and Screening Med ical Center (12+) [code = Tobacco Cessation Counseling and Screening (12+)] Future Scheduled 2021-09-[address] [facility] 00:00:00 Counseling and Screening Med ical Center (12+) [code = Tobacco Cessation Counseling and Screening (12+)] Future Scheduled 2021-09-[address] [facility] 00:00:00 Counseling and Screening Med ical Center (12+) [code = Tobacco Cessation Counseling and Screening (12+)] Future Scheduled 2021-09-[address] [facility] 00:00:00 Counseling and Screening Med ical Center (12+) [code = Tobacco Cessation Counseling and Screening (12+)] Future Scheduled 2021-09-[address] [facility] 00:00:00 Counseling and Screening Med ical Center (12+) [code = Tobacco Cessation Counseling and Screening (12+)] Future Scheduled 2021-09-[address] [facility] 00:00:00 Counseling and Screening Med ical Center (12+) [code = Tobacco Cessation Counseling and Screening (12+)] Future Scheduled 2021-09-[address] [facility] 00:00:00 Counseling and Screening Med ical Center (12+) [code = Tobacco Cessation Counseling and Screening (12+)] Future Scheduled 2021-05-[address] [facility] 00:00:00 (12+) [code = DEPRESSION Med ical Center SCREENING (12+)] Future Scheduled 2021-05-[address] [facility] 00:00:00 (12+) [code = DEPRESSION Med ical Center SCREENING (12+)] Future Scheduled 2013 Screening for malignant [facility] Test 00:00:00 neoplasm of cervix Medical C enter (procedure) [code = 178898521] Future Scheduled 2013 Screening for malignant [facility] Test 00:00:00 neoplasm of cervix Medical C enter (procedure) [code = 959835224] Future Scheduled 2013 Screening for malignant [facility] Test 00:00:00 neoplasm of cervix Medical C enter (procedure) [code = 395720672] Future Scheduled 2013 Screening for malignant [facility] Test 00:00:00 neoplasm of cervix Medical C enter (procedure) [code = 824698347] Future Scheduled 2013 Screening for malignant [facility] Test 00:00:00 neoplasm of cervix Medical C enter (procedure) [code = 898777214] Future Scheduled 2013 Screening for malignant [facility] Test 00:00:00 neoplasm of cervix Medical C enter (procedure) [code = 823846703] Future Scheduled 2013 Screening for malignant [facility] 00:00:00 neoplasm of cervix Medical C enter (procedure) [code = 266702395] Future Scheduled 2013 Screening for malignant [facility] 00:00:00 neoplasm of cervix Medical C enter (procedure) [code = 283683784] Future Scheduled 2013 Screening for malignant [facility] 00:00:00 neoplasm of cervix Medical C enter (procedure) [code = 110315555] Future Scheduled 2012 Lipid panel (procedure) [facility] 00:00:00 [code = 62621449] Medical Ce nter Future Scheduled 2012 Lipid panel (procedure) [facility] 00:00:00 [code = 88155949] Medical Ce nter Future Scheduled 2012 Lipid panel (procedure) [facility] 00:00:00 [code = 40711203] Medical Ce nter Future Scheduled 2012 Lipid panel (procedure) [facility] 00:00:00 [code = 74137857] Medical Ce nter Future Scheduled 2012 Lipid panel (procedure) [facility] 00:00:00 [code = 49421564] Medical Ce nter Future Scheduled 2012 Lipid panel (procedure) [facility] 00:00:00 [code = 32645492] Medical Ce nter Future Scheduled 2012 Lipid panel (procedure) [facility] 00:00:00 [code = 19530564] Medical Ce nter Future Scheduled 2012 Lipid panel (procedure) [facility] 00:00:00 [code = 72529943] Medical Ce nter Future Scheduled 2012 Lipid panel (procedure) [facility] 00:00:00 [code = 93928848] Medical Ce nter Future Scheduled 2010 HEPATITIS C SCREENING CH [...] HEPATITIS C Medical Center SCREENING] Future Scheduled [address] [facility] 00:00:00 virus screening Medical Cent er (procedure) [code = 501811650] Future Scheduled 1998 PNEUMOCOCCAL VACCINE 0-[address] [facility] Test 00:00:00 YRS (1 - PCV) [code = Medica Center PNEUMOCOCCAL VACCINE 0-64 YRS (1 - PCV)] Future Scheduled 1998 PNEUMOCOCCAL VACCINE 0-[address] [facility] 00:00:00 YRS (1 - PCV) [code = Medica l Center PNEUMOCOCCAL VACCINE 0-64 YRS (1 - PCV)] Future Scheduled 1998 PNEUMOCOCCAL VACCINE 0-[address] [facility] 00:00:00 YRS (1 - PCV) [code = Medica l Center PNEUMOCOCCAL VACCINE 0-64 YRS (1 - PCV)] Future Scheduled 1998 PNEUMOCOCCAL VACCINE 0-[address] [facility] 00:00:00 YRS (1 - PCV) [code = Medica l Center PNEUMOCOCCAL VACCINE 0-64 YRS (1 - PCV)] Future Scheduled 1998 PNEUMOCOCCAL VACCINE 0-[address] [facility] 00:00:00 YRS (1 - PCV) [code = Medica l Center PNEUMOCOCCAL VACCINE 0-64 YRS (1 - PCV)] Future Scheduled 1998 PNEUMOCOCCAL VACCINE 0-[address] [facility] 00:00:00 YRS (1 - PCV) [code = Medica l Center PNEUMOCOCCAL VACCINE 0-64 YRS (1 - PCV)] [...] [facility] [code = COVID-19 VACCINE Med ical Center (#1)] Future Scheduled 1992 COVID-19 VACCINE [facility] [code = COVID-19 VACCINE Med ical Center (#1)] Future Scheduled 1992 COVID-19 VACCINE (#1) [facility] 00:00:00 [code = COVID-19 VACCINE Med ical Center (#1)] Future Scheduled 1992 COVID-19 VACCINE (#1) [facility] 00:00:00 [code = COVID-19 VACCINE Med ical Center (#1)] Future Scheduled 1992 COVID-19 VACCINE (#1) [facility] 00:00:00 [code = COVID-19 VACCINE Med ical Center (#1)] Future Scheduled 1992 COVID-19 VACCINE (#1) [facility] 00:00:00 [code = COVID-19 VACCINE Med ical Center (#1)] Future Scheduled 1992 COVID-19 VACCINE (#1) [facility] 00:00:00 [code = COVID-19 VACCINE Med ical Center (#1)] Future Scheduled 1992 COVID-19 VACCINE (#1) [facility] 00:00:00 [code = COVID-19 VACCINE Med ical Center (#1)] Future Scheduled 1992 COVID-19 VACCINE (#1) [facility] 00:00:00 [code = COVID-19 VACCINE Med ical Center (#1)] Encounters Start End Encounter Admission Attending Care Care Encounter Source Date/Time Date/Time Type Type Clinicians Facility Department ID 2021-06-25 Outpatient MARY KATE BASHIR 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 [address] 2021-08-10 2021-08-10 Outpatient R ROBLERO, [facility] [id number] Univers 15:30:00 16:37:04 ity of [facility] 2021-08-10 2021-08-10 Outpatient R ROBLERO [facility] [id number] Univers 15:30:00 15:30:00 ity of [facility] 2021-08-10 2021-08-10 Outpatient R ROBLERO [facility] [id number] Univers 15:30:00 15:30:00 ity [facility] 2021-08-10 2021-08-10 Orders Doctor RICARDO [id number] Univers 00:00:00 00:00:00 Only Unassigned, PEDRO [id number] ity of [place] [facility] [id number] Brent as [phone] [address] 2021-07-20 2021-07-20 Outpatient R ANNIKA [facility] [id number] Univers 09:00:00 09:22:36 ity of [facility] 2021-07-20 2021-07-20 Office Annika [facility] [id number] Univers 09:00:00 09:22:36 Visit Darren AZUL [id number] i ty [facility] [id number] [place] PROF[place] [phone] [address] 2021-07-20 2021-07-20 Out[facility] R [facility] [id number] Univers 09:00:00 09:22:36 ity of [facility] 2021-07-20 2021-07-20 Outpatient R ROBLERO [facility] [id number] Univers 09:00:00 09:22:36 ity [facility] 2021-07-09 2021-07-09 Orders Doctor RICARDO [id number] Univers 00:00:00 00:00:00 Only Unassigned, PEDRO [id number] ity of [place] [facility] [id number] Brent as [phone] [address] 2021-07-02 2021-07-02 Telephone Mary Kate Roblero AZSUDARSHAN [id number] Univers 00:00:00 00:00:00 Cam JORGE ALBERTO [id number] i ty [facility] [id number] [place] [phone] [address] 2021-06-29 2021-07-01 Outpatient X ANETA [facility] 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 MACHINIST [id number] Univers 22:12:00 10:15:00 SHAWNA ity [facility] 2021-06-29 2021-07-01 Emergency [place] [place] [id number] Univers 22:12:00 10:15:00 MariellePratima VASQUEZ [id number] it y of [facility] [id number] Brent as [phone] [facility] [address] [place] 2021-06-29 2021-07-01 Outpatient X ANETA [facility] 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 MACHINIST [id number] Univers 22:12:00 10:15:00 SHAWNA [facility] 2021-06-30 2021-06-30 Outpatient R ANNIKA [facility] 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 MACHINIST [id number] Univers 10:30:00 10:30:00 ity [facility] 2021-06-30 2021-06-30 Surgery [facility] [place] [id number] Univers 01:20:00 04:52:00 MariellePratima VASQUEZ [id number] it y of [facility] [id number] Brent as [phone] [facility] [address] [place] 2021-06-29 2021-06-29 Outpatient R MARY KATE ROBLERO [facility] [id number] Univers 09:45:00 09:45:00 ity [facility] 2021-06-29 2021-06-29 Outpatient R MARY KATE ROBLERO [facility] [id number] Univers 09:45:00 09:45:00 ity [facility] 2021-06-25 2021-06-25 [facility] [id number] Univers 10:30:00 11:17:52 Visit Darren AZUL [id number] i ty [place] [id number] [phone] Mn dical NAL [address] [facility] 2021-06-25 2021-06-25 Outpatient R MARY KATE ROBLERO [facility] [id number] Univers 10:30:00 11:17:52 ity of [facility] 2021-06-25 2021-06-25 Out[facility] [id number] Univers 10:30:00 11:17:52 ity of [facility] 2021-06-25 2021-06-25 Outpatient R MARY KATE ROBLERO [facility] [id number] Univers 10:30:00 10:30:00 ity of [facility] 2021-06-25 2021-06-25 Outpatient R MARY KATE ROBLERO [facility] [id number] Univers 08:45:00 08:45:00 ity [facility] 2021-06-25 2021-06-25 [facility] [id number] Univers 00:00:00 00:00:00 Surgery Darren AZUL [id number] i ty of [id number] [id number] Mn dical NAL [address] [place] [address] 2021-06-22 2021-06-22 Telephone G[place]imo [facility] [id number] Univers 00:00:00 00:00:00 Adali AZUL 350.1.13.10 i ty [facility] [id number] [id number] Mn dical NAL [address] [place] [address] 2021-06-18 2021-06-18 Outpatient R MARY KATE ROBLERO [facility] [id number] Univers 15:15:00 15:15:00 ity [facility] 2021-06-18 2021-06-18 Online Content Editor 2, Alta Dietz [facility] [id number] Univers 15:15:00 15:15:00 Visit Mary Kate Roblero Darren AZUL 350.1.13.10 ity [facility] [place] [phone] Me dical NAL [address] [place] [address] 2021-06-18 2021-06-18 Outpatient R KYLEJHONATHAN [facility] [id number] Univers 14:00:00 14:42:49 ADALI kaur [facility] 2021-06-18 2021-06-18 Outpatient R KAROLINESTEPHENIE [facility] [id number] Univers 14:00:00 14:42:49 ADALI kaur [facility] 2021-06-18 2021-06-18 Outpatient R KYLEJHONATHAN [facility] [id number] Univers 14:00:00 14:42:49 ADALI kaur [facility] 2021-06-18 2021-06-18 Office Geronimo [facility] [id number] Univers 14:00:00 14:42:49 Visit Adali AZUL 350.1.13.10 i ty [place] [phone] Mn dical NAL 134 [facility] 2021-06-18 2021-06-18 Orders Doctor RICARDO [id number] Univers 00:00:00 00:00:00 Only Unassigned, PEDRO 350.1.13.10 ity of [place] [facility] 4.2.7.2.686 [place] [id number] [address] 2021-06-18 2021-06-18 Letter G[place]imo [facility] [id number] Univers 00:00:00 00:00:00 (Out) Adali AZUL 350.1.13.10 i ty [place] [id number] Mn dical NAL 134 [facility] 2021-04-06 2021-04-06 Outpatient DEIDRE DOTY [facility] [id number] [place] 07:44:18 07:44:18 Health 2021-02-04 2021-02-04 Outpatient MARGOT, [facility] [id number] [place] 07:18:50 12:23:32 [facility] 2021-01-20 2021-01-20 Outpatient RAFAELA, [facility] [id number] [place] 00:00:00 00:00:00 [facility] 2020-11-02 2020-11-02 Emergency X CACCYNTHIA, AZMB ERT [id number] Univers 18:39:00 18:39:[facility]-10[facility] 2020-10-28 Outpatient PENNYRI, [facility] [id number] [place] 11:14:20 11:25:33 [facility] 2020-10-28 2020-10-28 Outpatient SAMEER, [facility] [id number] [place] 09:42:42 11:11:47 [facility] 2020-10-28 2020-10-28 Outpatient RAFAELA, [facility] [id number] [place] 00:00:00 00:00:00 [facility] 2020-10-28 2020-10-28 Outpatient VANESSA, [facility] [id number] [place] 00:00:00 00:00:00 [facility] 2020-10-09 2020-10-09 Outpatient [facility] [id number] [place] 00:00:00 00:00:00 [facility] 2020-09-20 2020-09-21 Emergency SOLOMON, [facility] [id number] [place] 15:33:00 08:15:00 [facility] 2020-09-21 2020-09-21 Emergency TYRONE AMAYA [facility] [id number] [place] 06:21:58 06:21:58 [facility] 2020-09-21 2020-09-21 Emergency TYRONE AMAYA [facility] [id number] [place] 05:35:30 05:35:30 [facility] 2020-09-21 2020-09-21 Emergency DEVENDRA, [facility] [id number] [place] 00:17:17 00:17:17 [facility] 2020-09-21 2020-09-21 Emergency DEVENDRA, [facility] [id number] [place] 00:17:12 00:17:12 [facility] 2020-09-20 2020-09-20 Emergency DEVENDRA, [facility] [id number] [place] 23:24:27 23:24:27 [facility] 2020-09-19 2020-09-19 Emergency TRAUMA [id number] 16:34:00 20:24:00 [place] 350.1.13.10 4.2.7.2.686 [id number] [id number] 2020-09-19 2020-09-19 Emergency ER [facility] Emergency [id number] [facility] 20:23:00 20:23:00 2020-09-19 2020-09-19 Emergency X [facility] ERT [id number] Univers 16:28:00 16:28:00 [facility] 2020-04-27 2020-04-27 Emergency E EUSEBIA, MHBL MHBL [id number] [facility]BL 12:45:00 13:10:00 TRAN 2020-02-23 2020-02-23 Emergency 1 Lambert Simone [facility] [id number] 18:33:00 21:25:00 Simone Verdin [facility] 2020-02-23 2020-02-23 Emergency 1 Lambert Simone [facility] [id number] 18:33:00 18:33:00 Simone Verdin -[id number] J [facility] 2020-01-17 2020-01-17 Emergency 1 Freya Cantrellferny [facility] [id number] 14:43:00 15:28:00 [facility] 2016-12-11 2016-12-11 Emergency [facility] [id number] [place] 22:14:06 22:14:06 Health Results Test Description Test Time Test Comments Results Result [facility] e Comments U/S, PELVIS, WITH 2020-09-20 [...] Taylor MDReport Verified Date/Time: 09/20/2020 01:52:04 -COV2/RT-PCR ([facility]) 2020-09-20 00:55:00 Test Item Value Reference Range Interpretation Comme nts SARS-COV2/RT-PCR Negative Not Performance of the Xpert Xpress SARS-CoV-2/Flu/RSV test has only been established in nasopharyngeal swab specimens. Use (test code = Detected, of the Xpert Xp ress SARS-CoV-2/Flu/RSV test with other specimen types has not been assessed and performance 6519798) Negative, characteristics are unknown. As with any [...] revoked sooner.Fact Sheet for Healthcare Prov iders: https://www.[employer]/Documents/Xpert%20Xpress%60KHOR-YoB-9-Flu-RSV/3024508%2 0Rev.%20B%20HCP%20Fact%20Sheet.pdfFact Sheet for [facility] Patients: https://www.[employer]/Documents/Xpert%20Xpress%10WDVN-CoS-0-Flu-RSV/3024507%2 0Rev.%20B%20Patient%20Fact%20Sheet.pdf SARS-COV-2 SLSL Performed at:[facility] [place], [place] [address]td: [phone] PERFORMING LAB (test code = 5526227) COMPREHENSIVE METABOLIC [id number] 23:43:00 Test Item Value Reference Range Interpretation [...] S NOT APPLICABLE FOR DIALYSIS PATIEN TS. Behavioral Health Counselor ID - [id number] ID - [id number] ID - [id number] ID - [id number] ID - [id number] ID - [id number] ID - [id number] ID - [id number] ID - [id number] ID - [id number] ID - [id number] ID - [id number] ID - [id number] ID - [id number] ID - [id number] ID - [id number] ID - [id number] ID - [id number] ID - [id number], ABDOMEN 2020-09-19 23:27:00With IV AND Oral contrast.Unlisted Reason for Exam - Click Yes and Enter Reason Below->NoWill this procedure require oral contrast?->NoCH[facility] : 1990 Sex: FFINAL [...] 09/19/2020 23:27:51 CBC W/PLT COUNT & AUTO [id number] 21:25:00 Test Item Value Reference Range Interpretation [...] PERCENT (BEAKER) (test code = 2801) SCREEN, [id number] 21:20:00 Test Item Value Reference Range Interpretation Comments TEST URINE (BEAKER) (test Negative code = 583) Creatine [id number] 21:02:48 Test Item Value Reference Range Interpretation Comments CK (test code = CK) 114 U/L 34-145 Comprehensive Metabolic [id number] 21:02:47 Test Item Value Reference Range Interpretation [...] = Lipemia) 0 g/dL 1-2 Comprehensive Metabolic [id number] 21:02:47 Test Item Value Reference Range Interpretation [...] = 0 g/dL 1-2 Lipemia) Comprehensive Metabolic [id number] 21:02:47 Test Item Value Reference Range Interpretation [...] not provided, and t he patient is -Gimla n, multiply by 1.2 12. If sex is not provided, and t he patient is fema le, multiply by 0.7 42. Results for pat ients <18 years of ag e have not been validated by e MDRD study and should be interpreted [...] not provided, and t he patient is femgrisel le, multiply by 0.7 42. Results for pat ients <18 years of ag e have not been validated by e MDRD study and should be interpreted [...] = 0 g/dL 1-2 Lipemia) HCG Qualitative [id number] 19:45:46 Test Item Value Reference Range Interpretation [...] 72 hours. Lot # (test code = [id number] N Lot #) Expiration Dt (test 01-06-21 N code = Expiration Dt) Neg Control (test Negative code = Neg Control) Pos Control (test Positive code = Pos Control) Internal QC (test Acceptable code = Internal QC) Urinalysis with Microscopic if [id number] 19:45:46 Test Item Value Reference Range Interpretation [...] Indicated Micro Ind?) Complete Blood Count with [id number] 19:17:51 Test Item Value Reference Range Interpretation [...] N code = Pos Morph XN) Automated [id number] 19:17:51 Test Item Value Reference Range Interpretation Comments Neutro Auto (test code = Neutro 46.1 % 36.0-70.0 Auto) Lymph Auto (test code = Lymph Auto) 45.9 % 12.0-44.0 H Potter Auto (test code = Potter Auto) 5.6 % 0.0-11.0 Eos, Auto (test code = Eos, Auto) 1.4 % 0.0-7.0 Basophil Auto (test code = Basophil 0.8 % 0.0-2.0 Auto) Neutro Absolute (test code = Neutro 2.9 x10 1.6-7.4 Absolute) Lymph Absolute (test code = Lymph 2.85 x10 .50-4.60 Absolute) Potter Absolute (test code = Potter .35 x10 .00-1.20 Absolute) Eos Absolute (test code = Eos 0.09 x10 0.00-0.74 Absolute) Baso Absolute (test code = Baso 0.05 x10 0.00-0.21 Absolute) IG [id number] 19:17:51 Test Item Value Reference Range Interpretation Comments IG (test code = IG) 0.2 % 0.0-5.0 IG Abs (test code = IG Abs) 0 x10 N Streptococcus A Screen Rapid w/ Reflex [id number] 15:21:41 Test Item Value Reference Range Interpretation Comments Strep A Scn (test code Positive Negative A Resul ts called to = Strep A Scn) and read back by: Ramona Deal 01/17/20 15:21:32 CDT GM Lot # (test code = Lot [id number] N #) Expiration Dt (test 08/21/2020 N code = Expiration Dt) Internal QC (test code Acceptable = Internal QC)
[2023-03-20 04:51] LABS: Absolute Lymphocytes (CBC) 2.5 K/uL (0.7-4.9); Hematocrit 37.5 % (36.0-45.0); Lymphocytes % 36.6 % (15.3-44.8); MCV 72.6 fL (80-100); MPV 9.5 fL (7.6-11.3); Platelets 181 thou/uL (152-406); RBC Red Blood Cell Count 5.17 M/uL (3.86-4.86)
[2023-03-20 05:03] LABS: Specific Gravity 1.026 (1.005-1.030); Urine Bacteria None Seen /HPF (<20); Urine Bilirubin NEGATIVE (Negative); Urine Blood Negative (Negative); Urine Clarity Extremely Turbid (Clear); Urine Color Yellow (Yellow); Urine Glucose NEGATIVE (Negative); Urine Mucus 3+ /HPF (None Seen); Urine Protein TRACE (Negative); Urine RBC <5 /HPF (None Seen); Urine Urobilinogen Normal (Normal); Urine WBC Clump Rare /HPF (None Seen); Urine pH 6.5 (5.0-7.0)
[2023-03-20] MEDS ORDERED: FAMOTIDINE 20 MG/2 ML VIAL IV ONE (05:06)
[2023-03-20] MEDS ORDERED: ONDANSETRON 4 MG/2 ML VIAL ONE (05:06)
[2023-03-20] MEDS ORDERED: NA CHLORIDE 0.9% 1,000 ML ONE (05:06)
[2023-03-20 05:15] LABS: ALT/SGPT 12 U/L (13-56); AST/SGOT 13 U/L (15-37); Albumin 3.6 g/dL (3.4-5.0); Alkaline Phosphatase 97 U/L (45-117); BUN Blood Urea Nitrogen 6 mg/dL (7-18); Bicarbonate 26 mEq/L (21-32); Bilirubin Total 0.5 mg/dL (0.2-1.0); Glomerular Filtration Rate 100 ml/min (=/>90); Glucose Level 101 mg/dL (74-106); Lipase 19 U/L (13-75); Potassium 3.7 mEq/L (3.5-5.1); Protein, Total 7.9 g/dL (6.4-8.2); Sodium Level 140 mEq/L (136-145); Troponin High Sensitivity < 3.0 pg/mL (<58.9)
--- NOTE | 2023-03-20 06:56 | EDPHYS ---
Physician Documentation [facility] Name: Aleksandra Cheng Age: 32 yrs Sex: Female : 1990 Arrival Date: 03/20/2023 Time: 03:37 Bed 13 Private MD: ED Physician Hunter Berumen Historical: - Allergies: 03/20 04:05 PENICILLINS; pf1 - PMHx: 04:05 Dermoid Tumor; depression; pf1 - PSHx: 04:05 section; Cholecystectomy; Ligation of fallopian tube; Oopherectomy and pf1 Salpingectomy-right; - Immunization history:: Adult Immunizations up to date, Client reports receiving the 2nd dose of the Covid vaccine, Last tetanus immunization: < 5 years ago Flu vaccine is not up to date. - Social history:: Smoking status: Reported history of juuling and/or vaping. Patient uses alcohol, occasionally. Patient/guardian denies using street drugs. Exam: 05:02 ECG was reviewed by the Attending Physician. ms3 Vital Signs: 03:42 BP 166 / 115; Pulse 65; Resp 16; Temp 98.2; Pulse Ox 100% on R/A; Weight 107.5 kg; pf1 Height 5 ft. 6 in. ; Pain 9/10; 05:49 BP 158 / 94; Pulse 68; Resp 16; Pulse Ox 100% ; jb4 06:30 BP 153 / 90; Pulse 59; Resp 16; Pulse Ox 100% on R/A; jb4 03:42 Body Mass Index 38.25 (107.50 kg, 167.64 cm) pf1 03:42 Pain Scale: Adult pf1 MDM: 04:04 Patient medically screened. ms3 03/20 04:05 Order name: CBC with Diff; Complete Time: 05:00 ms3 03/20 04:05 Order name: CMP; Complete Time: 05:16 ms3 03/20 04:05 Order name: Lipase; Complete Time: 05:16 ms3 03/20 04:05 Order name: Urinalysis w/ reflexes; Complete Time: 05:16 ms3 03/20 04:05 Order name: Troponin High Sensitivity; Complete Time: 05:16 ms3 03/20 04:05 Order name: CXR XRAY ms3 03/20 04:05 Order name: IV Saline Lock; Complete Time: 04:47 ms3 03/20 04:05 Order name: Labs collected and sent; Complete Time: 04:47 ms3 EC:02 Rate is 56 beats/min. Rhythm is regular. QRS [place] is Normal. MD interval is normal. QRS ms3 interval is normal. Clinical impression: Sinus bradycardia. Interpreted by me. Reviewed by me. Administered Medications: 05:00 Drug: NS 0.9% IV 1000 ml IV at 1 bolus Per protocol; 1000 mL bolus Route: IV; Rate: 1 jb4 bolus; Site: right antecubital; 05:00 Drug: Famotidine IVP 20 mg IVP once; dilute with 10 mL 0.9% NaCl; give over 2 minutes jb4 Route: IVP; Site: right antecubital; 05:00 Drug: Ondansetron IVP 4 mg IVP once; over 2 minutes Route: IVP; Site: right antecubital;jb4 Disposition Summary: 03/20/23 06:55 Discharge Ordered Notes: Location: Home ms3 Condition: Stable ms3 Diagnosis - Upper abdominal pain, unspecified ms3 - Chest pain, unspecified ms3 Followup: ms3 - With: Rajat Garner MD - When: 2 - 3 days - Reason: Recheck today's complaints Discharge Instructions: - Discharge Summary Sheet ms3 - Abdominal Pain, Adult ms3 - Nonspecific Chest Pain, Adult ms3 Forms: - Medication Reconciliation Form ms3 - Thank You Letter ms3 - Antibiotic Education ms3 - Prescription Opioid Use ms3 - Patient Portal Instructions ms3 - Leadership Thank You Letter ms3 Signatures: Dispatcher [employer] EDLewis Morin RN RN jb4 Hunter Berumen DO DO ms3 Jeanne Garza RN RN pf1 Corrections: (The following items were deleted from the chart) 04:08 04:05 PSHx: Cholecystectomy; pf1 pf1
--- NOTE | 2023-03-20 06:56 | ER ---
Nurse's Notes [facility] Name: Aleksandra Cheng Age: 32 yrs Sex: Female : 1990 Arrival Date: 03/20/2023 Time: 03:37 Bed 13 Private MD: Diagnosis: Upper abdominal pain, unspecified;Chest pain, unspecified Presentation: 03/20 03:42 Chief complaint: Patient states: bilateral chest pain that radiates to right arm, pf1 epigastric pain, lower abdominal pain of 9, vomiting x 1 episode with nausea,onset 2 days ago. 03:42 Coronavirus screen: Vaccine status: Patient reports receiving the 2nd dose of the covid pf1 vaccine. Client denies travel out of the [place] in the last 14 days. At this time, the client does not indicate any symptoms associated with coronavirus-19. Ebola Screen: Patient negative for fever greater than or equal to 101.5 degrees Fahrenheit, and additional compatible Ebola Virus Disease symptoms. Initial Sepsis Screen: Does the patient meet any 2 criteria? No. Patient's initial sepsis screen is negative. Does the patient have a suspected source of infection? No. Patient's initial sepsis screen is negative. Risk Assessment: Do you want to hurt yourself or someone else? Patient reports no desire to harm self or others. 03:42 Method Of Arrival: Ambulatory pf1 03:42 Acuity: VIN 3 pf1 Historical: - Allergies: 04:05 PENICILLINS; pf1 - PMHx: 04:05 Dermoid Tumor; depression; pf1 - PSHx: 04:05 section; Cholecystectomy; Ligation of fallopian tube; Oopherectomy and pf1 Salpingectomy-right; - Immunization history:: Adult Immunizations up to date, Client reports receiving the 2nd dose of the Covid vaccine, Last tetanus immunization: < 5 years ago Flu vaccine is not up to date. - Social history:: Smoking status: Reported history of juuling and/or vaping. Patient uses alcohol, occasionally. Patient/guardian denies using street drugs. Screenin:30 [facility] ED Fall Risk Assessment (Adult) History of falling in the last 3 months, jb4 including since admission No falls in past 3 months (0 pts) Confusion or Disorientation No (0 pts). Abuse screen: Denies threats or abuse. Nutritional screening: No deficits noted. Tuberculosis screening: No symptoms or risk factors identified. Assessment: 04:20 General: Appears in no apparent distress. comfortable, Behavior is calm, cooperative, jb4 appropriate for age. Pain:. Pain: Complains of pain in chest and abdomen Pain radiates to right arm Pain currently is 9 out of 10 on a pain scale. Neuro: Level of Consciousness is awake, alert, obeys commands, Oriented to person, place, time, situation. Cardiovascular: Patient's skin is warm and dry. Respiratory: Airway is patent Respiratory effort is even, unlabored, Respiratory pattern is regular, symmetrical. GI: Abdomen is non-distended, obese. : No signs and/or symptoms were reported regarding the genitourinary system. EENT: No signs and/or symptoms were reported regarding the EENT system. Derm: Skin is intact, Skin is pink, warm \\T\\ dry. Musculoskeletal: Circulation, motion, and sensation intact. Range of motion: intact in all extremities. 05:49 Reassessment: Patient appears in no apparent distress at this time. Patient and/or jb4 family updated on plan of care and expected duration. Pain level reassessed. Patient is alert, oriented x 3, equal unlabored respirations, skin warm/dry/pink. 07:02 Reassessment: Patient appears in no apparent distress at this time. Patient and/or jb4 family updated on plan of care and expected duration. Pain level reassessed. Patient is alert, oriented x 3, equal unlabored respirations, skin warm/dry/pink. Vital Signs: 03:42 BP 166 / 115; Pulse 65; Resp 16; Temp 98.2; Pulse Ox 100% on R/A; Weight 107.5 kg; pf1 Height 5 ft. 6 in. ; Pain 9/10; 05:49 BP 158 / 94; Pulse 68; Resp 16; Pulse Ox 100% ; jb4 06:30 BP 153 / 90; Pulse 59; Resp 16; Pulse Ox 100% on R/A; jb4 03:42 Body Mass Index 38.25 (107.50 kg, 167.64 cm) pf1 03:42 Pain Scale: Adult pf1 ED Course: 03:41 Patient arrived in ED. gm2 03:43 Hunter Berumen DO is Attending Physician. ms3 04:05 Triage completed. pf1 04:45 CXR XRAY In Process Unspecified. EDMS 06:30 Patient has correct armband on for positive identification. Bed in low position. Call jb4 light in reach. Side rails up X 1. Client placed on continuous cardiac and pulse oximetry monitoring. NIBP monitoring applied. 06:30 No provider procedures requiring assistance completed. IV discontinued, intact, jb4 bleeding controlled, No redness/swelling at site. Pressure dressing applied. 06:55 Rajat Garner MD is Referral Physician. ms3 Administered Medications: 05:00 Drug: NS 0.9% IV 1000 ml IV at 1 bolus Per protocol; 1000 mL bolus Route: IV; Rate: 1 jb4 bolus; Site: right antecubital; 05:00 Drug: Famotidine IVP 20 mg IVP once; dilute with 10 mL 0.9% NaCl; give over 2 minutes jb4 Route: IVP; Site: right antecubital; 05:00 Drug: Ondansetron IVP 4 mg IVP once; over 2 minutes Route: IVP; Site: right antecubital;jb4 Outcome: 06:55 Discharge ordered by . ms3 07:00 Discharged to home ambulatory, Pt left prior to receiving discharge instructions. jb4 states "The DrTulio is busy, I don't want to wait. I am going to [employer] for a second opinion." 07:03 Patient left the ED. pf1 Signatures: Dispatcher [employer] EDMS Lewis Triana, RN RN jb4 Hunter Berumen DO DO ms3 Jeanne Garza RN RN pf1 Sarah Beth Deshpande gm2 Corrections: (The following items were deleted from the chart) 04:08 04:05 PSHx: Cholecystectomy; pf1 pf1
[2023-03-20 07:17] VITALS: TEMP 98.2; O2SAT 100
[2023-03-20 07:19] VITALS: BP 153/90
--- NOTE | 2023-03-22 12:23 | RAD REPORT ---
EXAM DESCRIPTION: RAD - Chest Single View - 03/20/2023 4:43 am CLINICAL HISTORY: Female, 32 years old, CHEST PAIN TECHNIQUE: 1 view COMPARISON: None. FINDINGS: Soft tissue attenuation and beam underpenetration are present at the lower chest. Support devices: None. Lungs/pleura: No consolidation, pleural effusion, or pneumothorax. Heart and mediastinum: Cardiomediastinal silhouette has normal size and configuration. Other: No acute osseous findings. IMPRESSION: No acute cardiopulmonary findings. Electronically signed by: Vitaly Bello MD 03/20/2023 09:03 PM ASSESSMENT DIRECTOR Due to temporary technical issues with the PACS/Fluency reporting system, reports are being signed by the in house radiologist without review as a courtesy to ensure prompt reporting. The interpreting r adiologist is fully responsible for the content of the report.
--- NOTE | 2023-03-23 17:34 | EKG ---
Test Date: 2023-03-20 Test Time: 03:51:42 Midlevel Provider: MINERVA MEASUREMENT RESULTS: Intervals: Rate: 56 WV: 144 QRSD: 78 QT: 440 QTc: 424 [place]: P: 67 WV: 144 QRS: 55 T: 33 INTERPRETIVE STATEMENTS: Sinus bradycardia Otherwise normal ECG Compared to ECG 09/18/2020 13:35:09 Sinus rhythm no longer present Electronically Signed On 03-23-23 17:25:43 ONLINE MERCHANT by Rajat Garner
== END 2023-03-20 07:03 | disposition home or self-care (01) ==
LOC: ER 03:37
DX: R07.9 Chest pain, unspecified (principal); R10.13 Epigastric pain; Z88.0 Allergy status to penicillin
CPT/HCPCS: 93005; 85025; 81001; 36415; 84484; 83690; 80053; 71045; 96375; 96374; 99284; J2405; J7030

== ENCOUNTER → 2023-05-04 | Emergency (ER) | payer OTHER ==
[~2023-05-04] MED LIST: NA CHLORIDE 0.9% 1,000 ML ONE
[2023-05-04 14:47] LABS: Absolute Lymphocytes (CBC) 2.2 K/uL (0.7-4.9); Hematocrit 37.9 % (36.0-45.0); Lymphocytes % 36.4 % (15.3-44.8); MCV 75.8 fL (80-100); MPV 10.2 fL (7.6-11.3); Platelets 185 thou/uL (152-406)
[2023-05-04 15:08] LABS: Blood Morphology Comment NOT SEEN (NOT SEEN); Platelet Estimate ADEQ; White Blood Cell Scan OK (OK)
[2023-05-04 15:23] LABS: SARS-COV-2 RT PCR NEGATIVE (NEGATIVE)
[2023-05-04 15:43] LABS: Albumin 3.4 g/dL (3.4-5.0); Bilirubin Total 0.4 mg/dL (0.2-1.0); Protein, Total 7.5 g/dL (6.4-8.2)
[2023-05-04 15:46] LABS: Potassium 4.1 mEq/L (3.5-5.1)
--- NOTE | 2023-05-04 16:05 | ER ---
Nurse's Notes [facility] Name: Aleksandra Diaz Age: 33 yrs Sex: Female : 1990 Arrival Date: 05/04/2023 Time: 14:05 Bed 15 Private MD: Diagnosis: Viral infection, unspecified Presentation: 05/04 14:19 Chief complaint: Headache, painful cough, and fatigue x 2 days. Coronavirus screen: hb Client presents with at least one sign or symptom that may indicate coronavirus-19. Standard/surgical mask placed on the client. Provider contacted for isolation considerations. Ebola Screen: No symptoms or risks identified at this time. Initial Sepsis Screen: Does the patient meet any 2 criteria? No. Patient's initial sepsis screen is negative. Does the patient have a suspected source of infection? No. Patient's initial sepsis screen is negative. Risk Assessment: Do you want to hurt yourself or someone else? Patient reports no desire to harm self or others. Onset of symptoms was May 02, 2023. 14:19 Method Of Arrival: Ambulatory 14:19 Acuity: VIN 3 hb Historical: - Allergies: 14:20 PENICILLINS; hb - PMHx: 14:20 Depression; Dermoid Tumor; hb - PSHx: 14:20 Cholecystectomy; section; Ligation of fallopian tube; Oopherectomy and hb Salpingectomy-right; - Immunization history:: Adult Immunizations up to date. - Social history:: Smoking status: Patient denies any tobacco usage or history of. Screenin:08 [facility] ED Fall Risk Assessment (Adult) History of falling in the last 3 months, kd3 including since admission No falls in past 3 months (0 pts) Confusion or Disorientation No (0 pts) Intoxicated or Sedated No (0 pts) Impaired Gait No (0 pts) Mobility Assist Device Used No (0 pt) Altered Elimination No (0 pt) Score/Fall Risk Level 0 - 2 = Low Risk Maintained a safe environment. Abuse screen: Denies threats or abuse. Denies injuries from another. Nutritional screening: No deficits noted. Tuberculosis screening: No symptoms or risk factors identified. Assessment: 15:07 General: Appears in no apparent distress. Behavior is calm, cooperative. Pain: kd3 Complains of pain in headache. Neuro: Level of Consciousness is awake, alert, obeys commands, Oriented to person, place, time, situation. Cardiovascular: Patient's skin is warm and dry. Respiratory: Airway is patent Trachea midline Respiratory effort is even, unlabored, Respiratory pattern is regular, symmetrical. Vital Signs: 14:19 BP 140 / 105; Pulse 76; Resp 16; Temp 97.2(TE); Pulse Ox 100% on R/A; Weight 99.34 kg; hb Height 5 ft. 6 in. ; Pain 5/10; 15:07 BP 127 / 94; Pulse 64; Resp 19; Pulse Ox 99% on R/A; kd3 14:19 Body Mass Index 35.35 (99.34 kg, 167.64 cm) hb 14:19 Pain Scale: Adult hb ED Course: 14:08 Patient arrived in ED. mg5 14:09 Javon March MD is Attending Physician. ec2 14:20 Triage completed. hb 14:20 Arm band placed on. hb 14:23 Marcy Avelar, RN is Primary Nurse. kc6 14:41 Strep Sent. kd3 14:41 COVID-19/FLU A+B/RSV Sent. kd3 14:41 CMP Sent. kd3 14:41 CBC with Diff Sent. kd3 14:41 Inserted saline lock: 20 gauge in right antecubital area, using aseptic technique. kd3 Blood collected. 15:08 Patient has correct armband on for positive identification. Provided Education on: flu/ kd3 covid testing . 16:25 No provider procedures requiring assistance completed. IV discontinued, intact, kd3 bleeding controlled, No redness/swelling at site. Pressure dressing applied. Administered Medications: 14:41 Drug: NS 0.9% IV 1000 ml IV at 1 bolus Per protocol; 1000 mL bolus Route: IV; Rate: 1 kd3 bolus; Site: right antecubital; 16:25 Follow up: IV Status: Completed infusion; IV Intake: 1000ml kd3 Medication: 15:08 VIS not applicable for this client. kd3 Intake: 16:25 IV: 1000ml; Total: 1000ml. kd3 Outcome: 16:04 Discharge ordered by . ec2 16:25 Discharged to home ambulatory, kd3 16:25 Condition: stable 16:25 Discharge instructions given to patient, family, Instructed on discharge instructions, follow up and referral plans. Demonstrated understanding of instructions, follow-up care, medications, Prescriptions given X 1, 16:26 Patient left the ED. kd3 Signatures: Brenda Herrera RN RN hb Elen Rahman RN RN kd3 Marcy Avelar RN RN kc6 Luma Rutledge mg5 Javon March MD MD ec2 Corrections: (The following items were deleted from the chart) 14: 14:19 Pulse 76bpm; Resp 16bpm; Pulse Ox 100% RA; Temp 97.2F Temporal; hb hb 14: 14:19 Acuity: VIN 4 hb hb
--- NOTE | 2023-05-04 16:05 | EDPHYS ---
Physician Documentation [facility] Name: Aleksandra Diaz Age: 33 yrs Sex: Female : 1990 Arrival Date: 05/04/2023 Time: 14:05 Bed 15 Private MD: ED Physician Javon March HPI: 05/04 14:23 This 33 yrs old Black Female presents to ER via Ambulatory with complaints of Headache, ec2 Cough, Sore Throat, General Weakness. 14:23 Patient arrives today for URI signs and symptoms. Patient reports that she has been ec2 having 2 days of symptoms. States she is having cough and congestion along with sore throat. Patient reports no nausea or vomiting, denies any diarrhea symptoms, reports that she does have decreased p.o. intake.. Historical: - Allergies: 14:20 PENICILLINS; hb - PMHx: 14:20 Depression; Dermoid Tumor; hb - PSHx: 14:20 Cholecystectomy; section; Ligation of fallopian tube; Oopherectomy and hb Salpingectomy-right; - Immunization history:: Adult Immunizations up to date. - Social history:: Smoking status: Patient denies any tobacco usage or history of. ROS: 14:23 Constitutional: as per hpi ec2 Exam: 14:23 Constitutional: GEN: NAD Head: atraumatic Eyes: EOMI Ears: External ears are normal. ec2 Mouth: Posterior oropharynx erythema, anterior cervical lymphadenopathy CV: regular rate LUNGS: no respiratory distress, no wheezes, rales, rhonchi ABD: non-distended SKIN: no evidence of rashes MSK: no evidence of trauma NEURO: moves all extremities equally Vital Signs: 14:19 BP 140 / 105; Pulse 76; Resp 16; Temp 97.2(TE); Pulse Ox 100% on R/A; Weight 99.34 kg; hb Height 5 ft. 6 in. ; Pain 5/10; 15:07 BP 127 / 94; Pulse 64; Resp 19; Pulse Ox 99% on R/A; kd3 14:19 Body Mass Index 35.35 (99.34 kg, 167.64 cm) hb 14:19 Pain Scale: Adult hb MDM: 14:23 Data reviewed: vital signs. ED course: Patient arrives today for URI signs symptoms. ec2 Examination remarkable for nontoxic individual who is in no acute distress. Will obtain viral swabs, lab work as well as strep swab. Currently considering viral infection, strep pharyngitis. Low suspicion for pneumonia given the reassuring respiratory examination.. 14:28 Patient medically screened. ec2 15:54 ED course: CBC is reassuring. Metabolic profile with appropriate electrolytes, negative ec2 COVID testing, negative flu and RSV testing, negative strep testing. Suspect other viral process causing patient's symptoms. Will discharge home have follow-up with primary care doctor. Return precautions given. . 05/04 14:23 Order name: CBC with Diff; Complete Time: 15:53 ec2 05/04 14:23 Order name: CMP; Complete Time: 15:53 ec2 05/04 14:23 Order name: COVID-19/FLU A+B/RSV; Complete Time: 15:53 ec2 05/04 14:23 Order name: Strep; Complete Time: 15:53 ec2 05/04 14:50 Order name: CBC Smear Scan; Complete Time: 15:53 EDMS 05/04 14:55 Order name: Throat Culture EDMS Administered Medications: 14:41 Drug: NS 0.9% IV 1000 ml IV at 1 bolus Per protocol; 1000 mL bolus Route: IV; Rate: 1 kd3 bolus; Site: right antecubital; 16:25 Follow up: IV Status: Completed infusion; IV Intake: 1000ml kd3 Disposition Summary: 05/04/23 16:04 Discharge Ordered Notes: Location: Home ec2 Condition: Stable ec2 Diagnosis - Viral infection, unspecified ec2 Followup: ec2 - With: Private Physician - When: - Reason: Recheck today's complaints Discharge Instructions: - Discharge Summary Sheet ec2 - Viral Illness, Adult ec2 Forms: - Work release form ec2 - Medication Reconciliation Form ec2 - Thank You Letter ec2 - Antibiotic Education ec2 - Prescription Opioid Use ec2 - Patient Portal Instructions ec2 - Leadership Thank You Letter ec2 Prescriptions: - Compazine 10 mg Oral Tablet - take 1 tablet ORAL route every 8 hours As needed; 20 tablet; Refills: 0, ec2 Product Selection Permitted Signatures: Dispatcher [employer] Brenda Mota RN RN Elen Rahman RN RN kd3 Javon March MD MD ec2 Corrections: (The following items were deleted from the chart) 14:25 14:23 Constitutional: GEN: NAD Head: atraumatic Eyes: EOMI Ears: External ears are ec2 normal. Mouth: Posterior oropharynx erythema, anterior cervical lymphadenopathy CV: regular rate LUNGS: no respiratory distress, no wheezes, rales, rhonchi ABD: non-distended SKIN: no evidence of rashes MSK: no evidence of trauma NEURO: moves all extremities equally ec2
[2023-05-04 17:05] VITALS: BP 127/94; TEMP 97.2; O2SAT 99
== END ==
LOC: ER 14:05
DX: B34.9 Viral infection, unspecified (principal); Z11.52 Encounter for screening for COVID-19; Z88.0 Allergy status to penicillin
CPT/HCPCS: 96361; 87070; 85025; 36415; 87081; 80053; 0241U; 96360; 99284; J7030

== ENCOUNTER → 2023-06-07 | Emergency (ER) | payer OTHER ==
[~2023-06-07] MED LIST changes: +CLINDAMYCIN 900MG/D5W 900 MG/50 ML IVPB IV ONE; +MUPIROCIN 2% OINT 22GM TUBE TOP ONE; -NA CHLORIDE 0.9% 1,000 ML ONE; +SMZ./TMP. 800/160 MG TABLET ONE
--- NOTE | 2023-06-07 17:53 | ER ---
Nurse's Notes [facility] Name: Aleksandra Diaz Age: 33 yrs Sex: Female : 1990 Arrival Date: 06/07/2023 Time: 15:20 Bed 21 Private MD: Diagnosis: Cutaneous abscess, unspecified-LEFT CHEEK/JAW Presentation: 06/07 15:40 Chief complaint: Patient states: Pt c/o left side facial swelling since this morning. tl4 Pt states it has started to hurt now. Pt denies fever/chills. Coronavirus screen: Vaccine status: Patient reports receiving the 2nd dose of the covid vaccine. Ebola Screen: No symptoms or risks identified at this time. Initial Sepsis Screen: Does the patient meet any 2 criteria? No. Patient's initial sepsis screen is negative. Does the patient have a suspected source of infection? No. Patient's initial sepsis screen is negative. Risk Assessment: Do you want to hurt yourself or someone else? Patient reports no desire to harm self or others. Onset of symptoms was June 07, 2023. 15:40 Method Of Arrival: Ambulatory tl4 15:40 Acuity: VIN 4 tl4 Triage Assessment: 15:42 General: Appears in no apparent distress. Behavior is calm, cooperative. Pain: tl4 Complains of pain in face. EENT: No deficits noted. No signs and/or symptoms were reported regarding the EENT system. Neuro: No deficits noted. Cardiovascular: No deficits noted. Respiratory: No deficits noted. GI: No deficits noted. No signs and/or symptoms were reported involving the gastrointestinal system. : No deficits noted. No signs and/or symptoms were reported regarding the genitourinary system. Derm: Reports left side facial swelling. Historical: - Allergies: 15:42 PENICILLINS; tl4 - PMHx: 15:42 Depression; Dermoid Tumor; tl4 - PSHx: 15:42 section; Cholecystectomy; Ligation of fallopian tube; Oopherectomy and tl4 Salpingectomy-right; - Immunization history:: Adult Immunizations unknown. - Social history:: Smoking status: Reported history of juuling and/or vaping. Screenin:00 [facility] ED Fall Risk Assessment (Adult) Score/Fall Risk Level 0 - 2 = Low Risk nj1 Oriented to surroundings, Maintained a safe environment, Hourly rounding (assess needs \T\ fall precautionary measures) done. 16:00 Abuse screen: Denies threats or abuse. Denies injuries from another. Nutritional [facility] screening: No deficits noted. Tuberculosis screening: No symptoms or risk factors identified. Assessment: 16:00 Reassessment: See triage assessment. [facility] 17:50 Reassessment: Patient appears in no apparent distress at this time. Patient and/or nj1 family updated on plan of care and expected duration. Pain level reassessed. Patient is alert, oriented x 3, equal unlabored respirations, skin warm/dry/pink. 17:55 Reassessment: DC on hold, ABX gtt infusing at this time. nj1 18:22 Reassessment: Patient appears in no apparent distress at this time. Patient is alert, nj1 oriented x 3, equal unlabored respirations, skin warm/dry/pink. Vital Signs: 15:40 BP 169 / 96; Pulse 87; Resp 16; Temp 98.3; Pulse Ox 100% on R/A; Weight 104.33 kg; tl4 Height 5 ft. 6 in. ; Pain 10/10; 18:22 BP 154 / 107; Pulse 69; Resp 18; Pulse Ox 98% ; Pain 10/10; nj1 15:40 Body Mass Index 37.12 (104.33 kg, 167.64 cm) tl4 15:40 Pain Scale: Adult tl4 18:22 Pain Scale: Adult [facility] ED Course: 15:26 Patient arrived in ED. rg4 15:27 Qasim Arredondo MD is Attending Physician. [facility] 15:42 Triage completed. tl4 15:42 Arm band placed on right wrist. tl4 16:00 Patient has correct armband on for positive identification. Call light in reach. [facility] Provided Education on: call light, fall precautions. 16:02 Amelia Kim, CAS is Primary Nurse. nj1 17:51 Mary Zarate MD is Referral Physician. [facility] 17:51 Inserted saline lock: 22 gauge in right antecubital area, using aseptic technique. ms1 18:00 No provider procedures requiring assistance completed. [facility] 19:05 IV discontinued, intact, bleeding controlled. [facility] Administered Medications: 17:40 Drug: Trimethoprim-Sulfamethoxazole PO (160 mg-800 mg (DS) 1 tablet PO once Route: PO; nj1 18:22 Follow up: Response: No adverse reaction nj1 17:40 Drug: Mupirocin Topical Ointment 2 % 1 application Topical once Route: Topical; Site: nj1 chin; 18:22 Follow up: Response: No adverse reaction nj1 17:45 Not Given (Unavailable, new order obtained): [id number] mg IM once nj1 17:46 Not Given (Physician Discretion): mg PO once nj1 17:52 Drug: Clindamycin IVPB 900 mg IVPB once over 30 mins; (mix in 50 mL) Route: IVPB; nj1 Infused Over: 30 mins; Site: right antecubital; 18:22 Follow up: Response: No adverse reaction; IV Status: Completed infusion; IV Intake: [id number] Medication: 18:22 VIS not applicable for this client. nj1 Intake: 18:22 IV: 50ml; Total: 50ml. nj1 Outcome: 17:52 Discharge ordered by MD. palm 18:22 Discharged to home ambulatory, nj 18:22 Condition: stable 18:22 Discharge instructions given to patient, Instructed on discharge instructions, follow up and referral plans. medication usage, wound care, Demonstrated understanding of instructions, follow-up care, medications, wound care, Prescriptions given X 4, 19:05 Patient left the ED. nj1 Signatures: Qasim Arredondo MD MD cha Garcia, Rubi rg4 Amelia Kim, RN RN nj1 Young Hector tl4 Corrections: (The following items were deleted from the chart) 19:15 19:14 Patient left the ED. nj1 nj1
--- NOTE | 2023-06-07 17:53 | EDPHYS ---
Physician Documentation [facility] Name: Aleksandra Diaz Age: 33 yrs Sex: Female : 1990 Arrival Date: 06/07/2023 Time: 15:20 Bed 21 Private MD: ED Physician Qasim Arredondo HPI: 06/07 17:27 This 33 yrs old Black Female presents to ER via Ambulatory with complaints of Facial néstor Swelling. 17:27 The patient presents with an abscess of the face, The patient presents with cellulitis néstor of the left jaw. Description: The affected area is small, confluent, erythematous, fluctuant. Onset: The symptoms/episode began/occurred 3 day(s) ago. Modifying factors: the symptoms are alleviated by remaining still, the symptoms are aggravated by pressure, squeezing the lesion and expressing the contents. Severity of symptoms: At their worst the symptoms were moderate, in the emergency department the symptoms are unchanged. Historical: - Allergies: 15:42 PENICILLINS; tl4 - PMHx: 15:42 Depression; Dermoid Tumor; tl4 - PSHx: 15:42 section; Cholecystectomy; Ligation of fallopian tube; Oopherectomy and tl4 Salpingectomy-right; - Immunization history:: Adult Immunizations unknown. - Social history:: Smoking status: Reported history of juuling and/or vaping. ROS: 17:48 Constitutional: Negative for fever, chills, and weight loss, Eyes: Negative for injury, néstor pain, redness, and discharge, ENT: Negative for injury, pain, and discharge, Neck: Negative for injury, pain, and swelling, Cardiovascular: Negative for chest pain, palpitations, and edema, Respiratory: Negative for shortness of breath, cough, wheezing, and pleuritic chest pain, Abdomen/GI: Negative for abdominal pain, nausea, vomiting, diarrhea, and constipation, Back: Negative for injury and pain, : Negative for injury, bleeding, discharge, and swelling, MS/Extremity: Negative for injury and deformity, Neuro: Negative for headache, weakness, numbness, tingling, and seizure, Psych: Negative for depression, anxiety, suicide ideation, homicidal ideation, and hallucinations, Allergy/Immunology: Negative for hives, rash, and allergies, Endocrine: Negative for neck swelling, polydipsia, polyuria, polyphagia, and marked weight changes, Hematologic/Lymphatic: Negative for swollen nodes, abnormal bleeding, and unusual bruising, 17:48 Skin: Positive for abscess, cellulitis, swelling, of the left jaw, Exam: 17:48 Constitutional: This is a well developed, well nourished patient who is awake, alert, néstor and in no acute distress. Eyes: Pupils equal round and reactive to light, extra-ocular motions intact. Lids and lashes normal. Conjunctiva and sclera are non-icteric and not injected. Cornea within normal limits. Periorbital areas with no swelling, redness, or edema. ENT: Nares patent. No nasal discharge, no septal abnormalities noted. Tympanic membranes are normal and external auditory canals are clear. Oropharynx with no redness, swelling, or masses, exudates, or evidence of obstruction, uvula midline. Mucous membranes moist. Neck: Trachea midline, no thyromegaly or masses palpated, and no cervical lymphadenopathy. Supple, full range of motion without nuchal rigidity, or vertebral point tenderness. No Meningismus. Chest/axilla: Normal chest wall appearance and motion. Nontender with no deformity. No lesions are appreciated. Cardiovascular: Regular rate and rhythm with a normal S1 and S2. No gallops, murmurs, or rubs. Normal PMI, no JVD. No pulse deficits. Respiratory: Lungs have equal breath sounds bilaterally, clear to auscultation and percussion. No rales, rhonchi or wheezes noted. No increased work of breathing, no retractions or nasal flaring. Abdomen/GI: Soft, non-tender, with normal bowel sounds. No distension or tympany. No guarding or rebound. No evidence of tenderness throughout. Back: No spinal tenderness. No costovertebral tenderness. Full range of motion. Skin: Warm, dry with normal turgor. Normal color with no rashes, no lesions, and no evidence of cellulitis. MS/ Extremity: Pulses equal, no cyanosis. Neurovascular intact. Full, normal range of motion. Neuro: Awake and alert, GCS 15, oriented to person, place, time, and situation. Cranial nerves II-XII grossly intact. Motor strength 5/5 in all extremities. Sensory grossly intact. Cerebellar exam normal. Normal gait. Psych: Awake, alert, with orientation to person, place and time. Behavior, mood, and affect are within normal limits. 17:48 Head/face: Noted is erythema, that is mild, of the left jaw, swelling, that is mild, of the left jaw, tenderness, that is moderate, of the left jaw, Vital Signs: 15:40 BP 169 / 96; Pulse 87; Resp 16; Temp 98.3; Pulse Ox 100% on R/A; Weight 104.33 kg; tl4 Height 5 ft. 6 in. ; Pain 10/10; 18:22 BP 154 / 107; Pulse 69; Resp 18; Pulse Ox 98% ; Pain 10/10; nj1 15:40 Body Mass Index 37.12 (104.33 kg, 167.64 cm) tl4 15:40 Pain Scale: Adult tl4 18:22 Pain Scale: Adult nj1 MDM: 15:27 Patient medically screened. néstor 17:50 Differential diagnosis: abscess, cellulitis, insect bite. Data reviewed: vital signs, néstor nurses notes. Consideration of Admission/Observation Escalation of care including admission/observation considered. I considered the following discharge prescriptions or medication management in the emergency department Medications were administered in the Emergency Department. See MAR. Test considered but Not performed: Labs: NO LABS. Historians other than the Patient: PATIENT WELL INFORMED. Care significantly affected by the following chronic conditions: Obesity, DEPRESSION. Counseling: I had a detailed discussion with the patient and/or guardian regarding the historical points, exam findings, and any diagnostic results supporting the discharge/admit diagnosis, the need for outpatient follow up, for definitive care, an ENT specialist. Administered Medications: 17:40 Drug: Trimethoprim-Sulfamethoxazole PO (160 mg-800 mg (DS) 1 tablet PO once Route: PO; nj1 18:22 Follow up: Response: No adverse reaction nj1 17:40 Drug: Mupirocin Topical Ointment 2 % 1 application Topical once Route: Topical; Site: nj1 chin; 18:22 Follow up: Response: No adverse reaction nj1 17:45 Not Given (Unavailable, new order obtained): [id number] mg IM once nj1 17:46 Not Given (Physician Discretion): [id number] mg PO once nj1 17:52 Drug: Clindamycin IVPB 900 mg IVPB once over 30 mins; (mix in 50 mL) Route: IVPB; nj1 Infused Over: 30 mins; Site: right antecubital; 18:22 Follow up: Response: No adverse reaction; IV Status: Completed infusion; IV Intake: [id number] Disposition Summary: 06/07/23 17:52 Discharge Ordered Notes: Location: Home [facility] Problem: new [facility] Symptoms: have improved néstor Condition: Stable néstor Diagnosis - Cutaneous abscess, unspecified - LEFT CHEEK/JAW néstor Followup: néstor - With: Private Physician - When: 2 - 3 days - Reason: Recheck today's complaints, Continuance of care, Re-evaluation by your physician Followup: néstor - With: Mary Zarate MD - When: 2 - 3 days - Reason: Recheck today's complaints, Continuance of care, Re-evaluation by your physician Discharge Instructions: - Discharge Summary Sheet néstor - Skin Abscess néstor - Skin Abscess, [id number] [facility] Forms: - Medication Reconciliation Form [facility] - Thank You Letter [facility] - Antibiotic Education [facility] - Prescription Opioid Use [facility] - Patient Portal Instructions [facility] - Leadership Thank You Letter [facility] Prescriptions: - Centany 2 % Topical ointment - apply 1 application TOPICAL route 3 times per day; 15 gram; Refills: 0, Product [facility] Selection Permitted - acetaminophen-codeine 300-30 mg Oral tablet - take 2 tablet ORAL route every 6 hours PRN PAIN; 18 tablet; Refills: 0, Product [facility] Selection Permitted - Clindamycin HCl 300 mg Oral Capsule - take 1 capsule ORAL route every 6 hours for 10 days; 40 capsule; Refills: 0, [facility] Product Selection Permitted - Bactrim DS 800-160 mg Oral Tablet - take 1 tablet ORAL route every 12 hours for 10 days; 20 tablet; Refills: 0, [facility] Product Selection Permitted Signatures: Qasim Arredondo MD MD cha Jaco, Norma, RN RN nj1 KonstantinYoung tl4
[2023-06-08 05:08] VITALS: TEMP 98.3
[2023-06-08 05:21] VITALS: BP 154/107; O2SAT 98
== END ==
LOC: ER 15:20
DX: L02.01 Cutaneous abscess of face (principal); L03.211 Cellulitis of face; Z88.0 Allergy status to penicillin

== ENCOUNTER 2023-08-10 16:15 | Emergency (ER) | payer OTHER ==
[2023-08-10] MEDS ORDERED: HYDROCODONE/APAP 5/325 MG TAB ONE (16:28)
--- NOTE | 2023-08-10 17:36 | RAD REPORT ---
EXAM DESCRIPTION: RAD - Ankle Right 3 View - 08/10/2023 4:58 pm CLINICAL HISTORY: Pain;Swelling COMPARISON: No comparisons TECHNIQUE: Right ankle, 3 views. FINDINGS: No fracture, dislocation or periosteal reaction. Subtle focus of lucency adjacent to the m edial cortex of the distal tibial metaphysis, may represent a nonossifying fibroma. No joint effusion seen. No joint space narrowing. No soft tissue abnormality. IMPRESSION: Negative right ankle
--- NOTE | 2023-08-10 17:40 | EDPHYS ---
Physician Documentation [facility] Name: Aleksandra Diaz Age: 33 yrs Sex: Female : 1990 Arrival Date: 08/10/2023 Time: 16:15 Bed 12 Private MD: ED Physician Hunter Berumen HPI: 08/09 16:28 This 33 yrs old Black Female presents to ER via Wheelchair with complaints of Ankle ms3 Injury. 16:28 33-year-old female with past medical history of depression, dermoid tumor presents to [facility] the emergency department for right ankle pain status post twisting her ankle after stepping wrong approximately 20 minutes prior to arrival. Patient states pain is 10/10. Patient denies any alleviating or inciting factors. HEALTHCARE OR MEDICAL: 16:27 LMP N/A - , Not mb9 Historical: - Allergies: 16:25 PENICILLINS; mb9 - Home Meds: 16:25 None [Active]; mb9 - PMHx: 16:25 Depression; Dermoid Tumor; mb9 - PSHx: 16:25 section; Cholecystectomy; Ligation of fallopian tube; Oopherectomy and mb9 Salpingectomy-right; - Immunization history:: Adult Immunizations up to date. - Infectious Disease History:: Denies. - Social history:: Smoking status: Reported history of juuling and/or vaping. ROS: 16:28 Constitutional: Negative for fever, and chills. Cardiovascular: Negative for chest ms3 pain, and palpitations. Respiratory: Negative for shortness of breath, cough, wheezing, and pleuritic chest pain, Abdomen/GI: Negative for abdominal pain, nausea, vomiting, diarrhea, and constipation, Skin: Negative for injury, rash, and discoloration, 16:28 MS/extremity: Positive for pain, of the right ankle, Exam: 16:28 Constitutional: This is a well developed, well nourished patient who is awake, alert, ms3 and in no acute distress. Head/Face: Normocephalic, atraumatic. Chest/axilla: Normal chest wall appearance and motion. Nontender with no deformity. Cardiovascular: Regular rate and rhythm with a normal S1 and S2. No gallops, murmurs, or rubs. Normal PMI, no JVD. No pulse deficits. Respiratory: Lungs have equal breath sounds bilaterally, clear to auscultation and percussion. No rales, rhonchi or wheezes noted. No increased work of breathing, no retractions or nasal flaring. Abdomen/GI: Soft, non-tender, with normal bowel sounds. No distension or tympany. No guarding or rebound. No evidence of tenderness throughout. 16:28 Musculoskeletal/extremity: Extremities: noted in the right ankle: pain, swelling, tenderness, Vital Signs: 16:25 BP 158 / 99; Pulse 84; Resp 18; Temp 97.5; Pulse Ox 100% ; Weight 105.23 kg; Height 5 mb9 ft. 6 in. ; Pain 10/10; 17:59 BP 143 / 91; Pulse 56; Resp 17; Temp 97.7; ap3 16:25 Body Mass Index 37.45 (105.23 kg, 167.64 cm) mb9 16:25 Pain Scale: Adult mb9 MDM: 16:28 Differential diagnosis: fracture, sprain. ms3 16:42 Patient medically screened. ms3 08/09 16:24 Order name: Ankle Right 3 View XRAY; Complete Time: 17:37 ms3 08/09 16:34 Order name: Ice pack; Complete Time: 16:34 mb9 08/09 17:37 Order name: Crutches; Complete Time: 17:58 ms3 08/09 17:37 Order name: Aircast Ankle Splint; Complete Time: 17:58 ms3 Administered Medications: 16:29 Drug: HYDROcodone-acetaminophen PO 5 mg-325 mg 1 tabs PO once Route: PO; mb9 17:18 Follow up: Response: No adverse reaction mb9 Disposition Summary: 08/10/23 17:39 Discharge Ordered Notes: Location: Home ms3 Condition: Stable ms3 Diagnosis - Sprain of ankle ms3 Followup: ms3 - With: Toney Guallpa MD - When: 2 - 3 days - Reason: Recheck today's complaints Discharge Instructions: - Discharge Summary Sheet ms3 - Ankle Sprain, [id number] ms3 Forms: - Medication Reconciliation Form ms3 - Thank You Letter ms3 - Antibiotic Education ms3 - Prescription Opioid Use ms3 - Patient Portal Instructions ms3 - Leadership Thank You Letter ms3 Signatures: Dispatcher [employer] EDHunter Hanson DO DO ms3 Ewa Prettyh, RN RN mb9
--- NOTE | 2023-08-10 17:40 | ER ---
Nurse's Notes [facility] Name: Aleksandra Diaz Age: 33 yrs Sex: Female : 1990 Arrival Date: 08/10/2023 Time: 16:15 Bed 12 Private MD: Diagnosis: Sprain of ankle Presentation: 08/09 16:25 Chief complaint: Patient states: "I stepped wrong and rolled my right ankle. I can mb9 barley walk on it". Coronavirus screen: Vaccine status: Patient reports receiving the 2nd dose of the covid vaccine. Ebola Screen: No symptoms or risks identified at this time. Initial Sepsis Screen: Does the patient meet any 2 criteria? No. Patient's initial sepsis screen is negative. Does the patient have a suspected source of infection? No. Patient's initial sepsis screen is negative. Risk Assessment: Do you want to hurt yourself or someone else? Patient reports no desire to harm self or others. Onset of symptoms was August 10, 2023. 16:25 Acuity: VIN 4 mb9 16:25 Method Of Arrival: Wheelchair 9 Triage Assessment: 16:26 General: Appears in no apparent distress. Behavior is calm, cooperative. Pain: mb9 Complains of pain in right foot Pain radiates to right leg Pain currently is 10 out of 10 on a pain scale. Quality of pain is described as throbbing, Pain began suddenly, Is continuous, Aggravated by increased activity, repositioning, weight bearing. EENT: No signs and/or symptoms were reported regarding the EENT system. Neuro: Baumann Agitation-Sedation Scale (RASS): 0 - Alert and Calm Level of Consciousness is awake, alert, obeys commands, Oriented to person, place, time, situation, Appropriate for age. Cardiovascular: Patient's skin is warm and dry. Respiratory: Airway is patent Respiratory effort is even, unlabored, Respiratory pattern is regular, symmetrical. GI: No signs and/or symptoms were reported involving the gastrointestinal system. : No signs and/or symptoms were reported regarding the genitourinary system. Derm: Skin is pink, warm \\T\\ dry. Musculoskeletal: Range of motion: limited in right ankle. AUDIOLOGY DIRECTOR: 16:27 LMP N/A - , Not mb9 Historical: - Allergies: 16:25 PENICILLINS; mb9 - Home Meds: 16:25 None [Active]; mb9 - PMHx: 16:25 Depression; Dermoid Tumor; mb9 - PSHx: 16:25 section; Cholecystectomy; Ligation of fallopian tube; Oopherectomy and mb9 Salpingectomy-right; - Immunization history:: Adult Immunizations up to date. - Infectious Disease History:: Denies. - Social history:: Smoking status: Reported history of juuling and/or vaping. Screenin:27 [facility] ED Fall Risk Assessment (Adult) History of falling in the last 3 months, mb9 including since admission Yes- single mechanical fall (1 pt) Confusion or Disorientation No (0 pts) Intoxicated or Sedated No (0 pts) Impaired Gait Yes (1 pt) Mobility Assist Device Used No (0 pt) Altered Elimination No (0 pt) Score/Fall Risk Level 3 or more points = High Risk Oriented to surroundings, Maintained a safe environment, Educated pt \\T\\ family on fall prevention, incl call for assistance when getting out of bed. Abuse screen: Denies threats or abuse. Nutritional screening: No deficits noted. Tuberculosis screening: No symptoms or risk factors identified. Assessment: 17:18 Reassessment: No changes from previously documented assessment. Patient and/or family mb9 updated on plan of care and expected duration. Pain level reassessed. Patient is alert, oriented x 3, equal unlabored respirations, skin warm/dry/pink. Vital Signs: 16:25 BP 158 / 99; Pulse 84; Resp 18; Temp 97.5; Pulse Ox 100% ; Weight 105.23 kg; Height 5 mb9 ft. 6 in. ; Pain 10/10; 17:59 BP 143 / 91; Pulse 56; Resp 17; Temp 97.7; ap3 16:25 Body Mass Index 37.45 (105.23 kg, 167.64 cm) mb9 16:25 Pain Scale: Adult mb9 ED Course: 16:19 Patient arrived in ED. mg5 16:19 Hunter Berumen DO is Attending Physician. ms3 16:19 Ewa Pretty, CAS is Primary Nurse. mb9 16:25 Arm band placed on. mb9 16:26 Triage completed. mb9 16:27 Placed in gown. Bed in low position. Call light in reach. Side rails up X 1. Client mb9 placed on continuous cardiac and pulse oximetry monitoring. NIBP monitoring applied. 16:27 Provided Education on: press call light if needing anythiing. mb9 16:27 No provider procedures requiring assistance completed. mb9 16:35 Door closed. Noise minimized. mb9 16:35 Wound care: ice pack applied. mb9 17:00 Ankle Right 3 View XRAY In Process Unspecified. EDMS 17:39 Toney Guallpa MD is Referral Physician. ms3 17:59 Patient did not have IV access during this emergency room visit. ap3 Administered Medications: 16:29 Drug: HYDROcodone-acetaminophen PO 5 mg-325 mg 1 tabs PO once Route: PO; mb9 17:18 Follow up: Response: No adverse reaction mb9 Medication: 16:27 VIS not applicable for this client. mb9 Outcome: 17:39 Discharge ordered by . ms3 17:59 Discharged to home with crutches, ap3 17:59 Condition: good 17:59 Discharge instructions given to patient, Instructed on discharge instructions, follow up and referral plans. crutch walking, Demonstrated understanding of instructions, follow-up care, crutch walking, 18:00 Patient left the ED. ap3 Signatures: Dispatcher [employer] EDMS Sury Gupta RN RN ap3 Hunter Berumen DO DO ms3 Ewa Pretty, RN RN mb9 Luma Rutledge mg5
[2023-08-10 18:26] VITALS: BP 143/91; TEMP 97.7; O2SAT 100
== END 2023-08-10 18:00 | disposition home or self-care (01) ==
LOC: ER 16:15
DX: S93.401A Sprain of unspecified ligament of right ankle, initial encounter (principal)

== ENCOUNTER 2024-02-24 23:49 | Emergency (ER) | payer OTHER ==
--- NOTE | 2024-02-25 00:26 | ER ---
Nurse's Notes [facility] Name: Aleksandra Diaz Age: 33 yrs Sex: Female : 1990 Arrival Date: 02/24/2024 Time: 23:49 Bed DX2 Private MD: Diagnosis: Acute upper respiratory infection, unspecified;Acute Viral Pharyngitis Presentation: 02/24 00:50 Chief complaint: Patient states: FEVER, COUGH, SORE THROAT. ha1 00:50 Coronavirus screen: Vaccine status: Patient reports receiving the 1st dose of the Covid ha1 vaccine. Ebola Screen: No symptoms or risks identified at this time. Initial Sepsis Screen: Does the patient meet any 2 criteria? No. Patient's initial sepsis screen is negative. Does the patient have a suspected source of infection? No. Patient's initial sepsis screen is negative. Risk Assessment: Do you want to hurt yourself or someone else? Patient reports no desire to harm self or others. Onset of symptoms was February 25, 2024. 00:50 Method Of Arrival: Ambulatory ha1 00:50 Acuity: VIN 3 ha1 Historical: - Allergies: 01:00 PENICILLINS; ha1 - PMHx: 01:00 Depression; Dermoid Tumor; ha1 - PSHx: 01:00 section; Cholecystectomy; Ligation of fallopian tube; Oopherectomy and ha1 Salpingectomy-right; - Immunization history:: Adult Immunizations up to date. - Infectious Disease History:: Denies. - Social history:: Smoking status: Patient denies any tobacco usage or history of. Screenin/18 23:59 [facility] ED Fall Risk Assessment (Adult) History of falling in the last 3 months, ha1 including since admission No falls in past 3 months (0 pts) Confusion or Disorientation No (0 pts) Intoxicated or Sedated No (0 pts) Impaired Gait No (0 pts) Mobility Assist Device Used No (0 pt) Altered Elimination No (0 pt) Score/Fall Risk Level 0 - 2 = Low Risk Oriented to surroundings, Maintained a safe environment, Educated pt \\T\\ family on fall prevention, incl call for assistance when getting out of bed, Hourly rounding (assess needs \\T\\ fall precautionary measures) done. Abuse screen: Denies threats or abuse. Denies injuries from another. Nutritional screening: No deficits noted. Tuberculosis screening: No symptoms or risk factors identified. Assessment: 23:59 Reassessment: PATIENT STATED " I HAVE TO GO CAN YOU PLEASE CANCEL THE ORDERS, I HAVE ha1 SOMETHING IMPORTANT TO DO". INFORMED PATIENT WE WERE READY TO START CARE. 23:59 General: Appears comfortable, Behavior is calm, cooperative. Pain: Complains of pain in ha1 SORE THROAT. Neuro: Level of Consciousness is awake, alert, obeys commands, Oriented to person, place, time, situation. Cardiovascular: Patient's skin is warm and dry. Respiratory: Airway is patent Respiratory effort is even, unlabored, Respiratory pattern is regular, symmetrical. 23:59 Reassessment: patient walked out before walked out before being able to get vitals. ha1 02/24 01:00 Respiratory: Reports SORE THROAT Airway is patent Respiratory effort is even, ha1 unlabored, Respiratory pattern is regular, symmetrical, Breath sounds are clear bilaterally. 01:00 GI: Abdomen is round obese, Reports lower abdominal pain. EENT: Throat is reddened. ha1 Derm: Skin is healthy with good turgor, Skin is moist, Skin is normal. Musculoskeletal: Circulation, motion, and sensation intact. 02:00 Reassessment: Patient and/or family updated on plan of care and expected duration. Pain ha1 level reassessed. Patient is alert, oriented x 3, equal unlabored respirations, skin warm/dry/pink. 03:00 Reassessment: Patient and/or family updated on plan of care and expected duration. Pain ha1 level reassessed. Patient is alert, oriented x 3, equal unlabored respirations, skin warm/dry/pink. 03:34 Reassessment: REQUESTING TO BE DISCHARGE. NOTIFIED DR. CARVAJAL . [facility] 03:34 Reassessment: REQUESTING IV TO BE REMOVE STATES " IF YOU DON'T REMOVE IT I WILL REMOVE ha1 IT". 03:45 Reassessment: PATIENT REPORTING TO BE UP SET BECAUSE BECAUSE THE WAS NOT GOING TO ha1 TALK TO HER. EXPLAINED TO PATIENT THE NEED TO WAIT TO COMPLETE CARE. PATIENT INSULTING THIS NURSE. Vital Signs: 00:50 BP 177 / 100; Pulse 89; Resp 17 S; Temp 98.9(T); Pulse Ox 100% on R/A; Weight 98.88 kg; ha1 Height 5 ft. 7 in. ; 02:00 BP 165 / 95; Pulse 89; Resp 17 S; Pulse Ox 98% on R/A; ha1 00:50 Body Mass Index 34.14 (98.88 kg, 170.18 cm) ha1 ED Course: 02/23 23:50 Patient arrived in ED. jj6 23:55 Qasim Corea PA is PHCP. cp 23:55 Low Carvajal MD is Attending Physician. cp 02/24 00:16 Low Carvajal MD is Attending Physician. sp4 01:00 Patient has correct armband on for positive identification. Bed in low position. Call ha1 light in reach. Side rails up X 1. 01:00 Arm band placed on right wrist. ha1 :00 Warm blanket given. ha1 01:00 Provided Education on: PLAN OF CARE . ha1 :29 Inserted saline lock: 20 gauge in right antecubital area, using aseptic technique. af3 Blood collected. Flushed with 10 mL NS. 01:31 Magdalena Beaulieu, CAS is Primary Nurse. ha1 :31 Influenza Screen (a \\T\\ B) Sent. ha1 :31 SARS RAPID Sent. ha05 09: CBC with Diff Sent. :31 CMP Sent. :31 Lipase Sent. ha1 01:34 Triage completed. ha1 03:34 IV discontinued, intact, bleeding controlled, No redness/swelling at site. Pressure ha1 dressing applied. 04:00 No provider procedures requiring assistance completed. ha1 Administered Medications: 01:35 Drug: Dextromethorphan-Guaifenesin PO Liquid 10 mg-100 mg/5 mL 10 ml PO once Route: PO; ha1 02:00 Follow up: Response: No adverse reaction; Marked relief of symptoms ha1 01:35 Drug: Ketorolac PO 10 mg PO once Route: PO; ha1 05:44 Follow up: Response: No adverse reaction ha1 01:35 Drug: Promethazine PO 25 mg PO once Route: PO; ha1 02:00 Follow up: Response: No adverse reaction ha1 01:35 Drug: Acetaminophen PO 1000 mg PO once Route: PO; ha1 02:00 Follow up: Response: No adverse reaction ha1 01:35 Drug: diphenhydrAMINE PO 50 mg PO once Route: PO; ha1 02:00 Follow up: Response: No adverse reaction ha1 01:35 Drug: NS 0.9% IV 1000 ml IV at 1000 ml once; to be given as a bolus over 60 minutes ha1 Route: IV; Rate: 1000 ml; Site: left antecubital; 03:20 Follow up: Response: No adverse reaction; IV Status: Completed infusion; IV Intake: ha1 1000ml Medication: 04:00 VIS not applicable for this client. ha1 Intake: 03:20 IV: 1000ml; Total: 1000ml. ha1 Outcome: 02/23 23:59 Patient left the ED. ha1 02/24 04:00 Discharge ordered by . sp4 04:00 Discharged to home ambulatory, ha1 04:00 Condition: stable 04:00 Discharge instructions given to patient, Instructed on discharge instructions, 04:00 Patient left the ED. ha1 Signatures: Qasim Corea PA PA cp Jeffries, Jennifer jj6 Magdalena Beaulieu RN RN ha1 Low Carvajal MD MD sp4 Brittany Gonzalez af3 Corrections: (The following items were deleted from the chart) 00:26 00:25 Patient left the ED. ha1 ha1 00:27 02/23 02:59 Patient left the ED. ha1 ha1 02/24 04:20 04:19 Patient left the ED. ha1 ha1 05:40 03:23 IV discontinued, intact, bleeding controlled, No redness/swelling at site. ha1 Pressure dressing applied, ha1
--- NOTE | 2024-02-25 00:26 | EDPHYS ---
Physician Documentation [facility] Name: Aleksandra Diaz Age: 33 yrs Sex: Female : 1990 Arrival Date: 02/24/2024 Time: 23:49 Bed DX2 Private MD: ED Physician Low Cavrajal HPI: 02/24 00:16 This 33 yrs old Black Female presents to ER via Unassigned with complaints of Fever, sp4 Sore Throat, Congestion, General Weakness, Pelvic Pain. 00:25 Left prior to MD exam . sp4 Historical: - Allergies: 01:00 PENICILLINS; ha1 - PMHx: 01:00 Depression; Dermoid Tumor; ha1 - PSHx: 01:00 section; Cholecystectomy; Ligation of fallopian tube; Oopherectomy and ha1 Salpingectomy-right; - Immunization history:: Adult Immunizations up to date. - Infectious Disease History:: Denies. - Social history:: Smoking status: Patient denies any tobacco usage or history of. Vital Signs: 00:50 BP 177 / 100; Pulse 89; Resp 17 S; Temp 98.9(T); Pulse Ox 100% on R/A; Weight 98.88 kg; ha1 Height 5 ft. 7 in. ; 02:00 BP 165 / 95; Pulse 89; Resp 17 S; Pulse Ox 98% on R/A; ha1 00:50 Body Mass Index 34.14 (98.88 kg, 170.18 cm) ha1 MDM: 02/23 23:59 Medical Screening Exam initiated cp 02/24 00:17 Order name: CBC with Diff; Complete Time: 03:40 sp4 02/24 00:17 Order name: CMP; Complete Time: 02:42 sp4 02/24 00:17 Order name: Lipase; Complete Time: 02:42 sp4 02/24 00:17 Order name: Test, Urine; Complete Time: 02:42 sp4 02/24 00:17 Order name: Urinalysis w/ reflexes; Complete Time: 02:42 sp4 02/24 01:41 Order name: CBC Smear Scan; Complete Time: 03:40 EDMS 02/24 00:17 Order name: IV Saline Lock; Complete Time: 01:29 sp4 02/24 00:17 Order name: Labs collected and sent; Complete Time: 01: sp4 Administered Medications: 02/24 01:35 Drug: Dextromethorphan-Guaifenesin PO Liquid 10 mg-100 mg/5 mL 10 ml PO once Route: PO; ha1 02:00 Follow up: Response: No adverse reaction; Marked relief of symptoms ha1 :35 Drug: Ketorolac PO 10 mg PO once Route: PO; ha1 05:44 Follow up: Response: No adverse reaction 1 :35 Drug: Promethazine PO 25 mg PO once Route: PO; ha1 02:00 Follow up: Response: No adverse reaction 1 :35 Drug: Acetaminophen PO 1000 mg PO once Route: PO; ha1 02:00 Follow up: Response: No adverse reaction 1 :35 Drug: diphenhydrAMINE PO 50 mg PO once Route: PO; ha1 02:00 Follow up: Response: No adverse reaction :35 Drug: NS 0.9% IV 1000 ml IV at 1000 ml once; to be given as a bolus over 60 minutes ha1 Route: IV; Rate: 1000 ml; Site: left antecubital; 03:20 Follow up: Response: No adverse reaction; IV Status: Completed infusion; IV Intake: ha1 1000ml Disposition: 00:25 Chart complete. sp4 Disposition Summary: 02/25/24 04:00 Discharge Ordered Notes: Location: Home sp4 Problem: new(02/25/24 04:00) sp4 Symptoms: have improved(02/25/24 04:00) sp4 Condition: Stable(02/25/24 04:00) sp4 Diagnosis - Acute upper respiratory infection, unspecified sp4 - Acute Viral Pharyngitis sp4 Followup: sp4 - With: Private Physician - When: 7 - 10 days - Reason: Recheck today's complaints Discharge Instructions: - Discharge Summary Sheet sp4 - Upper Respiratory Infection, Adult sp4 Forms: - Patient Portal Instructions sp4 Signatures: Dispatcher [employer] EDMS Qasim Corea PA PA cp Ayala, Heidy RN RN ha1 Low Carvajal MD MD sp4 Corrections: (The following items were deleted from the chart) 00:17 00:17 CBC+H.LAB.BRZ ordered. EDMS EDMS 00:17 00:17 COMPREHENSIVE METABOLIC PANEL+C.LAB.BRZ ordered. EDMS EDMS 00: 00:17 LIPASE+C.LAB.BRZ ordered. EDMS EDMS 00: 00:17 Test, Urine+UC.LAB.BRZ ordered. EDMS EDMS 00: 00:17 Urinalysis+U.LAB.BRZ ordered. EDMS EDMS 00:25 before being seen by provider sp4 rv1 00:25 new sp4 rv1 00: are unchanged sp4 rv1 00:25 (see nurse's notes) sp4 rv1 00:25 Undetermined sp4 rv1 00:25 Fever, unspecified sp4 rv1
[2024-02-25 01:31] LABS: Absolute Eosinophils 0.1 K/uL (0-0.5); Absolute Lymphocytes (CBC) 0.9 K/uL (0.7-4.9); Absolute Monocytes 0.3 K/uL (0.1-1.3); Absolute Neutrophil 1.9 K/uL (1.8-8.0); Basophils % 1.3 % (0-1.3); Eosinophils % 2.7 % (0-4.4); Hematocrit 36.2 % (36.0-45.0); Hemoglobin 11.3 g/dL (12.0-15.0); Lymphocytes % 26.7 % (15.3-44.8); MCH 22.9 pg (27.0-35.0); MCHC 31.2 g/dL (32.0-36.0); MCV 73.6 fL (80-100); MPV 10.6 fL (7.6-11.3); Monocytes % 10.2 % (3.3-12.3); Neutrophils % 59.1 % (41.7-73.7); Nucleated Red Blood Cells % 0.1 % (0-0); Platelets 112 thou/uL (152-406); RBC Red Blood Cell Count 4.92 M/uL (3.86-4.86)
[2024-02-25 01:39] LABS: Albumin 3.4 g/dL (3.4-5.0); Albumin/Globulin Ratio 0.9 (1.1-1.8); Alkaline Phosphatase 82 U/L (45-117); Anion Gap 8.7 mEq/L (5.0-15.0); BUN Blood Urea Nitrogen 6 mg/dL (7-18); Bicarbonate 25 mEq/L (21-32); Bilirubin Total 0.3 mg/dL (0.2-1.0); Globulin 3.8 g/dL (2.3-3.5); Glomerular Filtration Rate 109 ml/min (=/>90); Glucose Level 95 mg/dL (74-106); Lipase 21 U/L (13-75); Potassium 3.7 mEq/L (3.5-5.1); Protein, Total 7.2 g/dL (6.4-8.2); Sodium Level 140 mEq/L (136-145)
[2024-02-25 01:40] LABS: ALT/SGPT < 14 U/L (13-56); AST/SGOT < 10 U/L (15-37)
[2024-02-25] MEDS ORDERED: KETOROLAC 10 MG TAB ONE (01:47)
[2024-02-25] MEDS ORDERED: ACETAMINOPHEN 500 MG TAB ONE (01:48)
[2024-02-25] MEDS ORDERED: DIPHENHYDRAMINE 25 MG TAB/CAP ONE (01:48)
[2024-02-25] MEDS ORDERED: PROMETHAZINE 25 MG TABLET ONE (01:48)
[2024-02-25] MEDS ORDERED: GUAIFENESIN/DM 5 ML UCUP ONE (01:49)
[2024-02-25] MEDS ORDERED: NA CHLORIDE 0.9% 1,000 ML ONE (01:49)
[2024-02-25 02:04] LABS: Specific Gravity 1.025 (1.005-1.030); Sqamous Epithelial 20-50 /HPF (None Seen); Urine Bacteria 20-50 /HPF (<20); Urine Bilirubin NEGATIVE (Negative); Urine Blood Negative (Negative); Urine Clarity Extremely Turbid (Clear); Urine Color Yellow (Yellow); Urine Culture Reflex Order NOT NEEDED; Urine Glucose NEGATIVE (Negative); Urine Ketones NEGATIVE (Negative); Urine Microscopic Reflex YN ORDER UMIC; Urine Mucus 4+ /HPF (None Seen); Urine Nitrite NEGATIVE (Negative); Urine Protein 1+ (Negative); Urine RBC <5 /HPF (None Seen); Urine Urobilinogen Normal (Normal); Urine WBC <5 /HPF (<5)
[2024-02-25 03:22] LABS: Anisocytosis 1+; Blood Morphology Comment NOTED (NOT SEEN); Hypochromasia 2+; Microcytosis 2+; Ovalocytes 3+; Platelet Estimate ADEQ; White Blood Cell Scan OK (OK)
[2024-02-25 09:52] VITALS: TEMP 98.9
[2024-02-25 10:02] VITALS: BP 165/95; O2SAT 98
== END 2024-02-25 04:19 | disposition home or self-care (01) ==
LOC: ER 23:49
DX: J02.8 Acute pharyngitis due to other specified organisms (principal)
CPT/HCPCS: 96361; 85025; 81001; 36415; 81025; 83690; 80053; 96360; 99284; Q0169; J7030